=== PATIENT | male | born 1930 | race Caucasian/White ===

== ENCOUNTER 2016-10-01 13:23 | Inpatient (IN) | payer MEDICARE, BC ==
[2016-10-01] MEDS ORDERED: SODIUM CHLORIDE 0.9% 1,000 ML IV STA (13:59)
[2016-10-01] MEDS ORDERED: SODIUM CHLORIDE 0.9% 500 ML IV STA (13:59)
--- NOTE | 2016-10-01 14:02 | ED ---
General Adult HPI - General Chief complaint: Neuro Symptoms/Deficit Stated complaint: Dr Sent/Eye problem/poss Stroke Time Seen by Provider: 10/01/16 13:38 Source: patient, RN notes reviewed, old records reviewed Mode of arrival: wheelchair Limitations: no limitations - History of Present Illness Initial comments: This is an 86-year-old male the ER for evaluation. This patient presents here for evaluation of left eye vision loss. Patient does have history of atrial fibrillation no prior history of stroke. No prior history of heart disease. Patient coming in not on aspirin. Patient was seen by his bacteriology research assistant for evaluation, no ocular cause found for loss of vision, patient was transferred to ER for further evaluation and treatment. Patient remains asymptomatic, no vision issues or vision loss, no field or depth of field losses, no other neurological complaints. - Related Data Home Medications Medication Instructions Recorded Confirmed Folic Acid 2 mg PO DAILY 10/10/14 10/01/16 Meclizine [Antivert] 25 mg PO DAILY PRN 10/10/14 10/01/16 Metoprolol Succinate [Toprol XL] 25 mg PO BID 10/10/14 10/01/16 Montelukast [Singulair] 10 mg PO HS 10/10/14 10/01/16 Omeprazole [PriLOSEC] 20 mg PO AC-BRKFST 10/10/14 10/01/16 Apixaban [Eliquis] 2.5 mg PO BID 02/04/15 10/01/16 Ipratropium Nebulized [Atrovent 0.5 mg INHALATION RT-QID PRN 02/04/15 10/01/16 Nebulized] Spironolactone [Aldactone] 12.5 mg PO QAM 02/04/15 10/01/16 Levalbuterol HCl [Xopenex 1.25 mg INHALATION RT-QID PRN 02/05/15 10/01/16 Nebulized] Calcium Carbonate/Vitamin D3 1 tab PO DAILY 10/01/16 10/01/16 [Calcium 600-Vit D3 200 Tablet] Cholecalciferol [Vitamin D3] 1,000 unit PO DAILY 10/01/16 10/01/16 Furosemide [Lasix] 60 mg PO DAILY 10/01/16 10/01/16 Gluc/Steven-MSM#1/C/Yassine/Juan Miguel/Bor 1 tab PO DAILY 10/01/16 10/01/16 [Glucosamine-Chondroitin Tablet] Levothyroxine Sodium [Synthroid] 175 mcg PO DAILY 10/01/16 10/01/16 Alexandria-3 Fatty Acids [Alexandria-3] 1,000 mg PO DAILY 10/01/16 10/01/16 Allergies Allergy/AdvReac Type Severity Reaction Status Date / Time naproxen [From Naprosyn] Allergy GI BLEED Verified 10/01/16 13:54 Tetracyclines Allergy Unknown Verified 10/01/16 13:54 zomepirac Allergy GI BLEED Verified 10/01/16 13:54 benzocaine [From Cetacaine] AdvReac Nausea & Verified 10/01/16 13:54 Vomiting butamben [From Cetacaine] AdvReac Nausea & Verified 10/01/16 13:54 Vomiting meperidine HCl [From Demerol] AdvReac Nausea & Verified 10/01/16 13:54 Vomiting tetracaine [From Cetacaine] AdvReac Nausea & Verified 10/01/16 13:54 Vomiting duprenex Allergy Nausea & Uncoded 10/01/16 13:36 Vomiting Review of Systems ROS Statement: Those systems with pertinent positive or pertinent negative responses have been documented in the HPI. ROS Other: All systems not noted in ROS Statement are negative. Past Medical History Past Medical History: Atrial Fibrillation, Asthma, Heart Failure, COPD, Diabetes Mellitus, GERD/Reflux, Hypertension, Pneumonia, Thyroid Disorder Additional Past Medical History / Comment(s): 02/05/15 Pt admitted to floor s/p DANY/CVN. 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 Additional hx: vertigo on occasion, past hx. ulcer, diet controlled diabetes, hemolytic anemia, hypothyroidism, History of Any Multi-Drug Resistant Organisms: None Reported Past Surgical History: Appendectomy, Cholecystectomy, Joint Replacement, Orthopedic Surgery Additional Past Surgical History / Comment(s): 02/05/15 DANY/CVN, 10/24/14 bronchoscopy with lavage, 10/24/14 laryngoscopy, right total hip replaced, arthroscopies bilateral knees, R rotator cuff surgery. Past Anesthesia/Blood Transfusion Reactions: Motion Sickness, Postoperative Nausea & Vomiting (PONV) Additional Past Anesthesia/Blood Transfusion Reaction / Comment(s): UNK FAMILY HX.NEVER HAS HAD BLOOD TRANSFUSION Past Psychological History: No Psychological Hx Reported Additional Psychological History / Comment(s): Retired. No service. No animal exposures. 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 Lives with spouse. PT is independent. He uses no assistive device and no home care. He drives a car. Smoking Status: Former smoker Past Alcohol Use History: None Reported Additional Past Alcohol Use History / Comment(s): Pt started smoking in 1964 and quit in 1974. Past Drug Use History: None Reported - Past Family History Mother Family Medical History: CVA/TIA Father Family Medical History: Hypertension General Exam - General Exam Comments Initial Comments: NIH of 0 Limitations: no limitations General appearance: alert, in no apparent distress Head exam: Present: atraumatic, normocephalic, normal inspection Eye exam: Present: normal appearance, PERRL, EOMI. Absent: scleral icterus, conjunctival injection, periorbital swelling ENT exam: Present: normal exam, mucous membranes moist Neck exam: Present: normal inspection. Absent: tenderness, meningismus, lymphadenopathy Respiratory exam: Present: normal lung sounds bilaterally. Absent: respiratory distress, wheezes, rales, rhonchi, stridor Cardiovascular Exam: Present: regular rate, normal rhythm, normal heart sounds. Absent: systolic murmur, diastolic murmur, rubs, gallop, clicks GI/Abdominal exam: Present: soft, normal bowel sounds. Absent: distended, tenderness, guarding, rebound, rigid Extremities exam: Present: normal inspection, full ROM, normal capillary refill. Absent: tenderness, pedal edema, joint swelling, calf tenderness Back exam: Present: normal inspection Neurological exam: Present: alert, oriented X3, CN II-XII intact Psychiatric exam: Present: normal affect, normal mood Skin exam: Present: warm, dry, intact, normal color. Absent: rash Course Vital Signs 10/01/16 10/01/16 13:32 15:26 Temperature 97.4 F L Pulse Rate 53 L 49 L Respiratory 17 18 Rate Blood Pressure 130/58 139/79 O2 Sat by Pulse 97 94 L Oximetry - Reevaluation(s) Reevaluation #1: 10/01/16 15:43 Patient remains without visual symptom at this time EKG Findings - EKG Comments: EKG Findings:: EKG shows sinus bradycardia rate of 54, SC 246, QRS 154, QTc 440 Medical Decision Making - Lab Data Result diagrams: 10/01/16 15:01 10/01/16 15:01 Lab Results 10/01/16 10/01/16 Range/Units 15:01 15:01 WBC 4.5 (3.8-10.6) k/uL RBC 3.43 L (4.30-5.90) m/uL Hgb 11.8 L (13.0-17.5) gm/dL Hct 35.3 L (39.0-53.0) % MCV 103.0 H (80.0-100.0) fL MCH 34.5 (25.0-35.0) pg MCHC 33.5 (31.0-37.0) g/dL RDW 13.9 (11.5-15.5) % Plt Count 155 (150-450) k/uL Neutrophils % 73 % Lymphocytes % 19 % Monocytes % 4 % Eosinophils % 2 % Basophils % 0 % Neutrophils # 3.3 (1.3-7.7) k/uL Lymphocytes # 0.9 L (1.0-4.8) k/uL Monocytes # 0.2 (0-1.0) k/uL Eosinophils # 0.1 (0-0.7) k/uL Basophils # 0.0 (0-0.2) k/uL Macrocytosis Slight Sodium 138 (137-145) mmol/L Potassium 4.3 (3.5-5.1) mmol/L Chloride 101 (98-107) mmol/L Carbon Dioxide 28 (22-30) mmol/L Anion Gap 9 mmol/L BUN 21 H (9-20) mg/dL Creatinine 0.80 (0.66-1.25) mg/dL Est GFR (MDRD) Af Amer >60 (>60 ml/min/1.73 sqM) Est GFR (MDRD) Non-Af >60 (>60 ml/min/1.73 sqM) Glucose 143 H (74-99) mg/dL Calcium 8.8 (8.4-10.2) mg/dL Phosphorus 3.9 (2.5-4.5) mg/dL Magnesium 2.0 (1.6-2.3) mg/dL Total Bilirubin 4.4 H (0.2-1.3) mg/dL AST 29 (17-59) U/L ALT 41 (21-72) U/L Alkaline Phosphatase 73 (38-126) U/L Total Protein 6.4 (6.3-8.2) g/dL Albumin 4.2 (3.5-5.0) g/dL Critical Care Time Critical Care Time: Yes Total Critical Care Time: 31 Disposition Clinical Impression: Transient cerebral ischemia, Amaurosis fugax of left eye Disposition: ADMITTED IP TO THIS [facility] Condition: Good Referrals: Barrington Ojeda MD [Primary Care Provider] - 1-2 days
[2016-10-01 15:12] LABS: Basophils % (A) 0 %; CH 35.2; CHCM 34.4; Eosinophils # (A) 0.1 k/uL (0-0.7); Eosinophils % (A) 2 %; HCT 35.3 % (39.0-53.0); HDW 2.74; HGB 11.8 gm/dL (13.0-17.5); Luc # (Auto) 0.05; Luc % (Auto) 1; Lymphocytes # (A) 0.9 k/uL (1.0-4.8); Lymphocytes % (A) 19 %; MCH 34.5 pg (25.0-35.0); MCHC 33.5 g/dL (31.0-37.0); Macrocytosis Slight; Mean Platelet Volume 8.9; Monocytes # (A) 0.2 k/uL (0-1.0); Monocytes % (A) 4 %; Neutrophils # (A) 3.3 k/uL (1.3-7.7); Neutrophils % (A) 73 %; RBC 3.43 m/uL (4.30-5.90); RDW 13.9 % (11.5-15.5); WBC 4.5 k/uL (3.8-10.6); WBC (Perox) 4.68
--- NOTE | 2016-10-01 15:18 | CT ---
EXAMINATION TYPE: CT brain wo con DATE OF EXAM: 10/01/2016 3:14 PM COMPARISON: NONE HISTORY: Left sided vision loss yesterday CT DLP: [address] of the brain was performed. The ventricles, basal cisterns and sulci overlying the cerebral convexities demonstrate mild enlargem ent. There is no evidence for intracranial hemorrhage or sulcal effacement. There is decreased attenuation about the periventricular white matter and deep white matter of both c erebral hemispheres, compatible with chronic small vessel ischemia. Differential diagnosis does inclu de demyelination. No mass effects are seen.No midline shift. Osseous calvarium is intact. If symptoms persist consider MRI. IMPRESSION: 1. Age related atrophic and chronic small vessel ischemic change without acute intracranial process s een at this time.
[2016-10-01 15:21] LABS: ALT 41 U/L (21-72); AST 29 U/L (17-59); Alkaline Phosphatase 73 U/L (38-126); Anion Gap 9 mmol/L; Blood Urea Nitrogen 21 mg/dL (9-20); Calcium 8.8 mg/dL (8.4-10.2); Carbon Dioxide 28 mmol/L (22-30); Chloride 101 mmol/L (98-107); Glucose 143 mg/dL (74-99); Non-African American GFR(MDRD) >60 (>60 ml/min/1.73 sqM); Phosphorous 3.9 mg/dL (2.5-4.5); Potassium 4.3 mmol/L (3.5-5.1); Sodium 138 mmol/L (137-145); Total Bilirubin 4.4 mg/dL (0.2-1.3); Total Protein 6.4 g/dL (6.3-8.2)
[2016-10-01 15:31] LABS: Creatine Kinase 107 U/L (55-170)
[2016-10-01] MEDS ORDERED: ASPIRIN 325 MG TAB PO STA (15:33)
[2016-10-01 15:34] LABS: Partial Thromboplastin Time 24.7 sec (22.0-30.0); Prothrombin Time 10.5 sec (9.0-12.0)
[2016-10-01 15:45] LABS: Troponin I <0.012 ng/mL (0.000-0.034)
[2016-10-01 15:50] LABS: Creatine Kinase MB 3.3 ng/mL (0.0-2.4)
--- NOTE | 2016-10-01 16:26 | US ---
EXAMINATION TYPE: US carotid duplex BILAT DATE OF EXAM: 10/01/2016 4:10 PM COMPARISON: NONE CLINICAL HISTORY: Stenosis, patient lost vision in one eye. EXAM MEASUREMENTS: RIGHT: Peak Systolic Velocity (PSV) cm/sec ----- Right CCA: 78.1 ----- Right ICA: 84.2 ----- Right ECA: 73.4 ICA/CCA ratio: 1.1 RIGHT: End Diastole cm/sec ----- Right CCA: 13.6 ----- Right ICA: 13.6 ----- Right ECA: 0.0 LEFT: Peak Systolic Velocity (PSV) cm/sec ----- Left CCA: 98.6 ----- Left ICA: 71.5 ----- Left ECA: 76.5 ICA/CCA ratio: 0.7 LEFT: End Diastole cm/sec ----- Left CCA: 17.1 ----- Left ICA: 17.5 ----- Left ECA: 9.9 VERTEBRALS (direction of flow): Right Vertebral: Antegrade Left Vertebral: Antegrade IMPRESSION: Mild to moderate plaque with no significant velocity elevations Criteria for Assigning % of Stenosis / Diameter reduction (Estimation based on the indirect measurements of the internal carotid artery velocities (ICA PSV). 1. Normal (no stenosis)=ICA PSV < 125 cm/s: ratio < 2.0: ICA EDV<40 cm/s. 2. Less than 50% stenosis=ICA PSV < 125 cm/s: ratio < 2.0: ICA EDV<40 cm/s. 3. 50 to 69% stenosis=ICA PSV of 125 to 230 cm/s: ration 2.0 ? 4.0: ICA EDV 40-100 cm/s. 4. Greater than 70% stenosis to near occlusion= ICA PSV > 230 cm/s: ratio > 4.0: ICA EDV > 100 cm/s. 5. Near occlusion= ICA PSV velocities may be low or undetectable: variable ratio and ICA EDV. 6. Total occlusion=unable to detect flow.
[2016-10-01] MEDS: SODIUM CHLORIDE 0.9% 1,000 ML IV SCH (17:41)
[2016-10-01] MEDS ORDERED: LEVALBUTEROL NEB 1.25 MG/3 ML AMP INHALATION PRN (20:45)
[2016-10-01] MEDS ORDERED: IPRATROPIUM 0.5 MG/2.5 ML NEBU INHALATION PRN (20:45)
[2016-10-01] MEDS ORDERED: MECLIZINE 25 MG TAB PO PRN (20:45)
[2016-10-01 20:55] LABS: Glucose,Whole Blood 133 mg/dL (75-99)
[2016-10-01] MEDS: METOPROLOL SUCCINATE (ER) 25 MG TAB.ER.24H PO SCH (22:02)
[2016-10-01] MEDS: APIXABAN 2.5 MG TABLET PO SCH (22:03)
[2016-10-01] MEDS: ATORVASTATIN 80 MG TAB PO SCH (22:03)
[2016-10-01] MEDS: MONTELUKAST 10 MG TAB PO SCH (22:04)
[2016-10-02 06:14] LABS: Glucose,Whole Blood 115 mg/dL (75-99)
[2016-10-02] MEDS: PANTOPRAZOLE 40 MG TABLET PO SCH (06:39)
--- NOTE | 2016-10-02 08:44 | ECHOF ---
Referral Reason:Thrombus MEASUREMENTS -------- HEIGHT: 180.3 cm WEIGHT: 88.5 kg BP: IVSd: 1.3 cm (0.6 - 1.1) LVIDd: 4.1 cm (3.9 - 5.3) LVPWd: 1.5 cm (0.6 - 1.1) IVSs: 2.1 cm LVIDs: 2.7 cm LVPWs: 2.0 cm Ao Diam: 4.2 cm (2.0 - 3.7) AV Cusp: 2.5 cm (1.5 - 2.6) LA Diam: 3.4 cm (2.7 - 3.8) MV EXCURSION: 23.037 mm (> 18.000) MV EF SLOPE: 128 mm/s (70 - 150) EPSS: 0.4 cm MV E Oliver: 0.56 m/s MV DecT: 303 ms MV A Oliver: 0.73 m/s MV E/A Ratio: 0.76 RAP: 5.00 mmHg RVSP: 12.99 mmHg FINDINGS -------- Resting bradycardia (HR<60bpm). This was a technically good study. There is mild concentric left ventricular hypertrophy. Overall left ventricular systolic function is low-normal with, an EF between 50 - 55 %. The right ventricle is normal in size and function. The left atrium is normal in size. The right atrium is normal in size. Aortic valve is trileaflet and is mildly thickened. The mitral valve leaflets are mildly thickened. Mild mitral regurgitation is present. Mild tricuspid regurgitation present. The right ventricular systolic pressure, as measured by Doppler, is 12.99mmHg. Pulmonic valve appears structurally normal. The pericardium is normal. CONCLUSIONS -------- 1. Resting bradycardia (HR<60bpm). 2. Mild mitral regurgitation is present. 3. Mild tricuspid regurgitation present. 4. The right ventricular systolic pressure, as measured by Doppler, is 12.99mmHg. 5. Pulmonic valve appears structurally normal. 6. The pericardium is normal. 7. This was a technically good study. 8. There is mild concentric left ventricular hypertrophy. 9. Overall left ventricular systolic function is low-normal with, an EF between 50 - 55 %. 10. The right ventricle is normal in size and function. 11. The left atrium is normal in size. 12. The right atrium is normal in size. 13. Aortic valve is trileaflet and is mildly thickened. 14. The mitral valve leaflets are mildly thickened. PLUMBER APPRENTICE: Ashley Villalta RDCS
[2016-10-02] MEDS: SPIRONOLACTONE 25 MG TAB PO SCH (09:01)
[2016-10-02] MEDS: FOLIC ACID 1 MG TAB PO SCH (09:02)
[2016-10-02] MEDS: CHOLECALCIFEROL 1,000 UNIT TAB PO SCH (09:02)
[2016-10-02] MEDS: ASPIRIN 325 MG TAB PO SCH (09:02)
[2016-10-02] MEDS: FUROSEMIDE 20 MG TAB PO SCH (09:02)
[2016-10-02] MEDS: APIXABAN 2.5 MG TABLET PO SCH ×2 (09:02→20:10)
[2016-10-02] MEDS: LEVOTHYROXINE 75 MCG TAB PO SCH (09:03)
[2016-10-02] MEDS: LEVOTHYROXINE 100 MCG TAB PO SCH (09:03)
[2016-10-02] MEDS: CALCIUM CARB-VIT D 500MG-200UN 1 EACH TAB PO SCH (09:03)
[2016-10-02] MEDS: METOPROLOL SUCCINATE (ER) 25 MG TAB.ER.24H PO SCH ×3 (09:04→20:10)
[2016-10-02 11:55] LABS: Hemoglobin A1C 5.3 % (4.2-6.1)
[2016-10-02 12:00] LABS: Glucose,Whole Blood 110 mg/dL (75-99)
--- NOTE | 2016-10-02 12:58 | CONS ---
DATE OF CONSULTATION: This is an 86-year-old gentleman who came to the ER with history of blurry vision left eye. Patient went to see Dr. Kimbrough and patient was sent to the emergency room and was admitted. This blurry vision lasted for less than 10 minutes and patient had complete recovery. There is no evidence of any motor deficit. Patient had a CT scan of the head which was no acute bleeding noted. Patient had ultrasound of the carotids which showed no critical stenosis. MEDICAL HISTORY: History of A. fib on Eliquis, history of diabetes controlled with diet. SURGICAL HISTORY: Patient had a hip surgery done in the past. On examination, patient was seen in his room. His vitals are stable. Lying comfortably in bed. His neck is supple. No bruit appreciated. Chest is clear on auscultation. Abdomen is soft, nontender. VASCULAR EXAMINATION: Brachial, radial and femoral pulses are present. CENTRAL NERVOUS SYSTEM: Patient has ( ) motor function of upper and lower extremity. Plan is ( ) Eliquis. We will antiplatelet therapy. At this point, ultrasound no critical stenosis noted. Patient is scheduled to have echocardiogram and neurology consult. Will follow with you.
--- NOTE | 2016-10-02 14:34 | P.CNNES ---
History of Present Illness Consult date: 10/02/16 Reason for Consult: Patient with amaurosis fugax left eye and TIA. History of Present Illness: This patient is a 86-year-old right-handed white male who was in his usual state of health until evening. Patient was at home with his and apparently was reading a book and noted that he was having difficulty seeing out of his left eye. Apparently he became very blurred and he describes it as if there was a shade pulled down over the eye that caused him to lose vision in the left eye for at least 5 minutes in duration. He continued to monitor this closely at home. Since the vision returned he did not go to the emergency room for further evaluation. The next day he was seen by his black top paver operator Dr. Kimbrough who did a complete eye examination. His eye exam was entirely normal. He was advised to follow-up with his primary care physician. His primary care physician Dr. Dietz recommended that he go to the emergency room for further evaluation. Patient has a known history of underlying atrial fibrillation. He has been treated for his atrial fib and is currently taking Eloquis for long- term anticoagulation. He has not had any recent TIA or strokelike symptoms. He denies any previous history of stroke. He has not missed his anticoagulant medication as he does take it twice a day. He does follow with his cadd manager Dr. Pollack and apparently had a good evaluation recently. Patient mentions he also has a history of adverse reaction to Coumadin and aspirin in the past. Apparently had hematuria and bleeding when he was initially started on Coumadin. He has been taking Eloquis for the past 1 year. He has not had any bleeding problems on this medication. Patient mentions he also was diagnosed with hemolytic anemia in the past. He does take folate acid and monitored his blood counts on a regular basis with his lacquer shader. The patient was admitted to the hospital for possible TIA and amaurosis fugax involving the left eye. He did undergo a computed tomography scan of the brain yesterday in the ER which revealed age related atrophy and chronic small vessel ischemic changes. There was no evidence of acute stroke. He underwent a carotid Doppler ultrasound which revealed mild to moderate plaque formation bilaterally. The patient was seen by vascular surgery today. No surgical intervention is recommended at this time. The patient has had no further recurrence of visual changes involving his left eye since admission. We would recommend that he follow-up with his cadd manager in regards to his anticoagulant medication. He may benefit from the addition of one baby aspirin if he is not at risk of bleeding. The patient at this time has had no further recurrence and remains asymptomatic. Neurology is now been consulted for further evaluation and recommendations. Review of Systems Constitutional: Reports as per HPI Eyes: denies blurred vision, denies pain Ears, nose, mouth and throat: Denies headache, Denies sore throat Cardiovascular: Denies chest pain, Denies shortness of breath Respiratory: Denies cough Gastrointestinal: Denies abdominal pain, Denies diarrhea, Denies nausea, Denies vomiting Musculoskeletal: Denies myalgias Integumentary: Denies pruritus, Denies rash Neurological: Reports loss of vision, Denies numbness, Denies weakness Psychiatric: Denies anxiety, Denies depression Endocrine: Denies fatigue, Denies weight change Past Medical History Past Medical History: Atrial Fibrillation, Asthma, Heart Failure, COPD, Diabetes Mellitus, GERD/Reflux, Hypertension, Pneumonia, Thyroid Disorder Additional Past Medical History / Comment(s): 02/05/15 DANY/CVN. 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 ulcer, diet controlled diabetes, hemolytic anemia, hypothyroidism deviated septum(had sx) History of Any Multi-Drug Resistant Organisms: None Reported Past Surgical History: Appendectomy, Cholecystectomy, Joint Replacement, Orthopedic Surgery Additional Past Surgical History / Comment(s): 02/05/15 DANY/CVN, 10/24/14 bronchoscopy with lavage, 10/24/14 laryngoscopy, right total hip replaced, arthroscopies bilateral knees, R rotator cuff surgery. sx for deviated septum, karlene cataracts Past Anesthesia/Blood Transfusion Reactions: Motion Sickness, Postoperative Nausea & Vomiting (PONV) Additional Past Anesthesia/Blood Transfusion Reaction / Comment(s): UNK FAMILY HX.NEVER HAS HAD BLOOD TRANSFUSION Past Psychological History: No Psychological Hx Reported Additional Psychological History / Comment(s): Retired. No service. No animal exposures. 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 Lives with spouse. PT is independent. He uses no assistive device and no home care. He drives a car. Smoking Status: Former smoker Past Alcohol Use History: None Reported Additional Past Alcohol Use History / Comment(s): Pt started smoking in 1964 and quit in 1974. Past Drug Use History: None Reported - Past Family History Mother Family Medical History: CVA/TIA Father Family Medical History: Hypertension Medications and Allergies Home Medications Medication Instructions Recorded Confirmed Type Folic Acid 2 mg PO DAILY 10/10/14 10/01/16 History Meclizine [Antivert] 25 mg PO DAILY PRN 10/10/14 10/01/16 History Metoprolol Succinate [Toprol XL] 25 mg PO BID 10/10/14 10/01/16 History Montelukast [Singulair] 10 mg PO HS 10/10/14 10/01/16 History Omeprazole [PriLOSEC] 20 mg PO AC-BRKFST 10/10/14 10/01/16 History Apixaban [Eliquis] 2.5 mg PO BID 02/04/15 10/01/16 History Ipratropium Nebulized [Atrovent 0.5 mg INHALATION RT-QID PRN 02/04/15 10/01/16 History Nebulized] Spironolactone [Aldactone] 12.5 mg PO QAM 02/04/15 10/01/16 History Levalbuterol HCl [Xopenex 1.25 mg INHALATION RT-QID PRN 02/05/15 10/01/16 History Nebulized] Calcium Carbonate/Vitamin D3 1 tab PO DAILY 10/01/16 10/01/16 History [Calcium 600-Vit D3 200 Tablet] Cholecalciferol [Vitamin D3] 1,000 unit PO DAILY 10/01/16 10/01/16 History Furosemide [Lasix] 60 mg PO DAILY 10/01/16 10/01/16 History Gluc/Steven-MSM#1/C/Yassine/Juan Miguel/Bor 1 tab PO DAILY 10/01/16 10/01/16 History [Glucosamine-Chondroitin Tablet] Levothyroxine Sodium [Synthroid] 175 mcg PO DAILY 10/01/16 10/01/16 History [place]-3 Fatty Acids [Winger-3] 1,000 mg PO DAILY 10/01/16 10/01/16 History Allergies Allergy/AdvReac Type Severity Reaction Status Date / Time naproxen [From Naprosyn] Allergy GI BLEED Verified 10/01/16 13:54 Tetracyclines Allergy Unknown Verified 10/01/16 13:54 zomepirac Allergy GI BLEED Verified 10/01/16 13:54 benzocaine [From Cetacaine] AdvReac Nausea & Verified 10/01/16 13:54 Vomiting butamben [From Cetacaine] AdvReac Nausea & Verified 10/01/16 13:54 Vomiting meperidine HCl [From Demerol] AdvReac Nausea & Verified 10/01/16 13:54 Vomiting tetracaine [From Cetacaine] AdvReac Nausea & Verified 10/01/16 13:54 Vomiting duprenex Allergy Nausea & Uncoded 10/01/16 13:36 Vomiting Physical Examination - Vital Signs Vital Signs: Vital Signs Temp Pulse Pulse Resp BP BP Pulse Ox 10/02/16 12:01 60 10/02/16 12:00 56 L 17 128/73 95 10/02/16 11:50 60 10/02/16 09:15 96 10/02/16 08:00 98.1 F 55 L 18 120/59 95 10/02/16 04:00 97.1 F L 52 L 18 126/64 96 10/02/16 00:00 97.1 F L 52 L 18 143/78 95 10/01/16 20:00 98.0 F 50 L 18 121/63 95 10/01/16 17:52 18 10/01/16 17:29 97.4 F L 52 L 18 145/63 94 L 10/01/16 16:39 52 L 18 145/63 94 L Intake and Output 10/01/16 10/02/16 10/02/16 22:59 06:59 14:59 Intake Total 36 480 Balance 36 480 Intake: Oral 36 480 Other: Voiding Method Toilet Toilet # Voids 1 1 # Bowel Movements 0 Weight 195.6 kg 88.2 kg - Constitutional General appearance: average body habitus, cooperative - EENT EENT: PERRL, mucous membranes moist - Respiratory Respiratory: lungs clear, normal breath sounds - Cardiovascular Cardiovascular: regular rate, normal S1, normal S2 Extremities: no peripheral edema bilaterally - Gastrointestinal Gastrointestinal: normoactive bowel sounds - Integumentary Integumentary: normal - Neurologic Cranial nerve examination: PERRL, EOMI, VFF, V1/V2/V3 grossly intact, face symmetric, tongue midline, intact gag reflex, intact corneal reflex, normal palatal elevation Speech examination: intact Sensorimotor examination: intact Detailed motor examination: grossly full strength in all extremities Motor examination - right side: 5/5: biceps, triceps, wrist flexion, wrist extension, wind turbine machinist, hip flexors, knee extensors, dorsiflexion, toe extension (EHL) , plantarflexion Motor examination - left side: 5/5: biceps, triceps, wrist flexion, wrist extension, wind turbine machinist, hip flexors, knee extensors, dorsiflexion, toe extension (EHL) , plantarflexion Detailed sensory examination: intact Reflex and gait examination: intact Reflexes: 1+: ankle, bicep, knee, tricep - Musculoskeletal Musculoskeletal: no pain - Psychiatric Psychiatric: mood/affect appropriate, cooperative Results - Laboratory Findings CBC and BMP: 10/01/16 15:01 10/01/16 15:01 Abnormal Lab Findings: Abnormal Labs 10/01/16 10/02/16 10/02/16 20:54 06:13 11:48 POC Glucose (mg/dL) 133 H 115 H 110 H Assessment and Plan (1) Amaurosis fugax of left eye Status: Acute Code(s): G45.3 - AMAUROSIS FUGAX (2) TIA (transient ischemic attack) Status: Acute Code(s): G45.9 - TRANSIENT CEREBRAL ISCHEMIC ATTACK, UNSPECIFIED (3) Atrial fibrillation Status: Acute Code(s): I48.91 - UNSPECIFIED ATRIAL FIBRILLATION (4) Hemolytic anemia Status: Acute Code(s): D58.9 - HEREDITARY HEMOLYTIC ANEMIA, UNSPECIFIED Plan: This patient is a 86-year-old right-handed white male was admitted to hospital yesterday with an episode of amaurosis fugax involving his left eye. Patient was at home night and was reading a book when he lost vision in his left eye. This lasted for approximately 5 minutes and returned to her normal vision. He was seen in the ophthalmology clinic the next day and was referred to the emergency room. He was seen in the ER yesterday and underwent a computed tomography scan of the brain. CAT scan of the brain revealed age- related atrophy and chronic small vessel ischemic change. No evidence of acute stroke or hemorrhage. Patient underwent carotid Doppler ultrasound which revealed mild to moderate plaque formation with no significant velocity elevations. He was seen by vascular surgery today and recommendations are noted. Patient has a long-standing history of chronic atrial fibrillation. He has been taking Eloquis on a regular basis for the past 1 year. He was intolerant of Coumadin and aspirin in the past. His neurological examination at this time is nonfocal. This patient has had an episode of acute TIA specifically an episode of amaurosis fugax involving his left eye. He was seen by ophthalmology with normal eye exam on Tuesday. At this time he should be maintained on his anticoagulant for treatment of his atrial fibrillation. Would recommend to discuss with cardiology whether the patient may benefit from the addition of one baby aspirin to his current dose of Eloquis. Patient has a history of adverse response to Coumadin and aspirin in the past. His neurological examination at this time is nonfocal. We will continue to monitor his progress closely and will await further recommendations from other specialists. His overall prognosis at this time remains guarded. Time with Patient: Greater than 30
[2016-10-02 16:43] LABS: Glucose,Whole Blood 119 mg/dL (75-99)
[2016-10-02] MEDS: SODIUM CHLORIDE 0.9% 1,000 ML IV SCH (16:53)
[2016-10-02] MEDS: ATORVASTATIN 80 MG TAB PO SCH (20:10)
[2016-10-02] MEDS: MONTELUKAST 10 MG TAB PO SCH (20:10)
[2016-10-02 20:53] LABS: Glucose,Whole Blood 139 mg/dL (75-99)
[2016-10-03 06:13] LABS: Glucose,Whole Blood 119 mg/dL (75-99)
[2016-10-03] MEDS: PANTOPRAZOLE 40 MG TABLET PO SCH (06:32)
--- NOTE | 2016-10-03 08:11 | HP ---
DATE OF ADMISSION: DATE OF SERVICE: 10/02/2016 CHIEF COMPLAINT: Loss of vision for a few minutes. HISTORY OF PRESENT ILLNESS: Mr. Alamo is an 86-year-old male with a past medical history of atrial fibrillation, asthma, COPD, diabetes mellitus, hypertension coming in the chief complaint of having difficulty in seeing from his left eye. The patient states he was reading a book on night when he had blurring of his vision and he said that he has complete loss of vision in his left eye for at least 5 minutes. Since his vision was normal he did not seek any medical attention. The next day he was seen by his highway truck driver Dr. Kimbrough and was advised to follow up with his PCP. On seeing his PCP, Dr. Ojeda, he recommended that the patient be sent to the ER. Patient does have history of atrial fibrillation and is on Eliquis for long-term anticoagulation. Except for the loss of vision the patient states that he did not have any slurring of speech, headaches, loss of consciousness, any weakness of his lower extremities, no facial droop. The patient has history of GI bleed and hematuria in the past when he was on Coumadin for his atrial fibrillation. As a part of evaluation for transient ischemic attack/stroke, the patient did have a CT of his brain that showed age-related hypertrophy and also the echocardiogram and carotid artery Doppler that are all within normal limits for his age. Currently, the patient is completely asymptomatic, lying in his bed, appears to be in no acute distress. REVIEW OF SYSTEMS: All 13 review of systems are done and negative except for ones mentioned in the HPI. PAST MEDICAL HISTORY: Significant for atrial fibrillation, asthma/chronic obstructive pulmonary disease, hypertension, heart failure, thyroid disorder. PAST SURGICAL HISTORY: Appendectomy, cholecystectomy, orthopedic surgery. ALLERGIES: NAPROXEN, TETRACYCLINE, ZOMEPIRAC, BENZOCAINE, BUTAMBEN, MEPERIDINE, TETRACAINE. Patient's home medications: 1. Singulair 10 mg p.o. q.h.s. 2. Metoprolol 25 mg b.i.d. 3. Folic acid 2 mg p.o. daily. 4. Omeprazole 20 mg before breakfast. 5. Meclizine 25 mg p.o. daily. 6. Spironolactone 12.5 mg p.o. q.a.m. 7. Eliquis 2.5 mg p.o. b.i.d. 8. Albuterol, Atrovent breathing treatments. 9. Vitamin D3, 1000 units p.o. daily. 10. Calcium carbonate 1 tablet p.o. daily. 11. [place]-3 fatty acids 1 capsule p.o. daily. 12. Glucosamine/chondroitin sulfate supplements 1 tablet p.o. daily. 13. Lasix 60 mg p.o. daily. 14. Levothyroxine 175 mcg p.o. daily SOCIAL HISTORY: From smoker, smoked for almost 10 years, quit in 1974. Occasional alcohol use. No history of drug abuse. FAMILY HISTORY: Positive for stroke. On examination, patient's vitals: Temperature 96.9, heart rate 55, respiratory rate 16, blood pressure 105/61, saturating at 94% on room air. GENERAL EXAMINATION: Patient is an elderly gentleman lying in bed, appears to be no acute distress. HEAD: Atraumatic, normocephalic. EYES: Pupils, round, and reactive to light. No pallor. No icterus. NECK: No JVD. No thyromegaly. CARDIOVASCULAR: S1, S2 heard. RESPIRATORY: Bilateral breath sounds are positive. No wheeze or crackles. GI: Abdomen soft, nontender. Bowel sounds are positive. EXTREMITIES: No edema. No cyanosis, no clubbing. Peripheral pulses are felt. COMMUNICATIONS ASSOCIATE: Alert, awake and tender x3. No focal neurological deficits. PSYCHIATRIC: Appropriate mood and affect. SKIN: No rash. MUSCULOSKELETAL: No joint swelling or deformity. Patient's labs: No new labs from this morning. Labs from yesterday; white count 4.5, hemoglobin 11.8, platelets 155, sodium 138, potassium 4.3, chloride 101, bicarb 28, BUN 21, creatinine 0.8. Troponin less than 0.012. ASSESSMENT AND PLAN: 1. Amaurosis fugax of the left eye. 2. Transient ischemic attack. 3. Atrial fibrillation. 4. History of chronic obstructive pulmonary disease. 5. History of gastroesophageal reflux disease. 6. History of hypertension. 7. Type 2 diabetes mellitus, [id number]. PLAN: So far the patient's work-up for stroke/TIA has been negative. Neurology has been consulted and suggested if the patient would be benefited by a baby aspirin to be added to his current dose of Eliquis. Continue with the current medication regimen and further recommendations to follow depending on the progress of the patient. MTDD
[2016-10-03] MEDS: FUROSEMIDE 20 MG TAB PO SCH (08:24)
[2016-10-03] MEDS: CALCIUM CARB-VIT D 500MG-200UN 1 EACH TAB PO SCH (08:25)
[2016-10-03] MEDS: LEVOTHYROXINE 100 MCG TAB PO SCH (08:25)
[2016-10-03] MEDS: CHOLECALCIFEROL 1,000 UNIT TAB PO SCH (08:25)
[2016-10-03] MEDS: FOLIC ACID 1 MG TAB PO SCH (08:25)
[2016-10-03] MEDS: LEVOTHYROXINE 75 MCG TAB PO SCH (08:25)
[2016-10-03] MEDS: SPIRONOLACTONE 25 MG TAB PO SCH (08:25)
[2016-10-03] MEDS: APIXABAN 2.5 MG TABLET PO SCH (08:26)
[2016-10-03] MEDS: ASPIRIN 325 MG TAB PO SCH (08:26)
[2016-10-03 08:37] VITALS: RESP 17; TEMP 97.1
[2016-10-03] MEDS: METOPROLOL SUCCINATE (ER) 25 MG TAB.ER.24H PO SCH (09:37)
--- NOTE | 2016-10-03 11:37 | P.PN ---
Subjective This patient is a 86-year-old male admitted yesterday with episode of amaurosis fugax involving his left eye. He is been doing well after admission to the hospital for further evaluation yesterday. He underwent a carotid Doppler ultrasound which was reviewed by vascular surgery and Dr. Bhatti. Patient has a known history of chronic atrial fibrillation for which she is taking Eloquis for long-term anticoagulation. Given this recent episode of possible TIA he is to refer to his spanish tutor about the possibility of adding one baby aspirin for long-term anticoagulation. His computed tomography scan of the brain failed to reveal any evidence of acute stroke. He has had no further episodes of recurrent visual loss in the left eye. Patient is to follow-up with his spanish tutor Dr. francis on regarding any further addition to his current dose of Eloquis. Patient will contact him soon after discharge home. He is being evaluated for possible discharge to home later today and should follow-up with this primary care physician next week. We will continue close neurological follow-up for the patient. Objective - Vital Signs Vital signs: Vital Signs Temp 97.1 F L 10/03/16 08:00 Pulse 59 L 10/03/16 08:00 Resp 17 10/03/16 08:00 BP 123/65 10/03/16 08:00 Pulse Ox 96 10/03/16 08:00 Intake & Output 10/02/16 10/03/16 10/03/16 18:59 06:59 18:59 Intake Total 720 600 240 Balance 720 600 240 Weight 88.2 kg Intake: Oral 720 600 240 Other: Voiding Method Toilet # Voids 1 1 1 # Bowel Movements 0 0 - Exam Physical examination: PHYSICAL EXAMINATION: Patient is resting comfortably in bed. VITAL SIGNS: Blood pressure is [123/65]. Heart rate is [59]. Respiration is [17] . Temperature is [97.1]. HEENT: Head is atraumatic, neck is supple, there were no carotid bruits. CHEST: Lungs are clear to auscultation and percussion. CARDIAC: S1, S2 normal rate and rhythm. There is no murmur. ABDOMEN: Soft and nontender. Bowel sounds are present. EXTREMITIES: There is no pedal edema. Peripheral pulses are present. Neurological examination: Patient has a normal neurological examination today. He has no evidence of any recurrent vision loss in the left eye. - Labs CBC & Chem 7: 10/01/16 15:01 10/01/16 15:01 Labs: Abnormal Lab Results - Last 24 Hours (Table) 10/02/16 10/02/16 10/02/16 Range/Units 11:48 16:37 20:52 POC Glucose (mg/dL) 110 H 119 H 139 H (75-99) mg/dL 10/03/16 Range/Units 06:12 POC Glucose (mg/dL) 119 H (75-99) mg/dL Assessment and Plan (1) Amaurosis fugax of left eye Status: Acute Code(s): G45.3 - AMAUROSIS FUGAX (2) TIA (transient ischemic attack) Status: Acute Code(s): G45.9 - TRANSIENT CEREBRAL ISCHEMIC ATTACK, UNSPECIFIED (3) Atrial fibrillation Status: Acute Code(s): I48.91 - UNSPECIFIED ATRIAL FIBRILLATION (4) Hemolytic anemia Status: Acute Code(s): D58.9 - HEREDITARY HEMOLYTIC ANEMIA, UNSPECIFIED Plan: This patient is a 86-year-old right-handed white male was admitted to hospital yesterday with an episode of amaurosis fugax involving his left eye. Patient was at home night and was reading a book when he lost vision in his left eye. This lasted for approximately 5 minutes and returned to her normal vision. He was seen in the ophthalmology clinic the next day and was referred to the emergency room. He was seen in the ER yesterday and underwent a computed tomography scan of the brain. CAT scan of the brain revealed age- related atrophy and chronic small vessel ischemic change. No evidence of acute stroke or hemorrhage. Patient underwent carotid Doppler ultrasound which revealed mild to moderate plaque formation with no significant velocity elevations. He was seen by vascular surgery today and recommendations are noted. Patient has a long-standing history of chronic atrial fibrillation. He has been taking Eloquis on a regular basis for the past 1 year. He was intolerant of Coumadin and aspirin in the past. His neurological examination at this time is nonfocal. This patient has had an episode of acute TIA specifically an episode of amaurosis fugax involving his left eye. He was seen by ophthalmology with normal eye exam on Tuesday. At this time he should be maintained on his anticoagulant for treatment of his atrial fibrillation. Would recommend to discuss with cardiology whether the patient may benefit from the addition of one baby aspirin to his current dose of Eloquis. Patient has a history of adverse response to Coumadin and aspirin in the past. Patient will discuss further with his spanish tutor regarding use of aspirin in conjunction with his current dose of Eloquis. His neurological examination at this time is nonfocal. We will continue to monitor his progress closely and will await further recommendations from other specialists. Patient is being evaluated for possible discharge home later today. He should follow-up with his primary care physician and spanish tutor next week. His overall prognosis at this time remains guarded.
[2016-10-03 12:00] LABS: Glucose,Whole Blood 111 mg/dL (75-99)
[2016-10-03 12:29] VITALS: BP 115/68; PULSE 55
--- NOTE | 2016-10-04 21:28 | DS ---
DATE OF ADMISSION: 10/01/2016 DATE OF DISCHARGE: 10/03/2016 HOSPITAL COURSE: Mr. Alamo is an 86-year-old male with a past medical history of atrial fibrillation, asthma, COPD, diabetes mellitus, hypertension, coming into the hospital with a chief complaint of difficulty in seeing from his left eye it. Patient was reading a book when he suddenly lost his vision the left eye. He felt that there was a curtain in front of his left eye. His vision was not there for almost 5 minutes. After that he did not seek any medical attention and later on he saw an highway safety engineer who advised him to follow up with his PCP. On seeing his PCP, he was sent to the ER for further evaluation. Patient did have a stroke work-up for his amaurosis fugax of the left eye. The patient did get a CT scan of the brain which revealed age-related atrophy and chronic small vessel disease. Carotid Doppler revealed mild to moderate plaque formation with no significant stenosis. Dr. Bhatti, vascular surgeon, who had suggested that the patient be on aspirin along with his Eliquis. The patient is on Eliquis for his long-standing history of atrial fibrillation. So far the work-up for stroke has been negative during the hospital stay. The patient was advised to follow up with vascular surgeon, Dr. Bhatti, in one week of time. The patient was earlier reluctant to be started on aspirin as he had GI bleed in the past when he was taking aspirin and Coumadin, but in discussing the pros and cons with him, he said he would try taking the baby aspirin. CONSULTATIONS DURING HOSPITAL STAY: 1. Vascular surgery, Dr. Bhatti. 2. Neurology, Dr. Sp Madera. PROCEDURES DURING HOSPITAL STAY: 1. Bilateral carotid artery Doppler with no significant stenosis. pain. 2. Brain CT scan which was within normal limits. 3. Echocardiogram of his heart showing ejection fraction of 50% to 55%. At the time of discharge the patient's vital on physical exam were within normal limits. DISCHARGE DIAGNOSES: 1. Amaurosis fugax of the left eye. 2. Transient ischemic attack. 3. Chronic atrial fibrillation, persistent. 4. History of chronic obstructive pulmonary disease. 5. History of gastroesophageal reflux disease. 6. History of hypertension. 7. Type 2 diabetes mellitus, [id number]. DISCHARGE MEDICATIONS: 1. Folic acid 2 mg p.o. daily. 2. Antivert 25 mg p.o. daily. 3. Metoprolol XL 25 mg p.o. b.i.d. 4. Singulair 10 mg p.o. at bedtime. 5. Omeprazole 20 mg p.o. before breakfast. 6. Eliquis 2.5 mg p.o. b.i.d. 7. Albuterol and Atrovent breathing treatments. 8. Spironolactone 12.5 mg p.o. a.m. 9. Vitamin D3 supplement. 10. Lasix 60 mg p.o. daily. 11. Glucosamine/chondroitin sulfate 1 tablet p.o. daily. 12. Synthroid p.o. daily. 13. [place]-3 fatty acids 1000 mg p.o. daily. 14. Aspirin 81 mg p.o. daily. 15. Lipitor 80 mg p.o. at bedtime. FOLLOWUP: The patient is advised to follow up with Dr. Perry Bhatti, vascular surgeon, within one weeks' time and primary care physician, Dr. Barrington Dietz, within 2 to 3 days. ACTIVITY: As tolerated. DIET: Diabetic diet. More than 35 minutes spent towards the discharge of the patient. Patient is being discharged home in stable condition.
== END 2016-10-03 15:18 | disposition home or self-care (01) | DRG 123 ==
LOC: EC 13:23 → 6SEL 15:33
PROVIDERS: ADMIT Hospitalist; ATTEND Hospitalist
DX: G45.3 Amaurosis fugax (principal); D58.9 Hereditary hemolytic anemia, unspecified; I48.1 Persistent atrial fibrillation; J44.9 Chronic obstructive pulmonary disease, unspecified; I11.0 Hypertensive heart disease with heart failure; I50.9 Heart failure, unspecified; E11.9 Type 2 diabetes mellitus without complications; I73.9 Peripheral vascular disease, unspecified; K21.9 Gastro-esophageal reflux disease without esophagitis; E03.9 Hypothyroidism, unspecified; J45.909 Unspecified asthma, uncomplicated; Z96.641 Presence of right artificial hip joint; Z98.42 Cataract extraction status, left eye; Z98.41 Cataract extraction status, right eye; Z87.891 Personal history of nicotine dependence; Z79.01 Long term (current) use of anticoagulants; Z79.899 Other long term (current) drug therapy
CPT/HCPCS: 36415; 70450; 80053; 82550; 82553; 83036; 83735; 84100; 84484; 85025; 85610; 85730; 93005; 93306; 93880; 94640; 94760; 99291

== ENCOUNTER 2016-10-25 08:08 | Emergency (ER) | payer MEDICARE, BC ==
[2016-10-25] MEDS ORDERED: KETOROLAC 30 MG/ML 1 ML VIAL IVP STA (08:27)
[2016-10-25] MEDS ORDERED: SODIUM CHLORIDE 0.9% 1,000 ML IV STA ×2 (08:27→10:13)
[2016-10-25] MEDS ORDERED: SODIUM CHLORIDE 0.9% 500 ML IV STA (08:27)
[2016-10-25] MEDS ORDERED: ACETAMINOPHEN IV (For NPO) 1,000 MG in EMPTY BAG 1 BAG IVPB STA (08:27)
--- NOTE | 2016-10-25 08:27 | ED ---
General Adult HPI - General Chief complaint: Recheck/Abnormal Lab/Rx Stated complaint: Fever/pain/chest pain Time Seen by Provider: 10/25/16 08:13 Source: patient, RN notes reviewed, old records reviewed Mode of arrival: wheelchair Limitations: no limitations - History of Present Illness Initial comments: This is a 86-year-old male ER for evaluation of pain. Patient is abdominal pain " all pain central dollop a left-sided abdominal pain with mild shortness of breath. Patient has history of COPD and states his shortness of breath this right in line with his normal COPD. Patient states he has had a history of gallbladder removal and appendix appendix removal. No diarrhea no nausea vomiting. States pain at this time is resolved but he did notice a fever this morning. Had appointment with his lung doctor at this time he is feeling improved. Patient has had history of increased cough and congestion, increased nasal drainage and coughing up sputum. Patient denies chest pain, - Related Data Home Medications Medication Instructions Recorded Confirmed Folic Acid 2 mg PO DAILY 10/10/14 10/25/16 Meclizine [Antivert] 25 mg PO DAILY PRN 10/10/14 10/25/16 Metoprolol Succinate [Toprol XL] 25 mg PO BID 10/10/14 10/25/16 Montelukast [Singulair] 10 mg PO HS 10/10/14 10/25/16 Omeprazole [PriLOSEC] 20 mg PO AC-BRKFST 10/10/14 10/25/16 Apixaban [Eliquis] 2.5 mg PO BID 02/04/15 10/25/16 Ipratropium Nebulized [Atrovent 0.5 mg INHALATION RT-QID PRN 02/04/15 10/25/16 Nebulized] Spironolactone [Aldactone] 12.5 mg PO QAM 02/04/15 10/25/16 Levalbuterol HCl [Xopenex 1.25 mg INHALATION RT-QID PRN 02/05/15 10/25/16 Nebulized] Calcium Carbonate/Vitamin D3 1 tab PO DAILY 10/01/16 10/25/16 [Calcium 600-Vit D3 200 Tablet] Cholecalciferol [Vitamin D3] 1,000 unit PO DAILY 10/01/16 10/25/16 Furosemide [Lasix] 60 mg PO DAILY 10/01/16 10/25/16 Gluc/Steven-MSM#1/C/Yassine/Juan Miguel/Bor 1 tab PO DAILY 10/01/16 10/25/16 [Glucosamine-Chondroitin Tablet] Levothyroxine Sodium [Synthroid] 175 mcg PO DAILY 10/01/16 10/25/16 [place]-3 Fatty Acids [[place]-3] 1,000 mg PO DAILY 10/01/16 10/25/16 Aspirin 81 mg PO Q48H 10/25/16 10/25/16 Previous Rx's Medication Instructions Recorded Atorvastatin [Lipitor] 80 mg PO HS #30 tab 10/03/16 Allergies Allergy/AdvReac Type Severity Reaction Status Date / Time naproxen [From Naprosyn] Allergy GI BLEED Verified 10/25/16 08:42 Tetracyclines Allergy Unknown Verified 10/25/16 08:42 zomepirac Allergy GI BLEED Verified 10/25/16 08:42 benzocaine [From Cetacaine] AdvReac Nausea & Verified 10/25/16 08:42 Vomiting butamben [From Cetacaine] AdvReac Nausea & Verified 10/25/16 08:42 Vomiting meperidine HCl [From Demerol] AdvReac Nausea & Verified 10/25/16 08:42 Vomiting tetracaine [From Cetacaine] AdvReac Nausea & Verified 10/25/16 08:42 Vomiting duprenex Allergy Nausea & Uncoded 10/01/16 13:36 Vomiting Review of Systems ROS Statement: Those systems with pertinent positive or pertinent negative responses have been documented in the HPI. ROS Other: All systems not noted in ROS Statement are negative. Past Medical History Past Medical History: Atrial Fibrillation, Asthma, Heart Failure, COPD, Diabetes Mellitus, GERD/Reflux, Hypertension, Pneumonia, Thyroid Disorder Additional Past Medical History / Comment(s): 02/05/15 DANY/CVN. 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 ulcer, diet controlled diabetes, hemolytic anemia, hypothyroidism deviated septum(had sx) History of Any Multi-Drug Resistant Organisms: None Reported Past Surgical History: Appendectomy, Cholecystectomy, Joint Replacement, Orthopedic Surgery Additional Past Surgical History / Comment(s): 02/05/15 DANY/CVN, 10/24/14 bronchoscopy with lavage, 10/24/14 laryngoscopy, right total hip replaced, arthroscopies bilateral knees, R rotator cuff surgery. sx for deviated septum, karlene cataracts Past Anesthesia/Blood Transfusion Reactions: Motion Sickness, Postoperative Nausea & Vomiting (PONV) Additional Past Anesthesia/Blood Transfusion Reaction / Comment(s): UNK FAMILY HX.NEVER HAS HAD BLOOD TRANSFUSION Past Psychological History: No Psychological Hx Reported Additional Psychological History / Comment(s): Retired. No service. No animal exposures. 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 Lives with spouse. PT is independent. He uses no assistive device and no home care. He drives a car. Smoking Status: Former smoker Past Alcohol Use History: None Reported Additional Past Alcohol Use History / Comment(s): Pt started smoking in 1964 and quit in 1974. Past Drug Use History: None Reported - Past Family History Mother Family Medical History: CVA/TIA Father Family Medical History: Hypertension General Exam Limitations: no limitations General appearance: alert, in no apparent distress, anxious Head exam: Present: atraumatic, normocephalic, normal inspection Eye exam: Present: normal appearance, PERRL, EOMI. Absent: scleral icterus, conjunctival injection, periorbital swelling ENT exam: Present: normal exam, mucous membranes moist Neck exam: Present: normal inspection. Absent: tenderness, meningismus, lymphadenopathy Respiratory exam: Present: normal lung sounds bilaterally, wheezes, decreased breath sounds. Absent: respiratory distress, rales, rhonchi, stridor Cardiovascular Exam: Present: regular rate, normal rhythm, normal heart sounds. Absent: systolic murmur, diastolic murmur, rubs, gallop, clicks GI/Abdominal exam: Present: soft, normal bowel sounds. Absent: distended, tenderness, guarding, rebound, rigid Extremities exam: Present: normal inspection, full ROM, normal capillary refill. Absent: tenderness, pedal edema, joint swelling, calf tenderness Back exam: Present: normal inspection Neurological exam: Present: alert, oriented X3, CN II-XII intact Psychiatric exam: Present: normal affect, normal mood Skin exam: Present: warm, dry, intact, normal color. Absent: rash Course Vital Signs 10/25/16 10/25/16 08:20 10:16 Temperature 101 F H 98.7 F Pulse Rate 96 56 L Respiratory 18 16 Rate Blood Pressure 131/78 111/56 O2 Sat by Pulse 97 Oximetry - Reevaluation(s) Reevaluation #1: 10/25/16 10:32 Patient is asymptomatic now with fever controlled, no shortness of breath which is improved with breathing treatment EKG Findings - EKG Comments: EKG Findings:: EKG shows sinus rhythm rate of 62, para 238, QRS 160, QTC 444 Medical Decision Making - Medical Decision Making 80 formality ear with nonspecific fever, fever of unknown, patient's x-rays clean and normal, patient has no pneumonia, lab work is normal patient can be discharged home - Lab Data Result diagrams: 10/25/16 08:25 10/25/16 08:25 Lab Results 10/25/16 10/25/16 10/25/16 Range/Units 08:25 08:25 08:25 WBC 7.3 (3.8-10.6) k/uL RBC 3.50 L (4.30-5.90) m/uL Hgb 12.3 L (13.0-17.5) gm/dL Hct 35.4 L (39.0-53.0) % MCV 101.3 H (80.0-100.0) fL MCH 35.2 H (25.0-35.0) pg MCHC 34.7 (31.0-37.0) g/dL RDW 13.7 (11.5-15.5) % Plt Count 202 (150-450) k/uL Neutrophils % 80 % Lymphocytes % 10 % Monocytes % 7 % Eosinophils % 2 % Basophils % 0 % Neutrophils # 5.8 (1.3-7.7) k/uL Lymphocytes # 0.7 L (1.0-4.8) k/uL Monocytes # 0.5 (0-1.0) k/uL Eosinophils # 0.1 (0-0.7) k/uL Basophils # 0.0 (0-0.2) k/uL Macrocytosis Slight PT (9.0-12.0) sec INR (<1.1) APTT (22.0-30.0) sec Sodium 135 L (137-145) mmol/L Potassium 4.7 (3.5-5.1) mmol/L Chloride 99 (98-107) mmol/L Carbon Dioxide 25 (22-30) mmol/L Anion Gap 11 mmol/L BUN 18 (9-20) mg/dL Creatinine 0.72 (0.66-1.25) mg/dL Est GFR (MDRD) Af Amer >60 (>60 ml/min/1.73 sqM) Est GFR (MDRD) Non-Af >60 (>60 ml/min/1.73 sqM) Glucose 140 H (74-99) mg/dL Plasma Lactic Acid [place] (0.7-2.0) mmol/L Calcium 8.9 (8.4-10.2) mg/dL Phosphorus 3.3 (2.5-4.5) mg/dL Magnesium 1.7 (1.6-2.3) mg/dL Total Bilirubin 6.4 H (0.2-1.3) mg/dL AST 43 (17-59) U/L ALT 33 (21-72) U/L Alkaline Phosphatase 58 (38-126) U/L Total Creatine Kinase 82 (55-170) U/L CK-MB (CK-2) 2.0 (0.0-2.4) ng/mL CK-MB (CK-2) Rel Index 2.4 Troponin I <0.012 (0.000-0.034) ng/mL Total Protein 6.8 (6.3-8.2) g/dL Albumin 4.2 (3.5-5.0) g/dL Urine Color Urine Appearance (Clear) Urine pH (5.0-8.0) Ur Specific [place] (1.001-1.035) Urine Protein (Negative) Urine Glucose (UA) (Negative) Urine Ketones (Negative) Urine Blood (Negative) Urine Nitrate (Negative) Urine Bilirubin (Negative) Urine Urobilinogen (<2.0) mg/dL Ur Leukocyte Esterase (Negative) Influenza Type A RNA (Not Detectd) Influenza Type B (PCR) (Not Detectd) 10/25/16 10/25/16 10/25/16 Range/Units 08:25 08:25 08:35 WBC (3.8-10.6) k/uL RBC (4.30-5.90) m/uL Hgb (13.0-17.5) gm/dL Hct (39.0-53.0) % MCV (80.0-100.0) fL MCH (25.0-35.0) pg MCHC (31.0-37.0) g/dL RDW (11.5-15.5) % Plt Count (150-450) k/uL Neutrophils % % Lymphocytes % % Monocytes % % Eosinophils % % Basophils % % Neutrophils # (1.3-7.7) k/uL Lymphocytes # (1.0-4.8) k/uL Monocytes # (0-1.0) k/uL Eosinophils # (0-0.7) k/uL Basophils # (0-0.2) k/uL Macrocytosis PT 11.0 (9.0-12.0) sec INR 1.1 (<1.1) APTT 25.6 (22.0-30.0) sec Sodium (137-145) mmol/L Potassium (3.5-5.1) mmol/L Chloride (98-107) mmol/L Carbon Dioxide (22-30) mmol/L Anion Gap mmol/L BUN (9-20) mg/dL Creatinine (0.66-1.25) mg/dL Est GFR (MDRD) Af Amer (>60 ml/min/1.73 sqM) Est GFR (MDRD) Non-Af (>60 ml/min/1.73 sqM) Glucose (74-99) mg/dL Plasma Lactic Acid [place] 0.9 (0.7-2.0) mmol/L Calcium (8.4-10.2) mg/dL Phosphorus (2.5-4.5) mg/dL Magnesium (1.6-2.3) mg/dL Total Bilirubin (0.2-1.3) mg/dL AST (17-59) U/L ALT (21-72) U/L Alkaline Phosphatase (38-126) U/L Total Creatine Kinase (55-170) U/L CK-MB (CK-2) (0.0-2.4) ng/mL CK-MB (CK-2) Rel Index Troponin I (0.000-0.034) ng/mL Total Protein (6.3-8.2) g/dL Albumin (3.5-5.0) g/dL Urine Color Urine Appearance (Clear) Urine pH (5.0-8.0) Ur Specific [place] (1.001-1.035) Urine Protein (Negative) Urine Glucose (UA) (Negative) Urine Ketones (Negative) Urine Blood (Negative) Urine Nitrate (Negative) Urine Bilirubin (Negative) Urine Urobilinogen (<2.0) mg/dL Ur Leukocyte Esterase (Negative) Influenza Type A RNA Not Detected (Not Detectd) Influenza Type B (PCR) Not Detected (Not Detectd) 10/25/16 Range/Units 08:40 WBC (3.8-10.6) k/uL RBC (4.30-5.90) m/uL Hgb (13.0-17.5) gm/dL Hct (39.0-53.0) % MCV (80.0-100.0) fL MCH (25.0-35.0) pg MCHC (31.0-37.0) g/dL RDW (11.5-15.5) % Plt Count (150-450) k/uL Neutrophils % % Lymphocytes % % Monocytes % % Eosinophils % % Basophils % % Neutrophils # (1.3-7.7) k/uL Lymphocytes # (1.0-4.8) k/uL Monocytes # (0-1.0) k/uL Eosinophils # (0-0.7) k/uL Basophils # (0-0.2) k/uL Macrocytosis PT (9.0-12.0) sec INR (<1.1) APTT (22.0-30.0) sec Sodium (137-145) mmol/L Potassium (3.5-5.1) mmol/L Chloride (98-107) mmol/L Carbon Dioxide (22-30) mmol/L Anion Gap mmol/L BUN (9-20) mg/dL Creatinine (0.66-1.25) mg/dL Est GFR (MDRD) Af Amer (>60 ml/min/1.73 sqM) Est GFR (MDRD) Non-Af (>60 ml/min/1.73 sqM) Glucose (74-99) mg/dL Plasma Lactic Acid [place] (0.7-2.0) mmol/L Calcium (8.4-10.2) mg/dL Phosphorus (2.5-4.5) mg/dL Magnesium (1.6-2.3) mg/dL Total Bilirubin (0.2-1.3) mg/dL AST (17-59) U/L ALT (21-72) U/L Alkaline Phosphatase (38-126) U/L Total Creatine Kinase (55-170) U/L CK-MB (CK-2) (0.0-2.4) ng/mL CK-MB (CK-2) Rel Index Troponin I (0.000-0.034) ng/mL Total Protein (6.3-8.2) g/dL Albumin (3.5-5.0) g/dL Urine Color Yellow Urine Appearance Clear (Clear) Urine pH 6.0 (5.0-8.0) Ur Specific [place] 1.020 (1.001-1.035) Urine Protein Trace H (Negative) Urine Glucose (UA) Negative (Negative) Urine Ketones Negative (Negative) Urine Blood Negative (Negative) Urine Nitrate Negative (Negative) Urine Bilirubin Negative (Negative) Urine Urobilinogen 4.0 (<2.0) mg/dL Ur Leukocyte Esterase Negative (Negative) Influenza Type A RNA (Not Detectd) Influenza Type B (PCR) (Not Detectd) - Radiology Data Radiology results: report reviewed (Chest x-ray is negative for acute disease), image reviewed Disposition Clinical Impression: Fever, COPD with acute bronchitis Disposition: HOME SELF-CARE Condition: Good Instructions: Fever in Adults (ED), COPD (Chronic Obstructive Pulmonary Disease ) (ED) Referrals: Barrington Ojeda MD [Primary Care Provider] - 1-2 days
[2016-10-25 08:49] LABS: Basophils % (A) 0 %; CH 35.3; Eosinophils # (A) 0.1 k/uL (0-0.7); Eosinophils % (A) 2 %; HCT 35.4 % (39.0-53.0); HDW 3.06; HGB 12.3 gm/dL (13.0-17.5); Luc # (Auto) 0.11; Luc % (Auto) 2; Lymphocytes # (A) 0.7 k/uL (1.0-4.8); Lymphocytes % (A) 10 %; MCH 35.2 pg (25.0-35.0); MCHC 34.7 g/dL (31.0-37.0); MCV 101.3 fL (80.0-100.0); Macrocytosis Slight; Mean Platelet Volume 8.8; Monocytes # (A) 0.5 k/uL (0-1.0); Monocytes % (A) 7 %; Neutrophils # (A) 5.8 k/uL (1.3-7.7); Neutrophils % (A) 80 %; RDW 13.7 % (11.5-15.5); WBC 7.3 k/uL (3.8-10.6); WBC (Perox) 8.07
[2016-10-25 08:54] LABS: Appearance,Urine Clear (Clear); Bilirubin,Urine Negative (Negative); Glucose,Urine (UA) Negative (Negative); Ketones,Urine Negative (Negative); Leukocyte Esterase,Urine Negative (Negative); Nitrite,Urine Negative (Negative); Protein,Urine Trace (Negative); UA Billing (MACRO vs. MICRO) CHEM
[2016-10-25 09:00] LABS: INR 1.1 (<1.1); Partial Thromboplastin Time 25.6 sec (22.0-30.0)
[2016-10-25 09:02] LABS: ALT 33 U/L (21-72); AST 43 U/L (17-59); Alkaline Phosphatase 58 U/L (38-126); Anion Gap 11 mmol/L; Blood Urea Nitrogen 18 mg/dL (9-20); Calcium 8.9 mg/dL (8.4-10.2); Carbon Dioxide 25 mmol/L (22-30); Chloride 99 mmol/L (98-107); Glucose 140 mg/dL (74-99); Magnesium 1.7 mg/dL (1.6-2.3); Non-African American GFR(MDRD) >60 (>60 ml/min/1.73 sqM); Phosphorous 3.3 mg/dL (2.5-4.5); Sodium 135 mmol/L (137-145); Total Bilirubin 6.4 mg/dL (0.2-1.3); Total Protein 6.8 g/dL (6.3-8.2)
--- NOTE | 2016-10-25 09:05 | XR ---
EXAMINATION TYPE: XR chest 2V DATE OF EXAM: 10/25/2016 8:45 AM COMPARISON: Prior chest x-ray July 07, 2016, 23 October 2014 HISTORY: Chest pain, fever, asthma TECHNIQUE: Frontal and lateral views of the chest are obtained. FINDINGS: Persistent elevation of the right hemidiaphragm is noted. There are overlying cardiac lead s. No pneumothorax. Cardiomediastinal silhouette is stable. Slight improvement in aeration, volume st atus is suspected. 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 Improved aerat ion. There may be underlying cardiomegaly.
[2016-10-25 09:10] LABS: Creatine Kinase 82 U/L (55-170)
[2016-10-25 09:11] LABS: Potassium 4.7 mmol/L (3.5-5.1)
[2016-10-25 09:21] LABS: Troponin I <0.012 ng/mL (0.000-0.034)
[2016-10-25] MEDS ORDERED: IPRATROPIUM-ALBUTEROL 3 ML NEB INHALATION STA (10:12)
[2016-10-25] MEDS ORDERED: AZITHROMYCIN 500 MG TAB PO STA (10:34)
[2016-10-25] MEDS ORDERED: methylPREDNISolone SOD SUCCI 125 MG/2 ML VIAL IV STA (10:35)
[2016-10-25 11:21] VITALS: RESP 18
[2016-10-25 11:32] VITALS: BP 132/64; PULSE 65
[2016-10-25 11:41] VITALS: TEMP 99.2
== END 2016-10-25 11:40 | disposition home or self-care (01) ==
LOC: EC 08:08
DX: J44.0 Chronic obstructive pulmonary disease with (acute) lower respiratory infection (principal); J20.9 Acute bronchitis, unspecified; J45.909 Unspecified asthma, uncomplicated; I48.91 Unspecified atrial fibrillation; I11.0 Hypertensive heart disease with heart failure; I50.9 Heart failure, unspecified; E03.9 Hypothyroidism, unspecified; K21.9 Gastro-esophageal reflux disease without esophagitis; Z79.01 Long term (current) use of anticoagulants; Z79.82 Long term (current) use of aspirin; Z79.899 Other long term (current) drug therapy; Z88.1 Allergy status to other antibiotic agents; Z88.6 Allergy status to analgesic agent; Z88.8 Allergy status to other drugs, medicaments and biological substances; Z87.891 Personal history of nicotine dependence; Z87.01 Personal history of pneumonia (recurrent)
CPT/HCPCS: 36415; 94640; 93005; 80053; 82550; 82553; 83605; 83735; 84100; 84484; 85025; 85610; 85730; 81003; 87040; 87086; 87502; 71020; 99285; 96365; 96375 ×2; 96361 ×2; J2930; J1885; J0131

== ENCOUNTER 2017-01-17 09:14 | Inpatient (IN) | payer MEDICARE, BC ==
[2017-01-17] MEDS ORDERED: SODIUM CHLORIDE 0.9% 1,000 ML IV STA (09:37)
--- NOTE | 2017-01-17 09:45 | ED ---
Chest Pain HPI - General Chief Complaint: Chest Pain Stated Complaint: chest pain, neck pain Time Seen by Provider: 01/17/17 09:28 Source: patient, family, RN notes reviewed Mode of arrival: wheelchair Limitations: no limitations - History of Present Illness Initial Comments: This is an 86-year-old male with a history of atrial fibrillation in the past 2 presents with complaints of the onset this morning of right-sided facial numbness going down his right neck and right arm. He felt a dull left-sided posterior headache went down left neck associated shortness of breath. He states it feels similar to when he had A. fib in the past. He did has some discomfort in his chest some palpitations. He denies any symptoms at this particular time however except for the dull headache. MD Complaint: chest pain, other - Related Data Home Medications Medication Instructions Recorded Confirmed Folic Acid 2 mg PO DAILY 10/10/14 01/17/17 Meclizine [Antivert] 25 mg PO DAILY PRN 10/10/14 01/17/17 Metoprolol Succinate [Toprol XL] 25 mg PO BID 10/10/14 01/17/17 Montelukast [Singulair] 10 mg PO HS 10/10/14 01/17/17 Omeprazole [PriLOSEC] 20 mg PO AC-BRKFST 10/10/14 01/17/17 Apixaban [Eliquis] 2.5 mg PO BID 02/04/15 01/17/17 Ipratropium Nebulized [Atrovent 0.5 mg INHALATION RT-QID PRN 02/04/15 01/17/17 Nebulized] Spironolactone [Aldactone] 37.5 mg PO QAM 02/04/15 01/17/17 Levalbuterol HCl [Xopenex 1.25 mg INHALATION RT-QID PRN 02/05/15 01/17/17 Nebulized] Calcium Carbonate/Vitamin D3 1 tab PO DAILY 10/01/16 01/17/17 [Calcium 600-Vit D3 200 Tablet] Cholecalciferol [Vitamin D3] 1,000 unit PO DAILY 10/01/16 01/17/17 Furosemide [Lasix] 40 mg PO DAILY@0900 10/01/16 01/17/17 Gluc/Steven-MSM#1/C/Yassine/Juan Miguel/Bor 1 tab PO DAILY 10/01/16 01/17/17 [Glucosamine-Chondroitin Tablet] Levothyroxine Sodium [Synthroid] 175 mcg PO DAILY 10/01/16 01/17/17 [place]-3 Fatty Acids [[place]-3] 1,000 mg PO DAILY 10/01/16 01/17/17 Furosemide [Lasix] 20 mg PO DAILY@1600 01/17/17 01/17/17 Allergies Allergy/AdvReac Type Severity Reaction Status Date / Time naproxen [From Naprosyn] Allergy GI BLEED Verified 01/17/17 09:48 Tetracyclines Allergy Unknown Verified 01/17/17 09:48 zomepirac Allergy GI BLEED Verified 01/17/17 09:48 benzocaine [From Cetacaine] AdvReac Nausea & Verified 01/17/17 09:48 Vomiting butamben [From Cetacaine] AdvReac Nausea & Verified 01/17/17 09:48 Vomiting meperidine HCl [From Demerol] AdvReac Nausea & Verified 01/17/17 09:48 Vomiting tetracaine [From Cetacaine] AdvReac Nausea & Verified 01/17/17 09:48 Vomiting duprenex Allergy Nausea & Uncoded 01/17/17 09:20 Vomiting Review of Systems ROS Statement: Those systems with pertinent positive or pertinent negative responses have been documented in the HPI. ROS Other: All systems not noted in ROS Statement are negative. EKG Findings - EKG Results: EKG: interpreted by VIVI (Atrial fibrillation rate is 74 QRS of 146 daily since QTC of/452 that exodeviation a bundle-branch block) Past Medical History Past Medical History: Atrial Fibrillation, Asthma, Heart Failure, COPD, Diabetes Mellitus, GERD/Reflux, Hypertension, Pneumonia, Thyroid Disorder Additional Past Medical History / Comment(s): 02/05/15 DANY/CVN. 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 ulcer, diet controlled diabetes, hemolytic anemia, hypothyroidism deviated septum(had sx) History of Any Multi-Drug Resistant Organisms: None Reported Past Surgical History: Appendectomy, Cholecystectomy, Joint Replacement, Orthopedic Surgery Additional Past Surgical History / Comment(s): 02/05/15 DANY/CVN, 10/24/14 bronchoscopy with lavage, 10/24/14 laryngoscopy, right total hip replaced, arthroscopies bilateral knees, R rotator cuff surgery. sx for deviated septum, karlene cataracts Past Anesthesia/Blood Transfusion Reactions: Motion Sickness, Postoperative Nausea & Vomiting (PONV) Additional Past Anesthesia/Blood Transfusion Reaction / Comment(s): UNK FAMILY HX.NEVER HAS HAD BLOOD TRANSFUSION Past Psychological History: No Psychological Hx Reported Additional Psychological History / Comment(s): Retired. No service. No animal exposures. 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 Lives with spouse. PT is independent. He uses no assistive device and no home care. He drives a car. Smoking Status: Former smoker Past Alcohol Use History: None Reported Additional Past Alcohol Use History / Comment(s): Pt started smoking in 1964 and quit in 1974. Past Drug Use History: None Reported - Past Family History Mother Family Medical History: CVA/TIA Father Family Medical History: Hypertension General Exam - General Exam Comments Initial Comments: This is a well-developed well-nourished awake alert oriented 3 male Limitations: no limitations General appearance: alert, in no apparent distress Head exam: Present: atraumatic, normocephalic, normal inspection Eye exam: Present: normal appearance, PERRL, EOMI. Absent: scleral icterus, conjunctival injection, periorbital swelling ENT exam: Present: normal exam, mucous membranes moist Neck exam: Present: normal inspection. Absent: tenderness, meningismus, lymphadenopathy Respiratory exam: Present: normal lung sounds bilaterally. Absent: respiratory distress, wheezes, rales, rhonchi, stridor Cardiovascular Exam: Present: irregular rhythm. Absent: systolic murmur, diastolic murmur, rubs, gallop, clicks GI/Abdominal exam: Present: soft, normal bowel sounds. Absent: distended, tenderness, guarding, rebound, rigid Extremities exam: Present: normal inspection, full ROM, normal capillary refill. Absent: tenderness, pedal edema, joint swelling, calf tenderness Back exam: Present: normal inspection Neurological exam: Present: alert, oriented X3, CN II-XII intact Psychiatric exam: Present: normal affect, normal mood Skin exam: Present: warm, dry, intact, normal color. Absent: rash Course Vital Signs 01/17/17 01/17/17 01/17/17 09:17 10:17 11:35 Temperature 98.4 F 97.9 F Pulse Rate 77 75 Respiratory 16 16 16 Rate Blood Pressure 112/61 92/58 O2 Sat by Pulse 97 95 Oximetry Chest Pain MDM - MDM Review the x-ray shows no acute findings. I did discuss findings with the patient family patient will be admitted with evaluation by cardiology at did discuss case with the hospitalist. Disposition Clinical Impression: Atrial fibrillation, Atypical chest pain Disposition: ADMITTED IP TO THIS HOSP Condition: Stable Referrals: Barrington Ojeda MD [Primary Care Provider] - 1-2 days
[2017-01-17 10:29] LABS: Basophils % (A) 1 %; CH 35.7; CHCM 34.4; Eosinophils # (A) 0.2 k/uL (0-0.7); Eosinophils % (A) 4 %; HCT 36.1 % (39.0-53.0); HDW 2.76; HGB 12.4 gm/dL (13.0-17.5); Luc # (Auto) 0.07; Luc % (Auto) 2; Lymphocytes % (A) 23 %; MCH 35.8 pg (25.0-35.0); MCHC 34.4 g/dL (31.0-37.0); MCV 104.2 fL (80.0-100.0); Macrocytosis Slight; Mean Platelet Volume 8.4; Monocytes # (A) 0.2 k/uL (0-1.0); Monocytes % (A) 5 %; Neutrophils # (A) 2.9 k/uL (1.3-7.7); Neutrophils % (A) 66 %; RBC 3.46 m/uL (4.30-5.90); RDW 14.2 % (11.5-15.5); WBC 4.4 k/uL (3.8-10.6); WBC (Perox) 4.46
--- NOTE | 2017-01-17 10:37 | XR ---
EXAMINATION TYPE: XR chest 2V DATE OF EXAM: 01/17/2017 10:33 AM COMPARISON: 10/25/2016 TECHNIQUE: PA and lateral views submitted. HISTORY: Pain FINDINGS: Elevated right hemidiaphragm with blunting of the right costophrenic angle. Left lung clear. Heart si ze prominent but stable. No overt failure or pneumothorax. Atherosclerotic change aorta and arthropathy of the shoulders. Hypertrophic change of the spine. IMPRESSION: 1. Small right pleural effusion with stable elevated right hemidiaphragm. Subpulmonic component to th e pleural effusion in the differential. Underlying infiltrate not excluded.
[2017-01-17 10:41] LABS: ALT 39 U/L (21-72); AST 35 U/L (17-59); Alkaline Phosphatase 76 U/L (38-126); Anion Gap 8 mmol/L; Blood Urea Nitrogen 21 mg/dL (9-20); Calcium 8.9 mg/dL (8.4-10.2); Carbon Dioxide 27 mmol/L (22-30); Chloride 102 mmol/L (98-107); Glucose 164 mg/dL (74-99); Magnesium 1.7 mg/dL (1.6-2.3); Non-African American GFR(MDRD) >60 (>60 ml/min/1.73 sqM); Sodium 137 mmol/L (137-145); Total Bilirubin 5.1 mg/dL (0.2-1.3); Total Protein 6.5 g/dL (6.3-8.2)
--- NOTE | 2017-01-17 10:42 | CT ---
EXAMINATION TYPE: CT brain wo con DATE OF EXAM: 01/17/2017 10:29 AM COMPARISON: 10/01/2016 INDICATION: chest and neck pain DLP: 1043.50 mGycm, Automated exposure control for dose reduction was used. CONTRAST: None CT of the brain is performed utilizing 3 mm thick sections through the posterior fossa and 3 mm thick sections through the remaining calvarium. Study is performed within 24 hours of arrival to the hosp [facility]. No abnormal hyperdensity is present to suggest an acute intracranial hemorrhage. No mass lesion is evident. No acute infarcts are evident. There is minimal periventricular white matter hypodensity likely basis of chronic white matter changes. No significant change is evident. Ventricles and sulci are mildly prominent for the patient age. Paranasal sinuses and mastoid air cells within the [id number] are clear. IMPRESSIONS: 1. Mild age-related atrophy with mild periventricular white matter ischemic type changes. 2. Exam is stable from prior study. 3. No acute intracranial process.
[2017-01-17 10:46] LABS: INR 1.1 (<1.1); Partial Thromboplastin Time 24.8 sec (22.0-30.0); Prothrombin Time 10.8 sec (9.0-12.0)
[2017-01-17 11:07] LABS: Creatine Kinase MB 2.3 ng/mL (0.0-2.4); Troponin I 0.013 ng/mL (0.000-0.034)
[2017-01-17] MEDS ORDERED: NITROGLYCERIN SL TABS 0.4 MG TAB SUBLINGUAL PRN (14:06)
[2017-01-17] MEDS ORDERED: MECLIZINE 25 MG TAB PO PRN (14:09)
[2017-01-17] MEDS: SODIUM CHLORIDE 0.9% 1,000 ML IV SCH (14:18)
[2017-01-17] MEDS: FUROSEMIDE 20 MG TAB PO SCH (16:50)
[2017-01-17 17:53] LABS: Troponin I 0.014 ng/mL (0.000-0.034)
[2017-01-17] MEDS: MONTELUKAST 10 MG TAB PO SCH (20:52)
[2017-01-17] MEDS: METOPROLOL SUCCINATE (ER) 25 MG TAB.ER.24H PO SCH (20:52)
[2017-01-17] MEDS: APIXABAN 2.5 MG TABLET PO SCH (20:52)
[2017-01-17] MEDS: IPRATROPIUM 0.5 MG/2.5 ML NEBU INHALATION PRN (21:01)
[2017-01-17] MEDS: LEVALBUTEROL NEB 1.25 MG/3 ML AMP INHALATION PRN (21:01)
[2017-01-17] MEDS ORDERED: HYDROcodone/APAP 5-325MG 1 EACH TAB PO PRN (22:04)
[2017-01-17] MEDS ORDERED: ACETAMINOPHEN TAB 500 MG TAB PO PRN (22:04)
[2017-01-17] MEDS ORDERED: ALPRAZolam 0.25 MG TAB PO PRN (22:04)
[2017-01-18 06:42] LABS: Basophils % (A) 0 %; CH 35.2; CHCM 34.2; Eosinophils # (A) 0.2 k/uL (0-0.7); Eosinophils % (A) 4 %; HCT 34.8 % (39.0-53.0); HDW 2.74; HGB 11.5 gm/dL (13.0-17.5); Luc # (Auto) 0.08; Luc % (Auto) 2; Lymphocytes # (A) 1.1 k/uL (1.0-4.8); Lymphocytes % (A) 26 %; MCH 34.2 pg (25.0-35.0); MCHC 33.1 g/dL (31.0-37.0); MCV 103.5 fL (80.0-100.0); Macrocytosis Slight; Mean Platelet Volume 8.2; Monocytes # (A) 0.2 k/uL (0-1.0); Monocytes % (A) 5 %; Neutrophils # (A) 2.6 k/uL (1.3-7.7); Neutrophils % (A) 63 %; RBC 3.36 m/uL (4.30-5.90); WBC 4.1 k/uL (3.8-10.6); WBC (Perox) 4.28
[2017-01-18] MEDS: LEVOTHYROXINE 75 MCG TAB PO SCH (06:42)
[2017-01-18] MEDS: PANTOPRAZOLE 40 MG TABLET PO SCH (06:42)
[2017-01-18] MEDS: LEVOTHYROXINE 100 MCG TAB PO SCH (06:42)
[2017-01-18 07:14] LABS: ALT 41 U/L (21-72); AST 27 U/L (17-59); Alkaline Phosphatase 62 U/L (38-126); Anion Gap 7 mmol/L; Bilirubin, Delta 0.6 mg/dL (0.0-0.2); Blood Urea Nitrogen 18 mg/dL (9-20); Calcium 8.8 mg/dL (8.4-10.2); Carbon Dioxide 27 mmol/L (22-30); Chloride 101 mmol/L (98-107); Cholesterol 91 mg/dL (<200); Glucose 122 mg/dL (74-99); HDL Cholesterol 54 mg/dL (40-60); Non-African American GFR(MDRD) >60 (>60 ml/min/1.73 sqM); Potassium 4.2 mmol/L (3.5-5.1); Sodium 135 mmol/L (137-145); Total Bilirubin 4.2 mg/dL (0.2-1.3); Total Protein 5.4 g/dL (6.3-8.2); Triglycerides 61 mg/dL (<150)
[2017-01-18] MEDS: ASPIRIN 325 MG TAB PO SCH (08:06)
[2017-01-18] MEDS: METOPROLOL SUCCINATE (ER) 25 MG TAB.ER.24H PO SCH ×2 (08:06→20:09)
[2017-01-18] MEDS: FUROSEMIDE 40 MG TAB PO SCH (08:07)
[2017-01-18] MEDS: CALCIUM CARB-VIT D 500MG-200UN 1 EACH TAB PO SCH (08:07)
[2017-01-18] MEDS: SPIRONOLACTONE 25 MG TAB PO SCH (08:07)
[2017-01-18] MEDS: APIXABAN 2.5 MG TABLET PO SCH ×2 (08:07→20:09)
[2017-01-18] MEDS: LEVALBUTEROL NEB 1.25 MG/3 ML AMP INHALATION PRN ×2 (08:12→18:15)
[2017-01-18] MEDS: IPRATROPIUM 0.5 MG/2.5 ML NEBU INHALATION PRN ×2 (08:13→18:15)
--- NOTE | 2017-01-18 08:32 | HP ---
DATE OF ADMISSION: The chief complaints are headache, neck pain and as well as chest pain. HISTORY OF PRESENT ILLNESS: This 86-year-old gentleman with a past medical history of atrial fibrillation, asthma, history of CHF, COPD, CVA, TIA, diabetes mellitus type 2, hypertension, hypothyroidism, tracheobronchitis, appendectomy, cholecystectomy, history of DJD, being followed by her Dr. Ojeda in the outpatient setting, was also being followed by Dr. Pollack as well. The patient was recently admitted with amaurosis fugax and TIA. Currently, the patient is complaining of headache, neck pain and as well as right-sided facial numbness going down to the right neck and arm and as well as left-sided headache. The patient also had some shortness of breath and also had some chest pain which is rather , which is felt in the lower part of chest, which was heavy in character according to him. The patient apparently had similar symptomatology when the patient was getting up and moving. There is no history of any fevers, rigors, chills. No history of any seizures. No history of any hematochezia or melena at this time. PAST MEDICAL HISTORY: Atrial fibrillation, asthma, TIA, COPD, diabetes mellitus, GERD, hypertension, pneumonia, hypothyroidism, history of tracheobronchitis. Medications prior to admission include home medications are: 1. Aldactone 37.5 mg q.a.m. 2. Prilosec 20 mg with breakfast. 3. Printer 3, 1000 mg p.o. daily . 4. Toprol XL 25 mg p.o. b.i.d. 5. Antivert 25 mg daily p.r.n. 6. Synthroid 175 mcg p.o. daily. 7. Xopenex 1.25 q.i.d. p.r.n. 8. Atrovent 0.5 mg q.i.d. p.r.n. 9. Glucosamine Chondroitin 1 tab p.o. daily. 10. Lasix 20 mg daily and 40 mg p.o. daily. 11. Folic acid 2 mg p.o. daily. 12. Vitamin D3, 1000 daily. 14. Eliquis 2.5 mg p.o. b.i.d. 15. Singulair 10 mg p.o. q.h.s. Allergies are NAPROSYN, TETRACYCLINE, ZOMEPIRAC, BENZOCAINE, BUTAMBEN, MEPERIDINE, TETRACAINE, FAMILY HISTORY: History of CVA, TIA. SOCIAL HISTORY: History of smoking. No history of alcohol intake. No history of current smoking. REVIEW OF SYSTEMS: ENT: Diminished hearing and vision. CARDIOVASCULAR: As mentioned earlier. RESPIRATORY: No cough, no hemoptysis. GI: No nausea. : No dysuria. NERVOUS SYSTEM: As mentioned earlier. ALLERGY/IMMUNOLOGY: Asthma. MUSCULOSKELETAL: As mentioned earlier. HEMATOLOGY/ONCOLOGY: No history of anemia. ENDOCRINE: as mentioned earlier. CONSTITUTIONAL: As mentioned earlier. DERMATOLOGY: Negative. RHEUMATOLOGY: Negative. PSYCHIATRY: As mentioned earlier. PHYSICAL EXAMINATION: The patient is alert and oriented x3. Pulse is 64, blood pressure 109/64, respirations 18, temperature 97.8, pulse ox 93% on room air. HEENT: Conjunctivae normal. Oral mucosa moist. NECK: No jugular venous distention. No carotid bruit. No lymph node enlargement. No thyroid enlargement. CARDIOVASCULAR: S1 and S2, muffled. No S3, no S4. RESPIRATORY: Breath sounds diminished at the bases. No rhonchi, no crackles. No bronchial breath sounds. ABDOMEN: Soft, nontender. No mass palpable. No hepatosplenomegaly. No ascites. No guarding or rigidity. Bowel sounds present. LEGS: No edema, no swelling. Pulses felt normally. NERVOUS SYSTEM: Higher function as mentioned. Cranial nerves 2 through 12 grossly intact. Moves all 4 limbs. No focal motor or sensory deficits. No signs of dysfunction. The neck movements are painless. SKIN: No ulcers, rashes or bleeding. LYMPHATICS: No lymphadenopathy of neck, axillae or groin. JOINTS: No active deforming arthropathy,. Lab investigation at this time shows WBC 4.4, hemoglobin 12.4, MCV 104.2. Glucose 164. Total bilirubin 5.1. Troponin 0.013. NT-pro-BNP is 594. ASSESSMENT: 1. Headache and chest pain for evaluation, possible acute transient ischemic attack. 2. Rule out coronary artery disease and unstable angina. 3. Increased total bilirubin of undetermined etiology. 4. Anemia, macrocytic. 5. Thrombocytopenia, mild. 6. History of atrial fibrillation, chronic, persistent. 7. Left bundle branch block on EKG. 8. History of asthma. 9. History of congestive heart failure. 10. History of chronic obstructive pulmonary disease. 11. History of cerebrovascular accident, transient ischemic attack. 12. Diabetes mellitus type 2. 13. History of gastroesophageal reflux disease. 14. History of hypertension essential. 15. History of pneumonia. 16. 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 17. History of diet-controlled diabetes mellitus. 18. History of hemolytic anemia. 19. Hyperbilirubinemia, possibly secondary to hemolytic anemia. 20. History of diverticulosis. 21. History of degenerative joint disease. 22. History amaurosis fugax. 23. History of motion sickness. 24. Remote history nicotine dependence. 25. Congestive heart failure with chronic diastolic dysfunction, ejection fraction 50% to 55%. RECOMMENDATIONS AND DISCUSSION: This 86-year-old gentleman who presented with multiple complex medical issues, will monitor the patient closely, continue with current medications, continue symptomatic treatment. Now recommend continue with antiplatelet agents. Cardiology and neurology consultations. The patient recently completed a neurovascular workup. Please refer to the previous neurovascular workup evaluations for further details. Will continue to monitor. See orders for further details. Prognosis guarded. Discussed with the patient, understands. Will also check orthostatic vitals as well. Further recommendations to follow. Apixaban to be continued. Home medications will be ordered. A copy of dictation forwarded to Dr. Taylor who is the primary physician. JAYSHREE
[2017-01-18] MEDS ORDERED: NON-FORMULARY DRUG (Omega-3 Fatty Acids [Omega-3] 1,000 MG) PO SCH (09:00)
[2017-01-18] MEDS ORDERED: NON-FORMULARY DRUG (Gluc/Chon-Msm#1/C/Mang/Bos/Bor [Glucosamine-Chondroitin Tablet] 1 TAB) PO SCH (09:00)
[2017-01-18 10:44] LABS: Appearance,Urine Clear (Clear); Bilirubin,Urine Negative (Negative); Glucose,Urine (UA) 3+ (Negative); Ketones,Urine Negative (Negative); Leukocyte Esterase,Urine Negative (Negative); Nitrite,Urine Negative (Negative); PH, Urine 5.5 (5.0-8.0); Protein,Urine Negative (Negative); UA Billing (MACRO vs. MICRO) CHEM; Urobilinogen,Urine <2.0 mg/dL (<2.0)
[2017-01-18 11:12] LABS: Glucose,Whole Blood 116 mg/dL (75-99)
--- NOTE | 2017-01-18 11:16 | P.CRDCN ---
<Amy Etienne E - Last Filed: 01/18/17 11:04> History of Present Illness Consult date: 01/18/17 Requesting physician: Mars Anthony Consult reason: atrial fibrillation Chief complaint: Headache right-sided facial pain and dizziness History of present illness: This is an 86-year-old gentleman who follows regularly with Dr. Pollack in the office. He has a known history of hypertension, diabetes, hyperlipidemia, paroxysmal atrial fibrillation with prior DANY and elective cardioversion in July 2016, Patient also has known history of COPD. Patient presents to the hospital with symptoms of sharp right sided facial pain and headache with associated dizziness. The symptoms started yesterday, patient states that he also felt in his chest that he was back into atrial fibrillation. According to the patient, he does feel that he has been in and out of atrial fibrillation at times over the past few months. EKG on presentation here showed atrial fibrillation with a left bundle-branch block pattern and controlled ventricular response. Chest x-ray reveals small right pleural effusion. CAT scan of the brain reveals mild age-related atrophy with mild. Ventricular white matter changes stable from prior study. The pressure on arrival here 112/60 with a heart rate in the 70s. 97% on room air. Hemoglobin 11.5, platelet count 134, potassium 4.2, BUN 18, creatinine 0.8. Troponin 0.013, 0.014, 0.018. BNP level 594. Past Medical History Past Medical History: Atrial Fibrillation, Asthma, Chest Pain / Angina, Heart Failure, COPD, CVA/TIA, Diabetes Mellitus, GERD/Reflux, Hypertension, Pneumonia , Thyroid Disorder Additional Past Medical History / Comment(s): tracheobronchitis, chronic bronchitis, subglottic tracheitis, nodular vocal cords, (previosly noted in charting 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 ulcer, diet controlled diabetes, hemolytic anemia, hypothyroidism deviated septum(had sx), TIA, DIVERTICLOSIS History of Any Multi-Drug Resistant Organisms: None Reported Past Surgical History: Appendectomy, Cholecystectomy, Joint Replacement, Orthopedic Surgery Additional Past Surgical History / Comment(s): 02/05/15 DAYN/CVN, 10/24/14 bronchoscopy with lavage, 10/24/14 laryngoscopy, right total hip replaced, arthroscopies bilateral knees, R rotator cuff surgery. sx for deviated septum, karlene cataracts Past Anesthesia/Blood Transfusion Reactions: Motion Sickness, Postoperative Nausea & Vomiting (PONV) Additional Past Anesthesia/Blood Transfusion Reaction / Comment(s): UNK FAMILY HX.NEVER HAS HAD BLOOD TRANSFUSION Past Psychological History: No Psychological Hx Reported Additional Psychological History / Comment(s): Retired. No service. No animal exposures. 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 Lives with spouse in a single level home that has 3 steps to enter. PT is independent. He uses no assistive device and no home care. He drives a car.has a nebulizer. Smoking Status: Former smoker Past Alcohol Use History: None Reported Additional Past Alcohol Use History / Comment(s): Pt started smoking in 1964 and quit in 1974. Past Drug Use History: None Reported - Past Family History Mother Family Medical History: CVA/TIA Father Family Medical History: Hypertension Medications and Allergies Home Medications Medication Instructions Recorded Confirmed Type Folic Acid 2 mg PO DAILY 10/10/14 01/17/17 History Meclizine [Antivert] 25 mg PO DAILY PRN 10/10/14 01/17/17 History Metoprolol Succinate [Toprol XL] 25 mg PO BID 10/10/14 01/17/17 History Montelukast [Singulair] 10 mg PO HS 10/10/14 01/17/17 History Omeprazole [PriLOSEC] 20 mg PO AC-BRKFST 10/10/14 01/17/17 History Apixaban [Eliquis] 2.5 mg PO BID 02/04/15 01/17/17 History Ipratropium Nebulized [Atrovent 0.5 mg INHALATION RT-QID PRN 02/04/15 01/17/17 History Nebulized] Spironolactone [Aldactone] 37.5 mg PO QAM 02/04/15 01/17/17 History Levalbuterol HCl [Xopenex 1.25 mg INHALATION RT-QID PRN 02/05/15 01/17/17 History Nebulized] Calcium Carbonate/Vitamin D3 1 tab PO DAILY 10/01/16 01/17/17 History [Calcium 600-Vit D3 200 Tablet] Cholecalciferol [Vitamin D3] 1,000 unit PO DAILY 10/01/16 01/17/17 History Furosemide [Lasix] 40 mg PO DAILY@0900 10/01/16 01/17/17 History Glucosam/Steven-Msm1/C/Yassine/Bosw 1 tab PO DAILY 10/01/16 01/17/17 History [Glucosamine-Chondroitin Tablet] Levothyroxine Sodium [Synthroid] 175 mcg PO DAILY 10/01/16 01/17/17 History [place]-3 Fatty Acids [[place]-3] 1,000 mg PO DAILY 10/01/16 01/17/17 History Furosemide [Lasix] 20 mg PO DAILY@1600 01/17/17 01/17/17 History Allergies Allergy/AdvReac Type Severity Reaction Status Date / Time naproxen [From Naprosyn] Allergy GI BLEED Verified 01/17/17 09:48 Tetracyclines Allergy Unknown Verified 01/17/17 09:48 zomepirac Allergy GI BLEED Verified 01/17/17 09:48 benzocaine [From Cetacaine] AdvReac Nausea & Verified 01/17/17 09:48 Vomiting butamben [From Cetacaine] AdvReac Nausea & Verified 01/17/17 09:48 Vomiting meperidine HCl [From Demerol] AdvReac Nausea & Verified 01/17/17 09:48 Vomiting tetracaine [From Cetacaine] AdvReac Nausea & Verified 01/17/17 09:48 Vomiting duprenex Allergy Nausea & Uncoded 01/17/17 09:20 Vomiting Physical Exam Vitals: Vital Signs Temp Pulse Pulse Resp BP BP BP 01/18/17 08:23 68 01/18/17 08:13 66 01/18/17 08:00 97.2 F L 74 18 93/58 01/18/17 04:00 77 18 102/60 01/18/17 00:00 98.3 F 77 18 01/17/17 21:22 64 01/17/17 21:02 64 01/17/17 20:00 98.7 F 78 18 111/55 01/17/17 16:00 97.8 F 64 18 109/64 01/17/17 15:35 97.0 F L 62 16 98/62 01/17/17 14:32 69 16 108/68 01/17/17 14:08 70 18 95/50 01/17/17 11:35 97.9 F 75 16 92/58 BP BP Pulse Ox 01/18/17 08:23 01/18/17 08:13 01/18/17 08:00 95 01/18/17 04:00 96/59 81/50 95 01/18/17 00:00 94 L 01/17/17 21:22 01/17/17 21:02 01/17/17 20:00 95 01/17/17 16:00 98 01/17/17 15:35 100 01/17/17 14:32 98 01/17/17 14:08 96 01/17/17 11:35 95 Intake and Output 01/17/17 01/18/17 01/18/17 22:59 06:59 14:59 Intake Total 240 360 Output Total 300 280 Balance -300 -40 360 Intake: IV 240 Sodium Chloride 0.9% 1, 240 000 ml @ 20 mls/hr IV . Q24H [facility] Rx#:[id number] Oral 360 Output: Urine 300 280 Other: Voiding Method Toilet Toilet # Voids 1 Weight 88.904 kg 89.1 kg PHYSICAL EXAMINATION: HEENT: Head is atraumatic, normocephalic. Pupils equal, round. Neck is supple. There is no elevated jugular venous pressure. HEART EXAMINATION: S1 and S2 irregularly irregular systolic ejection murmur is heard. CHEST EXAMINATION: Lungs are clear with mild diminished air entry to posterior bases. ABDOMEN: Soft, nontender. Bowel sounds are heard. No organomegaly noted. EXTREMITIES: 2+ peripheral pulses with no evidence of peripheral edema and no calf tenderness noted. NEUROLOGIC patient is awake, alert and oriented -3. . Results 01/18/17 05:54 01/18/17 05:54 Cardiac Enzymes 01/17/17 01/17/17 01/17/17 Range/Units 09:40 16:50 22:04 AST (17-59) U/L CK-MB (CK-2) 2.3 2.0 2.0 (0.0-2.4) ng/mL Troponin I 0.013 0.014 Cancelled (0.000-0.034) ng/mL 01/17/17 01/18/17 Range/Units 23:41 05:54 AST 27 (17-59) U/L CK-MB (CK-2) (0.0-2.4) ng/mL Troponin I 0.018 (0.000-0.034) ng/mL Lipids 01/18/17 Range/Units 05:54 Triglycerides 61 (<150) mg/dL Cholesterol 91 (<200) mg/dL HDL Cholesterol 54 (40-60) mg/dL CBC 01/18/17 Range/Units 05:54 WBC 4.1 (3.8-10.6) k/uL RBC 3.36 L (4.30-5.90) m/uL Hgb 11.5 L (13.0-17.5) gm/dL Hct 34.8 L (39.0-53.0) % Plt Count 134 L (150-450) k/uL Comprehensive Metabolic Panel 01/18/17 Range/Units 05:54 Sodium 135 L (137-145) mmol/L Potassium 4.2 (3.5-5.1) mmol/L Chloride 101 (98-107) mmol/L Carbon Dioxide 27 (22-30) mmol/L BUN 18 (9-20) mg/dL Creatinine 0.80 (0.66-1.25) mg/dL Glucose 122 H (74-99) mg/dL Calcium 8.8 (8.4-10.2) mg/dL Unconjugated Bilirubin 3.6 H (0.0-1.1) mg/dL AST 27 (17-59) U/L ALT 41 (21-72) U/L Alkaline Phosphatase 62 (38-126) U/L Total Protein 5.4 L (6.3-8.2) g/dL Albumin 3.4 L (3.5-5.0) g/dL Current Medications Generic Name Dose Route Start Last Admin Trade Name Freq PRN Reason Stop Dose Admin Acetaminophen 500 mg 01/17/17 22:04 Tylenol Tab PO Q6HR PRN Fever and/ or Pain Hydrocodone Bitart/Acetaminophen 1 each 01/17/17 22:04 [place] 5-325 PO Q6HR PRN Pain Alprazolam 0.25 mg 01/17/17 22:04 Xanax PO TID PRN Anxiety Apixaban 2.5 mg 01/17/17 21:00 01/18/17 08:07 Eliquis PO 2.5 mg BID [facility] Administration Aspirin 325 mg 01/18/17 09:00 01/18/17 08:06 Aspirin PO 325 mg DAILY [facility] Administration Calcium Carbonate 1 each 01/18/17 09:00 01/18/17 08:07 Oscal 500+D PO 1 each DAILY [facility] Administration Cholecalciferol 1,000 unit 01/18/17 12:00 Vitamin D3 PO 1200 [facility] Folic Acid 2 mg 01/18/17 12:00 Folic Acid PO DAILY@1200 [facility] Furosemide 40 mg 01/18/17 09:00 01/18/17 08:07 Lasix PO 40 mg DAILY@0900 [facility] Administration Furosemide 20 mg 01/17/17 16:00 01/17/17 16:50 Lasix PO Not Given DAILY@1600 [facility] Sodium Chloride 1,000 mls @ 20 mls/hr 01/17/17 14:15 01/17/17 14:18 Saline 0.9% IV 20 mls/hr .Q24H [facility] Administration Ipratropium [place] 0.5 mg 01/17/17 14:09 01/18/17 08:13 Atrovent Nebulized INHALATION 0.5 mg RT-QID PRN Administration Shortness Of Breath Or Wheezing Levalbuterol HCl 1.25 mg 01/17/17 14:09 01/18/17 08:12 Xopenex Nebulized INHALATION 1.25 mg RT-QID PRN Administration Dyspnea Levothyroxine Sodium 100 mcg 01/18/17 06:30 01/18/17 06:42 Synthroid PO 100 mcg DAILY@0630 [facility] Administration Levothyroxine Sodium 75 mcg 01/18/17 06:30 01/18/17 06:42 Synthroid PO 75 mcg DAILY@0630 [facility] Administration Meclizine HCl 25 mg 01/17/17 14:09 Antivert PO DAILY PRN Vertigo Melatonin 3 mg 01/18/17 21:00 Melatonin PO HS [facility] Metoprolol Succinate 25 mg 01/17/17 21:00 01/18/17 08:06 Toprol Xl PO 25 mg BID [facility] Administration Montelukast Sodium 10 mg 01/17/17 21:00 01/17/17 20:52 Singulair PO 10 mg HS [facility] Administration Nitroglycerin 0.4 mg 01/17/17 14:06 Nitrostat SUBLINGUAL Q5M PRN Chest Pain Pantoprazole Sodium 40 mg 01/18/17 07:30 01/18/17 06:42 Protonix PO 40 mg AC-BRKFST [facility] Administration Spironolactone 37.5 mg 01/18/17 09:00 01/18/17 08:07 Aldactone PO 37.5 mg QAM [facility] Administration Intake and Output 01/17/17 01/18/17 01/18/17 22:59 06:59 14:59 Intake Total 240 360 Output Total 300 280 Balance -300 -40 360 Intake: IV 240 Sodium Chloride 0.9% 1, 240 000 ml @ 20 mls/hr IV . Q24H [facility] Rx#:[id number] Oral 360 Output: Urine 300 280 Other: Voiding Method Toilet Toilet # Voids 1 Weight 88.904 kg 89.1 kg 01/18/17 05:54 01/18/17 05:54 EKG Interpretations (text) EKG shows atrial fibrillation with a controlled ventricular response and a left bundle-branch block pattern. Assessment and Plan Plan: Assessment and plan #1 headache with associated right facial pain rule out TIA #2 atrial fibrillation, paroxysmal in nature, on Eliquis for anticoagulation #3 COPD #4 hypertension #5 hyperlipidemia #6 diabetes #7 anemia Plan Patient did have an echocardiogram with Doppler study performed in the office in September, we will obtain a copy of this for the record. We will also check free T4 and TSH level. From Cardiology's perspective, patient is stable at this time. Further recommendations to follow. DNP note has been reviewed, I agree with a documented findings and plan of care. Patient was seen and examined. <Feng Koroma - Last Filed: 01/18/17 17:49> Physical Exam Vitals: Vital Signs Temp Pulse Pulse Resp BP BP BP 01/18/17 16:00 98.0 F 84 18 126/71 01/18/17 12:00 80 18 01/18/17 11:58 97.5 F L 80 18 104/61 112/55 01/18/17 08:23 68 01/18/17 08:13 66 01/18/17 08:00 97.2 F L 74 18 93/58 01/18/17 04:00 77 18 102/60 96/59 01/18/17 00:00 98.3 F 77 18 01/17/17 21:22 64 01/17/17 21:02 64 01/17/17 20:00 98.7 F 78 18 111/55 BP Pulse Ox 01/18/17 16:00 92 L 01/18/17 12:00 01/18/17 11:58 94 L 01/18/17 08:23 01/18/17 08:13 01/18/17 08:00 95 01/18/17 04:00 81/50 95 01/18/17 00:00 94 L 01/17/17 21:22 01/17/17 21:02 01/17/17 20:00 95 Intake and Output 01/18/17 01/18/17 01/18/17 06:59 14:59 22:59 Intake Total 240 735 Output Total 280 Balance -40 735 Intake: IV 240 Sodium Chloride 0.9% 1, 240 000 ml @ 20 mls/hr IV . Q24H [facility] Rx#:[id number] Intake, IV Titration 250 Amount Sodium Chloride 0.9% 1, 250 000 ml @ 20 mls/hr IV . Q24H [facility] Rx#:[id number] Oral 485 Output: Urine 280 Other: Voiding Method Toilet Toilet # Voids 1 1 Weight 89.1 kg Results 01/18/17 05:54 01/18/17 05:54 Cardiac Enzymes 01/17/17 01/17/17 01/17/17 Range/Units 16:50 22:04 23:41 AST (17-59) U/L CK-MB (CK-2) 2.0 2.0 (0.0-2.4) ng/mL Troponin I 0.014 Cancelled 0.018 (0.000-0.034) ng/mL 01/18/17 Range/Units 05:54 AST 27 (17-59) U/L CK-MB (CK-2) (0.0-2.4) ng/mL Troponin I (0.000-0.034) ng/mL Lipids 01/18/17 Range/Units 05:54 Triglycerides 61 (<150) mg/dL Cholesterol 91 (<200) mg/dL HDL Cholesterol 54 (40-60) mg/dL CBC 01/18/17 Range/Units 05:54 WBC 4.1 (3.8-10.6) k/uL RBC 3.36 L (4.30-5.90) m/uL Hgb 11.5 L (13.0-17.5) gm/dL Hct 34.8 L (39.0-53.0) % Plt Count 134 L (150-450) k/uL Comprehensive Metabolic Panel 01/18/17 Range/Units 05:54 Sodium 135 L (137-145) mmol/L Potassium 4.2 (3.5-5.1) mmol/L Chloride 101 (98-107) mmol/L Carbon Dioxide 27 (22-30) mmol/L BUN 18 (9-20) mg/dL Creatinine 0.80 (0.66-1.25) mg/dL Glucose 122 H (74-99) mg/dL Calcium 8.8 (8.4-10.2) mg/dL Unconjugated Bilirubin 3.6 H (0.0-1.1) mg/dL AST 27 (17-59) U/L ALT 41 (21-72) U/L Alkaline Phosphatase 62 (38-126) U/L Total Protein 5.4 L (6.3-8.2) g/dL Albumin 3.4 L (3.5-5.0) g/dL Current Medications Generic Name Dose Route Start Last Admin Trade Name Freq PRN Reason Stop Dose Admin Acetaminophen 500 mg 01/17/17 22:04 Tylenol Tab PO Q6HR PRN Fever and/ or Pain Hydrocodone Bitart/Acetaminophen 1 each 01/17/17 22:04 [place] 5-325 PO Q6HR PRN Pain Alprazolam 0.25 mg 01/17/17 22:04 Xanax PO TID PRN Anxiety Apixaban 2.5 mg 01/17/17 21:00 01/18/17 08:07 Eliquis PO 2.5 mg BID [facility] Administration Aspirin 325 mg 01/18/17 09:00 01/18/17 08:06 Aspirin PO 325 mg DAILY [facility] Administration Calcium Carbonate 1 each 01/18/17 09:00 01/18/17 08:07 Oscal 500+D PO 1 each DAILY [facility] Administration Cholecalciferol 1,000 unit 01/18/17 12:00 01/18/17 11:24 Vitamin D3 PO 1,000 unit 1200 [facility] Administration Folic Acid 2 mg 01/18/17 12:00 01/18/17 11:24 Folic Acid PO 2 mg DAILY@1200 [facility] Administration Furosemide 40 mg 01/18/17 09:00 01/18/17 08:07 Lasix PO 40 mg DAILY@0900 [facility] Administration Furosemide 20 mg 01/17/17 16:00 01/18/17 17:10 Lasix PO 20 mg DAILY@1600 [facility] Administration Sodium Chloride 1,000 mls @ 20 mls/hr 01/17/17 14:15 01/18/17 17:11 Saline 0.9% IV 20 mls/hr .Q24H [facility] Administration Ipratropium [place] 0.5 mg 01/17/17 14:09 01/18/17 08:13 Atrovent Nebulized INHALATION 0.5 mg RT-QID PRN Administration Shortness Of Breath Or Wheezing Levalbuterol HCl 1.25 mg 01/17/17 14:09 01/18/17 08:12 Xopenex Nebulized INHALATION 1.25 mg RT-QID PRN Administration Dyspnea Levothyroxine Sodium 100 mcg 01/18/17 06:30 01/18/17 06:42 Synthroid PO 100 mcg DAILY@0630 [facility] Administration Levothyroxine Sodium 75 mcg 01/18/17 06:30 01/18/17 06:42 Synthroid PO 75 mcg DAILY@0630 [facility] Administration Meclizine HCl 25 mg 01/17/17 14:09 Antivert PO DAILY PRN Vertigo Melatonin 3 mg 01/18/17 21:00 Melatonin PO HS [facility] Metoprolol Succinate 25 mg 01/17/17 21:00 01/18/17 08:06 Toprol Xl PO 25 mg BID [facility] Administration Montelukast Sodium 10 mg 01/17/17 21:00 01/17/17 20:52 Singulair PO 10 mg HS [facility] Administration Nitroglycerin 0.4 mg 01/17/17 14:06 Nitrostat SUBLINGUAL Q5M PRN Chest Pain Pantoprazole Sodium 40 mg 01/18/17 07:30 01/18/17 06:42 Protonix PO 40 mg AC-BRKFST [facility] Administration Spironolactone 37.5 mg 01/18/17 09:00 01/18/17 08:07 Aldactone PO 37.5 mg QAM [facility] Administration Intake and Output 01/18/17 01/18/17 01/18/17 06:59 14:59 22:59 Intake Total 240 735 Output Total 280 Balance -40 735 Intake: IV 240 Sodium Chloride 0.9% 1, 240 000 ml @ 20 mls/hr IV . Q24H [facility] Rx#:[id number] Intake, IV Titration 250 Amount Sodium Chloride 0.9% 1, 250 000 ml @ 20 mls/hr IV . Q24H [facility] Rx#:[id number] Oral 485 Output: Urine 280 Other: Voiding Method Toilet Toilet # Voids 1 1 Weight 89.1 kg 01/18/17 05:54 01/18/17 05:54
[2017-01-18] MEDS: FOLIC ACID 1 MG TAB PO SCH (11:24)
[2017-01-18] MEDS: CHOLECALCIFEROL 1,000 UNIT TAB PO SCH (11:24)
[2017-01-18] MEDS: FUROSEMIDE 20 MG TAB PO SCH (17:10)
[2017-01-18] MEDS: SODIUM CHLORIDE 0.9% 1,000 ML IV SCH (17:11)
--- NOTE | 2017-01-18 19:01 | P.CNNES ---
History of Present Illness Consult date: 01/18/17 Reason for Consult: Patient with right sided headache and TIA symptoms with atrial fibrillation History of Present Illness: This patient is a 86-year-old right-handed white male who was admitted to Hospital with symptoms of right-sided facial pain and neck pain and dizziness. Patient states he awoke yesterday morning at about 9 AM and noted right-sided facial pain as well as neck discomfort. For these reasons he was brought into the emergency room for further evaluation. He was seen in the ER by Dr. Rebollar and was sent for a computed tomography scan of the brain. CAT scan of the brain was completed yesterday and revealed mild age-related atrophy and periventricular white matter changes. No acute intracranial process was noted. Patient on further questioning states that his numbness involved only the right side of his face. He describes it more as a painful sensation that came on with neck pain. He denied sleeping in a court position the night before. He does have a history of paroxysmal atrial fibrillation. When he came into the ER he was noted on EKG to be in atrial fibrillation. He has been taking Eliquis for long-term management of his paroxysmal atrial fibrillation. He has undergone DANY procedure last year as well as elective cardioversion July 2016. The patient has been taking his Eliquis on a regular basis. He was seen by cardiology today and they are monitoring his condition closely. He has recently had a echocardiogram with Doppler study and we are waiting those results. The patient states his discomfort and pain level initially yesterday was 9/10. Symptoms have substantially improved and is now rated as 1/10. He still notices some discomfort in the neck region. He did not have any facial droop according to his with the symptoms yesterday. She also denied any change in his speech yesterday. 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 The patient denies any whiplash or neck injury recently. He has not had any imaging of his cervical spine recently. He did not experience any radicular pain into the right arm associated with these symptoms yesterday. The patient is now been admitted and neurology has been consulted for further evaluation and recommendations. Review of Systems Constitutional: Denies chills, Denies fever Eyes: denies blurred vision, denies pain Ears, nose, mouth and throat: Denies headache, Denies sore throat Cardiovascular: Denies chest pain, Denies shortness of breath Respiratory: Denies cough Gastrointestinal: Denies abdominal pain, Denies diarrhea, Denies nausea, Denies vomiting Musculoskeletal: Reports neck pain, Reports neck stiffness, Denies myalgias Integumentary: Denies pruritus, Denies rash Neurological: Reports headaches, Reports paresthesias, Denies numbness, Denies weakness Psychiatric: Denies anxiety, Denies depression Endocrine: Denies fatigue, Denies weight change Past Medical History Past Medical History: Atrial Fibrillation, Asthma, Chest Pain / Angina, Heart Failure, COPD, CVA/TIA, Diabetes Mellitus, GERD/Reflux, Hypertension, Pneumonia , Thyroid Disorder Additional Past Medical History / Comment(s): tracheobronchitis, chronic bronchitis, subglottic tracheitis, nodular vocal cords, (previosly noted in charting 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 ulcer, diet controlled diabetes, hemolytic anemia, hypothyroidism deviated septum(had sx), TIA, DIVERTICLOSIS History of Any Multi-Drug Resistant Organisms: None Reported Past Surgical History: Appendectomy, Cholecystectomy, Joint Replacement, Orthopedic Surgery Additional Past Surgical History / Comment(s): 02/05/15 DANY/CVN, 10/24/14 bronchoscopy with lavage, 10/24/14 laryngoscopy, right total hip replaced, arthroscopies bilateral knees, R rotator cuff surgery. sx for deviated septum, karlene cataracts Past Anesthesia/Blood Transfusion Reactions: Motion Sickness, Postoperative Nausea & Vomiting (PONV) Additional Past Anesthesia/Blood Transfusion Reaction / Comment(s): UNK FAMILY HX.NEVER HAS HAD BLOOD TRANSFUSION Past Psychological History: No Psychological Hx Reported Additional Psychological History / Comment(s): Retired. No service. No animal exposures. 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 Lives with spouse in a single level home that has 3 steps to enter. PT is independent. He uses no assistive device and no home care. He drives a car.has a nebulizer. Smoking Status: Former smoker Past Alcohol Use History: None Reported Additional Past Alcohol Use History / Comment(s): Pt started smoking in 1964 and quit in 1974. Past Drug Use History: None Reported - Past Family History Mother Family Medical History: CVA/TIA Father Family Medical History: Hypertension Medications and Allergies Home Medications Medication Instructions Recorded Confirmed Type Folic Acid 2 mg PO DAILY 10/10/14 01/17/17 History Meclizine [Antivert] 25 mg PO DAILY PRN 10/10/14 01/17/17 History Metoprolol Succinate [Toprol XL] 25 mg PO BID 10/10/14 01/17/17 History Montelukast [Singulair] 10 mg PO HS 10/10/14 01/17/17 History Omeprazole [PriLOSEC] 20 mg PO AC-BRKFST 10/10/14 01/17/17 History Apixaban [Eliquis] 2.5 mg PO BID 02/04/15 01/17/17 History Ipratropium Nebulized [Atrovent 0.5 mg INHALATION RT-QID PRN 02/04/15 01/17/17 History Nebulized] Spironolactone [Aldactone] 37.5 mg PO QAM 02/04/15 01/17/17 History Levalbuterol HCl [Xopenex 1.25 mg INHALATION RT-QID PRN 02/05/15 01/17/17 History Nebulized] Calcium Carbonate/Vitamin D3 1 tab PO DAILY 10/01/16 01/17/17 History [Calcium 600-Vit D3 200 Tablet] Cholecalciferol [Vitamin D3] 1,000 unit PO DAILY 10/01/16 01/17/17 History Furosemide [Lasix] 40 mg PO DAILY@0900 10/01/16 01/17/17 History Glucosam/Steven-Msm1/C/Yassine/Bosw 1 tab PO DAILY 10/01/16 01/17/17 History [Glucosamine-Chondroitin Tablet] Levothyroxine Sodium [Synthroid] 175 mcg PO DAILY 10/01/16 01/17/17 History [place]-3 Fatty Acids [[place]-3] 1,000 mg PO DAILY 10/01/16 01/17/17 History Furosemide [Lasix] 20 mg PO DAILY@1600 01/17/17 01/17/17 History Allergies Allergy/AdvReac Type Severity Reaction Status Date / Time naproxen [From Naprosyn] Allergy GI BLEED Verified 01/17/17 09:48 Tetracyclines Allergy Unknown Verified 01/17/17 09:48 zomepirac Allergy GI BLEED Verified 01/17/17 09:48 benzocaine [From Cetacaine] AdvReac Nausea & Verified 01/17/17 09:48 Vomiting butamben [From Cetacaine] AdvReac Nausea & Verified 01/17/17 09:48 Vomiting meperidine HCl [From Demerol] AdvReac Nausea & Verified 01/17/17 09:48 Vomiting tetracaine [From Cetacaine] AdvReac Nausea & Verified 01/17/17 09:48 Vomiting duprenex Allergy Nausea & Uncoded 01/17/17 09:20 Vomiting Physical Examination - Vital Signs Vital Signs: Vital Signs Temp Pulse Pulse Resp BP BP BP 01/18/17 12:00 80 18 01/18/17 11:58 97.5 F L 80 18 104/61 112/55 01/18/17 08:23 68 01/18/17 08:13 66 01/18/17 08:00 97.2 F L 74 18 93/58 01/18/17 04:00 77 18 102/60 96/59 01/18/17 00:00 98.3 F 77 18 01/17/17 21:22 64 01/17/17 21:02 64 01/17/17 20:00 98.7 F 78 18 111/55 BP Pulse Ox 01/18/17 12:00 01/18/17 11:58 94 L 01/18/17 08:23 01/18/17 08:13 01/18/17 08:00 95 01/18/17 04:00 81/50 95 01/18/17 00:00 94 L 01/17/17 21:22 01/17/17 21:02 01/17/17 20:00 95 Intake and Output 01/18/17 01/18/17 01/18/17 06:59 14:59 22:59 Intake Total 240 485 Output Total 280 Balance -40 485 Intake: IV 240 Sodium Chloride 0.9% 1, 240 000 ml @ 20 mls/hr IV . Q24H [facility] Rx#:[id number] Oral 485 Output: Urine 280 Other: Voiding Method Toilet Toilet # Voids 1 Weight 89.1 kg - Constitutional General appearance: average body habitus, cooperative - EENT EENT: PERRL, mucous membranes moist - Respiratory Respiratory: lungs clear, normal breath sounds - Cardiovascular Cardiovascular: normal S1, normal S2 Extremities: no peripheral edema bilaterally - Gastrointestinal Gastrointestinal: normoactive bowel sounds - Integumentary Integumentary: normal - Neurologic Cranial nerve examination: PERRL, EOMI, VFF, V1/V2/V3 grossly intact, face symmetric, tongue midline, intact gag reflex, intact corneal reflex, normal palatal elevation Speech examination: intact Sensorimotor examination: intact Detailed motor examination: grossly full strength in all extremities Motor examination - right side: 5/5: biceps, triceps, wrist flexion, wrist extension, instructional technologist, hip flexors, knee extensors, dorsiflexion, toe extension (EHL) , plantarflexion Motor examination - left side: 5/5: biceps, triceps, wrist flexion, wrist extension, instructional technologist, hip flexors, knee extensors, dorsiflexion, toe extension (EHL) , plantarflexion Detailed sensory examination: intact Reflex and gait examination: intact Reflexes: 1+: ankle, bicep, knee, tricep - Musculoskeletal Musculoskeletal: no pain - Psychiatric Psychiatric: mood/affect appropriate, cooperative Results - Laboratory Findings CBC and BMP: 01/18/17 05:54 01/18/17 05:54 Abnormal Lab Findings: Abnormal Labs 01/17/17 01/17/17 01/17/17 09:40 09:40 10:30 RBC 3.46 L Hgb 12.4 L Hct 36.1 L MCV 104.2 H MCH 35.8 H Plt Count 146 L Sodium BUN 21 H Glucose 164 H POC Glucose (mg/dL) Total Bilirubin 5.1 H Unconjugated Bilirubin Delta Bilirubin Total Protein Albumin Urine Glucose (UA) 3+ H 01/18/17 01/18/17 01/18/17 05:54 05:54 10:52 RBC 3.36 L Hgb 11.5 L Hct 34.8 L MCV 103.5 H MCH Plt Count 134 L Sodium 135 L BUN Glucose 122 H POC Glucose (mg/dL) 116 H Total Bilirubin 4.2 H Unconjugated Bilirubin 3.6 H Delta Bilirubin 0.6 H Total Protein 5.4 L Albumin 3.4 L Urine Glucose (UA) Assessment and Plan (1) Cervical pain Status: Acute Code(s): M54.2 - CERVICALGIA (2) TIA (transient ischemic attack) Status: Acute Code(s): G45.9 - TRANSIENT CEREBRAL ISCHEMIC ATTACK, UNSPECIFIED (3) Atypical chest pain Status: Acute Code(s): R07.89 - OTHER CHEST PAIN (4) Atrial fibrillation Status: Acute Code(s): I48.91 - UNSPECIFIED ATRIAL FIBRILLATION Plan: This patient is a 86-year-old male admitted with symptoms of right-sided facial pain and neck pain. Symptoms began yesterday when he awoke in the morning. They persisted and for this reason he was brought into the emergency room for further evaluation. He was found to be in atrial fibrillation. He has a history of chronic paroxysmal atrial fibrillation in the past. He has been taking a look was on a daily basis. He was sent for an initial computed tomography scan of the brain which was negative for any acute changes. He is being followed by cardiology for his atrial fibrillation. The patient's neurological symptoms suggest possibility of cervical disc disease. We are recommending a computed tomography scan of the cervical spine as well as an MRI of the brain due to recurrent TIA symptoms. We are recommending close monitoring for any recurrent TIA like symptoms for this patient. He has been treated for atrial fibrillation and has been taking Eliguis on a regular basis. We will await further recommendations from cardiology whether to consider alternative anticoagulant for this patient. We will continue with neuro checks for this patient with close monitoring for any recurrent symptoms. His overall prognosis at this time remains guarded. Case was discussed at length with the patient and his at bedside. All their questions were answered. They're aware of his guarded condition. We will continue close neurological follow-up of this patient during this admission. Time with Patient: Greater than 30
--- NOTE | 2017-01-18 19:35 | PN ---
DATE OF SERVICE: 01/18/2017 This 86-year-old gentleman who was admitted with headache and chest pain is being closely monitored. Cardiology is following the patient as well as neurology consultation with Dr. Madera is ongoing at this time. No chest pain or palpitation. No fever. On exam, alert and oriented times three. Pulse is 80. Blood pressure 105/61. Respiratory rate 16, temperature 97.4. Pulse ox 94% on room air. HEENT: Conjunctivae normal. NECK: No jugular venous distention. CARDIOVASCULAR: S1, S2 muffled. RESPIRATORY: Breath sounds diminished at the bases. No rhonchi. No crackles. ABDOMEN: Soft. Nontender. LEGS: No edema. No swelling. Nervous system: No focal deficits. LABS: At this time shows WBC 4.7, hemoglobin 11.3, MCV 103. Sodium 135. ASSESSMENT: 1. Headache and chest pain for evaluation, possible acute transient ischemic attack. 2. Rule out coronary artery disease and unstable angina. 3. Increased total bilirubin possibly secondary from hemolytic anemia with unconjugated hyperbilirubinemia. 4. Anemia, macrocytic. 5. Thrombocytopenia, mild. 6. History of atrial fibrillation, chronic, persistent. 7. Left bundle branch block on the EKG. 8. History of asthma. 9. History of congestive heart failure. 10. History of chronic obstructive pulmonary disease. 11. History of cerebrovascular accident, transient ischemic attack. 12. Diabetes mellitus type 2. 13. History of gastroesophageal reflux disease. 14. Hypertension, essential. 15. Pneumonia. 16. 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 17. History of diet controlled diabetes type 2. 18. History of hemolytic anemia. 19. History of hypobilirubinemia possibly secondary to hemolytic anemia. 20. History of diverticulosis and history of degenerative joint disease. 21. History of amaurosis fugax. 22. History of motion sickness. 23. History of nicotine dependence. 24. Congestive heart failure with chronic diastolic dysfunction, ejection 50 to 55%. 25. FULL CODE. RECOMMENDATIONS AND DISCUSSION: In this 86 -year-old gentleman who presented with multiple complex medical issues, we will monitor the patient closely. Continue the current medications. Continue symptomatic treatment. Otherwise at this time, I recommend current medications, continue with further neurology work-up and antiplatelets. Guarded prognosis. Further recommendations to follow. MTDD
[2017-01-18] MEDS: MONTELUKAST 10 MG TAB PO SCH (20:09)
[2017-01-18] MEDS ORDERED: MELATONIN 3 MG TABLET PO SCH (21:00)
[2017-01-19 00:57] VITALS: RESP 18
[2017-01-19] MEDS: PANTOPRAZOLE 40 MG TABLET PO SCH (06:29)
[2017-01-19] MEDS: LEVOTHYROXINE 100 MCG TAB PO SCH (06:29)
[2017-01-19] MEDS: LEVOTHYROXINE 75 MCG TAB PO SCH (06:30)
[2017-01-19 07:23] LABS: Basophils % (A) 1 %; CH 35.4; CHCM 34.1; Eosinophils # (A) 0.2 k/uL (0-0.7); Eosinophils % (A) 3 %; HCT 36.6 % (39.0-53.0); HDW 2.73; HGB 12.1 gm/dL (13.0-17.5); Luc # (Auto) 0.09; Luc % (Auto) 2; Lymphocytes # (A) 1.1 k/uL (1.0-4.8); Lymphocytes % (A) 22 %; MCH 34.5 pg (25.0-35.0); MCHC 33.1 g/dL (31.0-37.0); MCV 104.2 fL (80.0-100.0); Macrocytosis Slight; Mean Platelet Volume 8.3; Monocytes # (A) 0.2 k/uL (0-1.0); Monocytes % (A) 5 %; Neutrophils # (A) 3.2 k/uL (1.3-7.7); Neutrophils % (A) 67 %; RBC 3.51 m/uL (4.30-5.90); RDW 14.1 % (11.5-15.5); WBC 4.7 k/uL (3.8-10.6); WBC (Perox) 4.84
--- NOTE | 2017-01-19 07:29 | CT ---
EXAMINATION TYPE: CT cervical spine wo con DATE OF EXAM: 01/19/2017 7:19 AM COMPARISON: NONE HISTORY: Rt side neck pain CT DLP: 795 mGycm Automated exposure control for dose reduction was used. TECHNIQUE: CT scan of the cervical spine is obtained without contrast, axial images are obtained, sa gittal and coronal reformatted images are also reviewed. FINDINGS: Visualized portions of the lungs are clear. There is some shotty cervical adenopathy. Preve rtebral soft tissues are otherwise normal. There is a mild retrograde listhesis of C6 on C7. Alignment is otherwise normal. Atlantoaxial relatio nships are normal. There is degenerative disc disease and hypertrophic spondylosis both anteriorly an d posteriorly at C6-7. There is uncovertebral joint disease diffusely throughout the cervical spine, most marked at C6-7 with relative sparing of C2-3. There is facet arthropathy extending from C2-3 thr ough C6-7. No definite discal protrusion is seen. IMPRESSION: 1. DEGENERATIVE CHANGE DESCRIBED. 2. NO ACUTE OSSEOUS LESION. 3. NO DEFINITE DISCAL PROTRUSION.
[2017-01-19 07:38] LABS: ALT 41 U/L (21-72); AST 29 U/L (17-59); Alkaline Phosphatase 63 U/L (38-126); Anion Gap 10 mmol/L; Blood Urea Nitrogen 22 mg/dL (9-20); Calcium 8.9 mg/dL (8.4-10.2); Carbon Dioxide 28 mmol/L (22-30); Chloride 99 mmol/L (98-107); Glucose 134 mg/dL (74-99); Non-African American GFR(MDRD) >60 (>60 ml/min/1.73 sqM); Potassium 4.4 mmol/L (3.5-5.1); Sodium 137 mmol/L (137-145); Total Bilirubin 4.4 mg/dL (0.2-1.3); Total Protein 5.8 g/dL (6.3-8.2)
[2017-01-19] MEDS: ASPIRIN 325 MG TAB PO SCH (07:49)
[2017-01-19] MEDS: SPIRONOLACTONE 25 MG TAB PO SCH (07:49)
[2017-01-19] MEDS: APIXABAN 2.5 MG TABLET PO SCH (07:49)
[2017-01-19] MEDS: CALCIUM CARB-VIT D 500MG-200UN 1 EACH TAB PO SCH (07:50)
[2017-01-19] MEDS: METOPROLOL SUCCINATE (ER) 25 MG TAB.ER.24H PO SCH (07:50)
[2017-01-19] MEDS: FUROSEMIDE 40 MG TAB PO SCH (07:50)
[2017-01-19] MEDS: IPRATROPIUM 0.5 MG/2.5 ML NEBU INHALATION PRN (09:01)
[2017-01-19] MEDS: LEVALBUTEROL NEB 1.25 MG/3 ML AMP INHALATION PRN (09:01)
--- NOTE | 2017-01-19 11:07 | ECHOF ---
Referral Reason:afib MEASUREMENTS -------- HEIGHT: 177.8 cm WEIGHT: 88.9 kg BP: 93/58 RVIDd: 3.8 cm (< 3.3) IVSd: 1.2 cm (0.6 - 1.1) LVIDd: 5.4 cm (3.9 - 5.3) LVPWd: 1.2 cm (0.6 - 1.1) IVSs: 1.7 cm LVIDs: 2.9 cm LVPWs: 1.5 cm LAESV Index (A-L): 29.62 ml/m Ao Diam: 3.7 cm (2.0 - 3.7) AV Cusp: 2.0 cm (1.5 - 2.6) LA Diam: 3.8 cm (2.7 - 3.8) MV EXCURSION: 21.020 mm (> 18.000) MV EF SLOPE: 154 mm/s (70 - 150) EPSS: 0.4 cm RAP: 5.00 mmHg RVSP: 27.03 mmHg FINDINGS -------- Atrial fibrillation. This was a technically adequate study. There is mild concentric left ventricular hypertrophy. Overall left ventricular systolic function is normal with, an EF between 55 - 60 %. The right ventricle is normal in size and function. LA is midly dilated 29-33ml/m2. The right atrium is normal in size. Aortic valve is trileaflet and is mildly thickened. There is no evidence of aortic regurgitation. There is no evidence of aortic stenosis. The mitral valve leaflets are mildly thickened. No mitral regurgitation. Trace tricuspid regurgitation present. There is no evidence of pulmonary hypertension. The right ventricular systolic pressure, as measured by Doppler, is 27.03mmHg. The pulmonic valve was not well visualized. The aortic root size is normal. There is no pericardial effusion. CONCLUSIONS -------- 1. Atrial fibrillation. 2. The right ventricular systolic pressure, as measured by Doppler, is 27.03mmHg. 3. The pulmonic valve was not well visualized. 4. The aortic root size is normal. 5. There is no pericardial effusion. 6. There is mild concentric left ventricular hypertrophy. 7. Overall left ventricular systolic function is normal with, an EF between 55 - 60 %. 8. LA is midly dilated 29-33ml/m2. 9. Aortic valve is trileaflet and is mildly thickened. 10. The mitral valve leaflets are mildly thickened. 11. No mitral regurgitation. 12. Trace tricuspid regurgitation present. 13. There is no evidence of pulmonary hypertension. CHIEF D[employer]ITAL MEDIA OFFICER: Dylan Morelos RDCS
--- NOTE | 2017-01-19 12:14 | MR ---
EXAMINATION TYPE: MR brain wo con DATE OF EXAM: 01/19/2017 11:58 AM COMPARISON: NONE HISTORY: Recurrent TIA and right sided facial pain T1-weighted sagittal, T2, FLAIR, and diffusion axial, and T2 coronal coronal views of the brain are s ubmitted. There is no evidence of acute ischemia. Mild degenerative change. Confluent and focal areas of abnorm al signal seen scattered throughout the white matter nonspecific. Changes of chronic sinusitis with nasal septal deviation noted. Craniocervical junction maintained. S gayle turcica has a normal appearance. No cerebellopontine angle mass. Question a tiny venous angioma right cerebellar hemisphere. IMPRESSION: 1. No acute intracranial process. 2. Nonspecific white matter changes most typical remote microvascular disease.
[2017-01-19] MEDS: FOLIC ACID 1 MG TAB PO SCH (13:41)
[2017-01-19] MEDS: CHOLECALCIFEROL 1,000 UNIT TAB PO SCH (13:41)
--- NOTE | 2017-01-19 13:59 | P.PN ---
Subjective Principal diagnosis: García slater This is an 86-year-old gentleman who follows regularly with Dr. Pollack in the office. He has a known history of hypertension, diabetes, hyperlipidemia, paroxysmal atrial fibrillation with prior DANY and elective cardioversion in July 2016, Patient also has known history of COPD. Patient presents to the hospital with symptoms of sharp right sided facial pain and headache with associated dizziness. The symptoms started yesterday, patient states that he also felt in his chest that he was back into atrial fibrillation. According to the patient, he does feel that he has been in and out of atrial fibrillation at times over the past few months. EKG on presentation here showed atrial fibrillation with a left bundle-branch block pattern and controlled ventricular response. Chest x-ray reveals small right pleural effusion. CAT scan of the brain reveals mild age-related atrophy with mild. Ventricular white matter changes stable from prior study. Blood pressure on arrival here 112/60 with a heart rate in the 70s. 97% on room air. Hemoglobin 11.5, platelet count 134, potassium 4.2, BUN 18, creatinine 0.8. Troponin 0.013, 0.014, 0.018. BNP level 594. 01/19/2017 The patient continues to be in atrial fibrillation this morning. Neurology work up in progress. Cardiology's perspective, patient has excellent heart rate control and is on anticoagulation. We will follow this patient with you now on an as-needed basis only. Upon discharge a follow-up appointment will be made with Dr. Pollack. Objective - Vital Signs Vital signs: Vital Signs Temp 98.2 F 01/19/17 08:00 Pulse 80 01/19/17 09:12 Resp 18 01/19/17 08:00 BP 141/71 01/19/17 08:00 Pulse Ox 97 01/19/17 08:00 Intake & Output 01/18/17 01/19/17 01/19/17 18:59 06:59 18:59 Intake Total 1095 10 240 Output Total 1200 Balance 1095 -1190 240 Weight 88.6 kg Intake: IV 10 Sodium Chloride 0.9% 1, 10 000 ml @ 20 mls/hr IV . Q24H [facility] Rx#:[id number] Intake, IV Titration 250 Amount Sodium Chloride 0.9% 1, 250 000 ml @ 20 mls/hr IV . Q24H [facility] Rx#:[id number] Oral 845 240 Output: Urine 1200 Other: Voiding Method Toilet # Voids 1 3 2 - Labs CBC & Chem 7: 01/19/17 06:46 01/19/17 06:46 Labs: Abnormal Lab Results - Last 24 Hours (Table) 01/19/17 01/19/17 Range/Units 06:46 06:46 RBC 3.51 L (4.30-5.90) m/uL Hgb 12.1 L (13.0-17.5) gm/dL Hct 36.6 L (39.0-53.0) % MCV 104.2 H (80.0-100.0) fL Plt Count 149 L (150-450) k/uL BUN 22 H (9-20) mg/dL Glucose 134 H (74-99) mg/dL Total Bilirubin 4.4 H (0.2-1.3) mg/dL Total Protein 5.8 L (6.3-8.2) g/dL
[2017-01-19 14:25] VITALS: BP 105/61; PULSE 75; TEMP 98
--- NOTE | 2017-01-19 15:53 | P.CONS ---
History of Present Illness - Reason for Consult Consult date: 01/19/17 hemolytic anemia Requesting physician: Renzo Newell - Chief Complaint chest, right neck and right arm pain - History of Present Illness Mr. Alamo is a very pleasant male pt who last seen Dr. Eller February 2014. He is known to have chronic hemolytic anemia for years with elevated bilirubin and reticulocyte counts, normal haptoglobin and LDH. Pt has had acute exacerbations of his condition previously, mostly surrounding procedures or illnesses. Pt states being on folic acid BID with no acute exacerbations for many years. He denies any acute bleeding, jaundice, itching acute changes in color of urine. He came to the ER with c/o pain in the right neck, arm and chest. His symptoms have subsided since admission. He denies recent illnesses, fevers, dysphagia, SOB, diaphoresis, changes in bowel or bladder habits, swelling in the legs or new pain. 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 ulcer, diet controlled diabetes, hemolytic anemia, hypothyroidism deviated septum(had sx), TIA, DIVERTICLOSIS History of Any Multi-Drug Resistant Organisms: None Reported Past Surgical History: Appendectomy, Cholecystectomy, Joint Replacement, Orthopedic Surgery Additional Past Surgical History / Comment(s): 02/05/15 DANY/CVN, 10/24/14 bronchoscopy with lavage, 10/24/14 laryngoscopy, right total hip replaced, arthroscopies bilateral knees, R rotator cuff surgery. sx for deviated septum, karlene cataracts Past Anesthesia/Blood Transfusion Reactions: Motion Sickness, Postoperative Nausea & Vomiting (PONV) Additional Past Anesthesia/Blood Transfusion Reaction / Comm: UNK FAMILY HX.NEVER HAS HAD BLOOD TRANSFUSION Past Psychological History: No Psychological Hx Reported Additional Psychological History / Comment(s): Retired. No service. No animal exposures. 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 Lives with spouse in a single level home that has 3 steps to enter. PT is independent. He uses no assistive device and no home care. He drives a car.has a nebulizer. Smoking Status: Former smoker Past Alcohol Use History: None Reported Additional Past Alcohol Use History / Comment(s): Pt started smoking in 1964 and quit in 1974. Past Drug Use History: None Reported - Past Family History Mother Family Medical History: CVA/TIA Father Family Medical History: Hypertension Medications and Allergies Home Medications Medication Instructions Recorded Confirmed Type Folic Acid 2 mg PO DAILY 10/10/14 01/17/17 History Meclizine [Antivert] 25 mg PO DAILY PRN 10/10/14 01/17/17 History Metoprolol Succinate [Toprol XL] 25 mg PO BID 10/10/14 01/17/17 History Montelukast [Singulair] 10 mg PO HS 10/10/14 01/17/17 History Omeprazole [PriLOSEC] 20 mg PO AC-BRKFST 10/10/14 01/17/17 History Apixaban [Eliquis] 2.5 mg PO BID 02/04/15 01/17/17 History Ipratropium Nebulized [Atrovent 0.5 mg INHALATION RT-QID PRN 02/04/15 01/17/17 History Nebulized] Spironolactone [Aldactone] 37.5 mg PO QAM 02/04/15 01/17/17 History Levalbuterol HCl [Xopenex 1.25 mg INHALATION RT-QID PRN 02/05/15 01/17/17 History Nebulized] Calcium Carbonate/Vitamin D3 1 tab PO DAILY 10/01/16 01/17/17 History [Calcium 600-Vit D3 200 Tablet] Cholecalciferol [Vitamin D3] 1,000 unit PO DAILY 10/01/16 01/17/17 History Furosemide [Lasix] 40 mg PO DAILY@0900 10/01/16 01/17/17 History Glucosam/Steven-Msm1/C/Yassine/Bosw 1 tab PO DAILY 10/01/16 01/17/17 History [Glucosamine-Chondroitin Tablet] Levothyroxine Sodium [Synthroid] 175 mcg PO DAILY 10/01/16 01/17/17 History [place]-3 Fatty Acids [[place]-3] 1,000 mg PO DAILY 10/01/16 01/17/17 History Furosemide [Lasix] 20 mg PO DAILY@1600 01/17/17 01/17/17 History Allergies Allergy/AdvReac Type Severity Reaction Status Date / Time naproxen [From Naprosyn] Allergy GI BLEED Verified 01/17/17 09:48 Tetracyclines Allergy Unknown Verified 01/17/17 09:48 zomepirac Allergy GI BLEED Verified 01/17/17 09:48 benzocaine [From Cetacaine] AdvReac Nausea & Verified 01/17/17 09:48 Vomiting butamben [From Cetacaine] AdvReac Nausea & Verified 01/17/17 09:48 Vomiting meperidine HCl [From Demerol] AdvReac Nausea & Verified 01/17/17 09:48 Vomiting tetracaine [From Cetacaine] AdvReac Nausea & Verified 01/17/17 09:48 Vomiting duprenex Allergy Nausea & Uncoded 01/17/17 09:20 Vomiting Physical Exam Vitals: Vital Signs Temp Pulse Pulse Resp BP BP BP 01/19/17 09:12 80 01/19/17 09:01 92 01/19/17 08:00 98.2 F 82 18 141/71 01/19/17 04:00 74 18 01/19/17 00:00 85 18 01/18/17 20:00 98.5 F 79 18 112/63 107/58 01/18/17 18:30 84 14 01/18/17 18:15 84 14 01/18/17 16:00 98.0 F 84 18 126/71 BP Pulse Ox 01/19/17 09:12 01/19/17 09:01 01/19/17 08:00 97 01/19/17 04:00 104/55 97 01/19/17 00:00 96/55 94 L 01/18/17 20:00 101/60 93 L 01/18/17 18:30 01/18/17 18:15 94 L 01/18/17 16:00 92 L Intake and Output 01/18/17 01/19/17 01/19/17 22:59 06:59 14:59 Intake Total 360 10 Output Total 1200 Balance -840 10 Intake: IV 10 Sodium Chloride 0.9% 1, 10 000 ml @ 20 mls/hr IV . Q24H [facility] Rx#:[id number] Oral 360 Output: Urine 1200 Other: # Voids 1 3 Weight 88.6 kg - Constitutional General appearance: cooperative, no acute distress, obese - EENT Eyes: anicteric sclerae, EOMI, PERRLA, normal appearance ENT: hearing grossly normal, normal oropharynx - Neck Neck: no lymphadenopathy - Respiratory Respiratory: bilateral: CTA - Cardiovascular Heart sounds: normal: S1, S2 leg Peripheral Edema: bilateral: None - Gastrointestinal General gastrointestinal: no absent bowel sounds, no decreased bowel sounds, no distended, no hepatomegaly, no hyperactive bowel sounds, normal bowel sounds, no organomegaly, no rigid, no scaphoid, soft, no splenomegaly, no tenderness, no umbilical hernia, no ventral hernia - Integumentary Integumentary: normal - Neurologic Neurologic: CNII-XII intact - Musculoskeletal Musculoskeletal: strength equal bilaterally - Psychiatric Psychiatric: A&O x's 3, appropriate affect, intact judgment & insight Results CBC & Chem 7: 01/19/17 06:46 01/19/17 06:46 Labs: Abnormal Lab Results - Last 24 Hours (Table) 01/19/17 01/19/17 Range/Units 06:46 06:46 RBC 3.51 L (4.30-5.90) m/uL Hgb 12.1 L (13.0-17.5) gm/dL Hct 36.6 L (39.0-53.0) % MCV 104.2 H (80.0-100.0) fL Plt Count 149 L (150-450) k/uL BUN 22 H (9-20) mg/dL Glucose 134 H (74-99) mg/dL Total Bilirubin 4.4 H (0.2-1.3) mg/dL Total Protein 5.8 L (6.3-8.2) g/dL Comments: cervical spine CT report reviewed Chest x-ray: report reviewed CT Scan - head: report reviewed Assessment and Plan (1) Hemolytic anemia Narrative/Plan: Chronic condition for pt. On office chart review pt bilirubin is baseline in the 3-4 range, reticulocyte count 4-5 range with normal haptoglobin and LDH levels. Pt Hgb is currently stable. Cont folic acid BID. Status: Chronic
--- NOTE | 2017-01-19 17:19 | P.PN ---
Subjective This patient is a 86-year-old gentleman who is being seen for neurology consultation regarding recent episode of right-sided facial numbness and neck pain. Patient has a history of paroxysmal atrial fibrillation and has been seen by cardiology. He is currently being anticoagulated than this on Eliquis. He has been seen by cardiology today and they state that his heart condition is excellent with good heart rate control. He is to continue on anticoagulation. He is to follow-up with Dr. francis on in the outpatient cardiology clinic. Patient did undergo a computed tomography scan of the cervical spine which revealed degenerative changes at C6-C7. There was no evidence of obvious disc herniation or fracture. Patient also underwent MRI of the brain today to rule out acute stroke. MRI came back negative for any acute intracranial abnormalities. Nonspecific white matter changes were noted. Patient is being evaluated for possible discharge home today. All test results were reviewed today with the patient. We will continue close neurological follow-up with the patient at this time. He may follow-up in the outpatient neurology clinic in 3-4 weeks. Objective - Vital Signs Vital signs: Vital Signs Temp 98 F 01/19/17 12:00 Pulse 75 01/19/17 12:00 Resp 18 01/19/17 12:00 BP 105/61 01/19/17 12:00 Pulse Ox 98 01/19/17 12:00 Intake & Output 01/18/17 01/19/17 01/19/17 18:59 06:59 18:59 Intake Total 1095 10 240 Output Total 1200 600 Balance 1095 -1190 -360 Weight 88.6 kg Intake: IV 10 Sodium Chloride 0.9% 1, 10 000 ml @ 20 mls/hr IV . Q24H [facility] Rx#:[id number] Intake, IV Titration 250 Amount Sodium Chloride 0.9% 1, 250 000 ml @ 20 mls/hr IV . Q24H [facility] Rx#:[id number] Oral 845 240 Output: Urine 1200 600 Other: Voiding Method Toilet # Voids 1 3 2 - Exam Physical examination: PHYSICAL EXAMINATION: Patient is resting comfortably in bed. VITAL SIGNS: Blood pressure is [105/61]. Heart rate is [75]. Respiration is [18] . Temperature is [98.0]. HEENT: Head is atraumatic, neck is supple, there were no carotid bruits. CHEST: Lungs are clear to auscultation and percussion. CARDIAC: S1, S2 normal rate and rhythm. There is no murmur. ABDOMEN: Soft and nontender. Bowel sounds are present. EXTREMITIES: There is no pedal edema. Peripheral pulses are present. Neurological examination: Patient has a nonfocal neurological examination remains unchanged from yesterday. - Labs CBC & Chem 7: 01/19/17 06:46 01/19/17 06:46 Labs: Abnormal Lab Results - Last 24 Hours (Table) 01/19/17 01/19/17 Range/Units 06:46 06:46 RBC 3.51 L (4.30-5.90) m/uL Hgb 12.1 L (13.0-17.5) gm/dL Hct 36.6 L (39.0-53.0) % MCV 104.2 H (80.0-100.0) fL Plt Count 149 L (150-450) k/uL BUN 22 H (9-20) mg/dL Glucose 134 H (74-99) mg/dL Total Bilirubin 4.4 H (0.2-1.3) mg/dL Total Protein 5.8 L (6.3-8.2) g/dL Assessment and Plan (1) Cervical pain Status: Acute Code(s): M54.2 - CERVICALGIA (2) TIA (transient ischemic attack) Status: Acute Code(s): G45.9 - TRANSIENT CEREBRAL ISCHEMIC ATTACK, UNSPECIFIED (3) Atypical chest pain Status: Acute Code(s): R07.89 - OTHER CHEST PAIN (4) Atrial fibrillation Status: Acute Code(s): I48.91 - UNSPECIFIED ATRIAL FIBRILLATION Plan: This patient is a pleasant 86-year-old gentleman being evaluated for right- sided neck and face pain as well as TIA. Patient underwent a computed tomography scan of the cervical spine the results of which are noted above. There was some degenerative changes noted at C6-C7 level which can be monitored in the outpatient setting. He also underwent MRI of the brain today which came back negative for any evidence of acute stroke. He was seen by cardiology today and they have cleared him for discharge today. He is to continue with anticoagulation as before. Overall the patient seems to be back to baseline in terms of his neurological status. He is to continue on Eliquis for long-term anticoagulation. Patient may follow-up in the outpatient neurology clinic in 3- 4 weeks. His overall prognosis at this time remains guarded. Patient is being considered for discharge home later today.
--- NOTE | 2017-01-20 08:28 | DS ---
DATE OF ADMISSION: 01/17/2017 DATE OF DISCHARGE: 01/19/2017 FINAL DIAGNOSES: 1. Headache and chest pain, possible acute transient ischemic attack. 2. Possibly musculoskeletal pain. 3. Increased total bilirubin, possibly secondary to hemolytic anemia with unconjugated hyperbilirubinemia. 4. Anemia, macrocytic. 5. Thrombocytopenia, mild. 6. History of atrial fibrillation, chronic persistent. 7. Left bundle branch block on EKG. 8. History of asthma. 9. History of congestive heart failure. 10. History of chronic obstructive pulmonary disease. 11. History of cerebrovascular accident, transient ischemic attack. 12. History of diabetes mellitus type 2. 13. History of gastroesophageal reflux disease. 14. Hypertension, essential. 15. History of pneumonia. 16. History of severe hypernatremia secondary to SIADH previously. 17. History of diet-controlled diabetes mellitus type 2. 18. Hemolytic anemia. 19. Hypobilirubinemia secondary to hemolytic anemia. 20. History of diverticulosis. 21. History of degenerative joint disease. 22. History of amaurosis fugax. 23. History of motion sickness. 24. History of nicotine dependence. 25. History of congestive heart failure with chronic diastolic dysfunction, ejection 50% to 55%. 26. FULL CODE. DISCHARGE DISPOSITION: The patient will be discharged in a stable condition with guarded prognosis. Total time taken is 35 minutes. HISTORY OF PRESENT ILLNESS: This is an 86-year-old gentleman with a past medical history of multiple medical problems as mentioned earlier, being followed by Dr. Barrington Ojeda in the outpatient setting, admitted with headache and multiple symptomatology, patient was monitored closely. Cardiology followed the patient and ruled out acute cardiac causes. The brain MRI and cervical spine CT was also done. Neurology saw the patient. Cervical spine CT shows DJD. No acute osseous lesion was noted. On exam, vitals are stable. CARDIOVASCULAR SYSTEM: S1, S2. ABDOMEN: Soft. NERVOUS SYSTEMS: No focal deficits. LABS: Hemoglobin 12.1 and bilirubin is elevated, stable at 4.4. DISCHARGE ADVICE: 1. Diet is cardiac. 2. Activity limited until followup. 3. Follow up with Dr. Pollack as advised. 4. Follow up with Dr. Ojeda as advised. 5. Follow with Dr. Sp Madera as advised. Medications will be: 1. Eliquis 2.5 mg p.o. b.i.d. 2. Calcium carbonate 1 tablet p.o. daily. 3. Vitamin D3 one thousand daily. 4. Folic acid 2 mg daily. 5. Lasix 40 mg daily and 20 mg daily. 6. Glucosamine 1 tablet p.o. daily. 7. Atrovent albuterol q.i.d. and p.r.n. 8. Synthroid 175 mcg p.o. daily. 9. Antivert 25 mg daily p.r.n. 10. Toprol-XL 25 mg p.o. b.i.d. 11. Singulair 10 mg p.o. q.h.s. 12. [place]-3 one thousand mg daily. 13. Prilosec 20 mg with breakfast. 14. Aldactone 37.5 mg q.a.m. Antiplatelet agents were withheld at this time because of history of bleeding with NSAIDS.
== END 2017-01-19 15:15 | disposition home or self-care (01) | DRG 69 ==
LOC: EC 09:14 → 6SEL 14:06
PROVIDERS: ADMIT Internal Medicine; ATTEND Internal Medicine
DX: G45.9 Transient cerebral ischemic attack, unspecified (principal); D69.6 Thrombocytopenia, unspecified; I50.32 Chronic diastolic (congestive) heart failure; I11.0 Hypertensive heart disease with heart failure; I48.1 Persistent atrial fibrillation; J44.9 Chronic obstructive pulmonary disease, unspecified; I48.0 Paroxysmal atrial fibrillation; E11.9 Type 2 diabetes mellitus without complications; D53.9 Nutritional anemia, unspecified; I48.2 Chronic atrial fibrillation; M50.322 Other cervical disc degeneration at C5-C6 level; K57.90 Diverticulosis of intestine, part unspecified, without perforation or abscess without bleeding; I44.7 Left bundle-branch block, unspecified; M19.90 Unspecified osteoarthritis, unspecified site; M79.1 Myalgia; R07.9 Chest pain, unspecified; K21.9 Gastro-esophageal reflux disease without esophagitis; E80.6 Other disorders of bilirubin metabolism; E03.9 Hypothyroidism, unspecified; E78.5 Hyperlipidemia, unspecified; Z82.49 Family history of ischemic heart disease and other diseases of the circulatory system; Z82.3 Family history of stroke; Z96.641 Presence of right artificial hip joint; Z88.6 Allergy status to analgesic agent; Z88.4 Allergy status to anesthetic agent; Z87.01 Personal history of pneumonia (recurrent); Z86.73 Personal history of transient ischemic attack (TIA), and cerebral infarction without residual deficits; Z87.891 Personal history of nicotine dependence; Z79.899 Other long term (current) drug therapy; Z79.01 Long term (current) use of anticoagulants; Z88.1 Allergy status to other antibiotic agents; Z88.5 Allergy status to narcotic agent; Z87.11 Personal history of peptic ulcer disease; Z86.19 Personal history of other infectious and parasitic diseases; Z87.09 Personal history of other diseases of the respiratory system; Z98.42 Cataract extraction status, left eye; Z98.41 Cataract extraction status, right eye; Z90.49 Acquired absence of other specified parts of digestive tract; Z86.39 Personal history of other endocrine, nutritional and metabolic disease; Z86.69 Personal history of other diseases of the nervous system and sense organs
CPT/HCPCS: 36415; 70450; 70551; 71020; 72125; 80053; 80061; 80320; 81003; 82248; 82550; 82553; 83735; 83880; 84443; 84484; 85025; 85610; 85730; 93005; 93306; 94640; 94760; 99285

== ENCOUNTER 2017-02-16 07:51 | Day surgery (SDC) | payer MEDICARE, BC ==
[2017-02-14 09:31] VITALS: BMI 28.4
[~2017-02-16 07:51] MED LIST: HYDROmorphone 1 MG/ML 1 ML SYRINGE IVP PRN; LACTATED RINGERS 1,000 ML IV SCH; LIDOCAINE 1% 20 ML VIAL (10MG/ML) FOR IV START INTRADERMA PRN; MIDAZOLAM 2 MG/2 ML VIAL IV PRN; ONDANSETRON 4 MG/2 ML VIAL IVP ONE; SODIUM CHLORIDE 0.9% 1,000 ML IV SCH
[2017-02-16 08:32] LABS: Glucose,Whole Blood 141 mg/dL (75-99)
[2017-02-16] MEDS ORDERED: LIDOCAINE 1% INJ 10MG/ML (20 ML MDV) ONE (08:50)
[2017-02-16] MEDS ORDERED: PROPOFOL 10 MG/ML 20 ML VIAL IV ONE (08:50)
[2017-02-16] MEDS ORDERED: MIDAZOLAM 2 MG/2 ML VIAL ONE (08:50)
[2017-02-16] MEDS ORDERED: SODIUM CHLORIDE 0.9% 500 ML IV ONE (09:20)
[2017-02-16] MEDS ORDERED: IPRATROPIUM 0.5 MG/2.5 ML NEBU INHALATION PRN (09:33)
[2017-02-16] MEDS ORDERED: MECLIZINE 25 MG TAB PO PRN (09:33)
[2017-02-16] MEDS ORDERED: LEVALBUTEROL NEB (CONC) 1.25 MG/0.5 ML AMP INHALATION PRN (09:33)
[2017-02-16] MEDS ORDERED: SODIUM CHLORIDE 0.9% 1,000 ML IV SCH (09:45)
[2017-02-16 10:46] VITALS: TEMP 97.8
--- NOTE | 2017-02-16 10:55 | ECHOT ---
DATE OF SERVICE: INDICATION: Evaluation of left atrial appendage. PROCEDURE: After explaining the procedure to the patient, its risk and the complications, his blood pressure, heart rate, O2 saturation was monitored. He received sedation per anesthesia department. The probe was introduced into the esophagus without difficulty. Images were obtained. Following that, the probe was removed. There was no immediate complication. FINDINGS: Left atrial size is dilated. Left atrial appendage is normal. Left ventricular size is normal. The overall left ventricular systolic function is mildly impaired with mild global hypokinesis. Estimated ejection fraction is 45% to 50%. The aortic valve appears to be normal. Mitral valve revealed mild thickening of the mitral valve leaflets. Tricuspid valve is normal. Descending thoracic aorta revealed mild atherosclerotic changes of the descending aorta. No pericardial effusion was noted. Contrast bubble study revealed no evidence of shunting across the interatrial septum. Doppler pulse wave and color Doppler obtained and revealed a moderate mitral with mild tricuspid regurgitation. There was no shunting by color Doppler study. CONCLUSION: 1. Mildly dilated left atrium with normal appearance of left atrial appendage. 2. Normal left ventricular size with mild global hypokinesis. 3. Moderate mitral with mild tricuspid regurgitation. 4. Mild atherosclerotic changes of the descending thoracic aorta.
[2017-02-16 11:38] VITALS: RESP 16
[2017-02-16 11:48] VITALS: BP 118/68; PULSE 62
--- NOTE | 2017-02-16 20:38 | PCN ---
DATE OF PROCEDURE: CARDIOVERSION PROCEDURE NOTE INDICATION: Atrial fibrillation. PROCEDURE: After explaining the procedure to the patient as well as its risks and complications, his blood pressure, heart rate and oxygen saturation were monitored. After obtaining a sedated state per the anesthesia department and performing transesophageal echocardiogram, a synchronized biphasic cardioversion using 200 joules was successful in restoring normal sinus rhythm. There was no immediate complication.
[2017-02-16] MEDS ORDERED: METOPROLOL SUCCINATE (ER) 25 MG TAB.ER.24H PO SCH (21:00)
[2017-02-16] MEDS ORDERED: MONTELUKAST 10 MG TAB PO SCH (21:00)
[2017-02-16] MEDS ORDERED: APIXABAN 2.5 MG TABLET PO SCH (21:00)
[2017-02-17] MEDS ORDERED: NON-FORMULARY DRUG (Omeprazole [Prilosec] 20 MG) PO SCH (07:30)
[2017-02-17] MEDS ORDERED: FOLIC ACID 1 MG TAB PO SCH (09:00)
[2017-02-17] MEDS ORDERED: NON-FORMULARY DRUG (Calcium Carbonate/Vitamin D3 [Calcium 600-Vit D3 200 Tablet] 1 TAB) PO SCH (09:00)
[2017-02-17] MEDS ORDERED: NON-FORMULARY DRUG (Levothyroxine Sodium [Synthroid] 175 MCG) PO SCH (09:00)
[2017-02-17] MEDS ORDERED: SPIRONOLACTONE 25 MG TAB PO SCH (09:00)
[2017-02-17] MEDS ORDERED: NON-FORMULARY DRUG (Glucosam/Chon-Msm1/C/Mang/Bosw [Glucosamine-Chondroitin Tablet] 1 TAB) PO SCH (09:00)
[2017-02-17] MEDS ORDERED: CHOLECALCIFEROL 1,000 UNIT TAB PO SCH (09:00)
[2017-02-17] MEDS ORDERED: ATORVASTATIN 40 MG TAB PO SCH (09:00)
[2017-02-17] MEDS ORDERED: NON-FORMULARY DRUG (Omega-3 Fatty Acids [Omega-3] 1,000 MG) PO SCH (09:00)
[2017-02-17] MEDS ORDERED: FUROSEMIDE 40 MG TAB PO SCH (09:00)
== END 2017-02-16 11:52 | disposition home or self-care (01) ==
LOC: CATHCVL 07:51
PROVIDERS: ATTEND Internal Medicine Interventional Cardiology
DX: I48.1 Persistent atrial fibrillation (principal); I08.1 Rheumatic disorders of both mitral and tricuspid valves; I70.0 Atherosclerosis of aorta; I44.7 Left bundle-branch block, unspecified; R94.31 Abnormal electrocardiogram [ECG] [EKG]; I25.10 Atherosclerotic heart disease of native coronary artery without angina pectoris; I10 Essential (primary) hypertension; E78.2 Mixed hyperlipidemia; J44.9 Chronic obstructive pulmonary disease, unspecified; E11.9 Type 2 diabetes mellitus without complications; E07.9 Disorder of thyroid, unspecified; K21.9 Gastro-esophageal reflux disease without esophagitis; Z79.01 Long term (current) use of anticoagulants; Z79.899 Other long term (current) drug therapy; Z88.6 Allergy status to analgesic agent; Z88.1 Allergy status to other antibiotic agents; Z88.8 Allergy status to other drugs, medicaments and biological substances; Z91.018 Allergy to other foods
CPT/HCPCS: 93312; 93320; 93005; 93325; 92960; J2250; J2001; J2704

== ENCOUNTER → 2017-02-23 | Outpatient (CLI) | payer MEDICARE, BC ==
--- NOTE | 2017-02-25 08:57 | FL ---
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 COMPARISON: None. FINDINGS: The left hemidiaphragm moved normally. The right hemidiaphragm appeared fixed in position. There was no movement whatsoever. There was no paradoxical movement. IMPRESSION: FIXED POSITION OF THE RIGHT HEMIDIAPHRAGM.
== END | disposition home or self-care (01) ==
LOC: RADFLWHC 08:54
PROVIDERS: ATTEND Internal Medicine
DX: J98.6 Disorders of diaphragm (principal); R06.02 Shortness of breath
CPT/HCPCS: 76000

== ENCOUNTER 2017-10-25 06:35 | Day surgery (SDC) | payer MEDICARE, BC ==
[2017-10-21 10:29] VITALS: BMI 28.3
[~2017-10-25 06:35] MED LIST changes: -HYDROmorphone 1 MG/ML 1 ML SYRINGE IVP PRN; -LIDOCAINE 1% 20 ML VIAL (10MG/ML) FOR IV START INTRADERMA PRN; -MIDAZOLAM 2 MG/2 ML VIAL IV PRN; -ONDANSETRON 4 MG/2 ML VIAL IVP ONE
[2017-10-25 07:20] VITALS: TEMP 98
[2017-10-25] MEDS ORDERED: LIDOCAINE 1% INJ 10MG/ML (20 ML MDV) ONE (07:25)
[2017-10-25] MEDS ORDERED: PROPOFOL 10 MG/ML 20 ML VIAL IV ONE (07:25)
[2017-10-25 07:29] LABS: Glucose,Whole Blood 142 mg/dL (75-99)
[2017-10-25 07:45] LABS: Anion Gap 9 mmol/L; Blood Urea Nitrogen 14 mg/dL (9-20); Calcium 8.8 mg/dL (8.4-10.2); Carbon Dioxide 31 mmol/L (22-30); Chloride 97 mmol/L (98-107); Glucose 136 mg/dL (74-99); Potassium 3.9 mmol/L (3.5-5.1); Sodium 137 mmol/L (137-145)
[2017-10-25] MEDS ORDERED: LEVALBUTEROL HCL 1.25 MG INHALATION PRN (07:47)
[2017-10-25] MEDS ORDERED: IPRATROPIUM 0.5 MG/2.5 ML NEBU INHALATION PRN (07:47)
[2017-10-25] MEDS ORDERED: SODIUM CHLORIDE 0.9% 1,000 ML IV SCH (08:00)
--- NOTE | 2017-10-25 08:08 | ECHOT ---
TRANSESOPHAGEAL ECHOCARDIOGRAM INDICATION: Evaluation left atrial appendage. PROCEDURE: After explaining the procedure to the patient, its risks and complications, blood pressure, heart rate, O2 saturation was monitored. The throat was sprayed with Cetacaine. He received sedation per anesthesia department. The probe was introduced into esophagus without difficulties. Images were obtained. Following that, the probe was removed. There was no immediate complication. FINDINGS: The left atrial size is dilated. Left atrial appendage is normal. Left ventricular size and systolic function normal. The aortic valve, mitral, tricuspid valve are normal. Descending thoracic aorta appears to be normal. Contrast bubble study revealed no shunting across the interatrial septum. No pericardial effusion was noted. Doppler pulse wave and color Doppler obtained revealed moderate mitral with mild tricuspid, aortic, and pulmonic regurgitation. There was no shunting by color Doppler study. CONCLUSION: 1. Dilated left atrium. 2. Normal left ventricular size and systolic function. 3. Normal appearance left atrial appendage. 4. Mild tricuspid, aortic, pulmonic regurgitation with moderate mitral regurgitation. 5. Normal appearance of descending thoracic aorta. 6. No shunting across the interatrial septum. MMODL / IJN: [id number] /
--- NOTE | 2017-10-25 08:08 | CE ---
CARDIAC ELECTROPHYSIOLOGY REPORT CARDIOVERSION PROCEDURE NOTE INDICATION: Atrial fibrillation. PROCEDURE: After explaining the procedure to the patient, its risks and the complications, his blood pressure, heart rate O2 saturation was monitored. After performing transesophageal echocardiogram and obtaining sedated state per anesthesia department, a synchronized biphasic cardioversion using 200 joules was performed with buddhist of normal sinus rhythm. There was no immediate complication. RENA / NEVINN: [id number] /
[2017-10-25] MEDS ORDERED: FUROSEMIDE 40 MG TAB PO SCH (09:00)
[2017-10-25] MEDS ORDERED: APIXABAN 2.5 MG TABLET PO SCH (09:00)
[2017-10-25] MEDS ORDERED: METOPROLOL SUCCINATE (ER) 25 MG TAB.ER.24H PO SCH (09:00)
[2017-10-25] MEDS ORDERED: ATORVASTATIN 40 MG TAB PO SCH (09:00)
[2017-10-25] MEDS ORDERED: FOLIC ACID 1 MG TAB PO SCH (09:00)
[2017-10-25] MEDS ORDERED: SPIRONOLACTONE 25 MG TAB PO SCH (09:00)
[2017-10-25] MEDS ORDERED: GLIMEPIRIDE 1 MG TAB PO SCH (09:00)
[2017-10-25] MEDS ORDERED: CHOLECALCIFEROL 1,000 UNIT TAB PO SCH (09:00)
[2017-10-25] MEDS ORDERED: FLECAINIDE 50 MG TAB PO SCH (09:00)
[2017-10-25] MEDS ORDERED: NON-FORMULARY DRUG (Glucosam/Chon-Msm1/C/Mang/Bosw [Glucosamine-Chondroitin Tablet] 1 TAB) PO SCH (09:00)
[2017-10-25] MEDS ORDERED: NON-FORMULARY DRUG (Levothyroxine Sodium [Synthroid] 175 MCG) PO SCH (09:00)
[2017-10-25 09:01] VITALS: BP 111/70; PULSE 74; RESP 20
[2017-10-25] MEDS ORDERED: MONTELUKAST 10 MG TAB PO SCH (21:00)
[2017-10-26] MEDS ORDERED: NON-FORMULARY DRUG (Omeprazole [Prilosec] 20 MG) PO SCH (07:30)
== END 2017-10-25 09:15 | disposition home or self-care (01) ==
LOC: CATHCVL 06:35
PROVIDERS: ATTEND Internal Medicine Interventional Cardiology
DX: I48.1 Persistent atrial fibrillation (principal); Z79.01 Long term (current) use of anticoagulants; I08.3 Combined rheumatic disorders of mitral, aortic and tricuspid valves; I25.10 Atherosclerotic heart disease of native coronary artery without angina pectoris; I10 Essential (primary) hypertension; E78.5 Hyperlipidemia, unspecified; E11.9 Type 2 diabetes mellitus without complications; Z79.84 Long term (current) use of oral hypoglycemic drugs; Z79.890 Hormone replacement therapy; Z79.899 Other long term (current) drug therapy; Z88.1 Allergy status to other antibiotic agents; Z88.5 Allergy status to narcotic agent; Z88.8 Allergy status to other drugs, medicaments and biological substances; Z91.018 Allergy to other foods; Z88.6 Allergy status to analgesic agent
CPT/HCPCS: 93312; 93320; 93325; 92960; 80048; J2001; J2704; 93005

== ENCOUNTER 2017-10-25 14:32 | Inpatient (IN) | payer MEDICARE, BC ==
--- NOTE | 2017-10-25 15:19 | ED ---
General Adult HPI - General Chief complaint: Shortness of Breath Stated complaint: Sob Time Seen by Provider: 10/25/17 14:50 Source: patient, RN notes reviewed, old records reviewed Mode of arrival: wheelchair Limitations: physical limitation - History of Present Illness Initial comments: This is an 87-year-old male the ER for evaluation. He presents for evaluation in regards to shortness of breath. Patient has history of H for ablation and heart disease. Patient was a started on flecainide, patient did have cardioversion earlier today. Patient has had persistent shortness of breath and is been increasing. He denies any pain. Patient states shortness of breath is acting been increasing since he started the flecainide. Otherwise no other complications - Related Data Home Medications Medication Instructions Recorded Confirmed Folic Acid 2 mg PO DAILY 10/10/14 10/25/17 Montelukast [Singulair] 10 mg PO HS 10/10/14 10/25/17 Omeprazole [PriLOSEC] 20 mg PO AC-BRKFST 10/10/14 10/25/17 Apixaban [Eliquis] 2.5 mg PO BID 02/04/15 10/25/17 Spironolactone [Aldactone] 12.5 mg PO QAM 02/04/15 10/25/17 Levalbuterol HCl [Xopenex 1.25 mg INHALATION RT-QID PRN 02/05/15 10/25/17 Nebulized] Cholecalciferol [Vitamin D3] 1,000 unit PO DAILY 10/01/16 10/25/17 Furosemide [Lasix] 40 mg PO DAILY@0900 10/01/16 10/25/17 Glucosam/Steven-Msm1/C/Yassine/Bosw 1 tab PO DAILY 10/01/16 10/25/17 [Glucosamine-Chondroitin Tablet] Levothyroxine Sodium [Synthroid] 175 mcg PO DAILY 10/01/16 10/25/17 Atorvastatin [Lipitor] 40 mg PO DAILY 02/14/17 10/25/17 Glimepiride [Amaryl] 1 mg PO BID 10/21/17 10/25/17 Previous Rx's Medication Instructions Recorded Budesonide [Pulmicort] 1 mg INHALATION BID #60 neb 10/28/17 Cefuroxime [Ceftin] 500 mg PO BID #10 tab 10/28/17 Ipratropium Nebulized [Atrovent 0.5 mg INHALATION RT-QID #120 10/28/17 Nebulized] Metoprolol Tartrate [Lopressor] 50 mg PO TID #90 tab 10/28/17 predniSONE 10 mg PO DAILY #30 tab 10/28/17 Allergies Allergy/AdvReac Type Severity Reaction Status Date / Time benzocaine [From Cetacaine] Allergy Dyspnea Verified 10/25/17 14:59 butamben [From Cetacaine] Allergy Dyspnea Verified 10/25/17 14:59 naproxen [From Naprosyn] Allergy GI BLEED Verified 10/25/17 14:59 Tetracyclines Allergy Unknown Verified 10/25/17 14:59 zomepirac Allergy GI BLEED Verified 10/25/17 14:59 amiodarone AdvReac Cough Verified 10/25/17 14:59 meperidine HCl [From Demerol] AdvReac Nausea & Verified 10/25/17 14:59 Vomiting tetracaine [From Cetacaine] AdvReac Nausea & Verified 10/25/17 14:59 Vomiting duprenex Allergy Nausea & Uncoded 10/25/17 14:51 Vomiting Review of Systems ROS Statement: Those systems with pertinent positive or pertinent negative responses have been documented in the HPI. ROS Other: All systems not noted in ROS Statement are negative. 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 ulcer, hemolytic anemia, DIVERTICLOSIS. CATARACT SURGERY - BILATERAL History of Any Multi-Drug Resistant Organisms: None Reported Past Surgical History: Appendectomy, Cholecystectomy, Joint Replacement, Orthopedic Surgery Additional Past Surgical History / Comment(s): DANY/CVN, bronchoscopy with lavage, laryngoscopy, right total hip replaced, arthroscopies bilateral knees, R rotator cuff surgery. sx for deviated septum, karlene cataracts Past Anesthesia/Blood Transfusion Reactions: Motion Sickness, Postoperative Nausea & Vomiting (PONV) Additional Past Anesthesia/Blood Transfusion Reaction / Comment(s): UNK FAMILY HX. NEVER HAS HAD BLOOD TRANSFUSION Past Psychological History: No Psychological Hx Reported Smoking Status: Former smoker - Past Family History Brother(s) Family Medical History: Cancer Mother Family Medical History: CVA/TIA Father Family Medical History: Hypertension General Exam Limitations: physical limitation General appearance: alert, in no apparent distress Head exam: Present: atraumatic, normocephalic, normal inspection Eye exam: Present: normal appearance, PERRL, EOMI. Absent: scleral icterus, conjunctival injection, periorbital swelling ENT exam: Present: normal exam, mucous membranes moist Neck exam: Present: normal inspection. Absent: tenderness, meningismus, lymphadenopathy Respiratory exam: Present: normal lung sounds bilaterally. Absent: respiratory distress, wheezes, rales, rhonchi, stridor Cardiovascular Exam: Present: regular rate, normal rhythm, normal heart sounds. Absent: systolic murmur, diastolic murmur, rubs, gallop, clicks GI/Abdominal exam: Present: soft, normal bowel sounds. Absent: distended, tenderness, guarding, rebound, rigid Extremities exam: Present: normal inspection, full ROM, normal capillary refill. Absent: tenderness, pedal edema, joint swelling, calf tenderness Back exam: Present: normal inspection Neurological exam: Present: alert, oriented X3, CN II-XII intact Psychiatric exam: Present: normal affect, normal mood Skin exam: Present: warm, dry, intact, normal color. Absent: rash Course Vital Signs 10/25/17 10/25/17 10/25/17 14:40 16:08 16:09 Temperature 97.9 F Pulse Rate 84 80 77 Respiratory 28 H 18 Rate Blood Pressure 137/7 152/72 O2 Sat by Pulse 85 L 98 Oximetry 10/25/17 10/25/17 10/25/17 16:34 16:49 16:52 Temperature Pulse Rate 79 84 81 Respiratory 24 Rate Blood Pressure 119/68 O2 Sat by Pulse 95 Oximetry 10/25/17 10/25/17 17:06 18:01 Temperature 97 F L Pulse Rate 78 80 Respiratory 18 Rate Blood Pressure 133/67 O2 Sat by Pulse 96 Oximetry EKG Findings - EKG Comments: EKG Findings:: EKG shows sinus rhythm rate of 84, SC 288, QRS 178, QTC 503 Medical Decision Making - Medical Decision Making 87 male the ER with history of A. fib shortness of breath COPD. Patient having an with her pulse ox dropping below 90. Patient be admitted for pulmonary and cardiology evaluation - Lab Data Result diagrams: 10/25/17 14:55 10/28/17 05:23 Lab Results 10/25/17 10/25/17 10/25/17 Range/Units 14:55 14:55 14:55 WBC 7.8 (3.8-10.6) k/uL RBC 3.17 L (4.30-5.90) m/uL Hgb 11.0 L (13.0-17.5) gm/dL Hct 33.1 L (39.0-53.0) % MCV 104.1 H (80.0-100.0) fL MCH 34.8 (25.0-35.0) pg MCHC 33.4 (31.0-37.0) g/dL RDW 14.7 (11.5-15.5) % Plt Count 255 (150-450) k/uL Neutrophils % 78 % Lymphocytes % 13 % Monocytes % 6 % Eosinophils % 1 % Basophils % 1 % Neutrophils # 6.1 (1.3-7.7) k/uL Lymphocytes # 1.0 (1.0-4.8) k/uL Monocytes # 0.4 (0-1.0) k/uL Eosinophils # 0.1 (0-0.7) k/uL Basophils # 0.1 (0-0.2) k/uL Poikilocytosis Slight Macrocytosis Moderate PT (9.0-12.0) sec INR (<1.2) APTT (22.0-30.0) sec Sodium 137 (137-145) mmol/L Potassium 4.0 (3.5-5.1) mmol/L Chloride 97 L (98-107) mmol/L Carbon Dioxide 31 H (22-30) mmol/L Anion Gap 9 mmol/L BUN 15 (9-20) mg/dL Creatinine 0.80 (0.66-1.25) mg/dL Est GFR (MDRD) Af Amer >60 (>60 ml/min/1.73 sqM) Est GFR (MDRD) Non-Af >60 (>60 ml/min/1.73 sqM) Glucose 107 H (74-99) mg/dL Calcium 8.8 (8.4-10.2) mg/dL Phosphorus 4.2 (2.5-4.5) mg/dL Magnesium 1.6 (1.6-2.3) mg/dL Total Bilirubin 4.6 H (0.2-1.3) mg/dL AST 30 (17-59) U/L ALT 35 (21-72) U/L Alkaline Phosphatase 81 (38-126) U/L Total Creatine Kinase 86 (55-170) U/L CK-MB (CK-2) 3.2 H* (0.0-2.4) ng/mL CK-MB (CK-2) Rel Index 3.7 Troponin I <0.012 (0.000-0.034) ng/mL Total Protein 6.3 (6.3-8.2) g/dL Albumin 4.0 (3.5-5.0) g/dL TSH 1.020 (0.465-4.680) mIU/L Urine Color Urine Appearance (Clear) Urine pH (5.0-8.0) Ur Specific Vill[place] (1.001-1.035) Urine Protein (Negative) Urine Glucose (UA) (Negative) Urine Ketones (Negative) Urine Blood (Negative) Urine Nitrite (Negative) Urine Bilirubin (Negative) Urine Urobilinogen (<2.0) mg/dL Ur Leukocyte Esterase (Negative) 10/25/17 10/25/17 Range/Units 14:55 15:20 WBC (3.8-10.6) k/uL RBC (4.30-5.90) m/uL Hgb (13.0-17.5) gm/dL Hct (39.0-53.0) % MCV (80.0-100.0) fL MCH (25.0-35.0) pg MCHC (31.0-37.0) g/dL RDW (11.5-15.5) % Plt Count (150-450) k/uL Neutrophils % % Lymphocytes % % Monocytes % % Eosinophils % % Basophils % % Neutrophils # (1.3-7.7) k/uL Lymphocytes # (1.0-4.8) k/uL Monocytes # (0-1.0) k/uL Eosinophils # (0-0.7) k/uL Basophils # (0-0.2) k/uL Poikilocytosis Macrocytosis PT 10.7 (9.0-12.0) sec INR 1.1 (<1.2) APTT 24.4 (22.0-30.0) sec Sodium (137-145) mmol/L Potassium (3.5-5.1) mmol/L Chloride (98-107) mmol/L Carbon Dioxide (22-30) mmol/L Anion Gap mmol/L BUN (9-20) mg/dL Creatinine (0.66-1.25) mg/dL Est GFR (MDRD) Af Amer (>60 ml/min/1.73 sqM) Est GFR (MDRD) Non-Af (>60 ml/min/1.73 sqM) Glucose (74-99) mg/dL Calcium (8.4-10.2) mg/dL Phosphorus (2.5-4.5) mg/dL Magnesium (1.6-2.3) mg/dL Total Bilirubin (0.2-1.3) mg/dL AST (17-59) U/L ALT (21-72) U/L Alkaline Phosphatase (38-126) U/L Total Creatine Kinase (55-170) U/L CK-MB (CK-2) (0.0-2.4) ng/mL CK-MB (CK-2) Rel Index Troponin I (0.000-0.034) ng/mL Total Protein (6.3-8.2) g/dL Albumin (3.5-5.0) g/dL TSH (0.465-4.680) mIU/L Urine Color Yellow Urine Appearance Clear (Clear) Urine pH 5.0 (5.0-8.0) Ur Specific Vill[place] 1.009 (1.001-1.035) Urine Protein Negative (Negative) Urine Glucose (UA) Negative (Negative) Urine Ketones Negative (Negative) Urine Blood Negative (Negative) Urine Nitrite Negative (Negative) Urine Bilirubin Negative (Negative) Urine Urobilinogen <2.0 (<2.0) mg/dL Ur Leukocyte Esterase Negative (Negative) - Radiology Data Radiology results: report reviewed (Chest x-rays negative for acute disease), image reviewed Disposition Clinical Impression: Atrial fibrillation, Acute exacerbation of chronic obstructive airways disease Disposition: ADMITTED IP TO THIS [facility] Condition: Good
[2017-10-25 15:28] LABS: Basophils # (A) 0.1 k/uL (0-0.2); Basophils % (A) 1 %; Eosinophils # (A) 0.1 k/uL (0-0.7); Eosinophils % (A) 1 %; HCT 33.1 % (39.0-53.0); Lymphocytes % (A) 13 %; MCH 34.8 pg (25.0-35.0); MCHC 33.4 g/dL (31.0-37.0); MCV 104.1 fL (80.0-100.0); Macrocytosis Moderate; Mean Platelet Volume 7.9; Monocytes # (A) 0.4 k/uL (0-1.0); Monocytes % (A) 6 %; Neutrophils # (A) 6.1 k/uL (1.3-7.7); Neutrophils % (A) 78 %; Platelet Count 255 k/uL (150-450); Poikilocytosis Slight; RBC 3.17 m/uL (4.30-5.90); RDW 14.7 % (11.5-15.5); WBC 7.8 k/uL (3.8-10.6)
[2017-10-25] MEDS ORDERED: IPRATROPIUM-ALBUTEROL 3 ML NEB INHALATION STA ×2 (15:30→16:49)
[2017-10-25 15:31] LABS: Appearance,Urine Clear (Clear); Bilirubin,Urine Negative (Negative); Blood,Urine Negative (Negative); Color,Urine Yellow; Glucose,Urine (UA) Negative (Negative); Ketones,Urine Negative (Negative); Leukocyte Esterase,Urine Negative (Negative); Protein,Urine Negative (Negative); Specific Gravity,Urine 1.009 (1.001-1.035); Urobilinogen,Urine <2.0 mg/dL (<2.0)
[2017-10-25 15:38] LABS: ALT 35 U/L (21-72); AST 30 U/L (17-59); Alkaline Phosphatase 81 U/L (38-126); Anion Gap 9 mmol/L; Blood Urea Nitrogen 15 mg/dL (9-20); Calcium 8.8 mg/dL (8.4-10.2); Carbon Dioxide 31 mmol/L (22-30); Chloride 97 mmol/L (98-107); Glucose 107 mg/dL (74-99); INR 1.1 (<1.2); Partial Thromboplastin Time 24.4 sec (22.0-30.0); Phosphorus 4.2 mg/dL (2.5-4.5); Prothrombin Time 10.7 sec (9.0-12.0); Sodium 137 mmol/L (137-145); Total Bilirubin 4.6 mg/dL (0.2-1.3); Total Protein 6.3 g/dL (6.3-8.2)
[2017-10-25 15:53] LABS: Creatine Kinase 86 U/L (55-170)
--- NOTE | 2017-10-25 15:56 | XR ---
EXAMINATION TYPE: XR chest 2V DATE OF EXAM: 10/25/2017 COMPARISON: 09/07/2017 TECHNIQUE: PA and lateral views submitted. HISTORY: Difficulty breathing FINDINGS: The right hemidiaphragm noted with subsegmental consolidation and small effusion. Cardiomegaly and hy perinflation suggestive of COPD. Arthropathy of the shoulders. No pneumothorax. Hypertrophic and dege nerative change the spine. Surgical clips in the abdomen. Atherosclerotic change aorta. IMPRESSION: 1. Persistent elevated right hemidiaphragm with right lower lobe infiltrate and small effusion. 2. Cardiomegaly and COPD.
[2017-10-25 16:05] LABS: Troponin I <0.012 ng/mL (0.000-0.034)
[2017-10-25 16:06] LABS: Creatine Kinase MB 3.2 ng/mL (0.0-2.4)
[2017-10-25] MEDS ORDERED: DEXAMETHASONE SOD PHOSPHATE 10 MG/ML 1 ML VIAL IV STA (16:18)
[2017-10-25] MEDS ORDERED: methylPREDNISolone SOD SUCCI 125 MG/2 ML VIAL IV STA (16:50)
[2017-10-25 19:18] LABS: Glucose,Whole Blood 172 mg/dL (75-99)
[2017-10-25] MEDS: IPRATROPIUM-ALBUTEROL 3 ML NEB INHALATION SCH (19:45)
[2017-10-25 20:29] LABS: Glucose,Whole Blood 243 mg/dL (75-99)
[2017-10-25] MEDS: APIXABAN 2.5 MG TABLET PO SCH (21:32)
[2017-10-25] MEDS: FLECAINIDE 50 MG TAB PO SCH (21:32)
[2017-10-25] MEDS: METOPROLOL SUCCINATE (ER) 25 MG TAB.ER.24H PO SCH (21:33)
[2017-10-25] MEDS: MONTELUKAST 10 MG TAB PO SCH (21:33)
[2017-10-25] MEDS: GLIMEPIRIDE 1 MG TAB PO SCH (21:33)
[2017-10-25] MEDS: INSULIN ASPART 100 UNIT/ML 1 ML 10 ML VIAL SQ SCH (21:33)
[2017-10-25] MEDS ORDERED: RX INFO: IV CONTRAST WAS GIVEN 1 EACH MISC MISCELLANE PRN (23:13)
[2017-10-25] MEDS: methylPREDNISolone SOD SUCCI 125 MG/2 ML VIAL IV SCH (23:30)
--- NOTE | 2017-10-25 23:59 | HP ---
HISTORY AND PHYSICAL DATE OF ADMISSION: October 25, 2017. PRESENTING COMPLAINT: Short of breath. HISTORY OF PRESENTING COMPLAINT: A very pleasant 87 -year-old patient of Dr. Ojeda. Rather extensive medical history. Chronic stable medical conditions include diabetes, GERD, hypertension, hyperlipidemia, hypothyroid, peptic ulcer disease, diverticulosis. The patient has got known atrial fibrillation. The patient did undergo a DANY by Dr. Pollack earlier today and following a negative DANY, patient did go directed cardioversion and patient went to sinus rhythm. Underlying rhythm is that of left bundle branch block. The patient subsequently presented to the ER feeling more short of breath. He thinks this has been going on for at least over a week. Patient does have cough, clear to yellow sputum. Denies any fever, decreased appetite, tired run down. Minimal swelling of the lower extremities if any. The patient does use 2 L of oxygen at home. Denies any fever. REVIEW OF SYSTEMS: Constitutional: Tired. HEENT: Decreased hearing. Respiratory as above. Cardiovascular: No chest pain. Gastrointestinal: Heartburn. Genitourinary none. Musculoskeletal: Some pain in the joints. Dermatological and hematologic, lymphatics none. Psychiatry none. Neurological none. PAST MEDICAL HISTORY: Atrial fibrillation, COPD, congestive heart failure with recent normal EF, COPD, diabetes, GERD, hypertension, hyperlipidemia, hypothyroid, nodule vocal cords, chronic diverticulosis, SIADH. PAST SURGICAL HISTORY: Appendectomy, cholecystectomy, cardioversion, bronchoscopy with lavage, laryngoscopy, right total hip replaced, arthroscopy bilateral right knee, right rotator cuff surgery. SOCIAL HISTORY: . Able to get about on his own. 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 Patient has smoked for short time in the remote past. No alcohol. FAMILY HISTORY: Stroke. HOME MEDICATIONS: 1. Aldactone 12.5 p.o. daily. 2. Prilosec 20 mg p.o. at breakfast. 3. Singulair 10 mg q.h.s. 4. Toprol-XL 25 mg p.o. b.i.d. 5. Synthroid 125 mcg p.o. daily. 6. Xopenex 1.25 inhalation q.i.d. p.r.n. 7. Atrovent 0.5 nebulizer q.i.d. p.r.n. 8. Glucosamine chondroitin 1 tab p.o. daily. 9. Amaryl 1 mg p.o. b.i.d. 10.Lasix 40 mg p.o. daily. 11.Folic acid 2 mg p.o. daily. 12.Flecainide 50 mg p.o. q.12. 13.Vitamin D3 1000 units p.o. daily. 14.Lipitor 40 mg p.o. daily. 15.Eliquis 2.5 p.o. b.i.d. ALLERGIES: ALLERGY TO CETACAINE, NAPROXEN, TETRACYCLINES, AMIODARONE, MEPERIDINE, TETRACYCLINES, MOST OF THESE ARE SIDE EFFECTS. PHYSICAL EXAMINATION: Temperature 96.5, pulse 84, respirations 16, blood pressure 105/74, pulse ox 97% on 3 L. General appearance: Average build, lying in bed, tired appearing. Eyes pupils equal. Conjunctivae normal. HEENT: External appearance of nose and ears normal. Oral cavity normal. Neck JVD unable to assess. Mass not palpable. RESPIRATORY: Effort increased. Lungs decreased breath sounds. Prolonged expiration. Some wheezing. Cardiovascular 1st and second sounds normal. Minimal edema. ABDOMEN: Soft, nontender. Liver and spleen not palpable. Lymphatics: No lymph nodes palpable in neck or axillae. Psychiatry alert and oriented x3. Mood and affect normal. Neurological: Pupils equal. Cranial nerves grossly intact. Power and sensation grossly intact. INVESTIGATIONS: White count 7.8, hemoglobin 11, potassium 4, BUN and creatinine is normal. Troponin negative. Chest x-ray shows elevated right diaphragm. EKG shows a left bundle branch block and patient had a DANY that was unremarkable. ASSESSMENT: 1. Possible acute moderate persistent asthma exacerbation with acute tracheobronchitis bronchitis. At this point, cannot rule out right lower lobe infiltrate. 2. Chronically paralyzed right diaphragm. 3. History of atrial fibrillation that was cardioverted this morning by Dr. Pollack and the patient is on Eliquis. 4. Diabetes mellitus type 2 on oral hypoglycemic. 5. Gastroesophageal reflux disease. 6. Essential hypertension. 7. Hyperlipidemia. 8. Hypothyroid. 9. Peptic ulcer disease. 10.Colonic diverticulosis. 11.Chronic hypoxia from underlying asthma/chronic obstructive pulmonary disease, patient is on home oxygen 2 L. 12.Rule out pulmonary embolism. 13.Left bundle branch block. PLAN: Patient is started on home medications. Cardiology and Pulmonary is consulted. Patient is put on IV Solu-Medrol. Will let the patient have 2 or 3 doses. We will then do a CT scan in the morning to rule out pulmonary embolism. The patient is already on Eliquis. Care was discussed with the patient. Questions were answered. Will also add Ceftin. Copy to Dr. Ojeda. MMVIDYA / NEVINN: [id number] /
[2017-10-26 05:51] LABS: Glucose,Whole Blood 181 mg/dL (75-99)
[2017-10-26 06:43] LABS: Anion Gap 11 mmol/L; Blood Urea Nitrogen 21 mg/dL (9-20); Calcium 8.9 mg/dL (8.4-10.2); Carbon Dioxide 28 mmol/L (22-30); Chloride 98 mmol/L (98-107); Glucose 183 mg/dL (74-99); Potassium 4.7 mmol/L (3.5-5.1); Sodium 137 mmol/L (137-145)
[2017-10-26] MEDS: PANTOPRAZOLE 40 MG TABLET PO SCH (06:44)
[2017-10-26] MEDS: LEVOTHYROXINE 75 MCG TAB PO SCH (06:44)
[2017-10-26] MEDS: INSULIN ASPART 100 UNIT/ML 1 ML 10 ML VIAL SQ SCH ×4 (06:44→21:19)
[2017-10-26] MEDS: methylPREDNISolone SOD SUCCI 125 MG/2 ML VIAL IV SCH ×4 (06:44→22:52)
[2017-10-26] MEDS: LEVOTHYROXINE 100 MCG TAB PO SCH (06:44)
[2017-10-26] MEDS: IPRATROPIUM-ALBUTEROL 3 ML NEB INHALATION SCH ×4 (07:00→19:53)
--- NOTE | 2017-10-26 08:31 | CT ---
EXAMINATION TYPE: CT angio chest DATE OF EXAM: 10/26/2017 COMPARISON: 07/08/2016 HISTORY: SOB CT DLP: 610 mGycm. Automated Exposure Control for Dose Reduction was Utilized. CONTRAST: CTA scan of the thorax is performed with IV Contrast, patient injected with 100 mL of Omnipaque 350, pulmonary embolism protocol. MIP Images are created on CT scanner and reviewed. FINDINGS: LUNGS: The lungs are grossly clear, there is no concerning parenchymal mass identified. 3 mm pulmonar y nodule seen within the right middle lobe. There are scattered areas of subsegmental atelectasis als o identified. There is no pleural effusion or pneumothorax seen. The tracheobronchial tree is patent . MEDIASTINUM: There is satisfactory enhancement of the pulmonary artery and its branches, there is no CT evidence for pulmonary embolism. There are no greater than 1 cm hilar or mediastinal lymph nodes. Multiple prominent but nonenlarged lymph nodes, some of which are calcified are scattered throughout the mediastinum. No cardiomegaly. Ascending aorta and main pulmonary artery are within normal limit s of size. There is interlobular septal thickening throughout, scattered groundglass opacities, a small left ple ural effusion, and a moderate partially loculated right pleural effusion with interval fissural fluid . There is also peribronchial cuffing without bronchiectasis bilaterally, right slightly greater than left. OTHER: There is chronic right hemidiaphragm elevation from the known diaphragmatic paralysis. Small h iatal hernia is noted. Gallbladder surgically absent with cholecystectomy clips in the gallbladder fo ssa. There is a punctate hepatic benign granuloma and probable splenic granuloma. IMPRESSION: 1. No evidence of pulmonary embolism. 2. Moderate right and small left pleural effusions with interlobar septal thickening and scattered gr oundglass opacities suggest interstitial edema and fluid overload. 3. Peribronchial cuffing, right greater than left is also appreciated without focal consolidation to suggest pneumonia. Considerations are for bronchitis or reactive airway disease. 4. Benign sequela of granulomatous disease. 5. Continued elevation of the right hemidiaphragm from known diaphragmatic paralysis.
[2017-10-26] MEDS ORDERED: FUROSEMIDE 40 MG TAB PO SCH (09:00)
[2017-10-26] MEDS ORDERED: NON-FORMULARY DRUG (Levothyroxine Sodium [Synthroid] 175 MCG) PO SCH (09:00)
[2017-10-26] MEDS: ATORVASTATIN 40 MG TAB PO SCH (09:16)
[2017-10-26] MEDS: METOPROLOL SUCCINATE (ER) 25 MG TAB.ER.24H PO SCH ×2 (09:16→21:19)
[2017-10-26] MEDS: GLIMEPIRIDE 1 MG TAB PO SCH ×2 (09:16→21:19)
[2017-10-26] MEDS: SPIRONOLACTONE 25 MG TAB PO SCH (09:16)
[2017-10-26] MEDS: APIXABAN 2.5 MG TABLET PO SCH ×2 (09:16→21:18)
[2017-10-26] MEDS: CEFUROXIME 250 MG TAB PO SCH ×2 (09:16→21:19)
[2017-10-26] MEDS: FLECAINIDE 50 MG TAB PO SCH ×2 (09:16→21:19)
[2017-10-26 11:53] LABS: Glucose,Whole Blood 238 mg/dL (75-99)
--- NOTE | 2017-10-26 12:13 | P.CNPUL ---
History of Present Illness Consult date: 10/26/17 Requesting physician: Cristian Burk Reason for consult: dyspnea Chief complaint: Shortness of breath History of present illness: This is a very pleasant 87-year-old gentleman who follows with Dr. Barrignton Ojeda as his primary care physician. He has a history of diabetes mellitus, CVA /TIA, hypothyroidism, gastroesophageal reflux disease, hypertension, hyperlipidemia, chronic bronchitis/asthma. He follows with Dr. Sol in our office. He is maintained on Singulair, Xopenex. He also has a history of chronic atrial fibrillation and is anticoagulated with Eliquis. He has been on amiodarone in the past that he was intolerant to. He had recently been started on flecainide last week and he feels that increasing shortness of breath has started since then. He was here yesterday morning electively for a DANY and subsequent cardioversion of 200 J and conversion to normal sinus rhythm with Dr. Cruz. Later that day he had developed increasing shortness of breath and presented back to the emergency room. He is seen today in consultation on the selective care unit. He is awake and alert in no acute distress. He states he is still having shortness of breath during conversation and with exertion. He does feel it has been progressively worse. A CT angiogram ruled out pulmonary embolism. There is a moderate right and smaller left pleural effusion with interlobar septal thickening and scattered groundglass opacities suggestive of interstitial edema with fluid volume overload. There is also noted peribronchial cuffing right greater than left. He was also continued elevation of the right hemidiaphragm secondary to diaphragmatic paralysis There is no focal consolidation to suggest pneumonia. The patient denies any fever, chills or night sweats. His cough is nonproductive. No hemoptysis. He has been afebrile. Hemodynamically stable. Maintaining good O2 saturations in the mid 90s on 3 L/m per nasal cannula. No leukocytosis. Hemoglobin 11.0. Troponin negative. TSH normal. Creatinine 0.80. Review of Systems 14 point review of system was conducted. All negative other than mentioned in the HPI. Positive for respiratory equals shortness of breath, wheezing, dyspnea on exertion. 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 ulcer, hemolytic anemia, DIVERTICLOSIS. CATARACT SURGERY - BILATERAL History of Any Multi-Drug Resistant Organisms: None Reported Past Surgical History: Appendectomy, Cholecystectomy, Joint Replacement, Orthopedic Surgery Additional Past Surgical History / Comment(s): DANY/CVN, cardioversion bronchoscopy with lavage, laryngoscopy, right total hip replaced, arthroscopies bilateral knees, R rotator cuff surgery. sx for deviated septum, karlene cataracts Past Anesthesia/Blood Transfusion Reactions: Motion Sickness, Postoperative Nausea & Vomiting (PONV) Additional Past Anesthesia/Blood Transfusion Reaction / Comment(s): UNK FAMILY HX. NEVER HAS HAD BLOOD TRANSFUSION Smoking Status: Former smoker - Past Family History Brother(s) Family Medical History: Cancer Mother Family Medical History: CVA/TIA Father Family Medical History: Hypertension Medications and Allergies Home Medications Medication Instructions Recorded Confirmed Type Folic Acid 2 mg PO DAILY 10/10/14 10/25/17 History Metoprolol Succinate [Toprol XL] 25 mg PO BID 10/10/14 10/25/17 History Montelukast [Singulair] 10 mg PO HS 10/10/14 10/25/17 History Omeprazole [PriLOSEC] 20 mg PO AC-BRKFST 10/10/14 10/25/17 History Apixaban [Eliquis] 2.5 mg PO BID 02/04/15 10/25/17 History Ipratropium Nebulized [Atrovent 0.5 mg INHALATION RT-QID PRN 02/04/15 10/25/17 History Nebulized] Spironolactone [Aldactone] 12.5 mg PO QAM 02/04/15 10/25/17 History Levalbuterol HCl [Xopenex 1.25 mg INHALATION RT-QID PRN 02/05/15 10/25/17 History Nebulized] Cholecalciferol [Vitamin D3] 1,000 unit PO DAILY 10/01/16 10/25/17 History Furosemide [Lasix] 40 mg PO DAILY@0900 10/01/16 10/25/17 History Glucosam/Steven-Msm1/C/Yassine/Bosw 1 tab PO DAILY 10/01/16 10/25/17 History [Glucosamine-Chondroitin Tablet] Levothyroxine Sodium [Synthroid] 175 mcg PO DAILY 10/01/16 10/25/17 History Atorvastatin [Lipitor] 40 mg PO DAILY 02/14/17 10/25/17 History Flecainide Acetate 50 mg PO Q12HR 10/21/17 10/25/17 History Glimepiride [Amaryl] 1 mg PO BID 10/21/17 10/25/17 History Allergies Allergy/AdvReac Type Severity Reaction Status Date / Time benzocaine [From Cetacaine] Allergy Dyspnea Verified 10/25/17 14:59 butamben [From Cetacaine] Allergy Dyspnea Verified 10/25/17 14:59 naproxen [From Naprosyn] Allergy GI BLEED Verified 10/25/17 14:59 Tetracyclines Allergy Unknown Verified 10/25/17 14:59 zomepirac Allergy GI BLEED Verified 10/25/17 14:59 amiodarone AdvReac Cough Verified 10/25/17 14:59 meperidine HCl [From Demerol] AdvReac Nausea & Verified 10/25/17 14:59 Vomiting tetracaine [From Cetacaine] AdvReac Nausea & Verified 10/25/17 14:59 Vomiting duprenex Allergy Nausea & Uncoded 10/25/17 14:51 Vomiting Physical Exam Vitals: Vital Signs Temp Pulse Pulse Resp BP BP Pulse Ox 10/26/17 11:12 80 10/26/17 11:00 80 10/26/17 07:18 80 10/26/17 07:01 72 10/26/17 04:00 97.3 F L 75 20 121/73 95 10/26/17 00:00 97 F L 90 20 153/85 95 10/25/17 20:00 97.5 F L 86 20 124/71 95 10/25/17 19:56 86 10/25/17 19:48 85 94 L 10/25/17 19:19 96.5 F L 84 16 149/74 97 10/25/17 18:01 97 F L 80 18 133/67 96 10/25/17 17:06 78 10/25/17 16:52 81 10/25/17 16:49 84 24 119/68 95 10/25/17 16:34 79 10/25/17 16:09 77 10/25/17 16:08 80 18 152/72 98 10/25/17 14:40 97.9 F 84 28 H 137/7 85 L Intake and Output 10/25/17 10/26/17 10/26/17 22:59 06:59 14:59 Intake Total 360 Output Total 150 Balance 210 Intake: Oral 360 Output: Urine 150 Other: Voiding Method Toilet # Voids 2 Weight 91.7 kg GENERAL EXAM: Alert, fairly comfortable in no apparent distress. HEAD: Normocephalic. EYES: Normal reaction of pupils, equal size. NOSE: Clear with pink turbinates. THROAT: No erythema or exudates. NECK: No masses, no JVD. CHEST: No chest wall deformity. LUNGS: Equal air entry with lateral wheezing, crackles in the bilateral posterior bases. Diminished more so on the right. CVS: S1 and S2 normal with no audible murmur, regular rhythm. ABDOMEN: No hepatosplenomegaly, normal bowel sounds, no guarding or rigidity. SPINE: No scoliosis or deformity SKIN: No rashes CENTRAL NERVOUS SYSTEM: No focal deficits, tone is normal in all 4 extremities. EXTREMITIES: There 1+ peripheral edema. No clubbing, no cyanosis. Peripheral pulses are intact. Results - Laboratory Findings CBC and BMP: 10/25/17 14:55 10/26/17 05:39 PT/INR, D-dimer PT 10.7 sec (9.0-12.0) 10/25/17 14:55 INR 1.1 (<1.2) 10/25/17 14:55 Abnormal lab findings: Abnormal Labs 10/25/17 10/25/17 10/25/17 14:55 14:55 14:55 RBC 3.17 L Hgb 11.0 L Hct 33.1 L MCV 104.1 H Chloride 97 L Carbon Dioxide 31 H BUN Glucose 107 H POC Glucose (mg/dL) Total Bilirubin 4.6 H CK-MB (CK-2) 3.2 H* 10/25/17 10/25/17 10/26/17 18:58 20:28 05:39 RBC Hgb Hct MCV Chloride Carbon Dioxide BUN 21 H Glucose 183 H POC Glucose (mg/dL) 172 H 243 H Total Bilirubin CK-MB (CK-2) 10/26/17 10/26/17 05:50 11:49 RBC Hgb Hct MCV Chloride Carbon Dioxide BUN Glucose POC Glucose (mg/dL) 181 H 238 H Total Bilirubin CK-MB (CK-2) - Diagnostic Findings Chest x-ray: image reviewed CT scan - chest: image reviewed Assessment and Plan Assessment: Impression: #1 Dyspnea, multifactorial in a patient with a known history of chronic obstructive pulmonary disease, right gilbert-diaphragm elevation secondary to paralysis, fluid volume overload with bilateral pleural effusions right greater than left suspect secondary to diastolic dysfunction, cardiac asthma. #2 Chronic atrial fibrillation, anticoagulated with Eliquis, status post cardioversion on 10/25/2017. Recently started on flecainide. #3 Acute exacerbation of chronic obstructive pulmonary disease. #4 his trip CVA/TIA. #5 Diabetes mellitus. #6 Esophageal reflux disease. #7 Hyperlipidemia. #8 Hypertension. #9 Hypothyroidism. Plan: The patient was seen and evaluated by Dr. Sol. His chest x-ray and CAT scans were reviewed. We'll treat the patient for fluid volume overload with that additional 40 mg IV Lasix 1. We will continue with DuoNeb inhalations, add Symbicort, continue IV Solu-Medrol and will continue Singulair. Empiric antibiotics in the form of Ceftin. He remains anticoagulated with Eliquis. Protonix for GI prophylaxis. We will repeat a chest x-ray in the a.m. Will increase his activity as tolerated. We'll continue to follow and make further recommendations based on his clinical status. I, the cosigning physician, performed a history & physical examination of the patient. Lungs sounds bilateral wheezing. Managed. Maintaining good O2 saturations in the 90s on 3 L/m per nasal cannula. I discussed the assessment and plan of care with my nurse practitioner, Renee Ford. I attest to the above consultation as dictated by her.
[2017-10-26] MEDS ORDERED: FUROSEMIDE 10 MG/ML 4 ML VIAL IV STA (12:17)
[2017-10-26 12:46] LABS: Hemoglobin A1C 5.6 % (4.0-6.0)
--- NOTE | 2017-10-26 15:09 | CONS ---
CONSULTATION This is an 87-year-old elderly gentleman, a patient of Dr. Pollack who underwent electrical cardioversion after DANY yesterday, then he was sent home. He came back to the emergency room with increasing shortness of breath. Both the patient and strongly feel that he may have a side effect to flecainide which was initiated a week prior to cardioversion. He had a similar issue with amiodarone, which was initially tried by Dr. Pollack and because of that reason, amiodarone was discontinued and patient went back into atrial fibrillation. However, this episode of shortness of breath that occurred seems to have been going on insidiously for at least a week or so, but got worse yesterday. This morning he is short of breath, but does not look very uncomfortable. Patient also has significant underlying COPD as well and he has other comorbid conditions also. He has a type 2 diabetes, hypertension, hyperlipidemia, no evidence of any significant CAD based on a cardiac cath as recently as 2011. At the time of my evaluation, patient is actually quite comfortable and denies any chest pain and breathing appears to be somewhat better. Both patient and insisted that I should check with the insole filler, Dr. Sol regarding the side effects of his COPD, worsening with flecainide. I specifically discussed with Dr. Sol who felt that his issues were significant COPD, elevated hemidiaphragm, compromising his ventilatory volumes and this is a contributing factor and he does not feel flecainide is the issue. I communicated this to the patient, and daughter. PAST MEDICAL HISTORY: 1. Type 2 diabetes. 2. Hypertension. 3. Paroxysmal atrial fibrillation. 4. Hyperlipidemia. 5. No evidence of documented coronary artery disease based on a cardiac cath in the past. MEDICATIONS: At home include Eliquis 2.5 mg b.i.d., flecainide 50 mg b.i.d., glimepiride 1 mg daily, Lasix 40 mg 1-1/2 tablet daily, levothyroxine 150 mcg daily, Lipitor 40 mg daily, Singulair, omeprazole, and Aldactone 12.5 mg daily. PHYSICAL EXAMINATION: Blood pressure is 140/70, pulse rate is 80 per minute, regular and patient is in sinus with IVCD. Physical exam revealed a JVD of 1 cm. No carotid bruit. S1, S2 are heard normally. There is a systolic murmur, audible at the base. The second heart sound is preserved lungs reveal scattered rhonchi. Abdomen is soft. Lower extremities reveal diminished pulses. Central nervous system is normal EKG revealed sinus mechanism with IVCD. IMPRESSION: 1. Exacerbation of chronic obstructive pulmonary disease. 2. Paroxysmal atrial fibrillation, status post cardioversion yesterday, remains in sinus rhythm. 3. Hypertension. 4. Type 2 diabetes. 5. Hyperlipidemia. RECOMMENDATIONS: From a cardiac standpoint, I would recommend that we continue Eliquis and flecainide plus his other medication as before. We will continue to follow the patient. Patient will be followed closely by Pulmonary as well. Thank you very much for the consult. MMODL / IJN: [id number] /
[2017-10-26] MEDS: FUROSEMIDE 10 MG/ML 4 ML VIAL IV SCH ×2 (15:38→22:52)
--- NOTE | 2017-10-26 16:24 | PN ---
PROGRESS NOTE DATE OF SERVICE: 10/26/2017 PRESENTING COMPLAINT: Short of breath. INTERVAL HISTORY: This pleasant gentleman was admitted with acute moderate persistent asthma exacerbation, acute tracheobronchitis. Patient has chronically paralyzed right diaphragm; still quite a bit short of breath. Patient was cardioverted yesterday by Dr. Pollack. He did eat a little bit. Family is at the bedside. A dose of IV Lasix was given earlier today. REVIEW OF SYSTEMS: Done for constitutional, cardiovascular, GI, pulmonary; relevant findings as above. PHYSICAL EXAMINATION: On examination, temperature is 97.3, pulse 86, respiration 18, blood pressure 144/68, pulse ox 93% is on 3 L. GENERAL APPEARANCE: Sitting up on bed, short of breath. EYES: Pupils equal. Conjunctivae normal. HEENT: External appearance of nose and ears normal. Oral cavity normal. NECK: JVD unable to assess. Mass not palpable. RESPIRATORY: Effort increased. LUNGS: Decreased breath sounds. Some prolonged expiration and wheezing. Some crackles. CARDIOVASCULAR: First and second sounds normal. Some edema. ABDOMEN: Soft, nontender. Liver and spleen not palpable. PSYCHIATRY: Alert and oriented x3. Mood and affect normal. INVESTIGATIONS: Potassium 4.7, BUN 21, creatinine 0.67. Chest CTA showing elevated right diaphragm, moderate right- and left-sided pleural effusion and evidence of fluid overload. ASSESSMENT: 1. Acute on chronic congestive heart failure exacerbation from diastolic dysfunction, ejection fraction 55%, probably from hypertensive heart disease. 2. Acute moderate persistent asthma with acute exacerbation secondary to acute tracheobronchitis. 3. Chronically paralyzed right diaphragm. 4. Bilateral pleural effusion from congestive heart failure, right greater than left. 5. Paroxysmal atrial fibrillation. Patient was cardioverted and is on Eliquis. 6. Diabetes mellitus, type 2, on oral hypoglycemic. 7. Gastroesophageal reflux disease. 8. Essential hypertension. 9. Hyperlipidemia. 10.Hypothyroid. 11.Peptic ulcer disease. 12.Chronic diverticulosis. 13.Chronic hypoxic respiratory failure, on home oxygen at 2 liters, with underlying asthma. 14.Left bundle branch block. 15.Pulmonary embolism ruled out. PLAN: Will start the patient on Lasix 40 mg q.8. Check patient's BNP now and tomorrow morning. Follow electrolytes closely. Care was discussed with the patient and family at the bedside. Will follow. MMODL / IJN: [id number] /
[2017-10-26 16:42] LABS: Glucose,Whole Blood 200 mg/dL (75-99)
[2017-10-26] MEDS: BUDESONIDE 1 MG/2 ML NEBU INHALATION SCH (19:53)
[2017-10-26 21:10] LABS: Glucose,Whole Blood 212 mg/dL (75-99)
[2017-10-26] MEDS: MONTELUKAST 10 MG TAB PO SCH (21:19)
[2017-10-27 05:55] LABS: Anion Gap 7 mmol/L; Blood Urea Nitrogen 26 mg/dL (9-20); Calcium 9.1 mg/dL (8.4-10.2); Carbon Dioxide 36 mmol/L (22-30); Chloride 92 mmol/L (98-107); Glucose 199 mg/dL (74-99); Sodium 135 mmol/L (137-145)
[2017-10-27 06:29] LABS: Glucose,Whole Blood 226 mg/dL (75-99)
[2017-10-27] MEDS: LEVOTHYROXINE 100 MCG TAB PO SCH (06:43)
[2017-10-27] MEDS: PANTOPRAZOLE 40 MG TABLET PO SCH (06:43)
[2017-10-27] MEDS: INSULIN ASPART 100 UNIT/ML 1 ML 10 ML VIAL SQ SCH ×4 (06:43→21:14)
[2017-10-27] MEDS: methylPREDNISolone SOD SUCCI 125 MG/2 ML VIAL IV SCH ×4 (06:43→23:13)
[2017-10-27] MEDS: LEVOTHYROXINE 75 MCG TAB PO SCH (06:43)
[2017-10-27] MEDS: IPRATROPIUM-ALBUTEROL 3 ML NEB INHALATION SCH ×4 (08:14→20:05)
[2017-10-27] MEDS: BUDESONIDE 1 MG/2 ML NEBU INHALATION SCH ×2 (08:14→20:05)
[2017-10-27] MEDS: FUROSEMIDE 10 MG/ML 4 ML VIAL IV SCH (09:21)
[2017-10-27] MEDS: APIXABAN 2.5 MG TABLET PO SCH ×2 (09:21→20:37)
[2017-10-27] MEDS: ATORVASTATIN 40 MG TAB PO SCH (09:21)
[2017-10-27] MEDS: CEFUROXIME 250 MG TAB PO SCH ×2 (09:21→20:37)
[2017-10-27] MEDS: METOPROLOL SUCCINATE (ER) 25 MG TAB.ER.24H PO SCH (09:22)
[2017-10-27] MEDS: SPIRONOLACTONE 25 MG TAB PO SCH (09:22)
[2017-10-27] MEDS: GLIMEPIRIDE 1 MG TAB PO SCH ×2 (09:22→20:37)
--- NOTE | 2017-10-27 10:41 | P.PN ---
Subjective Progress Note Date: 10/27/17 Principal diagnosis: Atrial fibrillation with a rapid ventricular response, dyspnea. This is a very pleasant 87-year-old gentleman who follows with Dr. Barrington Ojeda as his primary care physician. He has a history of diabetes mellitus CVA/ TIA, hypothyroidism, gastroesophageal reflux disease, hypertension, hyperlipidemia, chronic bronchitis/asthma. He follows with Dr. Sol in our office. He is maintained on Singulair, Xopenex. He also has a history of chronic atrial fibrillation and is anticoagulated with Eliquis. He has been on amiodarone in the past that he was intolerant to. He had recently been started on flecainide last week and he feels that increasing shortness of breath has started since then. He was here yesterday morning electively for a DANY and subsequent cardioversion of 200 J and conversion to normal sinus rhythm with Dr. Cruz. Later that day he had developed increasing shortness of breath and presented back to the emergency room. He is seen today in consultation on the selective care unit. He is awake and alert in no acute distress. He states he is still having shortness of breath during conversation and with exertion. He does feel it has been progressively worse. A CT angiogram ruled out pulmonary embolism. There is a moderate right and smaller left pleural effusion with interlobar septal thickening and scattered groundglass opacities suggestive of interstitial edema with fluid volume overload. There is also noted peribronchial cuffing right greater than left. He was also continued elevation of the right hemidiaphragm secondary to diaphragmatic paralysis There is no focal consolidation to suggest pneumonia. The patient denies any fever, chills or night sweats. His cough is nonproductive. No hemoptysis. He has been afebrile. Hemodynamically stable. Maintaining good O2 saturations in the mid 90s on 3 L/m per nasal cannula. No leukocytosis. Hemoglobin 11.0. Troponin negative. TSH normal. Creatinine 0.80. The patient is seen again today 10/27/2017 in follow-up on the selective care unit. He is awake and alert in no acute distress. Unfortunately he went back into atrial fibrillation today. He remains anticoagulated with Eliquis. He denies any chest pain, palpitations lightheadedness or dizziness. He states he is breathing easier today as compared to yesterday and afebrile maintaining good O2 saturations in the upper 90s on 3 L/m per nasal cannula. Continued on DuoNeb inhalations, Pulmicort inhalations, IV Solu-Medrol. Antibiotics in the form of Ceftin. The BMP 1480. Creatinine 0.80. Objective - Vital Signs Vital signs: Vital Signs Temp 97.3 F L 10/27/17 09:10 Pulse 124 H 10/27/17 09:10 Resp 18 10/27/17 09:10 BP 101/62 10/27/17 09:10 Pulse Ox 97 10/27/17 09:10 Intake & Output 10/26/17 10/27/17 10/27/17 18:59 06:59 18:59 Intake Total 836 300 237 Output Total 1500 450 Balance 836 -1200 -213 Weight 89.6 kg Intake: Oral 836 300 237 Output: Urine 1500 450 Other: Voiding Method Toilet Toilet # Voids 1 # Bowel Movements 0 - Exam GENERAL EXAM: Alert, active, comfortable in no apparent distress. HEAD: Normocephalic. EYES: Normal reaction of pupils, equal size. NOSE: Clear with pink turbinates. THROAT: No erythema or exudates. NECK: No masses, no JVD. CHEST: No chest wall deformity. LUNGS: Equal air entry with crackles in the bilateral posterior bases. CVS: S1 and S2 normal with no audible murmur, irregular rhythm. ABDOMEN: No hepatosplenomegaly, normal bowel sounds, no guarding or rigidity. SPINE: No scoliosis or deformity SKIN: No rashes CENTRAL NERVOUS SYSTEM: No focal deficits, tone is normal in all 4 extremities. EXTREMITIES: There is no peripheral edema. No clubbing, no cyanosis. Peripheral pulses are intact. - Labs CBC & Chem 7: 10/25/17 14:55 10/27/17 05:19 Labs: Abnormal Lab Results - Last 24 Hours (Table) 10/26/17 10/26/17 10/26/17 Range/Units 11:49 16:41 21:01 Sodium (137-145) mmol/L Chloride (98-107) mmol/L Carbon Dioxide (22-30) mmol/L BUN (9-20) mg/dL Glucose (74-99) mg/dL POC Glucose (mg/dL) 238 H 200 H 212 H (75-99) mg/dL 10/27/17 10/27/17 Range/Units 05:19 06:03 Sodium 135 L (137-145) mmol/L Chloride 92 L (98-107) mmol/L Carbon Dioxide 36 H (22-30) mmol/L BUN 26 H (9-20) mg/dL Glucose 199 H (74-99) mg/dL POC Glucose (mg/dL) 226 H (75-99) mg/dL Microbiology - Last 24 Hours (Table) 10/25/17 15:20 Urine Culture - Final Urine,Voided Assessment and Plan Assessment: Impression: #1 Dyspnea, multifactorial in a patient with a known history of chronic obstructive pulmonary disease, right gilbert-diaphragm elevation secondary to paralysis, fluid volume overload with bilateral pleural effusions right greater than left suspect secondary to diastolic dysfunction, cardiac asthma. #2 Chronic atrial fibrillation, anticoagulated with Eliquis, status post cardioversion on 10/25/2017. Recently started on flecainide now discontinued. He is back in atrial fibrillation.. #3 Acute exacerbation of chronic obstructive pulmonary disease. #4 his trip CVA/TIA. #5 Diabetes mellitus. #6 Esophageal reflux disease. #7 Hyperlipidemia. #8 Hypertension. #9 Hypothyroidism. Plan: The patient was seen and evaluated by Dr. Sol. We will continue with DuoNeb inhalations, add Symbicort, continue IV Solu-Medrol and will continue Singulair. Empiric antibiotics in the form of Ceftin. He remains anticoagulated with Eliquis. Protonix for GI prophylaxis. Will increase his activity as tolerated. We'll continue to follow and make further recommendations based on his clinical status. I, the cosigning physician, performed a history & physical examination of the patient. Lungs sounds crackles in bilateral posterior bases. Diminished. Maintaining good O2 saturations in the 90s on 3 L/m per nasal cannula. I discussed the assessment and plan of care with my nurse practitioner, Renee Ford. I attest to the above consultation as dictated by her.
[2017-10-27] MEDS: FUROSEMIDE 40 MG TAB PO SCH (11:45)
[2017-10-27] MEDS: FLECAINIDE 50 MG TAB PO SCH (11:48)
[2017-10-27] MEDS ORDERED: SODIUM CHLORIDE 0.65% NASAL SPRAY 44 ML BTL NASAL PRN (11:54)
[2017-10-27 12:18] LABS: Glucose,Whole Blood 187 mg/dL (75-99)
--- NOTE | 2017-10-27 12:25 | P.PN ---
Subjective Progress Note Date: 10/27/17 Principal diagnosis: Shortness of breath This is an 87-year-old gentleman who follows with Dr. Pollack in the office. Patient has a history of diabetes, hypertension, paroxysmal atrial fibrillation, hyperlipidemia, no coronary artery disease by cardiac catheterization. Prior to his admission here he underwent DANY and electrical cardioversion and was discharged home, he presented back to the hospital on this occasion with symptoms of worsening shortness of breath area patient was seen in consultation by Dr. Carolyne Armendariz. It was explained to the patient that he did not feel that the symptoms were related to his of flecainide. Last evening patient went back into atrial fibrillation, he does state overall that his breathing is significantly improved today. He was also seen in consultation by pulmonary medicine who felt that he may have an exacerbation of COPD. was also diuresed with IV Lasix. He was seen and examined today, overall feeling better. We will discontinue his flecainide. Discontinue IV Lasix and change the patient over to Lasix 40 mg daily. We'll also discontinue the metoprolol succinate and start the patient on metoprolol tartrate 50 3 times a day. Objective - Vital Signs Vital signs: Vital Signs Temp 97.3 F L 10/27/17 09:10 Pulse 124 H 10/27/17 09:10 Resp 18 10/27/17 09:10 BP 101/62 10/27/17 09:10 Pulse Ox 97 10/27/17 09:10 Intake & Output 10/26/17 10/27/17 10/27/17 18:59 06:59 18:59 Intake Total 836 300 237 Output Total 1500 450 Balance 836 -1200 -213 Weight 89.6 kg Intake: Oral 836 300 237 Output: Urine 1500 450 Other: Voiding Method Toilet Toilet # Voids 1 # Bowel Movements 0 - Exam PHYSICAL EXAMINATION: HEENT: Head is atraumatic, normocephalic. Pupils equal, round. Neck is supple. There is no elevated jugular venous pressure. HEART EXAMINATION: Heart S1 and S2 irregularly irregular a systolic murmur is heard. CHEST EXAMINATION: Lungs are clear with diminished air entry to the bases bilaterally. ABDOMEN: Soft, nontender. Bowel sounds are heard. No organomegaly noted. EXTREMITIES: 2+ peripheral pulses with no evidence of peripheral edema and no calf tenderness noted. NEUROLOGIC patient is awake, alert and oriented -3. . - Labs CBC & Chem 7: 10/25/17 14:55 10/27/17 05:19 Labs: Abnormal Lab Results - Last 24 Hours (Table) 10/26/17 10/26/17 10/27/17 Range/Units 16:41 21:01 05:19 Sodium 135 L (137-145) mmol/L Chloride 92 L (98-107) mmol/L Carbon Dioxide 36 H (22-30) mmol/L BUN 26 H (9-20) mg/dL Glucose 199 H (74-99) mg/dL POC Glucose (mg/dL) 200 H 212 H (75-99) mg/dL 10/27/17 Range/Units 06:03 Sodium (137-145) mmol/L Chloride (98-107) mmol/L Carbon Dioxide (22-30) mmol/L BUN (9-20) mg/dL Glucose (74-99) mg/dL POC Glucose (mg/dL) 226 H (75-99) mg/dL Microbiology - Last 24 Hours (Table) 10/25/17 15:20 Urine Culture - Final Urine,Voided Assessment and Plan Plan: Assessment and plan #1 COPD exacerbation #2 paroxysmal atrial fibrillation, status post DANY and cardioversion, patient back in atrial fibrillation today. #3 hypertension #4 diabetes #5 hyperlipidemia Plan We will discontinue the IV Lasix and start the patient on oral diuretics. Discontinue metoprolol succinate and start the patient on metoprolol tartrate 50 3 times a day, discontinue flecainide. Patient may be able to be discharged home from cardiology's perspective to follow-up with Dr. Pollack in the office post discharge. DNP note has been reviewed, I agree with a documented findings and plan of care. Patient was seen and examined.
[2017-10-27] MEDS: METOPROLOL TARTRATE 50 MG TAB PO SCH ×2 (15:52→20:37)
[2017-10-27 17:04] LABS: Glucose,Whole Blood 224 mg/dL (75-99)
--- NOTE | 2017-10-27 20:19 | PN ---
PROGRESS NOTE DATE OF SERVICE: 10/27/2017 PRESENTING COMPLAINT: Short of breath. INTERVAL HISTORY: Patient was admitted acute moderate persistent asthma exacerbation, acute tracheobronchitis, has chronically paralyzed right diaphragm and was cardioverted prior to admission. Patient was also felt to have fluid overload, was given IV Lasix. This morning patient's breathing is actually better, but he has gone back into atrial fibrillation. Rate was up to the 150s earlier with activity. Did tolerate some diet. REVIEW OF SYSTEMS: Done for constitutional, cardiovascular, GI, pulmonary; relevant findings as above. CURRENT MEDICATIONS: Current medications are reviewed that include: 1. Eliquis. 2. Lipitor. 3. Ceftin. 4. Oral Lasix. (IV Lasix was discontinued.). 5. Synthroid. 6. IV Solu-Medrol. 7. Lopressor. 8. Aldactone. PHYSICAL EXAMINATION: Temperature 96.4, pulse 85, respiration 18, blood pressure 105/64, pulse ox 96% on 3 L. GENERAL APPEARANCE: Sitting up on the edge of the bed. Less short of breath. EYES: Pupils equal. Conjunctivae normal. HEENT: External appearance of nose and ears normal. Oral cavity normal. NECK: JVD not raised. Mass not palpable. RESPIRATORY: Effort increased. LUNGS: Prolonged expiration. Basal crackles. CARDIOVASCULAR: Heart sounds irregular. Minimal edema. ABDOMEN: Soft, nontender. Liver and spleen not palpable. PSYCHIATRY: Alert and oriented x3. Mood and affect normal. INVESTIGATIONS: Potassium 4.7, BUN 21, creatinine 0.67. Accu-Cheks are noted. Telemetry shows atrial fibrillation, rate controlled; up to 150s with activity earlier today. ProBNP is 1480. ASSESSMENT: 1. Acute on chronic congestive heart failure exacerbation from diastolic dysfunction, ejection fraction 55%, from hypertensive heart disease, including a contribution from atrial fibrillation. 2. Acute moderate persistent asthma exacerbation secondary to acute tracheobronchitis. 3. Chronically paralyzed right diaphragm. 4. Bilateral pleural effusion from congestive heart failure, right greater than the left. 5. Paroxysmal atrial fibrillation; was cardioverted prior to admission; now has gone back into atrial fibrillation. 6. Diabetes mellitus, type 2, on oral hypoglycemic. 7. Gastroesophageal reflux disease. 8. Essential hypertension. 9. Hyperlipidemia. 10.Hypothyroid. 11.Peptic ulcer disease. 12.Chronic diverticulosis. 13.Chronic hypoxic respiratory failure, on home oxygen at 2 L with underlying asthma. 14.Left bundle branch block. PLAN: Continue with current medication and treatment plan. Patient is back on IV Solu-Medrol per Pulmonary. DuoNeb is to continue. Patient is on p.o. Lasix. It seems because of atrial fibrillation and loss of atrial kick, the patient did go back into some fluid overload. Care was discussed with the patient. Will follow closely. RENA / NEVINN: [id number] /
[2017-10-27] MEDS: MONTELUKAST 10 MG TAB PO SCH (20:37)
[2017-10-27 20:48] LABS: Glucose,Whole Blood 208 mg/dL (75-99)
[2017-10-28 06:13] LABS: Glucose,Whole Blood 172 mg/dL (75-99)
[2017-10-28] MEDS: PANTOPRAZOLE 40 MG TABLET PO SCH (06:18)
[2017-10-28] MEDS: LEVOTHYROXINE 100 MCG TAB PO SCH (06:19)
[2017-10-28] MEDS: INSULIN ASPART 100 UNIT/ML 1 ML 10 ML VIAL SQ SCH ×2 (06:19→11:43)
[2017-10-28] MEDS: LEVOTHYROXINE 75 MCG TAB PO SCH (06:19)
[2017-10-28] MEDS: methylPREDNISolone SOD SUCCI 125 MG/2 ML VIAL IV SCH ×2 (06:19→11:49)
[2017-10-28 06:21] LABS: Anion Gap 5 mmol/L; Blood Urea Nitrogen 31 mg/dL (9-20); Calcium 8.8 mg/dL (8.4-10.2); Carbon Dioxide 37 mmol/L (22-30); Chloride 90 mmol/L (98-107); Glucose 163 mg/dL (74-99); Potassium 4.1 mmol/L (3.5-5.1); Sodium 132 mmol/L (137-145)
[2017-10-28] MEDS ORDERED: LACTULOSE 20 GM/30 ML CUP PO ONE (06:45)
[2017-10-28] MEDS: IPRATROPIUM-ALBUTEROL 3 ML NEB INHALATION SCH ×2 (07:02→11:40)
[2017-10-28] MEDS: BUDESONIDE 1 MG/2 ML NEBU INHALATION SCH (07:02)
[2017-10-28] MEDS: ATORVASTATIN 40 MG TAB PO SCH (09:02)
[2017-10-28] MEDS: FUROSEMIDE 40 MG TAB PO SCH (09:02)
[2017-10-28] MEDS: GLIMEPIRIDE 1 MG TAB PO SCH (09:02)
[2017-10-28] MEDS: CEFUROXIME 250 MG TAB PO SCH (09:02)
[2017-10-28] MEDS: APIXABAN 2.5 MG TABLET PO SCH (09:02)
[2017-10-28] MEDS: SPIRONOLACTONE 25 MG TAB PO SCH (09:03)
[2017-10-28] MEDS: METOPROLOL TARTRATE 50 MG TAB PO SCH (09:03)
[2017-10-28 11:42] LABS: Glucose,Whole Blood 214 mg/dL (75-99)
--- NOTE | 2017-10-28 11:51 | P.PN ---
Subjective Progress Note Date: 10/28/17 Principal diagnosis: Atrial fibrillation with a rapid ventricular response, dyspnea. This is a very pleasant 87-year-old gentleman who follows with Dr. Barrington Ojeda as his primary care physician. He has a history of diabetes mellitus CVA/ TIA, hypothyroidism, gastroesophageal reflux disease, hypertension, hyperlipidemia, chronic bronchitis/asthma. He follows with Dr. Sol in our office. He is maintained on Singulair, Xopenex. He also has a history of chronic atrial fibrillation and is anticoagulated with Eliquis. He has been on amiodarone in the past that he was intolerant to. He had recently been started on flecainide last week and he feels that increasing shortness of breath has started since then. He was here yesterday morning electively for a DANY and subsequent cardioversion of 200 J and conversion to normal sinus rhythm with Dr. Cruz. Later that day he had developed increasing shortness of breath and presented back to the emergency room. He is seen today in consultation on the selective care unit. He is awake and alert in no acute distress. He states he is still having shortness of breath during conversation and with exertion. He does feel it has been progressively worse. A CT angiogram ruled out pulmonary embolism. There is a moderate right and smaller left pleural effusion with interlobar septal thickening and scattered groundglass opacities suggestive of interstitial edema with fluid volume overload. There is also noted peribronchial cuffing right greater than left. He was also continued elevation of the right hemidiaphragm secondary to diaphragmatic paralysis There is no focal consolidation to suggest pneumonia. The patient denies any fever, chills or night sweats. His cough is nonproductive. No hemoptysis. He has been afebrile. Hemodynamically stable. Maintaining good O2 saturations in the mid 90s on 3 L/m per nasal cannula. No leukocytosis. Hemoglobin 11.0. Troponin negative. TSH normal. Creatinine 0.80. The patient is seen again today 10/27/2017 in follow-up on the selective care unit. He is awake and alert in no acute distress. Unfortunately he went back into atrial fibrillation today. He remains anticoagulated with Eliquis. He denies any chest pain, palpitations lightheadedness or dizziness. He states he is breathing easier today as compared to yesterday and afebrile maintaining good O2 saturations in the upper 90s on 3 L/m per nasal cannula. Continued on DuoNeb inhalations, Pulmicort inhalations, IV Solu-Medrol. Antibiotics in the form of Ceftin. The BMP 1480. Creatinine 0.80. The patient is seen again today 10/28/2017 in follow-up on the selective care unit. He is currently resting quite comfortably in bed. He is able to lay flat without any acute respiratory distress. He states he is breathing better today compared to yesterday. He is hoping to go home. He is maintaining good O2 saturations in the mid 90s on 3 L/m per nasal cannula. He remains in atrial fibrillation but better controlled rates currently in the 90s. He is afebrile. Creatinine 0.70. Objective - Vital Signs Vital signs: Vital Signs Temp 96.8 F L 10/28/17 09:00 Pulse 84 10/28/17 11:40 Resp 18 10/28/17 09:00 BP 109/61 10/28/17 09:00 Pulse Ox 95 10/28/17 09:00 Intake & Output 10/27/17 10/28/17 10/28/17 18:59 06:59 18:59 Intake Total 474 180 Output Total 1050 350 300 Balance -576 -350 -120 Weight 90.1 kg Intake: Oral 474 180 Output: Urine 1050 350 300 Other: Voiding Method Toilet Toilet Toilet # Voids 1 1 # Bowel Movements 1 - Exam GENERAL EXAM: Alert, active, comfortable in no apparent distress. HEAD: Normocephalic. EYES: Normal reaction of pupils, equal size. NOSE: Clear with pink turbinates. THROAT: No erythema or exudates. NECK: No masses, no JVD. CHEST: No chest wall deformity. LUNGS: Equal air entry with crackles in the bilateral posterior bases. CVS: S1 and S2 normal with no audible murmur, irregular rhythm. ABDOMEN: No hepatosplenomegaly, normal bowel sounds, no guarding or rigidity. SPINE: No scoliosis or deformity SKIN: No rashes CENTRAL NERVOUS SYSTEM: No focal deficits, tone is normal in all 4 extremities. EXTREMITIES: There is no peripheral edema. No clubbing, no cyanosis. Peripheral pulses are intact. - Labs CBC & Chem 7: 10/25/17 14:55 10/28/17 05:23 Labs: Abnormal Lab Results - Last 24 Hours (Table) 10/27/17 10/27/17 10/27/17 Range/Units 11:51 16:56 20:41 Sodium (137-145) mmol/L Chloride (98-107) mmol/L Carbon Dioxide (22-30) mmol/L BUN (9-20) mg/dL Glucose (74-99) mg/dL POC Glucose (mg/dL) 187 H 224 H 208 H (75-99) mg/dL 10/28/17 10/28/17 10/28/17 Range/Units 05:23 06:08 11:40 Sodium 132 L (137-145) mmol/L Chloride 90 L (98-107) mmol/L Carbon Dioxide 37 H (22-30) mmol/L BUN 31 H (9-20) mg/dL Glucose 163 H (74-99) mg/dL POC Glucose (mg/dL) 172 H 214 H (75-99) mg/dL Assessment and Plan Assessment: Impression: #1 Dyspnea, multifactorial in a patient with a known history of chronic obstructive pulmonary disease, right gilbert-diaphragm elevation secondary to paralysis, fluid volume overload with bilateral pleural effusions right greater than left suspect secondary to diastolic dysfunction, cardiac asthma. Recovered. #2 Chronic atrial fibrillation, anticoagulated with Eliquis, status post cardioversion on 10/25/2017. Recently started on flecainide now discontinued. He is back in atrial fibrillation. #3 Acute exacerbation of chronic obstructive pulmonary disease. #4 History of CVA/TIA. #5 Diabetes mellitus. #6 Esophageal reflux disease. #7 Hyperlipidemia. #8 Hypertension. #9 Hypothyroidism. Plan: The patient was seen and evaluated by Dr. Sol. He is cleared for discharge from the pulmonary standpoint. We will continue with DuoNeb inhalations, Symbicort, discontinue IV Solu-Medrol, initiate prednisone burst and taper, continue Singulair. Empiric antibiotics in the form of Ceftin. He remains anticoagulated with Eliquis. He should follow-up with Dr. Sol in our office in 1 week's time. He is encouraged to call sooner however with any recurrence of symptoms or other questions or concerns. I, the cosigning physician, performed a history & physical examination of the patient. Lungs sounds crackles in bilateral posterior bases. Diminished. Maintaining good O2 saturations in the 90s on 3 L/m per nasal cannula. I discussed the assessment and plan of care with my nurse practitioner, Renee Ford. I attest to the above consultation as dictated by her.
[2017-10-28 12:26] VITALS: BP 120/77; PULSE 84; RESP 16; TEMP 97.1
--- NOTE | 2017-10-28 12:56 | P.PN ---
Subjective Progress Note Date: 10/28/17 Principal diagnosis: Shortness of breath This is an 87-year-old gentleman who follows with Dr. Pollack in the office. Patient has a history of diabetes, hypertension, paroxysmal atrial fibrillation, hyperlipidemia, no coronary artery disease by cardiac catheterization. Prior to his admission here he underwent DANY and electrical cardioversion and was discharged home, he presented back to the hospital on this occasion with symptoms of worsening shortness of breath area patient was seen in consultation by Dr. Carolyne Armendariz. It was explained to the patient that he did not feel that the symptoms were related to his of flecainide. Last evening patient went back into atrial fibrillation, he does state overall that his breathing is significantly improved today. He was also seen in consultation by pulmonary medicine who felt that he may have an exacerbation of COPD. was also diuresed with IV Lasix. He was seen and examined today, overall feeling better. We will discontinue his flecainide. Discontinue IV Lasix and change the patient over to Lasix 40 mg daily. We'll also discontinue the metoprolol succinate and start the patient on metoprolol tartrate 50 3 times a day. 10/28/2017 Patient seen and examined this morning, Continues to be in atrial fibrillation with a controlled ventricular response. Feeling overall better today. Current medications have been reviewed. Patient may be able to be discharged home from cardiology's perspective today and we will make him a follow-up appointment to see Dr. Pollack in the office post discharge. Objective - Vital Signs Vital signs: Vital Signs Temp 97.1 F L 10/28/17 11:40 Pulse 88 10/28/17 11:52 Resp 16 10/28/17 11:40 BP 120/77 10/28/17 11:40 Pulse Ox 96 10/28/17 11:40 Intake & Output 10/27/17 10/28/17 10/28/17 18:59 06:59 18:59 Intake Total 474 180 Output Total 1050 350 300 Balance -576 -350 -120 Weight 90.1 kg Intake: Oral 474 180 Output: Urine 1050 350 300 Other: Voiding Method Toilet Toilet Toilet # Voids 1 1 # Bowel Movements 1 - Exam PHYSICAL EXAMINATION: HEENT: Head is atraumatic, normocephalic. Pupils equal, round. Neck is supple. There is no elevated jugular venous pressure. HEART EXAMINATION: Heart S1 and S2 irregularly irregular a systolic murmur is heard. CHEST EXAMINATION: Lungs are clear with diminished air entry to the bases bilaterally. ABDOMEN: Soft, nontender. Bowel sounds are heard. No organomegaly noted. EXTREMITIES: 2+ peripheral pulses with no evidence of peripheral edema and no calf tenderness noted. NEUROLOGIC patient is awake, alert and oriented -3. . - Labs CBC & Chem 7: 10/25/17 14:55 10/28/17 05:23 Labs: Abnormal Lab Results - Last 24 Hours (Table) 10/27/17 10/27/17 10/28/17 Range/Units 16:56 20:41 05:23 Sodium 132 L (137-145) mmol/L Chloride 90 L (98-107) mmol/L Carbon Dioxide 37 H (22-30) mmol/L BUN 31 H (9-20) mg/dL Glucose 163 H (74-99) mg/dL POC Glucose (mg/dL) 224 H 208 H (75-99) mg/dL 10/28/17 10/28/17 Range/Units 06:08 11:40 Sodium (137-145) mmol/L Chloride (98-107) mmol/L Carbon Dioxide (22-30) mmol/L BUN (9-20) mg/dL Glucose (74-99) mg/dL POC Glucose (mg/dL) 172 H 214 H (75-99) mg/dL Assessment and Plan Plan: Assessment and plan #1 COPD exacerbation #2 paroxysmal atrial fibrillation, status post DANY and cardioversion, patient back in atrial fibrillation today. #3 hypertension #4 diabetes #5 hyperlipidemia Plan Cardiology's perspective, patient may be able to be discharged home today. We will make a follow-up appointment to see Dr. Pollack in the office post discharge. DNP note has been reviewed, I agree with a documented findings and plan of care. Patient was seen and examined.
[2017-10-29] MEDS ORDERED: predniSONE 20 MG TAB PO SCH (09:00)
--- NOTE | 2017-10-31 00:22 | DS ---
DISCHARGE SUMMARY DATE OF ADMISSION: October 25, 2017. DATE OF DISCHARGE: October 28, 2017. FINAL DIAGNOSES: 1. Acute on chronic congestive heart failure exacerbation from diastolic dysfunction. Ejection fraction 55% from hypertensive heart disease including a contribution from atrial fibrillation. 2. Acute moderate persistent asthma exacerbation secondary to acute tracheobronchitis. 3. Chronically paralyzed right diaphragm. 4. Bilateral pleural effusion from congestive heart failure, right greater than the left. 5. Persistent atrial fibrillation. The patient is back in atrial fibrillation, being cardioverted the day of admission by Dr. Pollack. Now rate is controlled. 6. Diabetes mellitus type 2 on oral hypoglycemic. 7. Gastroesophageal reflux disease. 8. Essential hypertension. 9. Hyperlipidemia. 10.Hypothyroid. 11.Peptic ulcer disease. 12.Chronic diverticulosis. 13.Chronic hypoxic respiratory failure on home oxygen 2 L from underlying asthma. 14.Left bundle branch block. HOSPITAL COURSE: This patient was cardioverted by Dr. Pollack and went into sinus node, went home, came back with short of breath, found to be in congestive heart failure and asthma exacerbation. The patient was diuresed. Doing better by the time of discharge. The patient had reverted back into atrial fibrillation. EXAM: Lungs improved air entry. Crackles are resolved. Heart sounds irregular. Psych AO x3. CONSULTATION: Dr. Sol from Pulmonary, Dr. Jacklyn Armendariz from Cardiology. The patient's chest CTA negative for PE. There is moderate right and small left pleural effusion. DISCHARGE MEDICATIONS: 1. Folic acid 2 mg a day. 2. Singulair 10 mg q.h.s. 3. Prilosec 20 mg before breakfast. 4. Eliquis 2.5 mg p.o. b.i.d. 5. Aldactone 12.5 p.o. daily. 6. Xopenex 1.25 mg q.i.d. p.r.n. 7. Vitamin D3 1000 units p.o. daily. 8. Lasix 40 mg p.o. daily. 9. Glucosamine chondroitin 1 tab p.o. daily. 10.Synthroid 125 mcg p.o. daily. 11.Lipitor 40 mg p.o. daily. 12.Amaryl 1 mg p.o. b.i.d. 13.Pulmicort 1 mg b.i.d. 14.Ceftin 500 mg p.o. b.i.d. 10 tablets. 15.Atrovent 0.5 nebulizer q.i.d. 16.Lopressor 50 mg p.o. t.i.d. 17.Prednisone taper. FOLLOWUP: Follow up with Dr. Pollack in 1 week, Dr. Barrington Ojeda in [address] Sol on November 07, 2017. Copy to Dr. Ojeda. MMODL / NEVINN: [id number] /
== END 2017-10-28 15:30 | disposition home or self-care (01) | DRG 292 ==
LOC: EC 14:32 → 6SEL 16:51
PROVIDERS: ADMIT Hospitalist; ATTEND Hospitalist
DX: I11.0 Hypertensive heart disease with heart failure (principal); I48.1 Persistent atrial fibrillation; J96.11 Chronic respiratory failure with hypoxia; J44.0 Chronic obstructive pulmonary disease with (acute) lower respiratory infection; I48.0 Paroxysmal atrial fibrillation; J44.1 Chronic obstructive pulmonary disease with (acute) exacerbation; J45.41 Moderate persistent asthma with (acute) exacerbation; E11.9 Type 2 diabetes mellitus without complications; Z79.01 Long term (current) use of anticoagulants; I50.33 Acute on chronic diastolic (congestive) heart failure; E03.9 Hypothyroidism, unspecified; E78.5 Hyperlipidemia, unspecified; Z86.73 Personal history of transient ischemic attack (TIA), and cerebral infarction without residual deficits; I44.7 Left bundle-branch block, unspecified; I48.2 Chronic atrial fibrillation; J20.9 Acute bronchitis, unspecified; J98.6 Disorders of diaphragm; K21.9 Gastro-esophageal reflux disease without esophagitis; K27.9 Peptic ulcer, site unspecified, unspecified as acute or chronic, without hemorrhage or perforation; K57.30 Diverticulosis of large intestine without perforation or abscess without bleeding; Z79.84 Long term (current) use of oral hypoglycemic drugs; Z79.899 Other long term (current) drug therapy; Z79.890 Hormone replacement therapy; Z82.3 Family history of stroke; Z82.49 Family history of ischemic heart disease and other diseases of the circulatory system; Z87.11 Personal history of peptic ulcer disease; Z87.891 Personal history of nicotine dependence; Z96.641 Presence of right artificial hip joint; Z99.81 Dependence on supplemental oxygen
CPT/HCPCS: 36415; 71046; 71275; 80048; 80053; 81003; 82550; 82553; 83036; 83735; 83880; 84100; 84443; 84484; 85025; 85610; 85730; 87086; 93005; 94640; 94760; 96374; 99285

== ENCOUNTER 2018-01-23 15:07 | Emergency (ER) | payer MEDICARE, BC ==
[2018-01-23 15:13] VITALS: RESP 18
[2018-01-23] MEDS ORDERED: IPRATROPIUM-ALBUTEROL 3 ML NEB INHALATION STA (15:42)
[2018-01-23] MEDS ORDERED: methylPREDNISolone SOD SUCCI 125 MG/2 ML VIAL IV STA (15:42)
--- NOTE | 2018-01-23 15:45 | ED ---
General Adult HPI - General Chief complaint: Shortness of Breath Stated complaint: SOB Time Seen by Provider: 01/23/18 15:36 Source: patient, RN notes reviewed Mode of arrival: wheelchair Limitations: no limitations - History of Present Illness Initial comments: Patient is a pleasant 87-year-old male presenting to the emergency Department with complaints of difficulty breathing. Symptoms have progressed over the past 3-4 days. Symptoms are similar to previous COPD. Patient has cough with occasional yellow sputum. No fevers. No chest pain. - Related Data Home Medications Medication Instructions Recorded Confirmed Folic Acid 2 mg PO DAILY 10/10/14 10/25/17 Montelukast [Singulair] 10 mg PO HS 10/10/14 10/25/17 Omeprazole [PriLOSEC] 20 mg PO AC-BRKFST 10/10/14 10/25/17 Apixaban [Eliquis] 2.5 mg PO BID 02/04/15 10/25/17 Spironolactone [Aldactone] 12.5 mg PO QAM 02/04/15 10/25/17 Levalbuterol HCl [Xopenex 1.25 mg INHALATION RT-QID PRN 02/05/15 10/25/17 Nebulized] Cholecalciferol [Vitamin D3] 1,000 unit PO DAILY 10/01/16 10/25/17 Furosemide [Lasix] 40 mg PO DAILY@0900 10/01/16 10/25/17 Glucosam/Steven-Msm1/C/Yassine/Bosw 1 tab PO DAILY 10/01/16 10/25/17 [Glucosamine-Chondroitin Tablet] Levothyroxine Sodium [Synthroid] 175 mcg PO DAILY 10/01/16 10/25/17 Atorvastatin [Lipitor] 40 mg PO DAILY 02/14/17 10/25/17 Glimepiride [Amaryl] 1 mg PO BID 10/21/17 10/25/17 Previous Rx's Medication Instructions Recorded Budesonide [Pulmicort] 1 mg INHALATION BID #60 neb 10/28/17 Cefuroxime [Ceftin] 500 mg PO BID #10 tab 10/28/17 Ipratropium Nebulized [Atrovent 0.5 mg INHALATION RT-QID #120 10/28/17 Nebulized] Metoprolol Tartrate [Lopressor] 50 mg PO TID #90 tab 10/28/17 predniSONE 10 mg PO DAILY #30 tab 10/28/17 Levofloxacin [Levaquin] 500 mg PO DAILY #7 tab 01/23/18 predniSONE 20 mg PO BID #10 tab 01/23/18 Allergies Allergy/AdvReac Type Severity Reaction Status Date / Time benzocaine [From Cetacaine] Allergy Dyspnea Verified 01/23/18 15:13 butamben [From Cetacaine] Allergy Dyspnea Verified 01/23/18 15:13 cefuroxime Allergy Rash/Hives Verified 01/23/18 15:16 cetyl alcohol [From Cetaphil] Allergy Rash/Hives Verified 01/23/18 15:16 flecainide Allergy Rash/Hives Verified 01/23/18 15:15 naproxen [From Naprosyn] Allergy GI BLEED Verified 01/23/18 15:13 paraben [From Cetaphil] Allergy Rash/Hives Verified 01/23/18 15:16 propylene glycol Allergy Rash/Hives Verified 01/23/18 15:16 [From Cetaphil] skin cleanser [From Cetaphil] Allergy Rash/Hives Verified 01/23/18 15:16 soap [From Cetaphil] Allergy Rash/Hives Verified 01/23/18 15:16 sodium lauryl sulfate Allergy Rash/Hives Verified 01/23/18 15:16 [From Cetaphil] stearyl alcohol Allergy Rash/Hives Verified 01/23/18 15:16 [From Cetaphil] Sulfa (Sulfonamide Allergy Rash/Hives Verified 01/23/18 15:15 Antibiotics) Tetracyclines Allergy Unknown Verified 01/23/18 15:13 zomepirac Allergy GI BLEED Verified 01/23/18 15:13 amiodarone AdvReac Cough Verified 01/23/18 15:13 meperidine HCl [From Demerol] AdvReac Nausea & Verified 01/23/18 15:13 Vomiting tetracaine [From Cetacaine] AdvReac Nausea & Verified 01/23/18 15:13 Vomiting duprenex Allergy Nausea & Uncoded 01/23/18 15:13 Vomiting Review of Systems ROS Statement: Those systems with pertinent positive or pertinent negative responses have been documented in the HPI. ROS Other: All systems not noted in ROS Statement are negative. Constitutional: Denies: fever Eyes: Denies: eye pain ENT: Denies: ear pain Respiratory: Reports: cough, dyspnea Cardiovascular: Denies: chest pain Endocrine: Reports: fatigue Gastrointestinal: Denies: abdominal pain Genitourinary: Denies: dysuria Musculoskeletal: Denies: back pain Skin: Denies: rash Neurological: Denies: weakness Past Medical History Past Medical History: Atrial Fibrillation, Asthma, Chest Pain / Angina, Heart Failure, COPD, CVA/TIA, Diabetes Mellitus, GERD/Reflux, Hyperlipidemia, Hypertension, Pneumonia, Thyroid Disorder Additional Past Medical History / Comment(s): tracheobronchitis, chronic bronchitis, subglottic tracheitis, nodular vocal cords, (previosly noted in charting 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 ulcer, hemolytic anemia, DIVERTICLOSIS. CATARACT SURGERY - BILATERAL History of Any Multi-Drug Resistant Organisms: None Reported Past Surgical History: Appendectomy, Cholecystectomy, Joint Replacement, Orthopedic Surgery Additional Past Surgical History / Comment(s): DANY/CVN, bronchoscopy with lavage, laryngoscopy, right total hip replaced, arthroscopies bilateral knees, R rotator cuff surgery. sx for deviated septum, karlene cataracts, cardioversion Past Anesthesia/Blood Transfusion Reactions: Motion Sickness, Postoperative Nausea & Vomiting (PONV) Additional Past Anesthesia/Blood Transfusion Reaction / Comment(s): UNK FAMILY HX. NEVER HAS HAD BLOOD TRANSFUSION Past Psychological History: No Psychological Hx Reported Smoking Status: Former smoker Past Alcohol Use History: None Reported Past Drug Use History: None Reported, Unable to Obtain - Past Family History Brother(s) Family Medical History: Cancer Mother Family Medical History: CVA/TIA Father Family Medical History: Hypertension General Exam Limitations: no limitations General appearance: alert, in no apparent distress Head exam: Present: atraumatic Eye exam: Present: normal appearance, PERRL ENT exam: Present: normal oropharynx Neck exam: Present: normal inspection Respiratory exam: Present: wheezes (Mild expiratory wheeze), decreased breath sounds Cardiovascular Exam: Present: irregular rhythm GI/Abdominal exam: Present: soft. Absent: tenderness Extremities exam: Present: normal inspection. Absent: pedal edema, calf tenderness Neurological exam: Present: alert Psychiatric exam: Present: normal affect, normal mood Skin exam: Present: normal color Course Vital Signs 01/23/18 01/23/1801/23/18 15:11 15:49 16:00 Temperature 97.4 F L Pulse Rate 88 68 74 Respiratory 18 Rate Blood Pressure 125/67 O2 Sat by Pulse 94 L Oximetry EKG Findings - EKG Comments: EKG Findings:: A. fib with rate of 85. QRS 142. QT 400. QTc 476. Left axis. Left bundle branch block. No acute ST change. Medical Decision Making - Medical Decision Making Patient reevaluated and resting comfortably in bed. Patient states chest x-ray findings are secondary to a chronic nerve problem that caused labs and part of his lung. Patient states he is breathing much better and requests discharge home. Dr. Sol was made aware of patient in the emergency department. Patient is offered admission however refuses. - Lab Data Result diagrams: 01/23/18 15:36 01/23/18 15:36 Lab Results 01/23/18 01/23/18 01/23/18 Range/Units 15:36 15:36 15:36 WBC 5.5 (3.8-10.6) k/uL RBC 3.39 L (4.30-5.90) m/uL Hgb 11.4 L (13.0-17.5) gm/dL Hct 34.4 L (39.0-53.0) % MCV 101.5 H (80.0-100.0) fL MCH 33.6 (25.0-35.0) pg MCHC 33.1 (31.0-37.0) g/dL RDW 14.5 (11.5-15.5) % Plt Count 220 (150-450) k/uL Neutrophils % 73 % Lymphocytes % 16 % Monocytes % 6 % Eosinophils % 3 % Basophils % 1 % Neutrophils # 4.0 (1.3-7.7) k/uL Lymphocytes # 0.9 L (1.0-4.8) k/uL Monocytes # 0.3 (0-1.0) k/uL Eosinophils # 0.2 (0-0.7) k/uL Basophils # 0.0 (0-0.2) k/uL Macrocytosis Slight PT (9.0-12.0) sec INR (<1.2) APTT (22.0-30.0) sec Sodium 140 (137-145) mmol/L Potassium 3.9 (3.5-5.1) mmol/L Chloride 97 L (98-107) mmol/L Carbon Dioxide 32 H (22-30) mmol/L Anion Gap 11 mmol/L BUN 18 (9-20) mg/dL Creatinine 0.80 (0.66-1.25) mg/dL Est GFR (CKD-EPI)AfAm >90 (>60 ml/min/1.73 sqM) Est GFR (CKD-EPI)NonAf 82 (>60 ml/min/1.73 sqM) Glucose 74 (74-99) mg/dL Calcium 8.8 (8.4-10.2) mg/dL Total Bilirubin 3.4 H (0.2-1.3) mg/dL AST 33 (17-59) U/L ALT 58 (21-72) U/L Alkaline Phosphatase 79 (38-126) U/L Total Creatine Kinase 74 (55-170) U/L CK-MB (CK-2) 3.8 H* (0.0-2.4) ng/mL CK-MB (CK-2) Rel Index 5.1 Troponin I <0.012 (0.000-0.034) ng/mL NT-Pro-B Natriuret Pep pg/mL Total Protein 6.0 L (6.3-8.2) g/dL Albumin 3.9 (3.5-5.0) g/dL 01/23/18 01/23/18 Range/Units 15:36 15:36 WBC (3.8-10.6) k/uL RBC (4.30-5.90) m/uL Hgb (13.0-17.5) gm/dL Hct (39.0-53.0) % MCV (80.0-100.0) fL MCH (25.0-35.0) pg MCHC (31.0-37.0) g/dL RDW (11.5-15.5) % Plt Count (150-450) k/uL Neutrophils % % Lymphocytes % % Monocytes % % Eosinophils % % Basophils % % Neutrophils # (1.3-7.7) k/uL Lymphocytes # (1.0-4.8) k/uL Monocytes # (0-1.0) k/uL Eosinophils # (0-0.7) k/uL Basophils # (0-0.2) k/uL Macrocytosis PT 10.8 (9.0-12.0) sec INR 1.1 (<1.2) APTT 24.1 (22.0-30.0) sec Sodium (137-145) mmol/L Potassium (3.5-5.1) mmol/L Chloride (98-107) mmol/L Carbon Dioxide (22-30) mmol/L Anion Gap mmol/L BUN (9-20) mg/dL Creatinine (0.66-1.25) mg/dL Est GFR (CKD-EPI)AfAm (>60 ml/min/1.73 sqM) Est GFR (CKD-EPI)NonAf (>60 ml/min/1.73 sqM) Glucose (74-99) mg/dL Calcium (8.4-10.2) mg/dL Total Bilirubin (0.2-1.3) mg/dL AST (17-59) U/L ALT (21-72) U/L Alkaline Phosphatase (38-126) U/L Total Creatine Kinase (55-170) U/L CK-MB (CK-2) (0.0-2.4) ng/mL CK-MB (CK-2) Rel Index Troponin I (0.000-0.034) ng/mL NT-Pro-B Natriuret Pep 2680 pg/mL Total Protein (6.3-8.2) g/dL Albumin (3.5-5.0) g/dL - Radiology Data Radiology results: image reviewed (Chest x-ray does show consolidation right midlung. This is somewhat evident on previous chest x-ray.) Disposition Clinical Impression: Acute exacerbation of chronic obstructive airways disease Disposition: HOME SELF-CARE Condition: Stable Instructions: COPD (Chronic Obstructive Pulmonary Disease) (ED) Additional Instructions: Please follow-up with your primary care physician as well as Dr. sol this week. Return for fevers, difficulty breathing, chest pain, worsening symptoms or other concerns. Prescriptions: Levofloxacin [Levaquin] 500 mg PO DAILY #7 tab predniSONE 20 mg PO BID #10 tab Is patient prescribed a controlled substance at d/c from ED?: No Referrals: Gabriele Sol DO [Primary Care Provider] - 1-2 days Time of Disposition: 16:52
[2018-01-23 15:56] LABS: Basophils % (A) 1 %; Eosinophils # (A) 0.2 k/uL (0-0.7); Eosinophils % (A) 3 %; HCT 34.4 % (39.0-53.0); HGB 11.4 gm/dL (13.0-17.5); Lymphocytes # (A) 0.9 k/uL (1.0-4.8); Lymphocytes % (A) 16 %; MCH 33.6 pg (25.0-35.0); MCHC 33.1 g/dL (31.0-37.0); MCV 101.5 fL (80.0-100.0); Macrocytosis Slight; Mean Platelet Volume 7.7; Monocytes # (A) 0.3 k/uL (0-1.0); Monocytes % (A) 6 %; Neutrophils % (A) 73 %; Platelet Count 220 k/uL (150-450); RBC 3.39 m/uL (4.30-5.90); RDW 14.5 % (11.5-15.5); WBC 5.5 k/uL (3.8-10.6)
[2018-01-23 16:05] LABS: ALT 58 U/L (21-72); AST 33 U/L (17-59); Albumin 3.9 g/dL (3.5-5.0); Alkaline Phosphatase 79 U/L (38-126); Anion Gap 11 mmol/L; Blood Urea Nitrogen 18 mg/dL (9-20); Calcium 8.8 mg/dL (8.4-10.2); Carbon Dioxide 32 mmol/L (22-30); Chloride 97 mmol/L (98-107); Glucose 74 mg/dL (74-99); INR 1.1 (<1.2); Partial Thromboplastin Time 24.1 sec (22.0-30.0); Potassium 3.9 mmol/L (3.5-5.1); Prothrombin Time 10.8 sec (9.0-12.0); Sodium 140 mmol/L (137-145); Total Bilirubin 3.4 mg/dL (0.2-1.3)
[2018-01-23 16:09] LABS: Creatine Kinase 74 U/L (55-170)
--- NOTE | 2018-01-23 16:18 | XR ---
EXAMINATION TYPE: XR chest 2V DATE OF EXAM: 01/23/2018 COMPARISON: 10/25/2017 HISTORY: Shortness of breath, cough and history of COPD TECHNIQUE: Frontal and lateral views of the chest are obtained. FINDINGS: There is a new rounded masslike right lower lobe consolidation with solitary air bronchogr am. There is continued right hemidiaphragm elevation unchanged from the prior and left midlung pleura l parenchymal scarring. There is pulmonary hyperinflation compatible with underlying known COPD. Mild osseous demineralization is seen. Multilevel mild degenerative changes of the thoracic spine are als o noted. Cholecystectomy clips are noted within the right upper quadrant. IMPRESSION: Right midlung masslike consolidation could represent pneumonia or underlying pulmonary nodule. Short- term follow-up after treatment could be performed for further evaluation with chest CT. Other chronic changes as described above.
[2018-01-23 16:21] LABS: Troponin I <0.012 ng/mL (0.000-0.034)
[2018-01-23 16:22] LABS: Creatine Kinase MB 3.8 ng/mL (0.0-2.4)
[2018-01-23 17:11] VITALS: BP 135/72; PULSE 84; TEMP 97.6
== END 2018-01-23 17:11 | disposition home or self-care (01) ==
LOC: EC 15:07
DX: J44.1 Chronic obstructive pulmonary disease with (acute) exacerbation (principal); I48.91 Unspecified atrial fibrillation; I11.0 Hypertensive heart disease with heart failure; I50.9 Heart failure, unspecified; E11.9 Type 2 diabetes mellitus without complications; K21.9 Gastro-esophageal reflux disease without esophagitis; E78.5 Hyperlipidemia, unspecified; E07.9 Disorder of thyroid, unspecified; Z86.73 Personal history of transient ischemic attack (TIA), and cerebral infarction without residual deficits; Z87.891 Personal history of nicotine dependence; Z79.01 Long term (current) use of anticoagulants; Z79.84 Long term (current) use of oral hypoglycemic drugs; Z79.899 Other long term (current) drug therapy; Z88.8 Allergy status to other drugs, medicaments and biological substances; Z91.048 Other nonmedicinal substance allergy status; Z88.2 Allergy status to sulfonamides; Z88.1 Allergy status to other antibiotic agents; Z88.6 Allergy status to analgesic agent; Z96.641 Presence of right artificial hip joint
CPT/HCPCS: 99285; 96374; 36415; 94640; 93005; 83880; 80053; 82550; 82553; 84484; 85025; 85610; 85730; 71046; J2930

== ENCOUNTER → 2018-01-31 | Outpatient (CLI) | payer MEDICARE, BC ==
[2018-01-31 13:26] LABS: Blood Urea Nitrogen 26 mg/dL (9-20)
--- NOTE | 2018-01-31 14:20 | CT ---
EXAMINATION TYPE: CT chest w con DATE OF EXAM: 01/31/2018 COMPARISON: 10/26/2017 HISTORY: Right sided lung mass. CT DLP: 833 mGycm, Automated exposure control for dose reduction was used. CONTRAST: Performed injected with 100 mL of Isovue M300. TECHNIQUE: Axial images were obtained at 5 mm thick sections. Reconstructed images are reviewed on [employer] [facility] computer in the coronal plane. FINDINGS: Portion of the thyroid visualized is normal. There is elevation of the diaphragm with the liver beneath extending to the level of the hilum on the right. This is stable from comparison. Small posterior pleural-based density is in the right upper l david field measuring 0.7 cm. Series 4 image 16. Some thick streak opacity is in the posterior right up per lung field with milder streak opacity at the right diaphragm in the right middle lobe. Findings a ppear more suggestive for atelectasis. Underlying mass is not excluded. The largest area measures rou ghly 3.8 x 5.0 cm in greatest dimension which is similar to September 2017. Series 3 image 28. Small b ilateral pleural effusions are present. A 1.0 cm subcarinal lymph node is present contains a small calcification. There are additional lymph nodes measuring 0.9 cm and smaller at the aortopulmonic window and pretracheal space. The ascending aorta diameter at the level of the main pulmonary artery is 3.7 cm. The main pulmonary artery diameter at the bifurcation is 2.9 cm. There is some prominence of the distal aortic arch wit h a transverse dimension of 3.8 cm this is slightly more prominent than the arch and descending colon . Limited CT sections are obtained through the upper abdomen. Abdomen is essentially unremarkable. IMPRESSIONS: 1. Suspected streak opacity at the right middle and lower lung oneal. Underlying mass is not exclude d. Findings appear relatively stable from the comparison 10/18/2017. 2. Small bilateral pleural effusions may be loculated. 3. Scattered small lymph nodes within the mediastinum. Couple of borderline 1 cm lymph nodes are pres ent discussed above. 4. Chronic elevation of the right diaphragm with additional streak opacities suspicious for atelectas is.
== END | disposition home or self-care (01) ==
LOC: RADCTMAIN 12:48
PROVIDERS: ATTEND Internal Medicine Critical Care Medicine
DX: J90 Pleural effusion, not elsewhere classified (principal)
CPT/HCPCS: 82565; 84520; 71260; 36415; Q9967

== ENCOUNTER 2018-02-08 10:50 | Day surgery (SDC) | payer MEDICARE, BC ==
[2018-02-03 12:07] VITALS: BMI 28.5
[~2018-02-08 10:50] MED LIST changes: -LACTATED RINGERS 1,000 ML IV SCH; +LIDOCAINE 1% 20 ML VIAL (10MG/ML) FOR IV START INTRADERMA PRN; +MIDAZOLAM 2 MG/2 ML VIAL IV PRN; +Pre Op ABX Message 1 EACH MISC MISCELLANE ONE; -SODIUM CHLORIDE 0.9% 1,000 ML IV SCH
[2018-02-08] MEDS: LACTATED RINGERS 1,000 ML IV SCH (11:29)
[2018-02-08 11:35] LABS: Glucose,Whole Blood 126 mg/dL (75-99)
[2018-02-08] MEDS ORDERED: ATROPINE SULFATE 0.4 MG/ML 20 ML VIAL IM ONE (11:51)
[2018-02-08] MEDS ORDERED: MIDAZOLAM 2 MG/2 ML VIAL ONE (11:59)
[2018-02-08] MEDS ORDERED: GLYCOPYRROLATE 0.2 MG/ML 2 ML VIAL ONE (11:59)
[2018-02-08] MEDS ORDERED: PROPOFOL 10 MG/ML 20 ML VIAL IV ONE (11:59)
[2018-02-08] MEDS ORDERED: KETAMINE 10 MG/ML 20 ML VIAL ONE (11:59)
[2018-02-08] MEDS ORDERED: ALBUTEROL NEB (CONC) 2.5 MG/0.5 ML INHALATION ONE (12:00)
[2018-02-08] MEDS ORDERED: LIDOCAINE 1% INJ 10MG/ML (20 ML MDV) INTRATRACH ONE (12:18)
--- NOTE | 2018-02-08 12:50 | PCN ---
PROCEDURE NOTE PROCEDURE: Bronchoscopy, airway examination, therapeutic lavage, BAL and transbronchial biopsies with brushes right upper lobe. PREOP DIAGNOSIS: Lung lesion. POSTOP DIAGNOSIS: Lung lesion. OPERATORS: 1. Dr. Sol. 2. Dr. Ford. There was informed consent. There was universal timeout. The patient's procedure was done with the assistance of fluoroscopy. SENIOR NET ENGINEER provided unconscious sedation with general anesthesia. The patient's procedure took place in room #1. After the patient was adequately sedated and being fully monitored, the bronchoscope was inserted through the right nostril. It passed through the right nasopharynx into the oropharynx and then into the hypopharynx. The hypopharyngeal structures appeared all normal including anterior commissure, true cords, false cords, arytenoids, piriform sinuses, right and left vallecula and epiglottis. After topicalization, the bronchoscope was pushed through the glottic opening into the trachea. The trachea appeared normal. Trachea christina was sharp. On the left side, including the left upper lobe proper, the lingula and the left lower lobe and all of their segments appeared normal. On the right side, it appeared that there was some compression and narrowing of the right upper lobe bronchus. This area looked the most abnormal. This seemed to correlate with the findings on CT scan. The right middle lobe and right lower lobe appeared relatively normal. After appropriate topicalization, there were brushes performed in the right upper lobe. In addition, there was multiple transbronchial biopsies done in the right upper lobe under fluoroscopic guidance. Finally, BAL took place in the right upper lobe. The patient tolerated the procedure well. There was minimal bleeding. We ensured that there was hemostasis before the bronchoscope was withdrawn. Once that was confirmed, the bronchoscope was withdrawn. There was no major complications. The patient will be recovered. I will make sure that I speak to the patient's . MMODL / IJN: [id number] /
--- NOTE | 2018-02-08 13:04 | XR ---
EXAMINATION TYPE: XR chest 1V DATE OF EXAM: 02/08/2018 COMPARISON: Prior chest x-ray 01/23/2018 HISTORY: Status post right lung biopsy TECHNIQUE: Single frontal view of the chest is obtained. FINDINGS: There is no evident pneumothorax or sizable effusion. Right hemidiaphragm remains elevated . 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 Heart remains enlarged. Interstiti um is increased. There are overlying cardiac leads. IMPRESSION: No evident complication status post lung biopsy.
--- NOTE | 2018-02-08 13:05 | FL ---
EXAMINATION TYPE: FL bronchoscopy DATE OF EXAM: 02/08/2018 COMPARISON: CT 01/31/2018 HISTORY: Right-sided lung mass Fluoroscopy support supplied to the referring clinician. See dictated report from pulmonary, intraop erative C-arm image documents the procedure, 1 minute 14 seconds fluoroscopy time supplied
[2018-02-08 13:19] LABS: Glucose,Whole Blood 122 mg/dL (75-99)
[2018-02-08] MEDS ORDERED: METOPROLOL TARTRATE 50 MG TAB PO STA (13:20)
[2018-02-08] MEDS ORDERED: FUROSEMIDE 10 MG/ML 2 ML VIAL IV STA (13:30)
[2018-02-08] MEDS ORDERED: SODIUM CHLORIDE 0.9% 1,000 ML IV ONE (14:05)
--- NOTE | 2018-02-08 14:21 | P.CRDCN ---
History of Present Illness History of present illness: Mr. Alamo is a pleasant 87-year-old male past medical history significant for paroxysmal atrial fibrillation, COPD, diabetes mellitus, dyslipidemia, hypertension and recent bronchoscopy with biopsy secondary to right lung mass. He follows with Dr. Pollack in the office. He underwent a bronchoscopy with washing and biopsy of a right lung mass v infiltrate per Dr. Sol this morning. We were asked to see him in recovery for atrial fibrillation with variable ventricular response. He is seen and examined in somewhat lethargic state from anesthesia. He denies symptoms of chest pain, shortness of breath, palpitations or dizziness. He recently underwent transesophageal echocardiogram September 2017 which revealed a dilated left atrium, normal left ventricular size and systolic function and normal valves with no evidence of shunting across the interatrial septum. He also underwent successful cardioversion at that time. He came back to the hospital a couple of weeks later and was back in atrial fibrillation and sent home on lopressor 50 TID. He took his morning dose of lopressor prior to his procedure. He recently saw Dr. Pollack in the office and the recommendation moving forward is rate control. In the past he has been intolerant to amiodarone and flecanide. EKG in recovery shows atrial fibrillation with left bundle branch block. Chest xray done prost procedure indicates no post-bronchoscopy complication. There is no laboratory data to review, we will order labs. Current cardiac medications include Aldactone 12.5 mg daily, Lopressor 50 mg 3 times a day, Lasix 80 mg twice a day, Eliquis 2.5 mg twice a day and atorvastatin 40 mg daily. Review of Systems At the time of my exam: Patient is extremely lethargic secondary to anesthesia Past Medical History Past Medical History: Atrial Fibrillation, Chest Pain / Angina, Heart Failure, COPD, CVA/TIA, Diabetes Mellitus, GERD/Reflux, Hyperlipidemia, Hypertension, Pneumonia, Thyroid Disorder Additional Past Medical History / Comment(s): hx. 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 sx for deviated septum, karlene cataracts, cardioversion Past Anesthesia/Blood Transfusion Reactions: Motion Sickness, Postoperative Nausea & Vomiting (PONV) Additional Past Anesthesia/Blood Transfusion Reaction / Comment(s): UNK FAMILY HX. NEVER HAS HAD BLOOD TRANSFUSION Smoking Status: Former smoker - Past Family History Brother(s) Family Medical History: Cancer Mother Family Medical History: CVA/TIA Father Family Medical History: Hypertension Medications and Allergies Home Medications Medication Instructions Recorded Confirmed Type Folic Acid 2 mg PO DAILY 10/10/14 02/08/18 History Montelukast [Singulair] 10 mg PO HS 10/10/14 02/08/18 History Omeprazole [PriLOSEC] 20 mg PO AC-BRKFST 10/10/14 02/08/18 History Apixaban [Eliquis] 2.5 mg PO BID 02/04/15 02/08/18 History Spironolactone [Aldactone] 12.5 mg PO QAM 02/04/15 02/08/18 History Levalbuterol HCl [Xopenex 1.25 mg INHALATION RT-QID PRN 02/05/15 02/08/18 History Nebulized] Cholecalciferol [Vitamin D3] 1,000 unit PO DAILY 10/01/16 02/08/18 History Furosemide [Lasix] 80 mg PO BID 10/01/16 02/08/18 History Glucosam/Steven-Msm1/C/Yassine/Bosw 1 tab PO DAILY 10/01/16 02/08/18 History [Glucosamine-Chondroitin Tablet] Levothyroxine Sodium [Synthroid] 175 mcg PO DAILY 10/01/16 02/08/18 History Atorvastatin [Lipitor] 40 mg PO DAILY 02/14/17 02/08/18 History Glimepiride [Amaryl] 1 mg PO BID 10/21/17 02/08/18 History Budesonide [Pulmicort] 1 mg INHALATION BID #60 neb 10/28/17 02/08/18 Rx Ipratropium Nebulized [Atrovent 0.5 mg INHALATION RT-QID #120 10/28/17 02/08/18 Rx Nebulized] Metoprolol Tartrate [Lopressor] 50 mg PO TID #90 tab 10/28/17 02/08/18 Rx Allergies Allergy/AdvReac Type Severity Reaction Status Date / Time benzocaine [From Cetacaine] Allergy Dyspnea Verified 02/03/18 11:55 butamben [From Cetacaine] Allergy Dyspnea Verified 02/03/18 11:55 cefuroxime Allergy Rash/Hives Verified 02/03/18 11:55 cetyl alcohol [From Cetaphil] Allergy Rash/Hives Verified 02/03/18 11:55 flecainide Allergy Rash/Hives Verified 02/03/18 11:55 naproxen [From Naprosyn] Allergy GI BLEED Verified 02/03/18 11:55 paraben [From Cetaphil] Allergy Rash/Hives Verified 02/08/18 11:39 propylene glycol Allergy Rash/Hives Verified 02/08/18 11:39 [From Cetaphil] skin cleanser [From Cetaphil] Allergy Rash/Hives Verified 02/08/18 11:39 soap [From Cetaphil] Allergy Rash/Hives Verified 02/08/18 11:39 sodium lauryl sulfate Allergy Rash/Hives Verified 02/08/18 11:39 [From Cetaphil] stearyl alcohol Allergy Rash/Hives Verified 02/08/18 11:39 [From Cetaphil] Tetracyclines Allergy Unknown Verified 02/08/18 11:39 zomepirac Allergy GI BLEED Verified 02/08/18 11:39 amiodarone AdvReac Cough Verified 02/08/18 11:39 meperidine HCl [From Demerol] AdvReac Nausea & Verified 02/08/18 11:39 Vomiting tetracaine [From Cetacaine] AdvReac Nausea & Verified 02/08/18 11:39 Vomiting duprenex Allergy Nausea & Uncoded 02/08/18 11:39 Vomiting Physical Exam Vitals: Vital Signs Temp Pulse Pulse Resp BP BP Pulse Ox 02/08/18 13:10 96 02/08/18 12:55 105 H 18 130/73 100 02/08/18 12:40 118 H 18 125/81 98 06/13/18 11:50 80 02/08/18 11:10 98.4 F 84 16 132/95 96 Intake and Output 02/07/18 02/08/18 02/08/18 22:59 06:59 14:59 Intake Total 400 Balance 400 Intake: IV 400 Blood pressure 115/77 heart rate 1:15 afebrile maintaining oxygen saturation on nasal cannula GENERAL: This is a 87-year-old male in no apparent distress at the time of my examination. HEENT: Head is atraumatic, normocephalic. Pupils are equal, round. Sclerae anicteric. Conjunctivae are clear. Mucous membranes of the mouth are moist. Neck is supple. There is no jugular venous distention. No carotid bruit is heard. LUNGS: Scattered rhonchi throughout bibasilar rales. No wheezes. No chest wall tenderness is noted on palpation or with deep breathing. HEART: Irregular rate and rhythm without murmurs, rubs or gallops. S1 and S2 heard. ABDOMEN: Soft, nontender. Bowel sounds are heard. No organomegaly noted. EXTREMITIES: No evidence of peripheral edema and no calf tenderness noted. VASCULAR: Radial and dorsalis pedis pulses palpated, no evidence of clubbing. NEUROLOGIC: Patient is awake, alert and oriented x3. Lethargic. Results 02/08/18 14:27 02/08/18 14:27 Current Medications Generic Name Dose Route Start Last Admin Trade Name Freq PRN Reason Stop Dose Admin Lactated Ringer's 1,000 mls @ 20 mls/hr 02/08/18 05:18 02/08/18 11:29 Lactated Ringers IV 400 mls .Q24H ORIANA Administration Lidocaine HCl 0.1 ml 02/08/18 05:18 02/08/18 11:30 .Xylocaine 1% Inj (10mg/Ml) For Iv Start INTRADERMA 0.1 ml PER PROTOCOL PRN Administration IV Start Midazolam HCl 2 mg 02/08/18 05:18 Versed IV 02/09/18 05:19 ONCE PRN Anxiety Intake and Output 02/07/18 02/08/18 02/08/18 22:59 06:59 14:59 Intake Total 400 Balance 400 Intake: IV 400 Assessment and Plan Assessment: ASSESSMENT 1. Chronic persistent atrial fibrillation on long-term anticoagulation, rapid ventricular response post bronchoscopy 2. Status post bronchoscopy for right lung mass versus an infiltrate, biopsies obtained 3. COPD 4. Hypertension 5. Dyslipidemia 6. Diabetes mellitus PLAN Give dose of Lopressor 50 mg 1 now as well as IV Lasix 20 mg. Patient should be observed overnight on observation. Obtain CBC with differential, CMP, TSH and magnesium. Ongoing telemetry monitoring. Repeat EKG in the morning. Resume aldactone 12.5 mg daily, lopressor 50 mg 3 times a day, lasix 80 mg by mouth twice a day, atorvastatin 40 mg daily and eliquis 2.[address] Sol he can be safely started on his anticoagulant night. Further recommendations to follow based on clinical course. Thank you kindly for this consultation. Nurse Practitioner note has been reviewed, I agree with a documented findings and plan of care. Patient was seen and examined.
[2018-02-08 14:52] LABS: Basophils % (A) 0 %; Eosinophils # (A) 0.2 k/uL (0-0.7); Eosinophils % (A) 2 %; HCT 36.8 % (39.0-53.0); HGB 12.3 gm/dL (13.0-17.5); Lymphocytes % (A) 13 %; MCH 33.9 pg (25.0-35.0); MCHC 33.4 g/dL (31.0-37.0); MCV 101.3 fL (80.0-100.0); Macrocytosis Slight; Mean Platelet Volume 7.6; Monocytes # (A) 0.3 k/uL (0-1.0); Monocytes % (A) 4 %; Neutrophils # (A) 6.5 k/uL (1.3-7.7); Neutrophils % (A) 79 %; Platelet Count 168 k/uL (150-450); RBC 3.64 m/uL (4.30-5.90); RDW 14.1 % (11.5-15.5); WBC 8.2 k/uL (3.8-10.6)
[2018-02-08 15:00] LABS: ALT 52 U/L (21-72); AST 34 U/L (17-59); Albumin 3.7 g/dL (3.5-5.0); Alkaline Phosphatase 67 U/L (38-126); Anion Gap 10 mmol/L; Blood Urea Nitrogen 19 mg/dL (9-20); Calcium 8.5 mg/dL (8.4-10.2); Carbon Dioxide 30 mmol/L (22-30); Chloride 97 mmol/L (98-107); Glucose 134 mg/dL (74-99); Magnesium 1.8 mg/dL (1.6-2.3); Potassium 4.4 mmol/L (3.5-5.1); Sodium 137 mmol/L (137-145); Total Bilirubin 4.2 mg/dL (0.2-1.3); Total Protein 5.7 g/dL (6.3-8.2)
[2018-02-08 17:41] LABS: Glucose,Whole Blood 152 mg/dL (75-99)
[2018-02-08] MEDS ORDERED: ALBUTEROL NEBULIZED 2.5 MG/3 ML INHALATION PRN (17:48)
[2018-02-08] MEDS: GLIMEPIRIDE 1 MG TAB PO SCH (18:57)
[2018-02-08] MEDS: APIXABAN 2.5 MG TABLET PO SCH (19:55)
[2018-02-08] MEDS: FUROSEMIDE 80 MG TAB PO SCH (19:55)
[2018-02-08] MEDS: METOPROLOL TARTRATE 50 MG TAB PO SCH (19:56)
[2018-02-08 20:13] LABS: Appearance,BF Bloody; Color,BF Red; Nucleated Cells, Body Fluid 2500 /uL
[2018-02-08 20:14] LABS: Mononuclear WBC,Body Fluid 31 %; Polynuclear WBC,Body Fluid 69 %; RBC, Body Fluid 247500 /uL
[2018-02-08] MEDS: BUDESONIDE 1 MG/2 ML NEBU INHALATION SCH (20:15)
[2018-02-08] MEDS: IPRATROPIUM 0.5 MG/2.5 ML NEBU INHALATION SCH (20:15)
[2018-02-08 20:20] LABS: Glucose,Whole Blood 152 mg/dL (75-99)
[2018-02-08] MEDS ORDERED: MONTELUKAST 10 MG TAB PO SCH (21:00)
[2018-02-08] MEDS ORDERED: FLUCONAZOLE 100 MG TAB PO ONE (23:09)
--- NOTE | 2018-02-08 23:59 | HP ---
HISTORY AND PHYSICAL DATE OF ADMISSION: 02/08/2018 DATE OF SERVICE: 02/08/2018. PRESENTING COMPLAINT: Broad complex tachycardia. HISTORY OF PRESENTING COMPLAINT: This is a very pleasant 87-year-old patient of Dr. Barrington Ojeda. Chronic stable medical conditions include hypertension, congestive heart failure with diastolic dysfunction, hypothyroid, GERD, diabetes, COPD. Patient is on home oxygen at 2 L. Also takes Eliquis. Patient came in for an outpatient bronchoscopy by Dr. Sol, and during the procedure the patient apparently had a broad complex tachycardia. This could not be caught on the strip. Patient at baseline has got some shortness of breath and cough. Because of dysrhythmia, patient was brought in and admitted to the hospital. Patient's EKG did show atrial fibrillation and left bundle branch block, which patient is known to have. Patient had cardioversion in September of this year. The patient denies any fever or chills. Appetite is fair. REVIEW OF SYSTEMS: CONSTITUTIONAL: Tired. HEENT: Decreased hearing. RESPIRATORY: Wheezing, cough. CARDIOVASCULAR: As above. GASTROINTESTINAL: Heartburn. GENITOURINARY: None. MUSCULOSKELETAL: Pain in the joints. DERMATOLOGICAL: None. HEMATOLOGICAL: None. LYMPHATICS: None. PSYCHIATRY: None. NEUROLOGICAL: None. PAST MEDICAL HISTORY: 1. Atrial fibrillation with cardioversion; back in atrial fibrillation. 2. COPD. 3. Congestive heart failure with preserved EF. 4. Diabetes. 5. GERD. 6. Hypertension. 7. Hyperlipidemia. 8. Hypothyroid. 9. 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 10.Chronic diverticulosis. 11.SIADH. PAST SURGICAL HISTORY: 1. Appendectomy. 2. Cholecystectomy. 3. Cardioversion. 4. Bronchoscopy with lavage. 5. Laryngoscopy. 6. Right total hip replaced. 7. Arthroscopies, bilateral knees. 8. Right rotator cuff surgery. SOCIAL HISTORY: . Patient smoked in the remote past. 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 FAMILY HISTORY: Stroke. HOME MEDICATIONS: 1. Aldactone 12.5 p.o. daily. 2. Omeprazole 20 mg p.o. with breakfast. 3. Singulair 10 mg p.o. at bedtime. 4. Lopressor 50 mg p.o. b.i.d. 5. Synthroid 175 mcg p.o. daily. 6. Xopenex 1.25 q.i.d. p.r.n. 7. Atrovent 0.5 nebulizer q.i.d. 8. Glucosamine chondroitin 1 tablet p.o. daily. 9. Amaryl 1 mg p.o. b.i.d. 10.Lasix 80 mg p.o. b.i.d. 11.Folic acid 2 mg p.o. daily. 12.Vitamin D3 1000 units p.o. daily. 13.Pulmicort 1 mg inhalation b.i.d. 14.Lipitor 40 mg p.o. daily. 15.Eliquis 2.5 p.o. b.i.d. ALLERGIES: ALLERGIES LISTED INCLUDE: 1. BENZOCAINE. 2. CEFUROXIME. 3. FLECAINIDE. 4. NAPROXEN. 5. PARABEN. 6. SOAP. 7. TETRACYCLINE. 8. AMIODARONE. 9. MEPERIDINE. 10.TETRACAINE. 11.DUPRENEX. PHYSICAL EXAMINATION: Temperature 98.5, pulse 76, respiration 16, blood pressure 108/65, pulse ox 98% on 2 L. GENERAL APPEARANCE: Average build. Lying in bed, tired-appearing. EYES: Pupils equal. Conjunctivae normal. HEENT: External appearance of nose and ears normal. Oral cavity possible white spots on the pharynx. NECK: JVD unable to assess. Mass not palpable. RESPIRATORY: Effort increased. LUNGS: Decreased breath sounds. Prolonged expiration and wheezing. CARDIOVASCULAR: First and second sounds normal. Minimal edema. ABDOMEN: Soft, nontender. Liver and spleen not palpable. LYMPHATIC: No lymph node palpable in neck or axillae. PSYCHIATRY: Alert and oriented x3. Mood and affect normal. NEUROLOGICAL: Pupils equal. Cranial nerves grossly intact. Power and sensation grossly intact. INVESTIGATIONS: White count 8.2, hemoglobin 12.3, potassium 4.4, BUN 19, creatinine 0.64. Accu-Cheks are noted. TSH 1.030. EKG shows atrial fibrillation with left bundle branch block. Chest x-ray report noted. ASSESSMENT: 1. Broad complex tachycardia found on telemetry during bronchoscopy, not picked up on any telemetry strip. Will watch for further arrhythmia. 2. Persistent atrial fibrillation, chronically on Eliquis. 3. Left bundle branch block. 4. Status post bronchoscopy with biopsies being done. 5. Chronically paralyzed right diaphragm. 6. Diabetes mellitus, type 2, on oral hypoglycemic. 7. Gastroesophageal reflux disease. 8. Essential hypertension. 9. Hyperlipidemia. 10.Hypothyroid. 11.Peptic ulcer disease. 12.Colonic diverticulosis. 13.Chronic hypoxic respiratory failure from underlying chronic obstructive pulmonary disease. 14.Oropharyngeal candidiasis from patient being on chronic steroids. PLAN: Home medications are resumed. Patient does seem to have pharyngeal candidiasis. Will start the patient on Diflucan. Cardiology was consulted. Care was discussed with the patient. Pulmonary was consulted. MMALEJANDRAL / NEVINN: [id number] /
[2018-02-09] MEDS ORDERED: LEVOTHYROXINE 75 MCG TAB PO SCH (06:30)
[2018-02-09] MEDS ORDERED: LEVOTHYROXINE 100 MCG TAB PO SCH (06:30)
[2018-02-09 06:56] LABS: Glucose,Whole Blood 123 mg/dL (75-99)
[2018-02-09] MEDS ORDERED: PANTOPRAZOLE 40 MG TABLET PO SCH (07:30)
[2018-02-09 07:54] VITALS: RESP 18
[2018-02-09] MEDS ORDERED: ATORVASTATIN 40 MG TAB PO SCH (09:00)
[2018-02-09] MEDS ORDERED: SPIRONOLACTONE 25 MG TAB PO SCH (09:00)
[2018-02-09] MEDS: BUDESONIDE 1 MG/2 ML NEBU INHALATION SCH (09:17)
[2018-02-09] MEDS: IPRATROPIUM 0.5 MG/2.5 ML NEBU INHALATION SCH ×2 (09:17→11:55)
[2018-02-09] MEDS: GLIMEPIRIDE 1 MG TAB PO SCH (10:18)
[2018-02-09] MEDS: FUROSEMIDE 80 MG TAB PO SCH (10:19)
[2018-02-09] MEDS: APIXABAN 2.5 MG TABLET PO SCH (10:19)
[2018-02-09] MEDS: METOPROLOL TARTRATE 50 MG TAB PO SCH (10:19)
--- NOTE | 2018-02-09 11:30 | P.PN ---
Subjective Mr. Alamo is a pleasant 87-year-old male past medical history significant for paroxysmal atrial fibrillation, COPD, diabetes mellitus, dyslipidemia, hypertension and recent bronchoscopy with biopsy secondary to right lung mass. He follows with Dr. Pollack in the office. He underwent a bronchoscopy with washing and biopsy of a right lung mass v infiltrate per Dr. Sol this morning. We were asked to see him in recovery for atrial fibrillation with variable ventricular response. He is seen and examined in somewhat lethargic state from anesthesia. He denies symptoms of chest pain, shortness of breath, palpitations or dizziness. He recently underwent transesophageal echocardiogram September 2017 which revealed a dilated left atrium, normal left ventricular size and systolic function and normal valves with no evidence of shunting across the interatrial septum. He also underwent successful cardioversion at that time. He came back to the hospital a couple of weeks later and was back in atrial fibrillation and sent home on lopressor 50 TID. He took his morning dose of lopressor prior to his procedure. He recently saw Dr. Pollack in the office and the recommendation moving forward is rate control. In the past he has been intolerant to amiodarone and flecanide. EKG in recovery shows atrial fibrillation with left bundle branch block. Chest xray done prost procedure indicates no post-bronchoscopy complication. There is no laboratory data to review, we will order labs. Current cardiac medications include Aldactone 12.5 mg daily, Lopressor 50 mg 3 times a day, Lasix 80 mg twice a day, Eliquis 2.5 mg twice a day and atorvastatin 40 mg daily. 02/09/2018 Mr. Alamo is seen and examined resting comfortably in bed. He denies any symptoms of chest pain, palpitations, dizziness, nausea, vomiting, diaphoresis or shortness of breath. He states he has been up to the bathroom without difficulty or symptoms. Telemetry tracings indicate he remains in atrial fibrillation with controlled ventricular response. Laboratory data obtained yesterday reviewed, hemoglobin 12.3, platelets 168, sodium 137, potassium 4.4, magnesium 1.8, TSH 1.03, creatinine 0.64. Blood pressures this morning 98/66. Objective - Vital Signs Vital signs: Vital Signs Temp 98.0 F 02/09/18 07:10 Pulse 104 H 02/09/18 09:27 Resp 18 06/14/18 08:00 BP 98/66 02/09/18 07:10 Pulse Ox 98 02/09/18 07:10 Intake & Output 02/08/18 02/09/18 02/09/18 18:59 06:59 18:59 Intake Total 975 Output Total 20 20 Balance 955 -20 Weight 90.265 kg 90.265 kg Intake: IV 775 Oral 200 Output: Urine 20 20 Other: Voiding Method Toilet Toilet # Voids 1 - Exam GENERAL: Well-appearing, well-nourished and in no acute distress. NECK: Supple without JVD or thyromegaly. LUNGS: course rhonchi throughout. No wheezes or rales. Respiration equal and unlabored. HEART: Irregular rate and rhythm without murmurs, rubs or gallops. S1 and S2 heard. EXTREMITIES: Normal range of motion, no edema. No clubbing or cyanosis. Peripheral pulses intact. - Labs CBC & Chem 7: 02/08/18 14:27 02/08/18 14:27 Labs: Abnormal Lab Results - Last 24 Hours (Table) 02/08/18 02/08/18 02/08/18 Range/Units 11:27 13:09 14:27 RBC 3.64 L (4.30-5.90) m/uL Hgb 12.3 L (13.0-17.5) gm/dL Hct 36.8 L (39.0-53.0) % MCV 101.3 H (80.0-100.0) fL Chloride (98-107) mmol/L Creatinine (0.66-1.25) mg/dL Glucose (74-99) mg/dL POC Glucose (mg/dL) 126 H 122 H (75-99) mg/dL Total Bilirubin (0.2-1.3) mg/dL Total Protein (6.3-8.2) g/dL 02/08/18 02/08/18 02/08/18 Range/Units 14:27 17:25 20:10 RBC (4.30-5.90) m/uL Hgb (13.0-17.5) gm/dL Hct (39.0-53.0) % MCV (80.0-100.0) fL Chloride 97 L (98-107) mmol/L Creatinine 0.64 L (0.66-1.25) mg/dL Glucose 134 H (74-99) mg/dL POC Glucose (mg/dL) 152 H 152 H (75-99) mg/dL Total Bilirubin 4.2 H (0.2-1.3) mg/dL Total Protein 5.7 L (6.3-8.2) g/dL 02/09/18 Range/Units 06:54 RBC (4.30-5.90) m/uL Hgb (13.0-17.5) gm/dL Hct (39.0-53.0) % MCV (80.0-100.0) fL Chloride (98-107) mmol/L Creatinine (0.66-1.25) mg/dL Glucose (74-99) mg/dL POC Glucose (mg/dL) 123 H (75-99) mg/dL Total Bilirubin (0.2-1.3) mg/dL Total Protein (6.3-8.2) g/dL Microbiology - Last 24 Hours (Table) 02/08/18 12:30 Acid Fast Bacilli Smear - Final Bronchoalviolar Lavage - Right Acid Fast Bacilli Culture - Preliminary 02/08/18 12:30 Gram Stain - Preliminary Bronchoalviolar Lavage - Right Bronchial Washings Culture - Preliminary 02/08/18 12:30 Fungal Culture - Preliminary Bronchoalviolar Lavage - Right Assessment and Plan Assessment: ASSESSMENT 1. Chronic persistent atrial fibrillation on long-term anticoagulation, rapid ventricular response post bronchoscopy 2. Status post bronchoscopy for right lung mass versus an infiltrate, biopsies obtained 3. COPD 4. Hypertension 5. Dyslipidemia 6. Diabetes mellitus PLAN Stable from a cardiac perspective. Follow up with Dr. Pollack in 2 weeks. Nurse Practitioner note has been reviewed, I agree with a documented findings and plan of care. Patient was seen and examined.
[2018-02-09 11:36] LABS: Hemoglobin A1C 6.4 % (4.0-6.0)
[2018-02-09 11:51] VITALS: BP 99/63; TEMP 97.8
[2018-02-09] MEDS ORDERED: FOLIC ACID 1 MG TAB PO SCH (12:00)
[2018-02-09 12:06] LABS: Glucose,Whole Blood 164 mg/dL (75-99)
[2018-02-09 12:08] VITALS: PULSE 92
[2018-02-09] MEDS: LACTATED RINGERS 1,000 ML IV SCH (12:16)
[2018-02-09] MEDS ORDERED: FLUCONAZOLE 100 MG TAB PO SCH (21:00)
== END 2018-02-09 14:25 | disposition home or self-care (01) ==
LOC: ORWHC2ENDO 10:50 → 3OBS 13:00 → ORWHC2ENDO 02-09 14:25
PROVIDERS: ATTEND Hospitalist
DX: R91.8 Other nonspecific abnormal finding of lung field (principal); J96.11 Chronic respiratory failure with hypoxia; J44.9 Chronic obstructive pulmonary disease, unspecified; J18.1 Lobar pneumonia, unspecified organism; I48.1 Persistent atrial fibrillation; I44.7 Left bundle-branch block, unspecified; I11.0 Hypertensive heart disease with heart failure; I50.30 Unspecified diastolic (congestive) heart failure; R00.0 Tachycardia, unspecified; J98.6 Disorders of diaphragm; E78.5 Hyperlipidemia, unspecified; K27.9 Peptic ulcer, site unspecified, unspecified as acute or chronic, without hemorrhage or perforation; K57.30 Diverticulosis of large intestine without perforation or abscess without bleeding; B37.0 Candidal stomatitis; E03.9 Hypothyroidism, unspecified; K21.9 Gastro-esophageal reflux disease without esophagitis; E11.9 Type 2 diabetes mellitus without complications; E22.2 Syndrome of inappropriate secretion of antidiuretic hormone; Z99.81 Dependence on supplemental oxygen; Z79.01 Long term (current) use of anticoagulants; Z79.84 Long term (current) use of oral hypoglycemic drugs; Z79.890 Hormone replacement therapy; Z79.51 Long term (current) use of inhaled steroids; Z79.899 Other long term (current) drug therapy; Z87.891 Personal history of nicotine dependence; Z86.73 Personal history of transient ischemic attack (TIA), and cerebral infarction without residual deficits; Z88.6 Allergy status to analgesic agent; Z88.1 Allergy status to other antibiotic agents; Z88.5 Allergy status to narcotic agent; Z88.2 Allergy status to sulfonamides; Z88.4 Allergy status to anesthetic agent; Z88.8 Allergy status to other drugs, medicaments and biological substances; Z91.048 Other nonmedicinal substance allergy status
CPT/HCPCS: 94640 ×3; 94760; 93005; 87798 ×3; 87496; 87498; 87529; 88104; 88108; 88305; 80053; 84443; 89050; 83735; 85025; 88342; 87252; 87502; 87634; 88341; 87070; 87205; 87116; 87102; 87206; 83036; 71045; 31628; 31623; 31624; J2250; J0461; J1940; J2001; J2704

== ENCOUNTER → 2018-05-31 | Outpatient (CLI) | payer MEDICARE, BC ==
[2018-05-31 12:45] LABS: Blood Urea Nitrogen 21 mg/dL (9-20)
--- NOTE | 2018-05-31 16:19 | CT ---
EXAMINATION TYPE: CT chest w con DATE OF EXAM: 05/31/2018 COMPARISON: 01/31/2018 HISTORY: Pulmonary lung nodule CT DLP: 444.5 mGycm, Automated exposure control for dose reduction was used. CONTRAST: Performed injected with 100 mL of Isovue 300. TECHNIQUE: Axial images were obtained at 5 mm thick sections. Reconstructed images are reviewed on [employer]ang computer in the coronal plane. FINDINGS: Portion of the thyroid visualized is normal. Minimal pleural effusion is present. Some thickening along the major fissure on the right is present. Suspicious pulmonary nodules not evident. Some milder thickening along the minor fissure is present. No enlarged mediastinal or hilar adenopathy is evident. There are multiple scattered shotty lymph n odes present. The ascending aorta diameter at the level of the main pulmonary artery is 3.6 cm. The main pulmonary artery diameter at the bifurcation is 2.[address] sections are obtained through the upper abdomen. Pancreas appears atrophic. There is calci fication at the diaphragm on the right. The right diaphragm is elevated. COMPARISON: Thickening along the major fissure on the right is diminished. The rounded density at the right base is no longer evident. IMPRESSIONS: 1. There is a more linear appearance to the density along the expected region of the major fissure on the right. This appears improved at the lower lung field compared to earlier exam. Additional streak opacities remain present. Consider follow-up CT chest in 6 months to confirm stability or continued improvement
== END ==
LOC: RADCTMAIN 11:55
PROVIDERS: ATTEND Internal Medicine Critical Care Medicine
DX: R91.8 Other nonspecific abnormal finding of lung field (principal)
CPT/HCPCS: 82565; 84520; 71260; 36415; Q9967

== ENCOUNTER 2018-08-07 01:44 | Inpatient (IN) | payer MEDICARE, BC ==
[2018-08-07 02:11] LABS: Basophils % (A) 0 %; Eosinophils # (A) 0.2 k/uL (0-0.7); Eosinophils % (A) 3 %; HCT 34.8 % (39.0-53.0); HGB 11.7 gm/dL (13.0-17.5); Lymphocytes # (A) 0.9 k/uL (1.0-4.8); Lymphocytes % (A) 14 %; MCH 35.3 pg (25.0-35.0); MCHC 33.8 g/dL (31.0-37.0); MCV 104.6 fL (80.0-100.0); Macrocytosis Moderate; Mean Platelet Volume 7.8; Monocytes # (A) 0.2 k/uL (0-1.0); Monocytes % (A) 4 %; Neutrophils # (A) 4.7 k/uL (1.3-7.7); Neutrophils % (A) 78 %; Platelet Count 126 k/uL (150-450); RBC 3.32 m/uL (4.30-5.90); RDW 14.7 % (11.5-15.5); WBC 6.1 k/uL (3.8-10.6)
[2018-08-07 02:19] LABS: ALT 50 U/L (21-72); AST 35 U/L (17-59); Albumin 3.5 g/dL (3.5-5.0); Alkaline Phosphatase 89 U/L (38-126); Anion Gap 6 mmol/L; Blood Urea Nitrogen 21 mg/dL (9-20); Calcium 8.4 mg/dL (8.4-10.2); Carbon Dioxide 32 mmol/L (22-30); Chloride 98 mmol/L (98-107); Glucose 164 mg/dL (74-99); Magnesium 2.1 mg/dL (1.6-2.3); Sodium 136 mmol/L (137-145); Total Protein 5.8 g/dL (6.3-8.2)
[2018-08-07 02:21] LABS: Partial Thromboplastin Time 24.4 sec (22.0-30.0); Prothrombin Time 10.6 sec (9.0-12.0)
[2018-08-07 02:29] LABS: Creatine Kinase 57 U/L (55-170)
[2018-08-07 02:42] LABS: Creatine Kinase MB 2.9 ng/mL (0.0-2.4); Troponin I <0.012 ng/mL (0.000-0.034)
[2018-08-07] MEDS ORDERED: ACETAMINOPHEN TAB 325 MG TAB PO PRN (02:53)
[2018-08-07] MEDS ORDERED: NALOXONE 0.4 MG/ML 1 ML VIAL IV PRN (02:53)
--- NOTE | 2018-08-07 03:02 | ED ---
General Adult HPI - General Chief complaint: Arrhythmia/Palpitations Stated complaint: weakness Time Seen by Provider: 08/07/18 01:46 Source: patient, EMS, RN notes reviewed, old records reviewed Mode of arrival: EMS Limitations: no limitations - History of Present Illness Initial comments: 88 -year-old male presenting as transfer from outside facility with near syncope and bradycardia. Patient states he was driving home from his daughters , felt very lightheaded. To call EMS and EMS found to be bradycardic. He was given atropine total 1.5 mg. Heart rate had improved prior to arrival to transferring facility. Workup was obtained and found to be essentially negative. Patient was transferred to this institution for telemetry and cardiology consultation. Patient has no complaints time my evaluation. - Related Data Home Medications Medication Instructions Recorded Confirmed Folic Acid 2 mg PO DAILY 10/10/14 08/07/18 Montelukast [Singulair] 10 mg PO HS 10/10/14 08/07/18 Omeprazole [PriLOSEC] 20 mg PO AC-BRKFST 10/10/14 08/07/18 Apixaban [Eliquis] 2.5 mg PO BID 02/04/15 08/07/18 Spironolactone [Aldactone] 12.5 mg PO QAM 02/04/15 08/07/18 Levalbuterol HCl [Xopenex 1.25 mg INHALATION RT-QID PRN 02/05/15 08/07/18 Nebulized] Cholecalciferol [Vitamin D3] 1,000 unit PO DAILY 10/01/16 08/07/18 Furosemide [Lasix] 80 mg PO BID 10/01/16 08/07/18 Glucosam/Steven-Msm1/C/Yassine/Bosw 1 tab PO DAILY 10/01/16 08/07/18 [Glucosamine-Chondroitin Tablet] Levothyroxine Sodium [Synthroid] 175 mcg PO DAILY 10/01/16 08/07/18 Atorvastatin [Lipitor] 40 mg PO DAILY 02/14/17 08/07/18 Glimepiride [Amaryl] 1 mg PO BID 10/21/17 08/07/18 Ciprofloxacin HCl [Cipro] 500 mg PO Q12HR 08/07/18 08/07/18 Previous Rx's Medication Instructions Recorded Budesonide [Pulmicort] 1 mg INHALATION BID #60 neb 10/28/17 Ipratropium Nebulized [Atrovent 0.5 mg INHALATION RT-QID #120 10/28/17 Nebulized] Metoprolol Tartrate [Lopressor] 50 mg PO TID #90 tab 10/28/17 Fluconazole [Diflucan] 100 mg PO DAILY #7 tab 02/09/18 Allergies Allergy/AdvReac Type Severity Reaction Status Date / Time benzocaine [From Cetacaine] Allergy Dyspnea Verified 08/07/18 01:50 butamben [From Cetacaine] Allergy Dyspnea Verified 08/07/18 01:50 cefuroxime Allergy Rash/Hives Verified 08/07/18 01:50 cetyl alcohol [From Cetaphil] Allergy Rash/Hives Verified 08/07/18 01:50 flecainide Allergy Rash/Hives Verified 08/07/18 01:50 naproxen [From Naprosyn] Allergy GI BLEED Verified 08/07/18 01:50 paraben [From Cetaphil] Allergy Rash/Hives Verified 08/07/18 01:50 propylene glycol Allergy Rash/Hives Verified 08/07/18 01:50 [From Cetaphil] skin cleanser [From Cetaphil] Allergy Rash/Hives Verified 08/07/18 01:50 soap [From Cetaphil] Allergy Rash/Hives Verified 08/07/18 01:50 sodium lauryl sulfate Allergy Rash/Hives Verified 08/07/18 01:50 [From Cetaphil] stearyl alcohol Allergy Rash/Hives Verified 08/07/18 01:50 [From Cetaphil] Tetracyclines Allergy Unknown Verified 08/07/18 01:50 zomepirac Allergy GI BLEED Verified 08/07/18 01:50 amiodarone AdvReac Cough Verified 08/07/18 01:50 meperidine HCl [From Demerol] AdvReac Nausea & Verified 08/07/18 01:50 Vomiting tetracaine [From Cetacaine] AdvReac Nausea & Verified 08/07/18 01:50 Vomiting duprenex Allergy Nausea & Uncoded 08/07/18 01:50 Vomiting Review of Systems ROS Statement: Those systems with pertinent positive or pertinent negative responses have been documented in the HPI. ROS Other: All systems not noted in ROS Statement are negative. Past Medical History Past Medical History: Atrial Fibrillation, Chest Pain / Angina, Heart Failure, COPD, CVA/TIA, Diabetes Mellitus, GERD/Reflux, Hyperlipidemia, Hypertension, Pneumonia, Thyroid Disorder Additional Past Medical History / Comment(s): hx. 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 sx for deviated septum, karlene cataracts, cardioversion Past Anesthesia/Blood Transfusion Reactions: Motion Sickness, Postoperative Nausea & Vomiting (PONV) Additional Past Anesthesia/Blood Transfusion Reaction / Comment(s): UNK FAMILY HX. NEVER HAS HAD BLOOD TRANSFUSION Past Psychological History: No Psychological Hx Reported Smoking Status: Former smoker Past Alcohol Use History: None Reported Past Drug Use History: None Reported - Past Family History Brother(s) Family Medical History: Cancer Mother Family Medical History: CVA/TIA Father Family Medical History: Hypertension General Exam Limitations: no limitations General appearance: alert, in no apparent distress Head exam: Present: atraumatic, normocephalic Eye exam: Present: normal appearance, PERRL, EOMI ENT exam: Present: normal exam Neck exam: Present: normal inspection. Absent: tenderness, meningismus Respiratory exam: Present: normal lung sounds bilaterally, respiratory distress Cardiovascular Exam: Present: regular rate, irregular rhythm GI/Abdominal exam: Present: soft. Absent: distended, tenderness, guarding Extremities exam: Present: normal inspection, normal capillary refill. Absent: pedal edema Neurological exam: Present: alert, oriented X3 Psychiatric exam: Present: normal affect, normal mood Skin exam: Present: warm, dry, intact Course Vital Signs 08/07/18 01:46 Temperature 98.4 F Pulse Rate 80 Respiratory 20 Rate Blood Pressure 115/76 O2 Sat by Pulse 99 Oximetry EKG Findings - EKG Comments: EKG Findings:: EKG: Atrial fibrillation, left axis deviation, left bundle branch block, rate of 76, QRS duration 154, QTC 483, no signs of acute ischemia , history of left bundle branch block, EKG reviewed from January 2018, no significant change. Medical Decision Making - Medical Decision Making 88-year-old male with near syncope and bradycardia. Patient transferred for cardiology consultation. Laboratory studies are repeated in the emergency department, normal white blood cell count, stable hemoglobin, normal electrolytes, troponin is negative. Total bilirubin is elevated over this is down trending for this patient. He has no abdominal pain. EKG is unchanged from previous. Patient will be admitted for telemetry, and cardiology consultation. Metoprolol held at this time. - Lab Data Result diagrams: 08/07/18 01:58 08/07/18 01:58 Lab Results 08/07/18 08/07/18 08/07/18 Range/Units 01:58 01:58 01:58 WBC 6.1 (3.8-10.6) k/uL RBC 3.32 L (4.30-5.90) m/uL Hgb 11.7 L (13.0-17.5) gm/dL Hct 34.8 L (39.0-53.0) % MCV 104.6 H (80.0-100.0) fL MCH 35.3 H (25.0-35.0) pg MCHC 33.8 (31.0-37.0) g/dL RDW 14.7 (11.5-15.5) % Plt Count 126 L (150-450) k/uL Neutrophils % 78 % Lymphocytes % 14 % Monocytes % 4 % Eosinophils % 3 % Basophils % 0 % Neutrophils # 4.7 (1.3-7.7) k/uL Lymphocytes # 0.9 L (1.0-4.8) k/uL Monocytes # 0.2 (0-1.0) k/uL Eosinophils # 0.2 (0-0.7) k/uL Basophils # 0.0 (0-0.2) k/uL Macrocytosis Moderate PT (9.0-12.0) sec INR (<1.2) APTT (22.0-30.0) sec Sodium 136 L (137-145) mmol/L Potassium 4.0 (3.5-5.1) mmol/L Chloride 98 (98-107) mmol/L Carbon Dioxide 32 H (22-30) mmol/L Anion Gap 6 mmol/L BUN 21 H (9-20) mg/dL Creatinine 0.84 (0.66-1.25) mg/dL Est GFR (CKD-EPI)AfAm >90 (>60 ml/min/1.73 sqM) Est GFR (CKD-EPI)NonAf 79 (>60 ml/min/1.73 sqM) Glucose 164 H (74-99) mg/dL Calcium 8.4 (8.4-10.2) mg/dL Magnesium 2.1 (1.6-2.3) mg/dL Total Bilirubin 3.0 H (0.2-1.3) mg/dL AST 35 (17-59) U/L ALT 50 (21-72) U/L Alkaline Phosphatase 89 (38-126) U/L Total Creatine Kinase 57 (55-170) U/L CK-MB (CK-2) 2.9 H (0.0-2.4) ng/mL CK-MB (CK-2) Rel Index 5.1 Troponin I <0.012 (0.000-0.034) ng/mL Total Protein 5.8 L (6.3-8.2) g/dL Albumin 3.5 (3.5-5.0) g/dL 08/07/18 Range/Units 01:58 WBC (3.8-10.6) k/uL RBC (4.30-5.90) m/uL Hgb (13.0-17.5) gm/dL Hct (39.0-53.0) % MCV (80.0-100.0) fL MCH (25.0-35.0) pg MCHC (31.0-37.0) g/dL RDW (11.5-15.5) % Plt Count (150-450) k/uL Neutrophils % % Lymphocytes % % Monocytes % % Eosinophils % % Basophils % % Neutrophils # (1.3-7.7) k/uL Lymphocytes # (1.0-4.8) k/uL Monocytes # (0-1.0) k/uL Eosinophils # (0-0.7) k/uL Basophils # (0-0.2) k/uL Macrocytosis PT 10.6 (9.0-12.0) sec INR 1.0 (<1.2) APTT 24.4 (22.0-30.0) sec Sodium (137-145) mmol/L Potassium (3.5-5.1) mmol/L Chloride (98-107) mmol/L Carbon Dioxide (22-30) mmol/L Anion Gap mmol/L BUN (9-20) mg/dL Creatinine (0.66-1.25) mg/dL Est GFR (CKD-EPI)AfAm (>60 ml/min/1.73 sqM) Est GFR (CKD-EPI)NonAf (>60 ml/min/1.73 sqM) Glucose (74-99) mg/dL Calcium (8.4-10.2) mg/dL Magnesium (1.6-2.3) mg/dL Total Bilirubin (0.2-1.3) mg/dL AST (17-59) U/L ALT (21-72) U/L Alkaline Phosphatase (38-126) U/L Total Creatine Kinase (55-170) U/L CK-MB (CK-2) (0.0-2.4) ng/mL CK-MB (CK-2) Rel Index Troponin I (0.000-0.034) ng/mL Total Protein (6.3-8.2) g/dL Albumin (3.5-5.0) g/dL Disposition Clinical Impression: Atrial fibrillation, Near syncope, Bradycardia Disposition: ADMITTED IP TO THIS [facility] Condition: Stable Is patient prescribed a controlled substance at d/c from ED?: No Referrals: Barrington Ojeda MD [Primary Care Provider] - 1-2 days Decision to Admit Reason: Admit from EC Decision Date: 08/07/18 Decision Time: 03:02
[2018-08-07] MEDS: APIXABAN 2.5 MG TABLET PO SCH ×2 (08:37→20:40)
[2018-08-07] MEDS: FUROSEMIDE 80 MG TAB PO SCH ×2 (08:38→20:36)
[2018-08-07] MEDS: ATORVASTATIN 40 MG TAB PO SCH (08:38)
[2018-08-07] MEDS: LEVOTHYROXINE 50 MCG TAB PO SCH (08:38)
[2018-08-07] MEDS: SPIRONOLACTONE 25 MG TAB PO SCH (09:15)
--- NOTE | 2018-08-07 11:51 | CONS ---
CONSULTATION REASON FOR CONSULTATION: Atrial fibrillation with a slow ventricular rate. Mr. Alamo is an 88-year-old gentleman who was seen by me in the past. He was also seen by Dr. Pollack who sees him regularly in the office. This gentleman does not have any significant obstructive CAD based on a cardiac cath in 2010. He has a history of atrial fibrillation, which is fairly recent onset, but it is a chronic persistent AFib with a previous cardioversion that was unsuccessful and it was decided to pursue rate control and anticoagulation, which seems to have done well. He also has a chronically elevated right hemidiaphragm and underlying COPD as well. He sees Dr. Sol from a pulmonary standpoint. Yesterday, he had dinner at his daughter's place and subsequently went into the car to go home and then felt lightheaded, dizzy and EMS was called and he went to the emergency room and he was also complaining of shortness of breath. Apparently, EMS thought his heart rate was in the 40s and gave him a mg and a half of atropine. After arrival to the emergency room at [facility], his heart rate was in the 120s. He has underlying IVCD. He is resting comfortably without symptoms at the time of my evaluation, but his tells me that with mild activity, he gets short of breath, but this is not new. This has always been there before. His LV systolic function in September by a transesophageal echo was normal. He does not have any significant valvular disease. He has a chronically elevated right diaphragm and there are some pulmonary issues with a density in the lung, but this is being monitored by a repeat CT scan. Patient may have some underlying sick sinus syndrome as well. At the time of my evaluation, he is asymptomatic, resting comfortably. PAST MEDICAL HISTORY: 1. Chronic persistent atrial fibrillation. 2. History of hypertension. 3. Chronically elevated right diaphragm. 4. History of a previous electrical cardioversion but went back into sinus rhythm almost repeatedly. Patient does have history of knee surgery, cholecystectomy, shoulder operation and appendectomy. MEDICATIONS: At home include metoprolol tartrate 50 mg t.i.d., Eliquis 2.5 mg orally b.i.d., vitamin supplements, Lasix 80 mg in the morning and 40 mg in the afternoon, levothyroxine 175 mcg daily, Singulair 10 mg daily, omeprazole 20 mg daily, Aldactone 12.5 mg daily. PHYSICAL EXAMINATION: Blood pressure is 110/70, pulse rate is about 70-80 regular HEENT: Unremarkable. Fundus was not examined by me. Neck is supple. There is JVD of 1 cm. No carotid bruit. Heart exam reveals S1, S2 heard normally with some irregularity in rhythm. There is a systolic murmur audible at the base. Second heart sound is preserved. Lungs reveal diminished air entry. There is no rales or rhonchi. Abdomen is soft, nontender. Lower extremities reveal diminished pulses. Central nervous system is grossly within normal limits. IMPRESSION: 1. Probable underlying sick sinus syndrome. 2. Chronic persistent atrial fibrillation. 3. Type 2 diabetes mellitus. 4. Hypertension. 5. Hyperlipidemia. 6. No evidence of documented coronary artery disease based on a cardiac cath in the past. RECOMMENDATIONS: I would recommend that we decrease the dose of metoprolol to 25 mg b.i.d. and continue Eliquis as before. No other intervention necessary from a cardiac standpoint and we will continue to see him as needed. Thank you very much for the consult. Patient is also being seen by Pulmonary as well. MMODL / IJN: [id number] /
[2018-08-07] MEDS ORDERED: FUROSEMIDE 40 MG TAB PO SCH (15:00)
[2018-08-07] MEDS ORDERED: LEVALBUTEROL HCL 1.25 MG INHALATION PRN (16:30)
[2018-08-07] MEDS ORDERED: IPRATROPIUM-ALBUTEROL 3 ML NEB INHALATION PRN (16:34)
[2018-08-07] MEDS ORDERED: METOPROLOL TARTRATE 50 MG TAB PO SCH (16:45)
[2018-08-07] MEDS: IPRATROPIUM-ALBUTEROL 3 ML NEB INHALATION SCH ×2 (16:51→19:58)
[2018-08-07] MEDS: BUDESONIDE 1 MG/2 ML NEBU INHALATION SCH ×2 (16:52→19:58)
[2018-08-07] MEDS: INSULIN ASPART 100 UNIT/ML 1 ML 10 ML VIAL SQ SCH ×2 (17:15→21:10)
[2018-08-07 17:20] LABS: Glucose,Whole Blood 179 mg/dL (75-99)
--- NOTE | 2018-08-07 18:09 | P.HPIM ---
History of Present Illness H&P Date: 08/07/18 Chief Complaint: Dizziness and lightheadedness Mr. Alamo is an 88-year-old male with a past medical history of atrial fibrillation, hypothyroidism, dyslipidemia, diabetes mellitus admitted to the hospital with a chief complaint of lightheadedness and dizziness. Patient states that he had dinner at his daughter's house and got out of the house and went to his car to drive her home when he started to feel that he is going to pass out. Patient felt that his whole body was having tingling sensation in that he will be passing out. But patient denies having any loss of consciousness. He states that he felt it for almost 2-3 minutes. Patient denies having any loss of bowel or bladder control. Denies having any slurring of speech or weakness of his extremities. Patient denies having any headaches or neck pain. No blurring of vision. Denies having any chest pain or palpitations. Patient has dyspnea at baseline and no new changes felt. Patient denies having abdominal pain nausea vomiting or diarrhea. No bleeding per rectum. No dysuria or hematuria. No swelling of his lower extremities. When EMS found him he was bradycardic in lower 40s and he was given 2 doses of atropine after which his heart rate improved and he was taken to the [facility] where his heart rate was in 120s. Later on he is transferred to [facility]. Patient had EKG done here, which was showing atrial fibrillation with a heart rate in between 70s to 80s. Troponins has been less than 0.012. Review of Systems REVIEW OF SYSTEMS: PSYCH: No anxiety or depression NEURO:No c/o weakness of the extremties, No facial droop, No speech abnormalities. VASCULAR: Peripheral nervous system within the normal limits no edema HEMATOLOGIC: No history of easy bleeding and bruising . No recent infections . RESPIRATORY: Dyspnea at baseline. IMMUNE: No infections INTEGUMENT: no rashes OPHTHALMOLOGIC: No blurry vision and no eye discharge : No dysuria or hematuria CARDIAC: No chest pain , paroxysmal nocturnal dyspnea MUSCULOSKELETAL : No Aches or pains in the joints or muscles. GI: No abdominal pain, Nausea or vomiting. No constipation or diarrhea. All 13 review of systems are negative except for the ones mentioned above. 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 History of Any Multi-Drug Resistant Organisms: None Reported Past Surgical History: Appendectomy, Cholecystectomy, Hernia Repair, Joint Replacement, Orthopedic Surgery Additional Past Surgical History / Comment(s): DANY/CVNS, bronchoscopies with lavage, laryngoscopy, right hip replaced, arthroscopies bilateral knees, R rotator cuff surgery. sx for deviated septum, nodules removed from vocal cords, karlene cataracts. Past Anesthesia/Blood Transfusion Reactions: Motion Sickness, Postoperative Nausea & Vomiting (PONV) Additional Past Anesthesia/Blood Transfusion Reaction / Comment(s): UNK FAMILY HX. NEVER HAS HAD BLOOD TRANSFUSION Smoking Status: Former smoker - Past Family History Brother(s) Family Medical History: Cancer Additional Family Medical History / Comment(s): Pt had one brother with lung cancer and another brother with bone cancer. Sister(s) Family Medical History: Cancer Additional Family Medical History / Comment(s): Pt's sister had colon cancer. Mother Family Medical History: CVA/TIA Father Family Medical History: Hypertension Medications and Allergies Home Medications Medication Instructions Recorded Confirmed Type Folic Acid 1 mg PO BID 10/10/14 08/07/18 History Montelukast [Singulair] 10 mg PO HS 10/10/14 08/07/18 History Omeprazole [PriLOSEC] 20 mg PO AC-BRKFST 10/10/14 08/07/18 History Apixaban [Eliquis] 2.5 mg PO BID 02/04/15 08/07/18 History Spironolactone [Aldactone] 12.5 mg PO QAM 02/04/15 08/07/18 History Levalbuterol HCl [Xopenex 1.25 mg INHALATION RT-QID PRN 02/05/15 08/07/18 History Nebulized] Cholecalciferol [Vitamin D3] 3,000 unit PO DAILY 10/01/16 08/07/18 History Furosemide [Lasix] 80 mg PO QAM 10/01/16 08/07/18 History Levothyroxine Sodium [Synthroid] 175 mcg PO DAILY 10/01/16 08/07/18 History Glimepiride [Amaryl] 1 mg PO BID 10/21/17 08/07/18 History Ipratropium Nebulized [Atrovent 0.5 mg INHALATION RT-QID #120 10/28/17 08/07/18 Rx Nebulized] Metoprolol Tartrate [Lopressor] 50 mg PO TID #90 tab 10/28/17 08/07/18 Rx Budesonide [Pulmicort] 1 mg INHALATION RT-BID 08/07/18 08/07/18 History Fexofenadine HCl [Dorinda Allergy] 180 mg PO DAILY 08/07/18 08/07/18 History Furosemide [Lasix] 40 mg PO DAILY@1500 08/07/18 08/07/18 History Allergies Allergy/AdvReac Type Severity Reaction Status Date / Time amoxicillin [From Augmentin] Allergy Unknown Verified 08/07/18 07:21 benzocaine [From Cetacaine] Allergy Dyspnea Verified 08/07/18 07:21 butamben [From Cetacaine] Allergy Dyspnea Verified 08/07/18 07:21 cefuroxime Allergy Rash/Hives Verified 08/07/18 07:21 cetyl alcohol [From Cetaphil] Allergy Rash/Hives Verified 08/07/18 07:21 clavulanic acid Allergy Unknown Verified 08/07/18 07:21 [From Augmentin] flecainide Allergy Rash/Hives Verified 08/07/18 07:21 fluconazole Allergy Unknown Verified 08/07/18 07:21 naproxen [From Naprosyn] Allergy GI BLEED Verified 08/07/18 07:21 paraben [From Cetaphil] Allergy Rash/Hives Verified 08/07/18 07:21 propylene glycol Allergy Rash/Hives Verified 08/07/18 07:21 [From Cetaphil] skin cleanser [From Cetaphil] Allergy Rash/Hives Verified 08/07/18 07:21 soap [From Cetaphil] Allergy Rash/Hives Verified 08/07/18 07:21 sodium lauryl sulfate Allergy Rash/Hives Verified 08/07/18 07:21 [From Cetaphil] stearyl alcohol Allergy Rash/Hives Verified 08/07/18 07:21 [From Cetaphil] sulfamethoxazole Allergy Unknown Verified 08/07/18 07:21 [From Bactrim] Tetracyclines Allergy Unknown Verified 08/07/18 07:21 trimethoprim [From Bactrim] Allergy Unknown Verified 08/07/18 07:21 zomepirac Allergy GI BLEED Verified 08/07/18 07:21 amiodarone AdvReac Cough Verified 08/07/18 07:21 meperidine HCl [From Demerol] AdvReac Nausea & Verified 08/07/18 07:21 Vomiting tetracaine [From Cetacaine] AdvReac Nausea & Verified 08/07/18 07:21 Vomiting duprenex Allergy Nausea & Uncoded 08/07/18 01:50 Vomiting Physical Exam Vitals: Vital Signs Temp Pulse Pulse Resp BP BP Pulse Ox 08/07/18 17:02 70 08/07/18 16:54 70 08/07/18 16:00 76 18 08/07/18 15:39 97.5 F L 76 16 141/64 99 08/07/18 13:49 71 16 146/85 97 08/07/18 13:00 74 16 97 08/07/18 12:00 81 16 97 08/07/18 11:00 75 98 08/07/18 10:00 70 97 08/07/18 09:00 70 98 08/07/18 08:00 79 08/07/18 07:00 81 19 128/76 96 08/07/18 06:20 74 20 107/73 08/07/18 06:10 72 16 118/88 08/07/18 05:40 74 16 115/82 08/07/18 05:20 75 18 111/73 08/07/18 04:50 78 16 109/66 08/07/18 04:40 71 17 112/72 08/07/18 04:30 72 19 102/63 08/07/18 04:00 18 L 08/07/18 03:40 16 110/69 08/07/18 03:30 74 18 111/69 08/07/18 03:19 80 27 H 113/72 97 08/07/18 01:46 98.4 F 80 20 115/76 99 Intake and Output 08/07/18 08/07/18 08/07/18 06:59 14:59 22:59 Other: Weight 90.265 kg GEN. APPEARANCE: Elderly male in the emergency department appears to be in no acute distress HEAD EXAM: atraumatic, normocephalic, normal inspection EYE EXAM: No pallor. No icterus ENT EXAM: normal exam, mucous membranes moist NECK EXAM: No JVD. No thyromegaly RESPIRATORY EXAM: Bilateral breath sounds are positive. No wheezing or crackles. CARDIOVASCULAR EXAM: Irregularly irregular. GI/ABDOMINAL EXAM: Abdomen is soft nontender. Bowel sounds are positive. No guarding or rigidity. EXTREMITIES EXAM: Mild pitting edema at the ankles bilaterally NEUROLOGICAL EXAM: alert, oriented X3, no focal neurological deficits PSYCHIATRIC EXAM: normal affect, normal mood SKIN EXAM: No rash Results CBC & Chem 7: 08/07/18 01:58 08/07/18 01:58 Labs: Abnormal Lab Results - Last 24 Hours (Table) 08/07/18 08/07/18 08/07/18 Range/Units 01:58 01:58 01:58 RBC 3.32 L (4.30-5.90) m/uL Hgb 11.7 L (13.0-17.5) gm/dL Hct 34.8 L (39.0-53.0) % MCV 104.6 H (80.0-100.0) fL MCH 35.3 H (25.0-35.0) pg Plt Count 126 L (150-450) k/uL Lymphocytes # 0.9 L (1.0-4.8) k/uL Sodium 136 L (137-145) mmol/L Carbon Dioxide 32 H (22-30) mmol/L BUN 21 H (9-20) mg/dL Glucose 164 H (74-99) mg/dL POC Glucose (mg/dL) (75-99) mg/dL Total Bilirubin 3.0 H (0.2-1.3) mg/dL CK-MB (CK-2) 2.9 H (0.0-2.4) ng/mL Total Protein 5.8 L (6.3-8.2) g/dL 08/07/18 Range/Units 17:06 RBC (4.30-5.90) m/uL Hgb (13.0-17.5) gm/dL Hct (39.0-53.0) % MCV (80.0-100.0) fL MCH (25.0-35.0) pg Plt Count (150-450) k/uL Lymphocytes # (1.0-4.8) k/uL Sodium (137-145) mmol/L Carbon Dioxide (22-30) mmol/L BUN (9-20) mg/dL Glucose (74-99) mg/dL POC Glucose (mg/dL) 179 H (75-99) mg/dL Total Bilirubin (0.2-1.3) mg/dL CK-MB (CK-2) (0.0-2.4) ng/mL Total Protein (6.3-8.2) g/dL Thrombosis Risk Factor Assmnt - Choose All That Apply Any of the Below Risk Factors Present?: Yes Each Factor Represents 1 point: Abnormal pulmonary function (COPD), Obesity ( BMI >25), Serious lung disease incl. pneumonia (< 1month) Other Risk Factors: Yes Each Risk Factor Represents 3 Points: Age 75 years or older Other congenital or acquired thrombophilia - If yes, enter type in comment: No Thrombosis Risk Factor Assessment Total Risk Factor Score: 6 Thrombosis Risk Factor Assessment Level: High Risk Assessment and Plan Assessment: ASSESSMENT Pre - Syncope due to cardiac arrhythmias Bradycardia as reported by EMS Persistent atrial fibrillation Essential hypertension Type 2 diabetes mellitus COPD Dyslipidemia Hypothyroidism History of SIADH History of nephrolithiasis History of TIA Plan: Patient is in A. fib with rate control. The probable reason for his bradycardia could be related to his beta beau. The dose of metoprolol has been changed from 50 to 25 mg twice a day. Will order a TSH. Patient had an echocardiogram done in September 2017 with normal LV systolic function and no valvular abnormalities. Patient has dyspnea it is at baseline he has chronically elevated right diaphragm and is being monitored by pulmonary in the outpatient clinic. We will resume the rest of his home medications. Further admonitions to follow depending on the progress of the patient.
[2018-08-07] MEDS ORDERED: IPRATROPIUM 0.5 MG/2.5 ML NEBU INHALATION SCH (20:00)
[2018-08-07] MEDS: METOPROLOL TARTRATE 25 MG TAB PO SCH (20:40)
[2018-08-07] MEDS: FOLIC ACID 1 MG TAB PO SCH (20:40)
[2018-08-07 20:48] LABS: Glucose,Whole Blood 171 mg/dL (75-99)
[2018-08-07] MEDS ORDERED: MONTELUKAST 10 MG TAB PO SCH (21:00)
[2018-08-07] MEDS: GLIMEPIRIDE 1 MG TAB PO SCH (21:10)
[2018-08-08 06:03] LABS: Glucose,Whole Blood 109 mg/dL (75-99)
[2018-08-08] MEDS: INSULIN ASPART 100 UNIT/ML 1 ML 10 ML VIAL SQ SCH ×2 (06:21→11:56)
[2018-08-08] MEDS: GLIMEPIRIDE 1 MG TAB PO SCH (06:57)
[2018-08-08] MEDS ORDERED: PANTOPRAZOLE 40 MG TABLET PO SCH (07:30)
[2018-08-08 07:32] LABS: Hemoglobin A1C 6.2 % (4.0-6.0)
[2018-08-08 07:51] VITALS: TEMP 98.1
[2018-08-08 08:13] LABS: Basophils % (A) 0 %; Eosinophils # (A) 0.1 k/uL (0-0.7); Eosinophils % (A) 2 %; HCT 31.8 % (39.0-53.0); HGB 10.5 gm/dL (13.0-17.5); Lymphocytes # (A) 0.9 k/uL (1.0-4.8); Lymphocytes % (A) 20 %; MCH 34.9 pg (25.0-35.0); MCV 105.8 fL (80.0-100.0); Macrocytosis Moderate; Mean Platelet Volume 7.7; Monocytes # (A) 0.2 k/uL (0-1.0); Monocytes % (A) 5 %; Neutrophils # (A) 3.3 k/uL (1.3-7.7); Neutrophils % (A) 72 %; Platelet Count 129 k/uL (150-450); RBC 3.01 m/uL (4.30-5.90); RDW 15.2 % (11.5-15.5); WBC 4.5 k/uL (3.8-10.6)
[2018-08-08] MEDS: BUDESONIDE 1 MG/2 ML NEBU INHALATION SCH (08:13)
[2018-08-08] MEDS: IPRATROPIUM-ALBUTEROL 3 ML NEB INHALATION SCH ×2 (08:13→11:32)
[2018-08-08 08:29] LABS: Anion Gap 4 mmol/L; Blood Urea Nitrogen 21 mg/dL (9-20); Calcium 8.5 mg/dL (8.4-10.2); Carbon Dioxide 34 mmol/L (22-30); Chloride 98 mmol/L (98-107); Glucose 108 mg/dL (74-99); Potassium 3.9 mmol/L (3.5-5.1); Sodium 136 mmol/L (137-145)
[2018-08-08] MEDS: LEVOTHYROXINE 50 MCG TAB PO SCH (08:51)
[2018-08-08] MEDS: FUROSEMIDE 80 MG TAB PO SCH (08:51)
[2018-08-08] MEDS: FOLIC ACID 1 MG TAB PO SCH (08:51)
[2018-08-08] MEDS: ATORVASTATIN 40 MG TAB PO SCH (08:51)
[2018-08-08] MEDS: APIXABAN 2.5 MG TABLET PO SCH (08:51)
[2018-08-08] MEDS: METOPROLOL TARTRATE 25 MG TAB PO SCH (08:52)
[2018-08-08] MEDS: SPIRONOLACTONE 25 MG TAB PO SCH (08:52)
[2018-08-08] MEDS ORDERED: LORATADINE 10 MG TAB PO SCH (09:00)
[2018-08-08] MEDS ORDERED: CHOLECALCIFEROL 1,000 UNIT TAB PO SCH (09:00)
[2018-08-08 11:09] VITALS: BP 100/64; RESP 16
[2018-08-08 11:34] VITALS: PULSE 72
[2018-08-08 11:50] LABS: Glucose,Whole Blood 100 mg/dL (75-99)
--- NOTE | 2018-08-08 13:16 | PN ---
PROGRESS NOTE Mr. Alamo remains in atrial fib which is chronic. His rate is better controlled. I cut down the beta beau, Lopressor to 25 mg b.i.d. He is going to be seen by pulmonology today. I am recommending that he should have a physical therapy consult to help his strength and coordination as well and some walking efforts. He has shortness of breath and I do not believe this is coming from a cardiac etiology. His vitals are stable. Blood pressure is good. Heart rate is between 75 to 85. S1, S2 heard normally, short systolic murmur at the base. Irregular rate and rhythm noted. Lungs reveal diminished breath sounds on the right base. Rest of physical examination is unchanged. MMODL / IJN: [id number] /
--- NOTE | 2018-08-08 14:56 | P.CNPUL ---
History of Present Illness Consult date: 08/08/18 Requesting physician: Smiley Treviño Reason for consult: dyspnea, COPD, abnormal CXR/CT, other Chief complaint: Symptomatic bradycardia, presyncopal episode, shortness of breath History of present illness: This is a 88-year-old white male patient who follows with Dr. 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 Patient's PFT from 06/2017 showed FEV1 of 64%, FVC of 61%, with moderately severe diffusion deficit of 52% of predicted, and patient has both obstructive and restrictive defect with diffusion abnormality. Other medical history includes diabetes mellitus type 2, CVA/TIA, hypothyroidism, GERD, hypertension, hyperlipidemia, chronic atrial fibrillation on Eliquis with history of prior cardioversions, previous episodes of pneumonia, remote history of smoking. On 08/07/2018 patient was brought to the emergency department per EMS after having an episode of near syncope and symptomatic bradycardia. Patient was at his daughter's having dinner, he went to get into his car that lately he felt lightheaded, felt like he was going to pass out, and he sat down. Patient denied any chest pain. Patient is chronically short of breath dated to his history of COPD and right hemidiaphragmatic paralysis, he did feel slightly more short of breath with this episode, when the EMS arrived patient was found to be bradycardic with a rate in the low 40s, and he was given IV atropine with subsequent movements of his bradycardia. The relative to the hospital EKG showed atrial fibrillation and left bundle branch block with a rate of 76. Patient was evaluated by cardiology, patient is dose of beta blockers was decreased down to 25 mg twice daily, episode of symptomatic bradycardia was thought to be related to probable underlying sick sinus syndrome. Lab work showed WBC of 6.1, hemoglobin of 11.7, platelet count was 126, d-dimer was negative at 0.32, sodium is 136, potassium is 4.0, chloride is 98, CO2 is 32, BUN is 21 creatinine 0.84. Troponin was negative 1. From a cardiology perspective patient is clear for discharge. We're seeing this patient in evaluation for chronic pulmonary condititions. Patient denies any fever or chills, denies any chest congestion, no cough or wheezing. Patient was recently treated on an outpatient basis for an acute exacerbation of his COPD, by Depo-Medrol, a course of azithromycin and prednisone taper. His most recent CT of the chest from 05/31/2018 for follow-up on the pulmonary lung nodule showed a more linear appearance to the density along the region of the major fissure on the right. And this seems to have improved compared to prior CT chest from 01/31/2018. No enlarged mediastinal or hilar adenopathy, there is calcification at the diaphragm on the right with chronic elevation of the right diaphragm. Vital signs have been stable, sounds are clear with diminished breath sounds on the right base. Congestion no cough, no phlegm production. Fever or chills, room air pulse ox is 94%, remains in A. fib with a rate of 72 BPM. Review of Systems All systems: negative Constitutional: Denies chills, Denies fever Eyes: denies blurred vision, denies pain Ears, nose, mouth and throat: Denies headache, Denies sore throat Cardiovascular: Denies chest pain, Denies shortness of breath Respiratory: Reports dyspnea, Reports home oxygen, Denies cough Gastrointestinal: Denies abdominal pain, Denies diarrhea, Denies nausea, Denies vomiting Musculoskeletal: Denies myalgias Integumentary: Denies pruritus, Denies rash Neurological: Denies numbness, Denies weakness Psychiatric: Denies anxiety, Denies depression Endocrine: Denies fatigue, Denies weight change Past Medical History Past Medical History: Atrial Fibrillation, Asthma, Chest Pain / Angina, Heart Failure, COPD, CVA/TIA, Diabetes Mellitus, GERD/Reflux, Hypertension, Pneumonia , Renal Disease, Respiratory Disorder, Thyroid Disorder Additional Past Medical History / Comment(s): Pt states he is recently diagnosed with possible colitis and is currently on antibiotics for this, frequent diarrhea, tracheobronchitis, chronic bronchitis, subglottic tracheitis , nodular vocal cords-benign and removed, 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 History of Any Multi-Drug Resistant Organisms: None Reported Past Surgical History: Appendectomy, Cholecystectomy, Hernia Repair, Joint Replacement, Orthopedic Surgery Additional Past Surgical History / Comment(s): DANY/CVNS, bronchoscopies with lavage, laryngoscopy, right hip replaced, arthroscopies bilateral knees, R rotator cuff surgery. sx for deviated septum, nodules removed from vocal cords, karlene cataracts. Past Anesthesia/Blood Transfusion Reactions: Motion Sickness, Postoperative Nausea & Vomiting (PONV) Additional Past Anesthesia/Blood Transfusion Reaction / Comment(s): UNK FAMILY HX. NEVER HAS HAD BLOOD TRANSFUSION Smoking Status: Former smoker - Past Family History Brother(s) Family Medical History: Cancer Additional Family Medical History / Comment(s): Pt had one brother with lung cancer and another brother with bone cancer. Sister(s) Family Medical History: Cancer Additional Family Medical History / Comment(s): Pt's sister had colon cancer. Mother Family Medical History: CVA/TIA Father Family Medical History: Hypertension Medications and Allergies Home Medications Medication Instructions Recorded Confirmed Type Folic Acid 1 mg PO BID 10/10/14 08/07/18 History Montelukast [Singulair] 10 mg PO HS 10/10/14 08/07/18 History Omeprazole [PriLOSEC] 20 mg PO AC-BRKFST 10/10/14 08/07/18 History Apixaban [Eliquis] 2.5 mg PO BID 02/04/15 08/07/18 History Spironolactone [Aldactone] 12.5 mg PO QAM 02/04/15 08/07/18 History Levalbuterol HCl [Xopenex 1.25 mg INHALATION RT-QID PRN 02/05/15 08/07/18 History Nebulized] Cholecalciferol [Vitamin D3] 3,000 unit PO DAILY 10/01/16 08/07/18 History Levothyroxine Sodium [Synthroid] 175 mcg PO DAILY 10/01/16 08/07/18 History Glimepiride [Amaryl] 1 mg PO BID 10/21/17 08/07/18 History Ipratropium Nebulized [Atrovent 0.5 mg INHALATION RT-QID #120 10/28/17 08/07/18 Rx Nebulized] Budesonide [Pulmicort] 1 mg INHALATION RT-BID 08/07/18 08/07/18 History Fexofenadine HCl [Dorinda Allergy] 180 mg PO DAILY 08/07/18 08/07/18 History Furosemide [Lasix] 80 mg PO BID tab 08/08/18 Rx Metoprolol Tartrate [Lopressor] 25 mg PO BID #60 tab 08/08/18 Rx Allergies Allergy/AdvReac Type Severity Reaction Status Date / Time amoxicillin [From Augmentin] Allergy Unknown Verified 08/07/18 07:21 benzocaine [From Cetacaine] Allergy Dyspnea Verified 08/07/18 07:21 butamben [From Cetacaine] Allergy Dyspnea Verified 08/07/18 07:21 cefuroxime Allergy Rash/Hives Verified 08/07/18 07:21 cetyl alcohol [From Cetaphil] Allergy Rash/Hives Verified 08/07/18 07:21 clavulanic acid Allergy Unknown Verified 08/07/18 07:21 [From Augmentin] flecainide Allergy Rash/Hives Verified 08/07/18 07:21 fluconazole Allergy Unknown Verified 08/07/18 07:21 naproxen [From Naprosyn] Allergy GI BLEED Verified 08/07/18 07:21 paraben [From Cetaphil] Allergy Rash/Hives Verified 08/07/18 07:21 propylene glycol Allergy Rash/Hives Verified 08/07/18 07:21 [From Cetaphil] skin cleanser [From Cetaphil] Allergy Rash/Hives Verified 08/07/18 07:21 soap [From Cetaphil] Allergy Rash/Hives Verified 08/07/18 07:21 sodium lauryl sulfate Allergy Rash/Hives Verified 08/07/18 07:21 [From Cetaphil] stearyl alcohol Allergy Rash/Hives Verified 08/07/18 07:21 [From Cetaphil] sulfamethoxazole Allergy Unknown Verified 08/07/18 07:21 [From Bactrim] Tetracyclines Allergy Unknown Verified 08/07/18 07:21 trimethoprim [From Bactrim] Allergy Unknown Verified 08/07/18 07:21 zomepirac Allergy GI BLEED Verified 08/07/18 07:21 amiodarone AdvReac Cough Verified 08/07/18 07:21 meperidine HCl [From Demerol] AdvReac Nausea & Verified 08/07/18 07:21 Vomiting tetracaine [From Cetacaine] AdvReac Nausea & Verified 08/07/18 07:21 Vomiting duprenex Allergy Nausea & Uncoded 08/07/18 01:50 Vomiting Physical Exam Vitals: Vital Signs Temp Pulse Pulse Resp BP Pulse Ox 08/08/18 11:41 72 08/08/18 11:32 72 08/08/18 11:09 77 08/08/18 11:08 77 16 100/64 94 L 08/08/18 08:27 72 08/08/18 08:14 72 96 08/08/18 07:52 80 08/08/18 07:50 98.1 F 80 14 96/53 96 08/08/18 04:15 97.4 F L 74 18 127/72 96 08/08/18 04:00 72 18 08/08/18 00:10 97.9 F 85 18 103/65 96 08/07/18 20:10 97.7 F 73 75 17 125/82 98 08/07/18 19:59 70 08/07/18 17:02 70 08/07/18 16:54 70 08/07/18 16:00 76 18 08/07/18 15:39 97.5 F L 76 16 141/64 99 Intake and Output 08/07/18 08/08/18 08/08/18 22:59 06:59 14:59 Intake Total 250 490 Balance 250 490 Intake: IV 10 10 0.9 10 10 Oral 240 480 Other: Voiding Method Toilet Toilet Urinal Urinal # Voids 2 3 1 Weight 91 kg GENERAL EXAM: Alert, pleasant 88-year-old white male, comfortable in no apparent distress. HEAD: Normocephalic/atraumatic. EYES: Normal reaction of pupils, equal size. Conjunctiva pink, sclera white. NOSE: Clear with pink turbinates. THROAT: No erythema or exudates. NECK: No masses, no JVD, no thyroid enlargement, no adenopathy. CHEST: No chest wall deformity. Symmetrical expansion. LUNGS: Equal air entry with no crackles, wheeze, rhonchi or dullness. Diminished breath sounds over right lower base CVS: Regular rate and rhythm, normal S1 and S2, no gallops, no murmurs, no rubs ABDOMEN: Soft, nontender. No hepatosplenomegaly, normal bowel sounds, no guarding or rigidity. EXTREMITIES: No clubbing, no edema, no cyanosis, 2+ pulses and upper and lower extremities. MUSCULOSKELETAL: Muscle strength and tone normal. SPINE: No scoliosis or deformity SKIN: No rashes CENTRAL NERVOUS SYSTEM: Alert and oriented -3. No focal deficits, tone is normal in all 4 extremities. PSYCHIATRIC: Alert and oriented -3. Appropriate affect. Intact judgment and insight. Results - Laboratory Findings CBC and BMP: 08/08/18 06:48 08/08/18 06:48 PT/INR, D-dimer PT 10.6 sec (9.0-12.0) 08/07/18 01:58 INR 1.0 (<1.2) 08/07/18 01:58 D-Dimer 0.32 mg/L FEU (<0.60) 08/08/18 12:33 Abnormal lab findings: Abnormal Labs 08/07/18 08/07/18 08/07/18 01:58 01:58 01:58 RBC 3.32 L Hgb 11.7 L Hct 34.8 L MCV 104.6 H MCH 35.3 H Plt Count 126 L Lymphocytes # 0.9 L Sodium 136 L Carbon Dioxide 32 H BUN 21 H Glucose 164 H POC Glucose (mg/dL) Hemoglobin A1c Total Bilirubin 3.0 H CK-MB (CK-2) 2.9 H Total Protein 5.8 L 08/07/18 08/07/18 08/07/18 02:00 17:06 20:46 RBC Hgb Hct MCV MCH Plt Count Lymphocytes # Sodium Carbon Dioxide BUN Glucose POC Glucose (mg/dL) 179 H 171 H Hemoglobin A1c 6.2 H Total Bilirubin CK-MB (CK-2) Total Protein 08/08/18 08/08/18 08/08/18 06:01 06:48 06:48 RBC 3.01 L Hgb 10.5 L Hct 31.8 L MCV 105.8 H MCH Plt Count 129 L Lymphocytes # 0.9 L Sodium 136 L Carbon Dioxide 34 H BUN 21 H Glucose 108 H POC Glucose (mg/dL) 109 H Hemoglobin A1c Total Bilirubin CK-MB (CK-2) Total Protein 08/08/18 11:47 RBC Hgb Hct MCV MCH Plt Count Lymphocytes # Sodium Carbon Dioxide BUN Glucose POC Glucose (mg/dL) 100 H Hemoglobin A1c Total Bilirubin CK-MB (CK-2) Total Protein Assessment and Plan Plan: Assessment: #1. Presyncopal episode, likely related to symptomatic bradycardia, possible underlying sick sinus syndrome #2. Chronic persistent atrial fibrillation, on anticoagulation with Eliquis #3. Chronic hypoxemic and hypercapnic respiratory failure related to moderately severe COPD with the underlying FEV1 of 64% of predicted. he wears oxygen at bedtime #4. Restrictive lung disorder related to chronic right hemidiaphragmatic paralysis secondary to a farm injury #5. Recent COPD exacerbation treated on outpatient basis #6. Hypothyroidism #7. Chronic diastolic heart failure #8. Essential hypertension, hyperlipidemia #9. History of CVA/TIA #10. Diabetes mellitus #11. Streak opacity at the right middle and lower lung oneal that has been followed on an outpatient basis. Bronchoscopy with bronchial washings, brush tip smear biopsies were negative for malignancy. Follow-up CT chest on 2017 showed a more linear appearance to the density, and appeared to be improved at the lower lung oneal. #12. Diabetes mellitus Plan: Patient has no specific complaints today, no worsening dyspnea, he is at his baseline in terms of shortness of breath, had recent exacerbation of COPD for which she was treated on an outpatient basis, improving. Lung sounds are clear , no fever no chills, vital signs are stable. Will get a d-dimer, however in view of patient's chronic anticoagulation the likelihood of pulmonary embolism is low. Most recent CAT scan of the chest showed improvement in the appearance of the streak opacity in the right middle and lower lobes, biopsies have been negative for malignancy. He is scheduled for Holter monitoring in 2 weeks at the [facility], we'll see if we can arrange 24-hour monitoring immediately after discharge. Patient can follow-up in the outpatient setting with Dr. Sol. Stable for discharge from pulmonary perspective. I performed a history & physical examination of the patient and discussed their management with my nurse practitioner, Brittany Interiano. I reviewed the nurse practitioner's note and agree with the documented findings and plan of care. Lung sounds are positive for clear lung sounds. The findings and the impression was discussed with the patient. I attest to the documentation by the nurse practitioner. Time with Patient: Greater than 30
== END 2018-08-08 15:37 | disposition home or self-care (01) | DRG 309 ==
LOC: EC 01:44 → 3SCARD 02:53
PROVIDERS: ADMIT Hospitalist; ATTEND Hospitalist
DX: I49.5 Sick sinus syndrome (principal); I48.1 Persistent atrial fibrillation; I50.32 Chronic diastolic (congestive) heart failure; J96.11 Chronic respiratory failure with hypoxia; J96.12 Chronic respiratory failure with hypercapnia; E03.9 Hypothyroidism, unspecified; E11.9 Type 2 diabetes mellitus without complications; E78.5 Hyperlipidemia, unspecified; I11.0 Hypertensive heart disease with heart failure; I44.7 Left bundle-branch block, unspecified; I48.2 Chronic atrial fibrillation; J44.9 Chronic obstructive pulmonary disease, unspecified; J98.6 Disorders of diaphragm; X58.XXXS Exposure to other specified factors, sequela; K21.9 Gastro-esophageal reflux disease without esophagitis; Z79.01 Long term (current) use of anticoagulants; Z79.84 Long term (current) use of oral hypoglycemic drugs; Z79.890 Hormone replacement therapy; Z79.899 Other long term (current) drug therapy; Z80.0 Family history of malignant neoplasm of digestive organs; Z80.1 Family history of malignant neoplasm of trachea, bronchus and lung; Z80.8 Family history of malignant neoplasm of other organs or systems; Z82.49 Family history of ischemic heart disease and other diseases of the circulatory system; Z86.73 Personal history of transient ischemic attack (TIA), and cerebral infarction without residual deficits; Z87.442 Personal history of urinary calculi; Z87.891 Personal history of nicotine dependence; Z96.641 Presence of right artificial hip joint; Z98.42 Cataract extraction status, left eye; Z98.41 Cataract extraction status, right eye; Z82.3 Family history of stroke; Z99.81 Dependence on supplemental oxygen; Z88.6 Allergy status to analgesic agent; Z88.1 Allergy status to other antibiotic agents; Z88.0 Allergy status to penicillin; Z88.2 Allergy status to sulfonamides; Z88.8 Allergy status to other drugs, medicaments and biological substances
CPT/HCPCS: 36415; 80048; 80053; 82550; 82553; 83036; 83735; 84484; 85025; 85379; 85610; 85730; 93005; 94640; 94760; 99285

== ENCOUNTER → 2018-11-27 | Outpatient (CLI) | payer MEDICARE, BC ==
[2018-11-27 13:44] LABS: Blood Urea Nitrogen 17 mg/dL (9-20)
--- NOTE | 2018-11-27 14:41 | CT ---
EXAMINATION TYPE: CT chest w con DATE OF EXAM: 11/27/2018 COMPARISON: CT chest 05/31/2018 and chest x-ray 08/06/2018 HISTORY: Pulmonary nodule CT DLP: 484.9 mGycm Automated exposure control for dose reduction was used. CONTRAST: CT scan of the chest is performed with IV Contrast, patient injected with 100 mL of Isovue 300. FINDINGS: LUNGS: There are small pleural effusions present. Pseudotumor is present on the right. No evident angela g mass. There is some prominent interstitial markings, interlobular septal lines especially in the ri ght upper lobe anteriorly. Probable atelectatic lung present at the posterior lung bases, there are s ome air bronchograms present in the right lower lobe. MEDIASTINUM: There are no greater than 1 cm hilar or mediastinal lymph nodes. No pericardial effusi on is seen. Coronary artery calcifications are mild. Aortic AORTA: aortic root measures 4.3 cm. OTHER: Persistent elevation of the right hemidiaphragm is noted, calcified nodule is present along t he right hemidiaphragm. The patient is post cholecystectomy. The pancreas is fatty replaced. Possible small hiatal hernia. IMPRESSION: Bilateral pleural effusions have developed in the interval. Probable basilar atelectasis , correlate to exclude pneumonia. Interstitial lung disease. Aortic aneurysm. Coronary artery disease .
== END | disposition home or self-care (01) ==
LOC: RADCTMAIN 12:55
PROVIDERS: ATTEND Internal Medicine Critical Care Medicine
DX: J90 Pleural effusion, not elsewhere classified (principal); I25.10 Atherosclerotic heart disease of native coronary artery without angina pectoris; I71.9 Aortic aneurysm of unspecified site, without rupture; J84.9 Interstitial pulmonary disease, unspecified
CPT/HCPCS: 82565; 84520; 71260; 36415; Q9967

== ENCOUNTER 2019-04-22 19:55 | Inpatient (IN) | payer MEDICARE, BC ==
[2019-04-22] MEDS ORDERED: MECLIZINE 12.5 MG TAB PO STA (20:44)
[2019-04-22] MEDS ORDERED: METOCLOPRAMIDE 5 MG/ML 2 ML VIAL IVP STA (20:44)
[2019-04-22 20:53] LABS: Appearance,Urine Clear (Clear); Bilirubin,Urine Negative (Negative); Blood,Urine Negative (Negative); Color,Urine Light Yellow; Glucose,Urine (UA) Negative (Negative); Ketones,Urine Negative (Negative); Leukocyte Esterase,Urine Negative (Negative); Nitrite,Urine Negative (Negative); PH, Urine 6.5 (5.0-8.0); Protein,Urine Negative (Negative); Specific Gravity,Urine 1.008 (1.001-1.035); Urobilinogen,Urine <2.0 mg/dL (<2.0)
[2019-04-22 21:00] LABS: Basophils % (A) 1 %; Eosinophils # (A) 0.2 k/uL (0-0.7); Eosinophils % (A) 3 %; HCT 33.2 % (39.0-53.0); Lymphocytes # (A) 0.9 k/uL (1.0-4.8); Lymphocytes % (A) 13 %; MCH 33.1 pg (25.0-35.0); MCHC 33.2 g/dL (31.0-37.0); MCV 99.6 fL (80.0-100.0); Mean Platelet Volume 7.8; Monocytes # (A) 0.4 k/uL (0-1.0); Monocytes % (A) 5 %; Neutrophils # (A) 5.4 k/uL (1.3-7.7); Neutrophils % (A) 76 %; Platelet Count 199 k/uL (150-450); RBC 3.33 m/uL (4.30-5.90); RDW 13.7 % (11.5-15.5); WBC 7.1 k/uL (3.8-10.6)
[2019-04-22 21:03] LABS: Albumin 4.2 g/dL (3.5-5.0); Calcium 8.9 mg/dL (8.4-10.2); Potassium 2.8 mmol/L (3.5-5.1); Total Bilirubin 3.9 mg/dL (0.2-1.3); Total Protein 6.7 g/dL (6.3-8.2)
--- NOTE | 2019-04-22 21:22 | CT ---
EXAMINATION TYPE: CT brain lucas wo con DATE OF EXAM: 04/22/2019 COMPARISON: 01/19/2017 and 01/17/2017 HISTORY: Syncope. CT DLP: 1546.2 mGycm Automated exposure control for dose reduction was used. TECHNIQUE: CT scan of the head and cervical spine are performed without contrast. FINDINGS: There is cerebral cortical atrophy. There is no mass effect nor midline shift. There is n o sign of intracranial hemorrhage. Calvarium is intact. There is venous lakes in the occipital bone. Cervical vertebra have normal alignment. There is minor spurring of the endplates. There is multileve l mild facet arthropathy. Skull base is intact. There is no evidence of cervical spine fracture. IMPRESSION: Cerebral atrophy. No acute intracranial abnormality. Mild spondylotic changes in the cervical spine. No fracture. No significant change compared to old exams.
--- NOTE | 2019-04-22 21:23 | XR ---
EXAMINATION TYPE: XR elbow complete LT DATE OF EXAM: 04/22/2019 COMPARISON: NONE HISTORY: Elbow pain TECHNIQUE: 3 views FINDINGS: I see no fracture nor dislocation. Joint spaces are fairly normal. There is no sign of elbo w joint effusion. IMPRESSION: Negative left elbow exam.
--- NOTE | 2019-04-22 21:24 | XR ---
EXAMINATION TYPE: XR chest 2V DATE OF EXAM: 04/22/2019 COMPARISON: 02/08/2018 HISTORY: Syncope TECHNIQUE: Frontal and lateral views of the chest are obtained. FINDINGS: There is elevated right diaphragm with atelectasis right lung base. Left lung is clear. He art size is normal. Thoracic aorta is atheromatous. There is no heart failure. IMPRESSION: Chronic right basilar atelectasis unchanged. This could relate to diaphragm paralysis. N o heart failure.
[2019-04-22 21:32] LABS: Partial Thromboplastin Time 24.8 sec (22.0-30.0); Prothrombin Time 10.9 sec (9.0-12.0)
[2019-04-22 21:34] LABS: D-Dimer 4.24 mg/L FEU (<0.60)
[2019-04-22] MEDS ORDERED: POTASSIUM CHLORIDE ER 20 MEQ TAB.ER PO STA (21:35)
[2019-04-22] MEDS: POTASSIUM CHLORIDE 20 MEQ in WATER FOR INJECTION 1 100ML.BAG IVPB ONE ×2 (22:29→22:49)
--- NOTE | 2019-04-22 23:08 | CT ---
EXAM: CT Angiography Chest With Intravenous Contrast CLINICAL HISTORY: ITS.REASON CT Reason: Pain TECHNIQUE: Axial computed tomographic angiography images of the chest with intravenous contrast using pulmonary embolism protocol. CTDI is 21 mGy and DLP is 532.3 mGy-cm. This CT exam was performed using one or more of the following dose reduction techniques: automated exposure control, adjustment of the mA and/or kV according to patient size, and/or use of iterative reconstruction technique. MIP reconstructed images were created and reviewed. COMPARISON: No relevant prior studies available. FINDINGS: Pulmonary arteries: No PE. Aorta: No acute findings. No thoracic aortic aneurysm. Lungs: Elevated right hemidiaphragm. Adjacent scarring and/or subsegmental atelectasis. No mass. Pleural space: Airspace disease at the right lower lobe. Small adjacent right pleural effusion. No other pleural effusion or pneumothorax. Heart: No aortic aneurysm or dissection. Mild cardiomegaly. No pericardial effusion. No evidence of RV dysfunction. Bones/joints: No acute fracture. No dislocation. Soft tissues: Unremarkable. Lymph nodes: No basilar hilar adenopathy. IMPRESSION: No PE. Airspace disease at the right lower lobe. Differential would include atelectasis and infiltrate. Small adjacent right pleural effusion.
--- NOTE | 2019-04-22 23:15 | ED ---
Syncope HPI - General Chief Complaint: Syncope Stated Complaint: Syncope Time Seen by Provider: 04/22/19 20:17 Source: patient, EMS Mode of arrival: EMS Limitations: no limitations - History of Present Illness Initial Comments: The patient is an 88-year-old male who presents to the emergency Department after syncopal episode. The patient reports that he just received a new motorized scooter. He was out in the driveway putting it together when he sta magui that he felt lightheaded. He ended up falling and hitting the back of his head on the concrete. He reports that he was only unconscious for several seconds. He then woke up on the ground. He does take Eliquis for chronic atriall fibrillation. He did call to his who called EMS. The patient reports to vertiginous symptoms. Also reports nausea with vomiting. Denies photophobia or unilateral numbness or weakness. There was no confusion reported from the patient. He denies having any chest pain, shortness of breath, abdominal pain or headache prior to the single episode. No history of seizures. The patient denies any injuries from the fall however it is notable that the patient has an abrasion to his left elbow. He denies any symptoms at this time to include headaches, neck pain or stiffness, back pain or flank pain. Denies any pain in his extremities. There are no other alleviating, precipitating or modifying factors - Related Data Home Medications Medication Instructions Recorded Confirmed Folic Acid 1 mg PO BID 10/10/14 04/26/19 Montelukast [Singulair] 10 mg PO HS 10/10/14 04/26/19 Omeprazole [PriLOSEC] 20 mg PO DAILY 10/10/14 04/26/19 Apixaban [Eliquis] 2.5 mg PO BID 02/04/15 04/26/19 Spironolactone [Aldactone] 12.5 mg PO DAILY 02/04/15 04/26/19 Levalbuterol HCl [Xopenex 1.25 mg INHALATION RT-QID PRN 02/05/15 04/26/19 Nebulized] Cholecalciferol [Vitamin D3 (25 3,000 unit PO DAILY 10/01/16 04/26/19 Mcg = 1000 Iu)] Levothyroxine Sodium [Synthroid] 175 mcg PO DAILY 10/01/16 04/26/19 Glimepiride [Amaryl] 1 mg PO BID 10/21/17 04/26/19 Budesonide [Pulmicort] 1 mg INHALATION RT-BID 08/07/18 04/26/19 Furosemide [Lasix] 40 mg PO DAILY PRN 04/22/19 04/26/19 Furosemide [Lasix] 80 mg PO DAILY 04/22/19 04/26/19 Ipratropium Nebulized [Atrovent 0.5 mg INHALATION RT-TID 04/22/19 04/26/19 Nebulized 0.2 MG/ML] Metoprolol Tartrate [Lopressor] 25 mg PO BID 04/22/19 04/26/19 Metolazone [Zaroxolyn] 0.5 tab PO DAILY PRN 04/29/19 04/29/19 Previous Rx's Medication Instructions Recorded Levofloxacin [Levaquin] 500 mg PO DAILY #5 tab 04/30/19 Allergies Allergy/AdvReac Type Severity Reaction Status Date / Time amoxicillin [From Augmentin] Allergy Unknown Verified 04/26/19 16:27 cefuroxime Allergy Rash/Hives Verified 04/26/19 16:27 cetyl alcohol [From Cetaphil] Allergy Rash/Hives Verified 04/26/19 16:27 clavulanic acid Allergy Unknown Verified 04/26/19 16:27 [From Augmentin] fexofenadine Allergy Unknown Verified 04/26/19 16:30 flecainide Allergy Rash/Hives Verified 04/26/19 16:27 fluconazole Allergy Unknown Verified 04/26/19 16:27 paraben [From Cetaphil] Allergy Rash/Hives Verified 04/26/19 16:27 propylene glycol Allergy Rash/Hives Verified 04/26/19 16:27 [From Cetaphil] skin cleanser [From Cetaphil] Allergy Rash/Hives Verified 04/26/19 16:27 soap [From Cetaphil] Allergy Rash/Hives Verified 04/26/19 16:27 sodium lauryl sulfate Allergy Rash/Hives Verified 04/26/19 16:27 [From Cetaphil] stearyl alcohol Allergy Rash/Hives Verified 04/26/19 16:27 [From Cetaphil] sulfamethoxazole Allergy Unknown Verified 04/26/19 16:27 [From Bactrim] Tetracyclines Allergy Unknown Verified 04/26/19 16:27 trimethoprim [From Bactrim] Allergy Unknown Verified 04/26/19 16:27 amiodarone AdvReac Cough Verified 04/26/19 16:27 benzocaine [From Cetacaine] AdvReac Dyspnea Verified 04/26/19 16:30 butamben [From Cetacaine] AdvReac Dyspnea Verified 04/26/19 16:30 meperidine HCl [From Demerol] AdvReac Nausea & Verified 04/26/19 16:27 Vomiting naproxen [From Naprosyn] AdvReac GI BLEED Verified 04/26/19 16:30 tetracaine [From Cetacaine] AdvReac Nausea & Verified 04/26/19 16:27 Vomiting zomepirac AdvReac GI BLEED Verified 04/26/19 16:30 duprenex AdvReac Nausea & Uncoded 04/26/19 16:30 Vomiting Review of Systems ROS Statement: Those systems with pertinent positive or pertinent negative responses have been documented in the HPI. ROS Other: All systems not noted in ROS Statement are negative. 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 History of Any Multi-Drug Resistant Organisms: None Reported Past Surgical History: Appendectomy, Cholecystectomy, Hernia Repair, Joint Replacement, Orthopedic Surgery Additional Past Surgical History / Comment(s): DANY/CVNS, bronchoscopies with lavage, laryngoscopy, right hip replaced, arthroscopies bilateral knees, R rotator cuff surgery. sx for deviated septum, nodules removed from vocal cords, karlene cataracts. Past Anesthesia/Blood Transfusion Reactions: Motion Sickness, Postoperative Nausea & Vomiting (PONV) Additional Past Anesthesia/Blood Transfusion Reaction / Comment(s): UNK FAMILY HX. NEVER HAS HAD BLOOD TRANSFUSION Past Psychological History: No Psychological Hx Reported Smoking Status: Former smoker Past Alcohol Use History: None Reported Past Drug Use History: None Reported - Past Family History Brother(s) Family Medical History: Cancer Additional Family Medical History / Comment(s): Pt had one brother with lung cancer and another brother with bone cancer. Sister(s) Family Medical History: Cancer Additional Family Medical History / Comment(s): Pt's sister had colon cancer. Mother Family Medical History: CVA/TIA Father Family Medical History: Hypertension General Exam Limitations: no limitations General appearance: alert, in no apparent distress Head exam: Present: normocephalic, normal inspection, other (abrasion posterior scalp) Eye exam: Present: normal appearance, PERRL, EOMI. Absent: scleral icterus, conjunctival injection, periorbital swelling ENT exam: Present: normal exam, mucous membranes moist Neck exam: Present: normal inspection, other (patient is wearing a c-collar). Absent: tenderness, meningismus, lymphadenopathy Respiratory exam: Present: normal lung sounds bilaterally, other (patient is on 4L of O2. He normally wears 2 L). Absent: respiratory distress, wheezes, rales, rhonchi, stridor Cardiovascular Exam: Present: normal rhythm, irregular rhythm, normal heart sounds. Absent: systolic murmur, diastolic murmur, rubs, gallop, clicks GI/Abdominal exam: Present: soft, normal bowel sounds. Absent: distended, tenderness, guarding, rebound, rigid Extremities exam: Present: normal inspection, full ROM, normal capillary refill. Absent: tenderness, pedal edema, joint swelling, calf tenderness Back exam: Present: normal inspection Neurological exam: Present: alert, oriented X3, CN II-XII intact Psychiatric exam: Present: normal affect, normal mood Skin exam: Present: warm, dry, intact, normal color, abrasion (left elbow). Absent: rash Course Vital Signs 04/22/19 04/22/19 04/22/19 20:01 20:30 21:00 Temperature 97.4 F L Pulse Rate 71 79 85 Respiratory 20 18 18 Rate Blood Pressure 122/69 122/69 116/71 O2 Sat by Pulse 91 L 98 Oximetry 04/22/19 04/23/19 22:33 00:00 Temperature Pulse Rate 76 76 Respiratory 16 18 Rate Blood Pressure 117/84 109/65 O2 Sat by Pulse 100 91 L Oximetry EKG Findings - EKG Comments: EKG Findings:: EKG demonstrates atriall fibrillation with a ventricular rate of 71. IL interval 0. QRS 184. QTC 530. There is a left bundle branch block. No sgarbossa criteria. EKG is compared to previous and appears similar. Rhythm strips from EMS are reviewed. They demonstrate a bradycaria. Medical Decision Making - Medical Decision Making Upon arrival the patient is placed in room 24. He is hooked up to continuous pulse ox and cardiac monitoring. Report is taken from EMS. They state that when they got on scene that the patient was bradycardic. When they hooked up the 3-lead he had a heart rate in the 50s. The patient's heart rate has since improved. They did establish an IV and gave him 4 mg of Zofran. The patient continues to remain nauseated and dizzy. Because of this I did provide him with 25 mg of Antivert and 10 mg of Reglan. I did recommend a CT of the patient's brain and C-spine. I also recommended a chest x-ray and laboratory studies. The patient did agree to this. Upon return of the results I did discuss them with the patient. His blood work is remarkable for a potassium of 2.8. The patient is on Zaroxolyn. He does not take potassium supplementation. Because of this level, I did replace the patient's potassium with 40 mEq of oral potas sium. I also ordered 20 mEq of IV potassium however the patient could not tolerate the pain and this had to be stopped. The patient's blood work is also remarkable for d-dimer 4.2. I did discuss this with the patient and recommended a CT PE study. He did agree to the study. Results returned and demonstrated no PE. I did recommend hospital admission because the patient's syncopal episode and the patient did agree to this. Discussed the case with Dr. Reyes who accepted admission of the patient. I will place cardiology on consult. The patient will remain on telemetry monitoring. He remained in stable condition. His nausea and dizziness had improved. He was then transported to floor in stable condition - Differential Diagnosis acute syncope, acute bradycardia, hx afib, eliquis coagulopathy, bht - Lab Data Result diagrams: 04/25/19 04:34 04/25/19 04:34 Lab Results 04/22/19 04/22/19 04/22/19 Range/Units 20:11 20:11 20:11 WBC 7.1 (3.8-10.6) k/uL RBC 3.33 L (4.30-5.90) m/uL Hgb 11.0 L (13.0-17.5) gm/dL Hct 33.2 L (39.0-53.0) % MCV 99.6 (80.0-100.0) fL MCH 33.1 (25.0-35.0) pg MCHC 33.2 (31.0-37.0) g/dL RDW 13.7 (11.5-15.5) % Plt Count 199 (150-450) k/uL Neutrophils % 76 % Lymphocytes % 13 % Monocytes % 5 % Eosinophils % 3 % Basophils % 1 % Neutrophils # 5.4 (1.3-7.7) k/uL Lymphocytes # 0.9 L (1.0-4.8) k/uL Monocytes # 0.4 (0-1.0) k/uL Eosinophils # 0.2 (0-0.7) k/uL Basophils # 0.0 (0-0.2) k/uL PT 10.9 (9.0-12.0) sec INR 1.0 (<1.2) APTT 24.8 (22.0-30.0) sec D-Dimer 4.24 H (<0.60) mg/L FEU Sodium 135 L (137-145) mmol/L Potassium 2.8 L (3.5-5.1) mmol/L Chloride 91 L (98-107) mmol/L Carbon Dioxide 33 H (22-30) mmol/L Anion Gap 11 mmol/L BUN 28 H (9-20) mg/dL Creatinine 1.08 (0.66-1.25) mg/dL Est GFR (CKD-EPI)AfAm 71 (>60 ml/min/1.73 sqM) Est GFR (CKD-EPI)NonAf 62 (>60 ml/min/1.73 sqM) Glucose 169 H (74-99) mg/dL POC Glucose (mg/dL) (75-99) mg/dL POC Glu Drywall Taper ID Calcium 8.9 (8.4-10.2) mg/dL Total Bilirubin 3.9 H (0.2-1.3) mg/dL AST 52 (17-59) U/L ALT 34 (21-72) U/L Alkaline Phosphatase 94 (38-126) U/L Troponin I (0.000-0.034) ng/mL NT-Pro-B Natriuret Pep pg/mL Total Protein 6.7 (6.3-8.2) g/dL Albumin 4.2 (3.5-5.0) g/dL TSH (0.465-4.680) mIU/L Urine Color Urine Appearance (Clear) Urine pH (5.0-8.0) Ur Specific [place] (1.001-1.035) Urine Protein (Negative) Urine Glucose (UA) (Negative) Urine Ketones (Negative) Urine Blood (Negative) Urine Nitrite (Negative) Urine Bilirubin (Negative) Urine Urobilinogen (<2.0) mg/dL Ur Leukocyte Esterase (Negative) 04/22/19 04/22/19 04/23/19 Range/Units 20:11 20:46 02:22 WBC (3.8-10.6) k/uL RBC (4.30-5.90) m/uL Hgb (13.0-17.5) gm/dL Hct (39.0-53.0) % MCV (80.0-100.0) fL MCH (25.0-35.0) pg MCHC (31.0-37.0) g/dL RDW (11.5-15.5) % Plt Count (150-450) k/uL Neutrophils % % Lymphocytes % % Monocytes % % Eosinophils % % Basophils % % Neutrophils # (1.3-7.7) k/uL Lymphocytes # (1.0-4.8) k/uL Monocytes # (0-1.0) k/uL Eosinophils # (0-0.7) k/uL Basophils # (0-0.2) k/uL PT (9.0-12.0) sec INR (<1.2) APTT (22.0-30.0) sec D-Dimer (<0.60) mg/L FEU Sodium (137-145) mmol/L Potassium (3.5-5.1) mmol/L Chloride (98-107) mmol/L Carbon Dioxide (22-30) mmol/L Anion Gap mmol/L BUN (9-20) mg/dL Creatinine (0.66-1.25) mg/dL Est GFR (CKD-EPI)AfAm (>60 ml/min/1.73 sqM) Est GFR (CKD-EPI)NonAf (>60 ml/min/1.73 sqM) Glucose (74-99) mg/dL POC Glucose (mg/dL) (75-99) mg/dL POC Glu Drywall Taper ID Calcium (8.4-10.2) mg/dL Total Bilirubin (0.2-1.3) mg/dL AST (17-59) U/L ALT (21-72) U/L Alkaline Phosphatase (38-126) U/L Troponin I 0.013 0.019 (0.000-0.034) ng/mL NT-Pro-B Natriuret Pep pg/mL Total Protein (6.3-8.2) g/dL Albumin (3.5-5.0) g/dL TSH (0.465-4.680) mIU/L Urine Color Light Yellow Urine Appearance Clear (Clear) Urine pH 6.5 (5.0-8.0) Ur Specific [place] 1.008 (1.001-1.035) Urine Protein Negative (Negative) Urine Glucose (UA) Negative (Negative) Urine Ketones Negative (Negative) Urine Blood Negative (Negative) Urine Nitrite Negative (Negative) Urine Bilirubin Negative (Negative) Urine Urobilinogen <2.0 (<2.0) mg/dL Ur Leukocyte Esterase Negative (Negative) 04/23/19 04/23/19 04/23/19 Range/Units 06:46 08:09 08:09 WBC 6.4 (3.8-10.6) k/uL RBC 3.05 L (4.30-5.90) m/uL Hgb 10.4 L (13.0-17.5) gm/dL Hct 30.3 L (39.0-53.0) % MCV 99.3 (80.0-100.0) fL MCH 34.0 (25.0-35.0) pg MCHC 34.3 (31.0-37.0) g/dL RDW 14.4 (11.5-15.5) % Plt Count 195 (150-450) k/uL Neutrophils % 80 % Lymphocytes % 11 % Monocytes % 5 % Eosinophils % 1 % Basophils % 1 % Neutrophils # 5.2 (1.3-7.7) k/uL Lymphocytes # 0.7 L (1.0-4.8) k/uL Monocytes # 0.3 (0-1.0) k/uL Eosinophils # 0.1 (0-0.7) k/uL Basophils # 0.0 (0-0.2) k/uL PT (9.0-12.0) sec INR (<1.2) APTT (22.0-30.0) sec D-Dimer (<0.60) mg/L FEU Sodium 138 (137-145) mmol/L Potassium 3.4 L (3.5-5.1) mmol/L Chloride 94 L (98-107) mmol/L Carbon Dioxide 39 H (22-30) mmol/L Anion Gap 5 mmol/L BUN 24 H (9-20) mg/dL Creatinine 0.98 (0.66-1.25) mg/dL Est GFR (CKD-EPI)AfAm 81 (>60 ml/min/1.73 sqM) Est GFR (CKD-EPI)NonAf 70 (>60 ml/min/1.73 sqM) Glucose 105 H (74-99) mg/dL POC Glucose (mg/dL) 123 H (75-99) mg/dL POC Glu Drywall Taper ID Caitlin Humphrey Calcium 8.8 (8.4-10.2) mg/dL Total Bilirubin (0.2-1.3) mg/dL AST (17-59) U/L ALT (21-72) U/L Alkaline Phosphatase (38-126) U/L Troponin I (0.000-0.034) ng/mL NT-Pro-B Natriuret Pep pg/mL Total Protein (6.3-8.2) g/dL Albumin (3.5-5.0) g/dL TSH (0.465-4.680) mIU/L Urine Color Urine Appearance (Clear) Urine pH (5.0-8.0) Ur Specific [place] (1.001-1.035) Urine Protein (Negative) Urine Glucose (UA) (Negative) Urine Ketones (Negative) Urine Blood (Negative) Urine Nitrite (Negative) Urine Bilirubin (Negative) Urine Urobilinogen (<2.0) mg/dL Ur Leukocyte Esterase (Negative) 04/23/19 04/23/19 04/23/19 Range/Units 08:09 08:09 08:09 WBC (3.8-10.6) k/uL RBC (4.30-5.90) m/uL Hgb (13.0-17.5) gm/dL Hct (39.0-53.0) % MCV (80.0-100.0) fL MCH (25.0-35.0) pg MCHC (31.0-37.0) g/dL RDW (11.5-15.5) % Plt Count (150-450) k/uL Neutrophils % % Lymphocytes % % Monocytes % % Eosinophils % % Basophils % % Neutrophils # (1.3-7.7) k/uL Lymphocytes # (1.0-4.8) k/uL Monocytes # (0-1.0) k/uL Eosinophils # (0-0.7) k/uL Basophils # (0-0.2) k/uL PT (9.0-12.0) sec INR (<1.2) APTT (22.0-30.0) sec D-Dimer (<0.60) mg/L FEU Sodium (137-145) mmol/L Potassium (3.5-5.1) mmol/L Chloride (98-107) mmol/L Carbon Dioxide (22-30) mmol/L Anion Gap mmol/L BUN (9-20) mg/dL Creatinine (0.66-1.25) mg/dL Est GFR (CKD-EPI)AfAm (>60 ml/min/1.73 sqM) Est GFR (CKD-EPI)NonAf (>60 ml/min/1.73 sqM) Glucose (74-99) mg/dL POC Glucose (mg/dL) (75-99) mg/dL POC Glu Drywall Taper ID Calcium (8.4-10.2) mg/dL Total Bilirubin (0.2-1.3) mg/dL AST (17-59) U/L ALT (21-72) U/L Alkaline Phosphatase (38-126) U/L Troponin I 0.020 (0.000-0.034) ng/mL NT-Pro-B Natriuret Pep 1930 pg/mL Total Protein (6.3-8.2) g/dL Albumin (3.5-5.0) g/dL TSH 0.893 (0.465-4.680) mIU/L Urine Color Urine Appearance (Clear) Urine pH (5.0-8.0) Ur Specific [place] (1.001-1.035) Urine Protein (Negative) Urine Glucose (UA) (Negative) Urine Ketones (Negative) Urine Blood (Negative) Urine Nitrite (Negative) Urine Bilirubin (Negative) Urine Urobilinogen (<2.0) mg/dL Ur Leukocyte Esterase (Negative) 04/23/19 Range/Units 11:41 WBC (3.8-10.6) k/uL RBC (4.30-5.90) m/uL Hgb (13.0-17.5) gm/dL Hct (39.0-53.0) % MCV (80.0-100.0) fL MCH (25.0-35.0) pg MCHC (31.0-37.0) g/dL RDW (11.5-15.5) % Plt Count (150-450) k/uL Neutrophils % % Lymphocytes % % Monocytes % % Eosinophils % % Basophils % % Neutrophils # (1.3-7.7) k/uL Lymphocytes # (1.0-4.8) k/uL Monocytes # (0-1.0) k/uL Eosinophils # (0-0.7) k/uL Basophils # (0-0.2) k/uL PT (9.0-12.0) sec INR (<1.2) APTT (22.0-30.0) sec D-Dimer (<0.60) mg/L FEU Sodium (137-145) mmol/L Potassium (3.5-5.1) mmol/L Chloride (98-107) mmol/L Carbon Dioxide (22-30) mmol/L Anion Gap mmol/L BUN (9-20) mg/dL Creatinine (0.66-1.25) mg/dL Est GFR (CKD-EPI)AfAm (>60 ml/min/1.73 sqM) Est GFR (CKD-EPI)NonAf (>60 ml/min/1.73 sqM) Glucose (74-99) mg/dL POC Glucose (mg/dL) 190 H (75-99) mg/dL POC Glu Drywall Taper ID Rachel Cao Calcium (8.4-10.2) mg/dL Total Bilirubin (0.2-1.3) mg/dL AST (17-59) U/L ALT (21-72) U/L Alkaline Phosphatase (38-126) U/L Troponin I (0.000-0.034) ng/mL NT-Pro-B Natriuret Pep pg/mL Total Protein (6.3-8.2) g/dL Albumin (3.5-5.0) g/dL TSH (0.465-4.680) mIU/L Urine Color Urine Appearance (Clear) Urine pH (5.0-8.0) Ur Specific [place] (1.001-1.035) Urine Protein (Negative) Urine Glucose (UA) (Negative) Urine Ketones (Negative) Urine Blood (Negative) Urine Nitrite (Negative) Urine Bilirubin (Negative) Urine Urobilinogen (<2.0) mg/dL Ur Leukocyte Esterase (Negative) Disposition Clinical Impression: Syncope and collapse, Blunt head trauma, Hematoma of scalp, Bradycardia, Elbow pain, left, On apixaban therapy Disposition: ADMITTED IP TO THIS [facility] Condition: Stable Is patient prescribed a controlled substance at d/c from ED?: No Decision to Admit Reason: Admit from EC Decision Date: 04/22/19 Decision Time: 23:19
[2019-04-22] MEDS ORDERED: NALOXONE 0.4 MG/ML 1 ML VIAL IV PRN (23:19)
[2019-04-23] MEDS: LEVOTHYROXINE 75 MCG TAB PO SCH (06:18)
[2019-04-23] MEDS: LEVOTHYROXINE 100 MCG TAB PO SCH (06:18)
[2019-04-23 06:53] LABS: Glucose,Whole Blood 123 mg/dL (75-99)
[2019-04-23] MEDS ORDERED: BUDESONIDE 1 MG/2 ML NEBU INHALATION SCH (08:00)
[2019-04-23] MEDS ORDERED: APIXABAN 2.5 MG TABLET PO SCH (09:00)
[2019-04-23] MEDS ORDERED: METOPROLOL TARTRATE 25 MG TAB PO SCH (09:00)
[2019-04-23 09:16] LABS: Basophils % (A) 1 %; Eosinophils # (A) 0.1 k/uL (0-0.7); Eosinophils % (A) 1 %; HCT 30.3 % (39.0-53.0); HGB 10.4 gm/dL (13.0-17.5); Lymphocytes # (A) 0.7 k/uL (1.0-4.8); Lymphocytes % (A) 11 %; MCHC 34.3 g/dL (31.0-37.0); MCV 99.3 fL (80.0-100.0); Mean Platelet Volume 8.2; Monocytes # (A) 0.3 k/uL (0-1.0); Monocytes % (A) 5 %; Neutrophils # (A) 5.2 k/uL (1.3-7.7); Neutrophils % (A) 80 %; Platelet Count 195 k/uL (150-450); RBC 3.05 m/uL (4.30-5.90); RDW 14.4 % (11.5-15.5); WBC 6.4 k/uL (3.8-10.6)
[2019-04-23 09:33] LABS: Calcium 8.8 mg/dL (8.4-10.2); Potassium 3.4 mmol/L (3.5-5.1)
[2019-04-23] MEDS: INSULIN ASPART (NovoLOG) 100 UNIT/ML VIAL SQ SCH ×3 (09:41→12:28)
[2019-04-23] MEDS ORDERED: POTASSIUM CHLORIDE ER 20 MEQ TAB.ER PO STA (09:48)
[2019-04-23] MEDS: SPIRONOLACTONE 25 MG TAB PO SCH (09:49)
[2019-04-23] MEDS: PANTOPRAZOLE 40 MG TABLET PO SCH (09:49)
[2019-04-23] MEDS ORDERED: SODIUM CHLORIDE 0.9% 500 ML 500 ML IV ONE (10:28)
[2019-04-23] MEDS ORDERED: SODIUM CHLORIDE 0.9% 1,000 ML IV SCH ×3 (10:30→12:15)
[2019-04-23 11:42] LABS: Glucose,Whole Blood 190 mg/dL (75-99)
--- NOTE | 2019-04-23 11:48 | ECHOF ---
Referral Reason:syncope, sob MEASUREMENTS -------- HEIGHT: 162.6 cm WEIGHT: 69.9 kg BP: RVIDd: 3.1 cm (< 3.3) IVSd: 1.4 cm (0.6 - 1.1) LVIDd: 4.9 cm (3.9 - 5.3) LVPWd: 1.3 cm (0.6 - 1.1) IVSs: 1.6 cm LVIDs: 3.8 cm LVPWs: 1.8 cm LA Diam: 5.1 cm (2.7 - 3.8) LAESV Index (A-L): 64.39 ml/m Ao Diam: 3.6 cm (2.0 - 3.7) AV Cusp: 1.9 cm (1.5 - 2.6) LA Diam: 4.2 cm (2.7 - 3.8) MV EXCURSION: 22.213 mm (> 18.000) MV EF SLOPE: 67 mm/s (70 - 150) EPSS: 0.8 cm MV E Oliver: 0.76 m/s MV DecT: 155 ms MV A Oliver: 0.40 m/s MV E/A Ratio: 1.89 AR PHT: 491 ms RAP: 5.00 mmHg RVSP: 38.57 mmHg FINDINGS -------- Atrial fibrillation. This was a technically adequate study. The left ventricular size is normal. There is mild concentric left ventricular hypertrophy. Overa ll left ventricular systolic function is low-normal with, an EF between 50 - 55 %. Left ventricular fillimg pressure cannot be estimated due to Atrial fibrillation. The right ventricle is normal in size. The left atrium is markedly dilated. LA is severely dilated >40 ml/m2 The right atrial size is normal. There is mild aortic valve sclerosis. There is mild aortic regurgitation. Mild mitral annular calcification present. [id number] mitral regurgitation is present. Mild tricuspid regurgitation present. There is mild pulmonary hypertension. The right ventricular systolic pressure, as measured by Doppler, is 38.57mmHg. Trace/mild (physiologic) pulmonic regurgitation. The aortic root size is normal. There is no pericardial effusion. CONCLUSIONS -------- 1. Atrial fibrillation. 2. This was a technically adequate study. 3. The left ventricular size is normal. 4. There is mild concentric left ventricular hypertrophy. 5. Overall left ventricular systolic function is low-normal with, an EF between 50 - 55 %. 6. Left ventricular fillimg pressure cannot be estimated due to Atrial fibrillation. 7. The right ventricle is normal in size. 8. The left atrium is markedly dilated. 9. LA is severely dilated >40 ml/m2 10. The right atrial size is normal. 11. There is mild aortic valve sclerosis. 12. There is mild aortic regurgitation. 13. Mild mitral annular calcification present. 14. Ursv-hi-aqjoztam mitral regurgitation is present. 15. Mild tricuspid regurgitation present. 16. There is mild pulmonary hypertension. 17. The right ventricular systolic pressure, as measured by Doppler, is 38.57mmHg. 18. Trace/mild (physiologic) pulmonic regurgitation. 19. The aortic root size is normal. 20. There is no pericardial effusion. RN INTERNAL MEDICINE: Madhuri Hawthorne RDCS
--- NOTE | 2019-04-23 12:17 | P.CRDCN ---
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 He follows in the office with Dr. Pollack. We have been asked to see him in consultation secondary to syncopal episode. He states yesterday he was outside working on a motorized wheelchair scooter. He had been feeling good and in his normal state of health all day. He bent down and upon standing he felt acutely short of breath. Next thing he remembers he woke up on the ground. He felt light headed, short of breath and was overall quite weak and unable to even move himself. He had his cell phone on him and called his who was in the house. She came out and attempted to help him up but was unsuccessful. She called 911 and a neighbor who is a mechanical engineering technologist came over after a few minutes and was able to help him up to a chair. Upon getting in the chair he started feeling nauseated and started throwing up. When EMS arrived they checked his blood pressure and heart rate. He states they told him his blood pressure was good but his heart rate was in the low 40's. Upon arrival to ED blood pressure was 122/69 heart rate in the 70's. He was started on an additional diuretic, zaroxolyn about 2 weeks ago secondary to increased weight and shortness of breath. His baseline weight is around 195-197 and he was running almost 210. Since starting that he has been checking his weight daily and was down to 193 on Tuesday. At the time of my exam: CONSTITUTIONAL: Denies fever. Denies chills. EYES: Denies blurred vision. Denies vision changes. Denies eye pain. EARS, NOSE, MOUTH & THROAT: Denies headache. Denies sore throat. Denies ear pain. CARDIOVASCULAR: Denies chest pain. Denies shortness of breath. Denies orthopnea. Denies PND. Denies palpitations. Complains of positional dizziness. RESPIRATORY: Denies cough. GASTROINTESTINAL: Denies abdominal pain. Denies diarrhea. Denies constipation. Denies nausea. Denies vomiting. MUSCULOSKELETAL: Denies myalgias. INTEGUMENTARY: Denies pruitis. Denies rash. NEUROLOGIC: Denies numbness. Denies tingling. Denies weakness. PSYCHIATRIC: Denies anxiety. Denies depression. ENDOCRINE: Denies fatigue. Denies weight change. Denies polydipsia. Denies polyurina. GENITOURINARY: Denies burning, hematuria or urgency with micturation. HEMATOLOGIC: Denies history of anemia. Denies bleeding. GENERAL: This is a 88-year-old male in no apparent distress at the time of my examination. HEENT: Head is atraumatic, normocephalic. Pupils are equal, round. Sclerae anicteric. Conjunctivae are clear. Mucous membranes of the mouth are moist. Neck is supple. There is no jugular venous distention. No carotid bruit is heard. LUNGS: Faint bibasilar rales. No wheezes or rhonchi. No chest wall tenderness is noted on palpation or with deep breathing. HEART: Irregular rate and rhythm with systolic ejection murmur at the left sternal border, no rubs or gallops. S1 and S2 heard. ABDOMEN: Soft, nontender. Bowel sounds are heard. No organomegaly noted. EXTREMITIES: No evidence of peripheral edema and no calf tenderness noted. Ecchymosis noted on left elbow with small dime sized skin tear. VASCULAR: Radial and dorsalis pedis pulses palpated, no evidence of clubbing. NEUROLOGIC: Patient is awake, alert and oriented x3. ASSESSMENT Symptomatic bradycardia Sick sinus syndrome Syncope, positive LOC Hypokalemia Persistent atrial fibrillation on snf anti-coagulation Chronic diastolic heart failure Hypertension Dyslipidemia Diabetes mellitus PLAN Orthostatic vital signs attempted and when he went from supine to sitting he felt again like he was going to pass out. Telemetry tracings reveal he had a 6.8 second pause and subsequent bradycardia heart rate of around 30. Recommend proceeding with permanent pacemaker implantation with Dr. Wayne Wenesday morning. I have discussed the risks, benefits and alternative therapies for the above-mentioned procedure and for both sedation/analgesia as well as necessary blood product administration, if indicated, as they pertain to this patient. The patient has indicated understanding and acceptance of the risks and procedures discussed. Questions have been answered appropriately. The patient, his and daughter agree to proceed with above stated procedure. Hold eliquis and lopressor. Transfer to [facility] unit for closer telemetry monitoring. Cautiously hydrate at 75 cc/hr. Check TSH. Obtain 2D echocardiogram and doppler study to assess cardiac structure and function. Further recommendations to follow. Thank you kindly for this consultation. Nurse Practitioner note has been reviewed, I agree with a documented findings and plan of care. Patient was seen and examined. 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 History of Any Multi-Drug Resistant Organisms: None Reported Past Surgical History: Appendectomy, Cholecystectomy, Hernia Repair, Joint Replacement, Orthopedic Surgery Additional Past Surgical History / Comment(s): DANY/CVNS, bronchoscopies with lavage, laryngoscopy, right hip replaced, arthroscopies bilateral knees, R rotator cuff surgery. sx for deviated septum, nodules removed from vocal cords, karlene cataracts. Past Anesthesia/Blood Transfusion Reactions: Motion Sickness, Postoperative Nausea & Vomiting (PONV) Additional Past Anesthesia/Blood Transfusion Reaction / Comment(s): UNK FAMILY HX. NEVER HAS HAD BLOOD TRANSFUSION Past Psychological History: No Psychological Hx Reported Smoking Status: Former smoker Past Alcohol Use History: None Reported Past Drug Use History: None Reported - Past Family History Brother(s) Family Medical History: Cancer Additional Family Medical History / Comment(s): Pt had one brother with lung cancer and another brother with bone cancer. Sister(s) Family Medical History: Cancer Additional Family Medical History / Comment(s): Pt's sister had colon cancer. Mother Family Medical History: CVA/TIA Father Family Medical History: Hypertension Medications and Allergies Home Medications Medication Instructions Recorded Confirmed Type Folic Acid 1 mg PO BID@0900,2100 10/10/14 04/22/19 History Montelukast [Singulair] 10 mg PO HS 10/10/14 04/22/19 History Omeprazole [PriLOSEC] 20 mg PO DAILY@0900 10/10/14 04/22/19 History Apixaban [Eliquis] 2.5 mg PO BID@0900,2100 02/04/15 04/22/19 History Spironolactone [Aldactone] 12.5 mg PO DAILY 02/04/15 04/22/19 History Levalbuterol HCl [Xopenex 1.25 mg INHALATION RT-QID PRN 02/05/15 04/22/19 History Nebulized] Cholecalciferol [Vitamin D3 (25 3,000 unit PO DAILY 10/01/16 04/22/19 History Mcg = 1000 Iu)] Levothyroxine Sodium [Synthroid] 175 mcg PO DAILY 10/01/16 04/22/19 History Glimepiride [Amaryl] 1 mg PO BID@0900,1730 10/21/17 04/22/19 History Budesonide [Pulmicort] 1 mg INHALATION RT-BID 08/07/18 04/22/19 History Furosemide [Lasix] 40 mg PO DAILY@1500 PRN 04/22/19 04/22/19 History Furosemide [Lasix] 80 mg PO DAILY@0900 04/22/19 04/22/19 History Ipratropium Nebulized [Atrovent 0.5 mg INHALATION RT-TID 04/22/19 04/22/19 History Nebulized 0.2 MG/ML] Metolazone [Zaroxolyn] 2.5 mg PO MOWEFR 04/22/19 04/22/19 History Metoprolol Tartrate [Lopressor] 25 mg PO BID@0900,1730 04/22/19 04/22/19 History Allergies Allergy/AdvReac Type Severity Reaction Status Date / Time amoxicillin [From Augmentin] Allergy Unknown Verified 04/22/19 20:47 benzocaine [From Cetacaine] Allergy Dyspnea Verified 04/22/19 20:47 butamben [From Cetacaine] Allergy Dyspnea Verified 04/22/19 20:47 cefuroxime Allergy Rash/Hives Verified 04/22/19 20:47 cetyl alcohol [From Cetaphil] Allergy Rash/Hives Verified 04/22/19 20:47 clavulanic acid Allergy Unknown Verified 04/22/19 20:47 [From Augmentin] flecainide Allergy Rash/Hives Verified 04/22/19 20:47 fluconazole Allergy Unknown Verified 04/22/19 20:47 naproxen [From Naprosyn] Allergy GI BLEED Verified 04/22/19 20:47 paraben [From Cetaphil] Allergy Rash/Hives Verified 04/22/19 20:47 propylene glycol Allergy Rash/Hives Verified 04/22/19 20:47 [From Cetaphil] skin cleanser [From Cetaphil] Allergy Rash/Hives Verified 04/22/19 20:47 soap [From Cetaphil] Allergy Rash/Hives Verified 04/22/19 20:47 sodium lauryl sulfate Allergy Rash/Hives Verified 04/22/19 20:47 [From Cetaphil] stearyl alcohol Allergy Rash/Hives Verified 04/22/19 20:47 [From Cetaphil] sulfamethoxazole Allergy Unknown Verified 04/22/19 20:47 [From Bactrim] Tetracyclines Allergy Unknown Verified 04/22/19 20:47 trimethoprim [From Bactrim] Allergy Unknown Verified 04/22/19 20:47 zomepirac Allergy GI BLEED Verified 04/22/19 20:47 amiodarone AdvReac Cough Verified 04/22/19 20:47 meperidine HCl [From Demerol] AdvReac Nausea & Verified 04/22/19 20:47 Vomiting tetracaine [From Cetacaine] AdvReac Nausea & Verified 04/22/19 20:47 Vomiting duprenex Allergy Nausea & Uncoded 04/22/19 19:58 Vomiting Physical Exam Vitals: Vital Signs Temp Pulse Pulse Pulse Pulse Resp BP 04/23/19 10:29 98.1 F 38 L 90 18 04/23/19 07:48 68 04/23/19 07:41 64 04/23/19 07:35 98.5 F 74 18 04/23/19 04:00 98.3 F 65 16 04/23/19 00:30 97.6 F 78 18 04/23/19 00:00 76 18 109/65 04/22/19 22:33 76 16 117/84 04/22/19 21:00 85 18 116/71 04/22/19 20:30 79 18 122/69 04/22/19 20:01 97.4 F L 71 20 122/69 BP BP BP BP Pulse Ox 04/23/19 10:29 102/55 108/65 99 04/23/19 07:48 04/23/19 07:41 04/23/19 07:35 102/60 96 04/23/19 04:00 101/61 100 04/23/19 00:30 116/64 100 04/23/19 00:00 91 L 04/22/19 22:33 100 04/22/19 21:00 98 04/22/19 20:30 04/22/19 20:01 91 L Intake and Output 04/22/19 04/23/19 04/23/19 22:59 06:59 14:59 Other: Voiding Method Urinal # Voids 1 Weight 888.587 kg Results 04/23/19 08:09 04/23/19 08:09 Cardiac Enzymes 04/22/19 04/22/19 04/23/19 Range/Units 20:11 20:11 02:22 AST 52 (17-59) U/L Troponin I 0.013 0.019 (0.000-0.034) ng/mL 04/23/19 Range/Units 08:09 AST (17-59) U/L Troponin I 0.020 (0.000-0.034) ng/mL Coagulation 04/22/19 Range/Units 20:11 PT 10.9 (9.0-12.0) sec APTT 24.8 (22.0-30.0) sec CBC 04/22/19 04/23/19 Range/Units 20:11 08:09 WBC 7.1 6.4 (3.8-10.6) k/uL RBC 3.33 L 3.05 L (4.30-5.90) m/uL Hgb 11.0 L 10.4 L (13.0-17.5) gm/dL Hct 33.2 L 30.3 L (39.0-53.0) % Plt Count 199 195 (150-450) k/uL Comprehensive Metabolic Panel 04/22/19 04/23/19 Range/Units 20:11 08:09 Sodium 135 L 138 (137-145) mmol/L Potassium 2.8 L 3.4 L (3.5-5.1) mmol/L Chloride 91 L 94 L (98-107) mmol/L Carbon Dioxide 33 H 39 H (22-30) mmol/L BUN 28 H 24 H (9-20) mg/dL Creatinine 1.08 0.98 (0.66-1.25) mg/dL Glucose 169 H 105 H (74-99) mg/dL Calcium 8.9 8.8 (8.4-10.2) mg/dL AST 52 (17-59) U/L ALT 34 (21-72) U/L Alkaline Phosphatase 94 (38-126) U/L Total Protein 6.7 (6.3-8.2) g/dL Albumin 4.2 (3.5-5.0) g/dL Current Medications Generic Name Dose Route Start Last Admin Trade Name Freq PRN Reason Stop Dose Admin Apixaban 2.5 mg 04/23/19 09:00 04/23/19 09:49 Eliquis PO 2.5 mg BID@0900,2100 ORIANA Administration Budesonide 1 mg 04/23/19 08:00 04/23/19 07:39 Pulmicort INHALATION 1 mg RT-BID ORIAAN Administration Sodium Chloride 1,000 mls @ 75 mls/hr 04/23/19 10:30 Saline 0.9% IV .[id number] ORIANA Sodium Chloride 500 mls @ 999 mls/hr 04/23/19 10:28 Saline 0.9% IV 04/23/19 10:58 .Q31M ONE Insulin Aspart 0 unit 04/23/19 07:30 04/23/19 09:41 Novolog SQ Not Given AC-TID [facility] Protocol Levothyroxine Sodium 100 mcg 04/23/19 06:30 04/23/19 06:18 Synthroid PO 100 mcg DAILY@0630 ORIANA Administration Levothyroxine Sodium 75 mcg 04/23/19 06:30 04/23/19 06:18 Synthroid PO 75 mcg DAILY@0630 [facility] Administration Metoprolol Tartrate 12.5 mg 04/23/19 17:30 Lopressor PO BID@0900,1730 [facility] Montelukast Sodium 10 mg 04/23/19 21:00 Singulair PO HS [facility] Naloxone HCl 0.2 mg 04/22/19 23:19 Narcan IV Q2M PRN Opioid Reversal Pantoprazole Sodium 40 mg 04/23/19 09:00 04/23/19 09:49 Protonix PO 40 mg DAILY@0900 ORIANA Administration Spironolactone 12.5 mg 04/23/19 09:00 04/23/19 09:49 Aldactone PO 12.5 mg DAILY ORIANA Administration Intake and Output 04/22/19 04/23/19 04/23/19 22:59 06:59 14:59 Other: Voiding Method Urinal # Voids 1 Weight 888.587 kg 04/23/19 08:09 04/23/19 08:09
--- NOTE | 2019-04-23 13:28 | P.CNNES ---
History of Present Illness Consult date: 04/23/19 Requesting physician: Renzo Newell Reason for Consult: Dizziness/syncope Chief complaint: Dizzy and passed out History of Present Illness: This is an 88 RH male h/o afib on DOAC and diastolic heart failure, HTN, DM, asthma/COPD and hypothyroidism who had an episode of dizziness and syncope followed by N/V. The event was witnessed. There was no antecedent visual, auditory, olfactory, gustatory or visceral aura or helen vu. No repetitive behavior suspicious for automatism. No witnessed head/eye deviation, tonic- clonic or myoclonic activity. No tongue biting, bowel/bladder incontinence or post-ictal confusion. Patient was recently started on torsemide due to increased weight and shortness of breath. He was seen by cardiology. When attempting to record orthostatics, he actually had a cardiac pause of 6.8 seconds with subsequent bradycardia at 30. Clinically, patient felt like he was going to pass out again, identical to the symptoms he experienced prior to admission. He is now scheduled for a permanent pacemaker. Neurologically, patient denies headache, seizure, drop attacks, diplopia, amaurosis, facial numbness/droop, vertigo, dysarthria, dysphagia, aphasia, focal numbness/weakness, bowel/bladder incontinence or ataxia. Review of Systems I have performed a 14-point organ ROS with patient; pertinents are as per HPI. 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 History of Any Multi-Drug Resistant Organisms: None Reported Past Surgical History: Appendectomy, Cholecystectomy, Hernia Repair, Joint Replacement, Orthopedic Surgery Additional Past Surgical History / Comment(s): DANY/CVNS, bronchoscopies with lavage, laryngoscopy, right hip replaced, arthroscopies bilateral knees, R rotator cuff surgery. sx for deviated septum, nodules removed from vocal cords, karlene cataracts. Past Anesthesia/Blood Transfusion Reactions: Motion Sickness, Postoperative Nausea & Vomiting (PONV) Additional Past Anesthesia/Blood Transfusion Reaction / Comment(s): UNK FAMILY HX. NEVER HAS HAD BLOOD TRANSFUSION Past Psychological History: No Psychological Hx Reported Smoking Status: Former smoker Past Alcohol Use History: None Reported Past Drug Use History: None Reported - Past Family History Brother(s) Family Medical History: Cancer Additional Family Medical History / Comment(s): Pt had one brother with lung cancer and another brother with bone cancer. Sister(s) Family Medical History: Cancer Additional Family Medical History / Comment(s): Pt's sister had colon cancer. Mother Family Medical History: CVA/TIA Father Family Medical History: Hypertension Medications and Allergies Home Medications Medication Instructions Recorded Confirmed Type Folic Acid 1 mg PO BID@0900,2100 10/10/14 04/22/19 History Montelukast [Singulair] 10 mg PO HS 10/10/14 04/22/19 History Omeprazole [PriLOSEC] 20 mg PO DAILY@0900 10/10/14 04/22/19 History Apixaban [Eliquis] 2.5 mg PO BID@0900,2100 02/04/15 04/22/19 History Spironolactone [Aldactone] 12.5 mg PO DAILY 02/04/15 04/22/19 History Levalbuterol HCl [Xopenex 1.25 mg INHALATION RT-QID PRN 02/05/15 04/22/19 History Nebulized] Cholecalciferol [Vitamin D3 (25 3,000 unit PO DAILY 10/01/16 04/22/19 History Mcg = 1000 Iu)] Levothyroxine Sodium [Synthroid] 175 mcg PO DAILY 10/01/16 04/22/19 History Glimepiride [Amaryl] 1 mg PO BID@0900,1730 10/21/17 04/22/19 History Budesonide [Pulmicort] 1 mg INHALATION RT-BID 08/07/18 04/22/19 History Furosemide [Lasix] 40 mg PO DAILY@1500 PRN 04/22/19 04/22/19 History Furosemide [Lasix] 80 mg PO DAILY@0900 04/22/19 04/22/19 History Ipratropium Nebulized [Atrovent 0.5 mg INHALATION RT-TID 04/22/19 04/22/19 History Nebulized 0.2 MG/ML] Metolazone [Zaroxolyn] 2.5 mg PO MOWEFR 04/22/19 04/22/19 History Metoprolol Tartrate [Lopressor] 25 mg PO BID@0900,1730 04/22/19 04/22/19 History Allergies Allergy/AdvReac Type Severity Reaction Status Date / Time amoxicillin [From Augmentin] Allergy Unknown Verified 04/22/19 20:47 benzocaine [From Cetacaine] Allergy Dyspnea Verified 04/22/19 20:47 butamben [From Cetacaine] Allergy Dyspnea Verified 04/22/19 20:47 cefuroxime Allergy Rash/Hives Verified 04/22/19 20:47 cetyl alcohol [From Cetaphil] Allergy Rash/Hives Verified 04/22/19 20:47 clavulanic acid Allergy Unknown Verified 04/22/19 20:47 [From Augmentin] flecainide Allergy Rash/Hives Verified 04/22/19 20:47 fluconazole Allergy Unknown Verified 04/22/19 20:47 naproxen [From Naprosyn] Allergy GI BLEED Verified 04/22/19 20:47 paraben [From Cetaphil] Allergy Rash/Hives Verified 04/22/19 20:47 propylene glycol Allergy Rash/Hives Verified 04/22/19 20:47 [From Cetaphil] skin cleanser [From Cetaphil] Allergy Rash/Hives Verified 04/22/19 20:47 soap [From Cetaphil] Allergy Rash/Hives Verified 04/22/19 20:47 sodium lauryl sulfate Allergy Rash/Hives Verified 04/22/19 20:47 [From Cetaphil] stearyl alcohol Allergy Rash/Hives Verified 04/22/19 20:47 [From Cetaphil] sulfamethoxazole Allergy Unknown Verified 04/22/19 20:47 [From Bactrim] Tetracyclines Allergy Unknown Verified 04/22/19 20:47 trimethoprim [From Bactrim] Allergy Unknown Verified 04/22/19 20:47 zomepirac Allergy GI BLEED Verified 04/22/19 20:47 amiodarone AdvReac Cough Verified 04/22/19 20:47 meperidine HCl [From Demerol] AdvReac Nausea & Verified 04/22/19 20:47 Vomiting tetracaine [From Cetacaine] AdvReac Nausea & Verified 04/22/19 20:47 Vomiting duprenex Allergy Nausea & Uncoded 04/22/19 19:58 Vomiting Physical Examination - Vital Signs Vital Signs: Vital Signs Temp Pulse Pulse Pulse Pulse Resp BP 04/23/19 10:29 98.1 F 38 L 90 18 04/23/19 07:48 68 04/23/19 07:41 64 04/23/19 07:35 98.5 F 74 18 04/23/19 04:00 98.3 F 65 16 04/23/19 00:30 97.6 F 78 18 04/23/19 00:00 76 18 109/65 04/22/19 22:33 76 16 117/84 04/22/19 21:00 85 18 116/71 04/22/19 20:30 79 18 122/69 04/22/19 20:01 97.4 F L 71 20 122/69 BP BP BP BP Pulse Ox 04/23/19 10:29 102/55 108/65 99 04/23/19 07:48 04/23/19 07:41 04/23/19 07:35 102/60 96 04/23/19 04:00 101/61 100 04/23/19 00:30 116/64 100 04/23/19 00:00 91 L 04/22/19 22:33 100 04/22/19 21:00 98 04/22/19 20:30 04/22/19 20:01 91 L Intake and Output 04/22/19 04/23/19 04/23/19 22:59 06:59 14:59 Other: Voiding Method Urinal # Voids 1 Weight 888.587 kg Gen NAD Pleasant and cooperative HEENT NCAT Sclera without icterus O/P clear Neck Supple No carotid bruit Cor RRR no m/r/g Lungs CTAB Abd Soft NTND +BS Ext Warm to touch No edema Neuro MS A+Ox4 Normal fluency Able to follow all commands CN PERRL VFF no APD EOMI no nystagmus or SHREE No facial asymmetry Masseter's symmetric Hearing intact to normal voice bilaterally Speech not dysarthric Equal elevation of palate Tongue midline Sym shrug and SCM bilaterally Motor Normal bulk/tone No pronator or leg drift He has a mild end-intention tremor in the left hand Strength 5/5 sym throughout Sens Intact to LT x4 No neglect Coord No dysmetria on FTN bilaterally DTRs 2+/4 sym throughout Toes downgoing bilaterally No clonus at achilles Gait Deferred NIHSS 0 Results - Laboratory Findings CBC and BMP: 04/23/19 08:09 04/23/19 08:09 Abnormal Lab Findings: Abnormal Labs 04/22/19 04/22/19 04/22/19 20:11 20:11 20:11 RBC 3.33 L Hgb 11.0 L Hct 33.2 L Lymphocytes # 0.9 L D-Dimer 4.24 H Sodium 135 L Potassium 2.8 L Chloride 91 L Carbon Dioxide 33 H BUN 28 H Glucose 169 H POC Glucose (mg/dL) Total Bilirubin 3.9 H 04/23/19 04/23/19 04/23/19 06:46 08:09 08:09 RBC 3.05 L Hgb 10.4 L Hct 30.3 L Lymphocytes # 0.7 L D-Dimer Sodium Potassium 3.4 L Chloride 94 L Carbon Dioxide 39 H BUN 24 H Glucose 105 H POC Glucose (mg/dL) 123 H Total Bilirubin 04/23/19 11:41 RBC Hgb Hct Lymphocytes # D-Dimer Sodium Potassium Chloride Carbon Dioxide BUN Glucose POC Glucose (mg/dL) 190 H Total Bilirubin - Diagnostic Findings Additional findings: TTE 04/23/19. Afib. LV size normal. Mild concentric LVH. EF 50-55%. LA severely dilated. [id number] MR. CT Head wo cont 04/22/19. Global atrophy. No ICH. Nil acute. CT C-spine wo cont 04/22/19. Mild spondylitic changes. No acute fracture. I have reviewed neuroimages myself. Assessment and Plan Assessment: Dizziness/syncope due to cardiac pause/bradycardia. Non-focal exam. Do not suspect primary neurological event such as posterior circulation TIA or complex partial seizure. Plan: -Patient to undergo pacemaker implantation on 04/25/19 -Further management per cardiology -d/w patient and in detail. All questions answered -No further inpatient neurological testing recommended. Will revisit patient prn. Please call with new ?. Time with Patient: Greater than 30 (Time spent in direct patient care, greater than 50% of which was spent in [id number] counseling and coordination of care: 70 minutes)
[2019-04-23] MEDS ORDERED: ALBUTEROL NEBULIZED 2.5 MG/3 ML INHALATION PRN (15:37)
[2019-04-23] MEDS ORDERED: Potassium Replacement Protocol 1 EACH MISC MISCELLANE PRN (15:39)
[2019-04-23] MEDS ORDERED: Magnesium Replacement Protocol 1 EACH MISC MISCELLANE PRN (15:39)
[2019-04-23 16:57] LABS: Glucose,Whole Blood 84 mg/dL (75-99)
[2019-04-23] MEDS: GLIMEPIRIDE 1 MG TAB PO SCH (17:13)
--- NOTE | 2019-04-23 17:16 | US ---
EXAMINATION TYPE: US carotid duplex BILAT DATE OF EXAM: 04/23/2019 COMPARISON: US, CT CLINICAL HISTORY: stroke. syncopal episode per patient; AFIB; prior TIA EXAM MEASUREMENTS: RIGHT: Peak Systolic Velocity (PSV) cm/sec ----- Right CCA: 54.6 ----- Right ICA: 96.4 ----- Right ECA: 61.9 ICA/CCA ratio: 1.8 RIGHT: End Diastole cm/sec ----- Right CCA: 15.5 ----- Right ICA: 18.1 ----- Right ECA: 0.0 LEFT: Peak Systolic Velocity (PSV) cm/sec ----- Left CCA: 55.4 ----- Left ICA: 83.2 ----- Left ECA: 84.5 ICA/CCA ratio: 1.5 LEFT: End Diastole cm/sec ----- Left CCA: 10.4 ----- Left ICA: 17.1 ----- Left ECA: 15.7 VERTEBRALS (direction of flow): Right Vertebral: Antegrade Left Vertebral: Antegrade Rhythm: Arrhythmia Mild intimal wall changes at bilateral carotid bifurcation, and PSV is wnl bilaterally. IMPRESSION: There is antegrade flow in the vertebral arteries. The images and measurements suggest l ess than 25% stenosis in both internal carotid arteries. Criteria for Assigning % of Stenosis / Diameter reduction (Estimation based on the indirect measurements of the internal carotid artery velocities (ICA PSV). 1. Normal (no stenosis)=ICA PSV < 125 cm/s: ratio < 2.0: ICA EDV<40 cm/s. 2. Less than 50% stenosis=ICA PSV < 125 cm/s: ratio < 2.0: ICA EDV<40 cm/s. 3. 50 to 69% stenosis=ICA PSV of 125 to 230 cm/s: ration 2.0 ? 4.0: ICA EDV 40-100 cm/s. 4. Greater than 70% stenosis to near occlusion= ICA PSV > 230 cm/s: ratio > 4.0: ICA EDV > 100 cm/s. 5. Near occlusion= ICA PSV velocities may be low or undetectable: variable ratio and ICA EDV. 6. Total occlusion=unable to detect flow.
[2019-04-23] MEDS ORDERED: METOPROLOL TARTRATE 12.5 MG TAB PO SCH (17:30)
[2019-04-23] MEDS: 0.9% NACL WITH KCL 40 MEQ/L 1,000 ML IV SCH ×2 (18:15)
--- NOTE | 2019-04-23 18:19 | HP ---
HISTORY AND PHYSICAL DATE OF SERVICE: 04/23/2019 CHIEF COMPLAINT: Syncope. HISTORY OF PRESENT ILLNESS: This 88-year-old gentleman with a past medical history of multiple medical problems, including atrial fibrillation, history of asthma, history of COPD, CVA, diabetes mellitus, type 2, hypertension, history of pneumonia, history of respiratory disorder, history of appendectomy, cholecystectomy, was at home. The patient apparently got a new motorized scooter. Patient was in the process of putting it into the garage. The patient was working, looking downwards. The patient got up and then passed out for several minutes, at least 15 to 20 minutes, and subsequently EMS was called and the patient was taken to [facility] and admitted for further evaluation and treatment. The patient was found to be orthostatically hypotensive. Otherwise, the initial neurology evaluation, including CT, did not show any acute abnormality. Neurology and cardiology evaluations are in progress at this time. A 2D echo with Doppler was also done which showed ejection fraction of 50% to 55% and only mild valvular abnormalities. The LA was severely dilated more than 40 mm2. Mild to moderate mitral regurgitation was also noted. The patient is being closely monitored at this time. The patient is still complaining of some weakness at this time. While trying to the patient also had symptomatic bradycardia. The possibility of sick sinus syndrome is also considered. The EKG done in the emergency room showed atrial fibrillation, bradycardia, as well as left bundle block. PAST MEDICAL HISTORY: 1. History of atrial fibrillation. 2. History of asthma. 3. CHF. 4. COPD. 5. CVA, TIA. 6. Diabetes mellitus, type 2. 7. GERD. 8. Hypertension. 9. Hyperlipidemia. 10.History of pneumonia. 11.History of hypothyroidism. 12.History of colitis and antibiotics. HOME MEDICATIONS: 1. Aldactone 12.5 mg daily. 2. Prilosec 20 mg p.o. daily. 3. Singulair 10 mg p.o. at bedtime. 4. Lopressor 25 mg p.o. b.i.d. 5. Zaroxolyn 2.5 mg Tuesday, Tuesday, Tuesday. 6. Synthroid 175 mcg p.o. daily. 7. Xopenex 1.25 q.i.d. p.r.n. 8. Atrovent 0.5 t.i.d. 9. Amaryl 1 mg p.o. b.i.d. 10.Lasix 80 mg p.o. daily. 11.Lasix 40 mg p.o. daily p.r.n. 12.Folic acid 1 mg p.o. b.i.d. 13.Vitamin D3 3000 units daily. 14.Pulmicort 1 mg b.i.d. 15.Eliquis 2.5 mg p.o. b.i.d. ALLERGIES: MULTIPLE ALLERGIES, includin. AMOXICILLIN. 2. BENZOCAINE. 3. BUTAMBEN. 4. CEFUROXIME. 5. CETYL ALCOHOL. 6. CLAVULANIC ACID. 7. FLECAINIDE. 8. FLUCONAZOLE. 9. NAPROSYN. 10.PARABEN. 11.PROPYLENE GLYCOL. 12.SKIN CLEANSER. 13.SOAP. 14.SODIUM SUSHMA SULFATE. 15.STEARYL ALCOHOL. 16.SULFAMETHOXAZOLE. 17.TETRACYCLINE. 18.TRIMETHOPRIM. 19.ZOMEPIRAC. 20.AMIODARONE. 21.DEMEROL. 22.CETACAINE. 23.DUPRENEX. FAMILY HISTORY: History of lung cancer in the brother. SOCIAL HISTORY: Previous history of smoking. No history of alcohol intake. REVIEW OF SYSTEMS: ENT: Diminished hearing. Diminished vision. CARDIOVASCULAR SYSTEM: No angina, palpitations. RESPIRATORY SYSTEM: As mentioned earlier. GI: No nausea, vomiting. : No dysuria or retention. NERVOUS SYSTEM: As mentioned earlier. ALLERGY/IMMUNOLOGY: No asthma, hayfever. MUSCULOSKELETAL: As mentioned earlier. HEMATOLOGY/ONCOLOGY: No history of anemia. ENDOCRINE: Hypothyroidism. CONSTITUTIONAL: As mentioned earlier. DERMATOLOGY: Negative. RHEUMATOLOGY: Negative. PSYCHIATRY: As mentioned earlier. PHYSICAL EXAMINATION: Patient alert and oriented x3. Pulse is 38, blood pressure 102/55, respirations 18, temperature 98.0, pulse ox 99% on 4 L. HEENT: Conjunctivae normal. Oral mucosa moist. NECK: No jugular venous distention. No carotid bruit. No lymph node enlargement. CARDIOVASCULAR SYSTEM: S1, S2 muffled. Bradycardic. Ejection systolic murmur. RESPIRATORY SYSTEM: Breath sounds diminished at the bases. A few scattered rhonchi and crackles. ABDOMEN: Soft, non-tender. No mass palpable. LEGS: No edema. No swelling. NERVOUS SYSTEM: Higher functions as mentioned earlier. Moves all 4 limbs. No focal motor or sensory deficit. LYMPHATICS: No lymph node palpable in neck, axillae or groin. SKIN: No ulcer, rash, bleeding. JOINTS: No active deforming arthropathy. LABS: WBC 6.4, hemoglobin 10.4. Sodium 138, potassium 3.4. TSH 0.893. ASSESSMENT: 1. Syncope for evaluation, possibly vasovagal. Rule out orthostatic hypotension as well as severe bradycardia. 2. Atrial fibrillation with left bundle branch block. 3. Hypokalemia, mild. 4. Anemia, normocytic; anemia of chronic disease. 5. History of atrial fibrillation. 6. History of asthma. 7. Chronic obstructive pulmonary disease. 8. History of congestive heart failure. 9. History of cerebrovascular accident, transient ischemic attack. 10.Diabetes mellitus, type 2. 11.Gastroesophageal reflux disease. 12.Hypertension. 13.History of pneumonia. 14.History of recent colitis and frequent diarrhea. 15.History of chronic bronchitis. 16.History of tracheobronchitis. 17.Subglottic tracheitis. 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 19.History of hemolytic anemia. 20.History of chronic diaphragmatic paralysis. 21.History of cholecystectomy. 22.History of degenerative joint disease. 23.Remote history of nicotine dependence. 24.FULL CODE. RECOMMENDATIONS AND DISCUSSION: In this 88-year-old gentleman who presented with multiple complex medical issues, at this time, I recommend continuing with current medications. Orthostatic vitals. Monitor closely with Cardiology. Avoid beta blockers. TSH has been checked. Otherwise, continue to monitor. Guarded prognosis. Further recommendations to follow. A copy of this dictation is being forwarded to Dr. Barrington Ojeda, who is the primary physician. MMODL / IJN: [id number] / [facility] MEDICAL CENTERDominick
[2019-04-23] MEDS ORDERED: LEVALBUTEROL 1.25 MG/3 ML INHALATION PRN (18:38)
[2019-04-23] MEDS ORDERED: ADVAIR 250-50 DISKUS INHALATION SCH (20:00)
[2019-04-23] MEDS ORDERED: IPRATROPIUM 0.5 MG/2.5 ML NEBU INHALATION SCH (20:00)
[2019-04-23 20:33] LABS: Glucose,Whole Blood 130 mg/dL (75-99)
[2019-04-23] MEDS: FOLIC ACID 1 MG TAB PO SCH (20:37)
[2019-04-23] MEDS: HEPARIN SODIUM,PORCINE 5,000 UNIT/ML 1 ML VIAL SQ SCH (20:37)
[2019-04-23] MEDS: MONTELUKAST 10 MG TAB PO SCH (20:37)
[2019-04-23 21:55] LABS: Glucose,Whole Blood 188 mg/dL (75-99)
[2019-04-23] MEDS ORDERED: LIDOCAINE 1% INJ 10MG/ML (20 ML MDV) SQ ONE (22:51)
[2019-04-23] MEDS ORDERED: MIDAZOLAM (PF) 2 MG/2 ML VIAL IV ONE (23:00)
[2019-04-23] MEDS ORDERED: IV FLUID CONTINUATION 950 ML IV ONE (23:07)
[2019-04-23 23:38] LABS: Glucose,Whole Blood 159 mg/dL (75-99)
--- NOTE | 2019-04-23 23:38 | PN ---
PROGRESS NOTE DATE OF SERVICE: This is an 88-year-old gentleman admitted to the hospital with episode of syncope. He was transferred from the observation unit to the telemetry unit. He developed long pauses, became symptomatic, gurgling, and passed out when he was with the family. There were at least 2 documented such episodes. I came in to see the patient, talked to him and also his granddaughter who was here, explained to them the rationale for a temporary pacemaker and that I will do a permanent pacemaker tomorrow. The patient received the last dose of Eliquis yesterday evening. He did not take any Eliquis 2.5 mg b.i.d., which is his usual dose, and the last one was yesterday evening. He has been complaining of weakness, lack of energy, fatigue, and had an episode of syncope that required hospitalization. He has severe symptomatic documented pauses. I recommended a temporary pacemaker and explained to the patient the rationale risks, benefits and options. Patient and granddaughter agreed and I proceeded to perform the procedure. Physical exam revealed blood pressure 120/70, pulse rate of about 40 per minute, atrial fibrillation, irregular. JVD of 1 cm. No carotid bruit. S1, S2 heard normally but with bradycardia. Short systolic murmur noted. Lungs reveal diminished air entry. Abdomen and lower extremity exam unchanged. Central nervous system exam revealed no focal deficits, but there is generalized weakness. I will proceed with a temporary pacemaker. MMVIDYA / NEVINN: [id number] /
--- NOTE | 2019-04-23 23:53 | PCN ---
PROCEDURE NOTE DATE OF SERVICE: 04/23/2019. PROCEDURE PERFORMED: Transvenous temporary pacemaker from right femoral approach. INDICATIONS: Symptomatic bradycardia with pauses of more than 8 seconds in a patient with documented syncope yesterday. ANESTHESIA: Moderate conscious sedation time was 11 minutes. The patient was administered Versed. His oxygen saturation, hemodynamics and EKG were monitored closely. PROCEDURE NOTE: Under local anesthesia and strict aseptic precautions, a 6-Vietnamese introducer was placed in the right femoral artery. A balloon tipped pacemaker catheter was advanced and positioned in the right ventricular apex. Good thresholds were obtained. The pacemaker leads were connected to the pulse generator. Good threshold was noted. The sheath was sutured and the pacemaker was secured. He was sent to the ICU in a stable condition. Threshold was 0.38 mV. The settings were at a backup rate of 40 beats per minute with a mA of 5.0. The patient was hemodynamically stable and he tolerated the procedure well without complication. Details explained to Patient and family. Also had a detailed discussion and explaination to the patient, family and the granddaughter that I will perform the permanent pacemaker procedure tomorrow, probably in the afternoon. The rationale, risks, benefits and options related to the permanent pacemaker were also explained to the patient and granddaughter. They understand and wish to proceed. MMODL / IJN: [id number] / MTDD
[2019-04-24] MEDS: 0.9% NACL WITH KCL 40 MEQ/L 1,000 ML IV SCH (03:40)
[2019-04-24] MEDS: LEVOTHYROXINE 75 MCG TAB PO SCH (03:41)
[2019-04-24] MEDS: LEVOTHYROXINE 100 MCG TAB PO SCH (03:41)
--- NOTE | 2019-04-24 03:56 | XR ---
EXAM: XR Chest, 1 View CLINICAL HISTORY: ITS.REASON XR Reason: TVP placement TECHNIQUE: Frontal view of the chest. COMPARISON: 04/22/19 IMPRESSION: Cardiomegaly. Elevated right hemidiaphragm. No consolidation or pleural effusion. <MYCVCSECTION> [employer] 04/24/19 04:30 Call From [facility] on 04/24 04:28 (-04:00)
[2019-04-24 05:14] LABS: Calcium 8.8 mg/dL (8.4-10.2); Magnesium 2.1 mg/dL (1.6-2.3); Potassium 3.9 mmol/L (3.5-5.1)
[2019-04-24 05:16] LABS: Basophils % (A) 1 %; Eosinophils # (A) 0.2 k/uL (0-0.7); Eosinophils % (A) 3 %; HCT 30.1 % (39.0-53.0); HGB 10.1 gm/dL (13.0-17.5); Lymphocytes # (A) 0.9 k/uL (1.0-4.8); Lymphocytes % (A) 11 %; MCH 34.2 pg (25.0-35.0); MCHC 33.5 g/dL (31.0-37.0); Macrocytosis Slight; Mean Platelet Volume 8.2; Monocytes # (A) 0.4 k/uL (0-1.0); Monocytes % (A) 5 %; Neutrophils % (A) 79 %; Platelet Count 183 k/uL (150-450); RBC 2.96 m/uL (4.30-5.90); RDW 14.2 % (11.5-15.5); WBC 7.5 k/uL (3.8-10.6)
[2019-04-24] MEDS ORDERED: Potassium Replacement Protocol 1 EACH MISC MISCELLANE PRN (05:23)
[2019-04-24] MEDS ORDERED: POTASSIUM CHLORIDE ER 20 MEQ TAB.ER PO SCH (06:00)
[2019-04-24] MEDS: INSULIN ASPART (NovoLOG) 100 UNIT/ML VIAL SQ SCH ×3 (06:48→17:52)
[2019-04-24] MEDS: SODIUM CHLORIDE 0.9% 1,000 ML IV SCH ×2 (06:51→21:00)
[2019-04-24 06:57] LABS: Glucose,Whole Blood 129 mg/dL (75-99)
[2019-04-24] MEDS: SPIRONOLACTONE 25 MG TAB PO SCH (07:24)
[2019-04-24] MEDS: GLIMEPIRIDE 1 MG TAB PO SCH ×2 (07:54→17:51)
[2019-04-24] MEDS: FOLIC ACID 1 MG TAB PO SCH ×2 (08:12→20:56)
[2019-04-24] MEDS: CHOLECALCIFEROL 1,000 UNIT TAB PO SCH (08:12)
[2019-04-24] MEDS: PANTOPRAZOLE 40 MG TABLET PO SCH (08:12)
[2019-04-24] MEDS ORDERED: ACETAMINOPHEN TAB 325 MG TAB PO PRN ×2 (09:32→18:34)
--- NOTE | 2019-04-24 09:48 | PN ---
PROGRESS NOTE Mr. Alamo is an 88-year-old male with a known history of chronic persistent atrial fibrillation who presented with syncopal episode. He had atrial fibrillation which is chronic, but he had a pause yesterday he had further pauses requiring temporary pacemaker placement. He is scheduled to undergo permanent pacemaker implantation this afternoon. He is feeling well this morning. He denies any symptoms of chest pain. He denies any dizziness. No palpitation. Hemodynamically, he is stable. He had an echocardiogram performed yesterday that revealed ejection fraction 50% to 55% with mild to moderate mitral and mild tricuspid regurgitation. He continues to be at this time on folic acid, glimepiride, and spironolactone 12 0.5 mg daily. PHYSICAL EXAMINATION: Blood pressure 133/60 with a heart rate 70. LUNGS: Clear heart irregular regular S1, S2. No S3 with systolic murmur. No rub. ABDOMEN: Soft, nontender. Positive bowel sounds. Ext no organomegaly right groin no hematoma. Pacemaker site in place. EXTREMITIES: No edema. LAB DATA: Lab data revealed BUN and creatinine 29 and 0.9, potassium 3.9 hemoglobin of 10.1. IMPRESSION: 1. Atrial fibrillation with long pauses, scheduled for permanent pacemaker implantation today. 2. Chronic persistent atrial fibrillation. 3. Chronic dyspnea. 4. Diabetes. RECOMMENDATION: Was proceed with permanent pacemaker implantation today and depending on his progress, further recommendation will be made. MMODL / IJN: [id number] /
[2019-04-24] MEDS: HEPARIN SODIUM,PORCINE 5,000 UNIT/ML 1 ML VIAL SQ SCH ×2 (10:04→20:56)
[2019-04-24] MEDS: IPRATROPIUM INHALATION SCH ×2 (10:48→20:05)
[2019-04-24] MEDS: ADVAIR 250-50 DISKUS INHALATION SCH ×2 (10:48→20:05)
[2019-04-24] MEDS: LEVALBUTEROL 1.25 MG/3 ML INHALATION PRN ×2 (10:48→20:05)
[2019-04-24 12:02] LABS: Glucose,Whole Blood 133 mg/dL (75-99)
[2019-04-24] MEDS ORDERED: IPRATROPIUM INHALATION SCH ×2 (13:00)
--- NOTE | 2019-04-24 14:57 | PN ---
PROGRESS NOTE DATE OF SERVICE: 04/24/2019 This is an 88-year-old gentleman who was admitted with syncope, also had significant bradycardia with 89 second pauses. Pacemaker implantation has been planned at this time. The patient is being closely monitored in ICU at this time. PAST MEDICAL HISTORY: Reviewed. REVIEW OF SYSTEMS: CARDIOVASCULAR SYSTEM: No angina. RESPIRATION: As mentioned earlier. GI: As mentioned earlier. : As mentioned earlier. NERVOUS SYSTEM: No numbness or weakness. CURRENT MEDICATIONS: Reviewed include Tylenol 650 q.6 p.r.n., vitamin D3, folic acid, 1 mg .p.o. daily, heparin 5000 subcu b.i.d., NovoLog., Synthroid 100 mcg p.o. daily, Synthroid 75 mcg p.o. daily, replacement protocols, Singular, Narcan p.r.n., Xopenex 1.25 q.i.d. p.r.n., Advair 250 one puff b.i.d., Atrovent t.i.d., Protonix 40 mg p.o. daily, Aldactone 12.5 mg daily. PHYSICAL EXAM: Patient is alert, oriented x2. Pulse 71, blood pressure 123/106, respiration 23, temperature 98.7, pulse ox 98% on 4 L. HEENT: Conjunctivae normal. NECK: No jugular venous distension. CARDIOVASCULAR SYSTEM: Bradycardic, irregular. RESPIRATORY: Breath sounds diminished at the bases, a few scattered rhonchi, no crackles. ABDOMEN: Soft, nontender. No mass palpable. LEGS: No edema, no swelling. NERVOUS SYSTEM: Higher functions as mentioned earlier. Moves all 4 limbs. No focal motor deficits. LYMPHATICS: No lymph node enlargement in the neck of axillae. SKIN: No ulcer, rash, bleeding. JOINTS: No active deforming arthropathy. LAB STUDIES: White count is 7, hemoglobin is 10.1, sodium 135. ASSESSMENT: 1. Syncope, possibly secondary to cardiac arrhythmia and severe bradycardia with possible sick sinus syndrome. 2. Atrial fibrillation with left bundle branch block and bradycardia with prolonged pauses. 3. Hypokalemia, mild. 4. Anemia, normocytic anemia of chronic disease. 5. History of atrial fibrillation. 6. History of asthma. 7. Chronic obstructive pulmonary disease. 8. History of congestive heart failure. 9. History of cerebrovascular accident, transient ischemic attack. 10.Diabetes mellitus type 2. 11.Gastroesophageal reflux disease. 12.Hypertension. 13.History of pneumonia. 14.History of recent Clostridium difficile, diarrhea. 15.History of chronic bronchitis, history of tracheobronchitis. 16.Subglottic tracheitis history. 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 18.History of hemolytic anemia. 19.History of diaphragmatic paralysis. 20.History of cholecystectomy. 21.History of degenerative joint disease. 22.History of nicotine dependence. 23.FULL CODE. RECOMMENDATION: Recommend to continue current medications, continue to monitor and symptomatic treatment. Otherwise, at this time repeat labs. Otherwise, I would recommend to monitor. Pacemaker implantation. Avoid beta blockers and rate limiting medications. Monitor electrolytes closely. Closely monitor in ICU for guarded prognosis. Further recommendations to follow. MMODL / IJN: [id number] / MTDD
[2019-04-24] MEDS ORDERED: CLINDAMYCIN 600 MG in DEXTROSE 5% IN WATER 50 ML IVPB STA ×2 (16:56)
[2019-04-24] MEDS ORDERED: IV FLUID CONTINUATION 125 ML IV ONE (17:00)
[2019-04-24] MEDS ORDERED: IOPAMIDOL-370 50ML BTL INJ ONE (17:11)
[2019-04-24] MEDS ORDERED: MIDAZOLAM (PF) 2 MG/2 ML VIAL IVP ONE (17:25)
[2019-04-24] MEDS ORDERED: LIDOCAINE 1% INJ 10MG/ML (20 ML MDV) SQ ONE (17:27)
[2019-04-24] MEDS ORDERED: CLINDAMYCIN 600 MG in SODIUM CHLORIDE 0.9% IRRIGATIO 250 ML IRRIGATION ONE (17:33)
[2019-04-24] MEDS ORDERED: fentaNYL (PF) 50 MCG/ML 2 ML AMP IVP ONE (17:37)
[2019-04-24 19:26] LABS: Glucose,Whole Blood 113 mg/dL (75-99)
[2019-04-24 20:52] LABS: Glucose,Whole Blood 119 mg/dL (75-99)
[2019-04-24] MEDS: MONTELUKAST 10 MG TAB PO SCH (20:56)
--- NOTE | 2019-04-24 21:12 | PCN ---
PROCEDURE NOTE DATE OF SERVICE: 04/24/2019 PROCEDURES: 1. Single-chamber permanent pacemaker from left infraclavicular approach. 2. Removal of transvenous temporary pacemaker that was done from the right femoral venous approach. Moderate conscious sedation time was 1 hour and 15 minutes. Patient was administered fentanyl and Versed. His oxygen saturation, hemodynamics and EKG were monitored closely. CLINICAL INFORMATION: Mr. Antwon Alamo is a gentleman with a history of hypertension, diabetes and hyperlipidemia who also has chronic persistent atrial fibrillation. He came into the hospital with episode of syncope and continued to have episodes of documented syncope with pauses of more than 9.0 seconds. He was therefore advised a temporary pacemaker last night at about 10 or 11 p.m. and I came in and performed a temporary pacemaker from right femoral venous approach. He was advised a permanent pacemaker today. His Eliquis was held for about 36 hours. Rationale, risks, benefits and options were explained to the patient and family members. PROCEDURE NOTE: Under local anesthesia and strict aseptic precautions, using a micropuncture needle technique, an axillary vein was cannulated under fluoroscopic guidance. A guidewire was then left in the superior vena cava. Subsequently a 3-inch linear incision was made medial and parallel to the left deltopectoral groove. A surgical pocket was made using blunt dissection and cautery. An antibiotic sponge was then kept in the pocket for about 20 minutes. Clindamycin was the antibiotic of choice, given patient's allergies. Under fluoroscopic guidance, a 6-Urdu sheath was placed. Through the sheath, a single ventricular lead was advanced and positioned in the right ventricular apex. Good position was achieved and the lead was checked for positioning both in STEF and LAGUERRE projection. Ten-volt pacing was performed. Everything seemed excellent. The numbers obtained were also very good. Subsequently the lead was secured with 0 silk to the underlying muscle. The lead was then connected to the pulse generator. The pocket was again irrigated with antibiotic. The pocket was closed in 2 layers. Excellent hemostasis was achieved. The patient tolerated the procedure well without complications. He was then sent for a portable chest x-ray, and he will have a repeat two-view chest x-ray tomorrow along with a device check prior to discharge. 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, model Assurity MRI 1272. Serial #[id number]. 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 Model Tendril [id number]. Serial # [id number]. Ventricular threshold was 0.625 V at 0.4 milliseconds. R-waves were 10.8 mV. Lead impedance was 610 ohms. Pacemaker settings were at a backup rate of 50 with a high rate of 110 and the mode was VVIR. The patient tolerated the procedure well without complication. Details were discussed with the patient and family members. RENA / NEVINN: [id number] /
--- NOTE | 2019-04-24 21:40 | XR ---
EXAMINATION: XR chest 1V portable DATE AND TIME: 04/24/2019 8:53 PM CLINICAL INDICATION: PHH; Lead placement check TECHNIQUE: AP upright portable COMPARISON: 04/22/2019 FINDINGS: Cardiac pacemaker and EKG leads noted. Moderately enlarged cardiac silhouette and markedly elevated right hemidiaphragm redemonstrated. The pulmonary and pleural appearance is unchanged when compared the prior study. That is, the left kaylen ng is clear and well expanded and the left pleural space is negative, and the upper right lung is eddie ar and well-expanded while the lower right lung cannot be seen due to the markedly elevated right hem idiaphragm. There are no abnormal gas collections. No acute skeletal or soft tissue findings. IMPRESSION: Stable chest radiographic appearance other than interval cardiac pacemaker placement.
[2019-04-25 05:36] LABS: African American GFR (CKD) >90 (>60 ml/min/1.73 sqM); Anion Gap 8 mmol/L; Blood Urea Nitrogen 20 mg/dL (9-20); Calcium 8.5 mg/dL (8.4-10.2); Carbon Dioxide 29 mmol/L (22-30); Chloride 97 mmol/L (98-107); Glucose 142 mg/dL (74-99); Potassium 4.4 mmol/L (3.5-5.1); Sodium 134 mmol/L (137-145)
[2019-04-25 05:54] VITALS: BP 124/55; TEMP 99
[2019-04-25] MEDS: CLINDAMYCIN 900 MG in DEXTROSE 5% IN WATER 50 ML IVPB SCH ×4 (05:58→10:58)
[2019-04-25] MEDS: LEVOTHYROXINE 75 MCG TAB PO SCH (06:22)
[2019-04-25] MEDS: LEVOTHYROXINE 100 MCG TAB PO SCH (06:22)
[2019-04-25 06:23] LABS: Basophils % (A) 0 %; Eosinophils # (A) 0.1 k/uL (0-0.7); Eosinophils % (A) 1 %; HCT 29.5 % (39.0-53.0); HGB 10.1 gm/dL (13.0-17.5); Lymphocytes # (A) 0.6 k/uL (1.0-4.8); Lymphocytes % (A) 8 %; MCHC 34.4 g/dL (31.0-37.0); MCV 101.9 fL (80.0-100.0); Macrocytosis Slight; Mean Platelet Volume 8.3; Monocytes # (A) 0.4 k/uL (0-1.0); Monocytes % (A) 5 %; Neutrophils # (A) 6.4 k/uL (1.3-7.7); Neutrophils % (A) 85 %; Platelet Count 175 k/uL (150-450); RBC 2.89 m/uL (4.30-5.90); WBC 7.5 k/uL (3.8-10.6)
[2019-04-25] MEDS: INSULIN ASPART (NovoLOG) 100 UNIT/ML VIAL SQ SCH ×2 (07:11→13:34)
[2019-04-25] MEDS: LEVALBUTEROL 1.25 MG/3 ML INHALATION PRN ×2 (07:11→12:51)
[2019-04-25] MEDS: IPRATROPIUM INHALATION SCH ×2 (07:11→12:51)
[2019-04-25] MEDS: ADVAIR 250-50 DISKUS INHALATION SCH (07:11)
[2019-04-25 07:19] LABS: Glucose,Whole Blood 145 mg/dL (75-99)
[2019-04-25] MEDS: GLIMEPIRIDE 1 MG TAB PO SCH (08:02)
[2019-04-25] MEDS: FOLIC ACID 1 MG TAB PO SCH (08:02)
[2019-04-25] MEDS: CHOLECALCIFEROL 1,000 UNIT TAB PO SCH (08:02)
[2019-04-25] MEDS: SPIRONOLACTONE 25 MG TAB PO SCH (08:02)
[2019-04-25] MEDS: PANTOPRAZOLE 40 MG TABLET PO SCH (08:02)
[2019-04-25] MEDS: HEPARIN SODIUM,PORCINE 5,000 UNIT/ML 1 ML VIAL SQ SCH (08:02)
--- NOTE | 2019-04-25 08:02 | XR ---
EXAMINATION TYPE: XR chest 2V DATE OF EXAM: 04/25/2019 COMPARISON: 04/24/2019 TECHNIQUE: PA and lateral views submitted. HISTORY: Lead placement check FINDINGS: Single-lead pacemaker seen with the tip overlying the region of the right ventricle. No sizable pneum othorax. Underlying COPD and chronic interstitial lung disease noted. Chronic elevation the right hem idiaphragm with basilar consolidation and pleural effusion stable. No pneumothorax. Heart is enlarged . Atherosclerotic change aorta. Arthropathy of the shoulders with diffuse osteopenia. Surgical clips suggested in the gallbladder fossa. Hypertrophic and degenerative change of the vertebral column. IMPRESSION: 1. Stable pleural-parenchymal changes as discussed above. 2. Correlate for COPD.
[2019-04-25] MEDS ORDERED: APIXABAN 2.5 MG TABLET PO SCH (09:00)
[2019-04-25 10:41] VITALS: RESP 17
--- NOTE | 2019-04-25 11:22 | PN ---
PROGRESS NOTE Mr. Alamo is an 88-year-old male with history of chronic persistent atrial fibrillation who presented with syncopal episode, had long pauses, underwent permanent pacemaker implantation yesterday by Dr. Jacklyn Armendariz. He is doing well this morning. His breathing has been stable. He has generalize achiness. He had no evidence of pacemaker malfunction. He has no dizziness. No palpitation. Hemodynamically stable. He continues to be at this time on Eliquis 2.5 mg twice a day, spironolactone 12.5 mg daily, Protonix 40 mg daily, insulin. PHYSICAL EXAMINATION: Blood pressure 124/50 with a heart rate in the 60s. LUNGS: A few crackles, no wheezes. HEART: Irregular regular, S1, S2. No S3. No rub appreciated. ABDOMEN: Soft, nontender. Positive bowel sounds. EXTREMITIES: No edema, pacemaker site clean. LAB DATA: Revealed a BUN and creatinine of 20 and 0.69, potassium 4.4, hemoglobin of 10.1. Chest x-ray revealed no evidence of a pneumothorax. IMPRESSION: 1. Status post permanent pacemaker implantation for tachy-val syndrome. 2. Chronic persistent atrial fibrillation. 3. History of chronic dyspnea on exertion with chronic obstructive lung disease. 4. Diabetes mellitus. RECOMMENDATION: From the cardiac standpoint, I will re-initiate treatment with the beta beau as well as his diuretics, continue rest of his medical regimen. Will have interrogation of his device today. If he is stable, I would expect he should be able to be discharged home today and followed as an outpatient. MMODL / IJN: [id number] /
[2019-04-25 11:56] LABS: Glucose,Whole Blood 206 mg/dL (75-99)
--- NOTE | 2019-04-25 12:36 | P.DS ---
Providers Date of admission: 04/23/19 15:51 Attending physician: John Reyes Consults: 04/22/19 23:20 Consult Physician Urgent Consulting Provider: [facility] Reason/Comments: acute syncope Do you want consulting provider notified?: Yes 04/23/19 10:27 Consult Physician Urgent Consulting Provider: Aida Avelar Reason/Comments: dizzy syncope Do you want consulting provider notified?: Yes Primary care physician: [facility] Course: 88-year-old pleasant gentleman admitted for syncopal episode found to have significant sinus pauses. Patient does have history of atrial fibrillation probably has sick sinus syndrome patient underwent pacemaker implantation and patient is also being discharged on metoprolol. Patient is cleared for discharge. Patient appears to have Chronic Diastolic Dysfunction, Presently Euvolemic. Patient Is Cleared for Discharge from Cardiology Perspective Will Be Discharged Today. Patient Probably Will Require Home Care and Home Physical Therapy. PHYSICAL EXAMINATION: GENERAL: The patient is alert and oriented x3, not in any acute distress. Well developed, well nourished. HEENT: Pupils are round and equally reacting to light. EOMI. No scleral icterus. No conjunctival pallor. Normocephalic, atraumatic. No pharyngeal erythema. No thyromegaly. CARDIOVASCULAR: S1 and S2 present. No murmurs, rubs, or gallops. Patient has a sling to the left thumb secondary to the pacemaker and pacemaker and left side of the chest wall PULMONARY: Chest is clear to auscultation, no wheezing or crackles. ABDOMEN: Soft, nontender, nondistended, normoactive bowel sounds. No palpable organomegaly. MUSCULOSKELETAL: No joint swelling or deformity. EXTREMITIES: No cyanosis, clubbing, or pedal edema. NEUROLOGICAL: Gross neurological examination did not reveal any focal deficits. SKIN: No rashes. Please refer to dictation of progress note from Dr. Newell for further details of hospitalization course and other chronic medical problems that were addressed. Patient Condition at Discharge: Stable Plan - Discharge Summary Discharge Rx Participant: No New Discharge Prescriptions: Continue Montelukast [Singulair] 10 mg PO HS Folic Acid 1 mg PO BID@0900,2100 Omeprazole [PriLOSEC] 20 mg PO DAILY@0900 Spironolactone [Aldactone] 12.5 mg PO DAILY Apixaban [Eliquis] 2.5 mg PO BID@0900,2100 Levalbuterol HCl [Xopenex Nebulized] 1.25 mg INHALATION RT-QID PRN PRN Reason: Dyspnea Cholecalciferol [Vitamin D3 (25 Mcg = 1000 Iu)] 3,000 unit PO DAILY Levothyroxine Sodium [Synthroid] 175 mcg PO DAILY Glimepiride [Amaryl] 1 mg PO BID@0900,1730 Budesonide [Pulmicort] 1 mg INHALATION RT-BID Furosemide [Lasix] 80 mg PO DAILY@0900 Furosemide [Lasix] 40 mg PO DAILY@1500 PRN PRN Reason: Edema Ipratropium Nebulized [Atrovent Nebulized 0.2 MG/ML] 0.5 mg INHALATION RT-TID Metoprolol Tartrate [Lopressor] 25 mg PO BID@0900,1730 Discontinued Metolazone [Zaroxolyn] 2.5 mg PO MOWEFR Discharge Medication List Folic Acid 1 mg PO BID@0900,209910/10/14 [History] Montelukast [Singulair] 10 mg PO HS 10/10/14 [History] Omeprazole [PriLOSEC] 20 mg PO DAILY@0910/10/14 [History] Apixaban [Eliquis] 2.5 mg PO BID@0900,209902/04/15 [History] Spironolactone [Aldactone] 12.5 mg PO DAILY 02/04/15 [History] Levalbuterol HCl [Xopenex Nebulized] 1.25 mg INHALATION RT-QID PRN 02/05/15 [History] Cholecalciferol [Vitamin D3 (25 Mcg = 1000 Iu)] 3,000 unit PO DAILY 10/01/16 [History] Levothyroxine Sodium [Synthroid] 175 mcg PO DAILY 10/01/16 [History] Glimepiride [Amaryl] 1 mg PO BID@0900,1730 10/21/17 [History] Budesonide [Pulmicort] 1 mg INHALATION RT-BID 08/07/18 [History] Furosemide [Lasix] 40 mg PO DAILY@1500 PRN 04/22/19 [History] Furosemide [Lasix] 80 mg PO DAILY@0900 04/22/19 [History] Ipratropium Nebulized [Atrovent Nebulized 0.2 MG/ML] 0.5 mg INHALATION RT-TID 04/22/19 [History] Metoprolol Tartrate [Lopressor] 25 mg PO BID@0900,1730 04/22/19 [History] Follow up Appointment(s)/Referral(s): Barrington Ojeda MD [Primary Care Provider] - 3 Days [facility], [NON-STAFF] - 1-2 Days Ambulatory/Diagnostic Orders: Complete Blood Count w/diff [LAB.AMB] Location: None Selected Activity/Diet/Wound Care/Special Instructions: diet cardiac act limited till f/u f/u cardio as advised Discharge Disposition: HOME WITH HOME HEALTH SERVICES
[2019-04-25 12:59] VITALS: PULSE 60
[2019-04-25] MEDS ORDERED: METOPROLOL TARTRATE 25 MG TAB PO SCH (21:00)
[2019-04-26] MEDS ORDERED: FUROSEMIDE 80 MG TAB PO SCH (09:00)
== END 2019-04-25 15:48 | disposition home health service (06) | DRG 243 ==
LOC: EC 19:55 → 1SOBS 23:19 → OBSVTOIN 04-23 15:51 → 3SCARD 04-23 19:30 → 2SICU 04-23 22:32
PROVIDERS: ADMIT Internal Medicine; ATTEND Internal Medicine
PROC: 5A1223Z Performance of Cardiac Pacing, Continuous (ICD-10-PCS; 2019-04-23)
PROC: 02HK3JZ Insertion of Pacemaker Lead into Right Ventricle, Percutaneous Approach (ICD-10-PCS; 2019-04-24)
PROC: 02PA3MZ Removal of Cardiac Lead from Heart, Percutaneous Approach (ICD-10-PCS; 2019-04-24)
PROC: 0JH604Z Insertion of Pacemaker, Single Chamber into Chest Subcutaneous Tissue and Fascia, Open Approach (ICD-10-PCS; principal; 2019-04-24 16:48)
DX: I49.5 Sick sinus syndrome (principal); I48.1 Persistent atrial fibrillation; I50.32 Chronic diastolic (congestive) heart failure; I11.0 Hypertensive heart disease with heart failure; I08.1 Rheumatic disorders of both mitral and tricuspid valves; J98.6 Disorders of diaphragm; D63.8 Anemia in other chronic diseases classified elsewhere; E11.9 Type 2 diabetes mellitus without complications; E03.9 Hypothyroidism, unspecified; J44.9 Chronic obstructive pulmonary disease, unspecified; I48.2 Chronic atrial fibrillation; I44.7 Left bundle-branch block, unspecified; S50.312A Abrasion of left elbow, initial encounter; S00.03XA Contusion of scalp, initial encounter; E87.6 Hypokalemia; I95.1 Orthostatic hypotension; E78.5 Hyperlipidemia, unspecified; K21.9 Gastro-esophageal reflux disease without esophagitis; M19.90 Unspecified osteoarthritis, unspecified site; K57.90 Diverticulosis of intestine, part unspecified, without perforation or abscess without bleeding; Z79.01 Long term (current) use of anticoagulants; Z79.890 Hormone replacement therapy; Z79.84 Long term (current) use of oral hypoglycemic drugs; Z79.51 Long term (current) use of inhaled steroids; Z79.899 Other long term (current) drug therapy; Z86.39 Personal history of other endocrine, nutritional and metabolic disease; Z87.01 Personal history of pneumonia (recurrent); Z87.448 Personal history of other diseases of urinary system; Z86.73 Personal history of transient ischemic attack (TIA), and cerebral infarction without residual deficits; Z90.49 Acquired absence of other specified parts of digestive tract; Z98.890 Other specified postprocedural states; Z96.641 Presence of right artificial hip joint; Z86.2 Personal history of diseases of the blood and blood-forming organs and certain disorders involving the immune mechanism; Z87.891 Personal history of nicotine dependence; Z98.42 Cataract extraction status, left eye; Z98.41 Cataract extraction status, right eye; Z88.6 Allergy status to analgesic agent; Z88.4 Allergy status to anesthetic agent; Z88.1 Allergy status to other antibiotic agents; Z88.5 Allergy status to narcotic agent; Z88.0 Allergy status to penicillin; Z88.2 Allergy status to sulfonamides; Z88.8 Allergy status to other drugs, medicaments and biological substances; Z91.048 Other nonmedicinal substance allergy status; Z80.1 Family history of malignant neoplasm of trachea, bronchus and lung; Z80.8 Family history of malignant neoplasm of other organs or systems; Z82.3 Family history of stroke; Z80.0 Family history of malignant neoplasm of digestive organs; Z82.49 Family history of ischemic heart disease and other diseases of the circulatory system; W18.39XA Other fall on same level, initial encounter; Y92.008 Other place in unspecified non-institutional (private) residence as the place of occurrence of the external cause
CPT/HCPCS: 33207; 33210; 36415; 70450; 71045; 71046; 71275; 72125; 80048; 80053; 81003; 83735; 83880; 84443; 84484; 85025; 85379; 85610; 85730; 93005; 93306; 93880; 94640; 96374; 99285

== ENCOUNTER 2019-04-26 14:57 | Inpatient (IN) | payer MEDICARE, BC ==
[2019-04-26] MEDS ORDERED: ACETAMINOPHEN TAB 325 MG TAB PO STA ×2 (15:09→16:01)
[2019-04-26] MEDS ORDERED: LEVOFLOXACIN 750MG-D5W PMX 750 MG in DEXTROSE/WATER 1 150ML.BAG IVPB STA (15:23)
[2019-04-26 15:46] LABS: Basophils % (A) 0 %; Eosinophils # (A) 0.1 k/uL (0-0.7); Eosinophils % (A) 1 %; HCT 29.9 % (39.0-53.0); Lymphocytes # (A) 0.6 k/uL (1.0-4.8); Lymphocytes % (A) 5 %; MCH 34.1 pg (25.0-35.0); MCHC 33.4 g/dL (31.0-37.0); Macrocytosis Slight; Mean Platelet Volume 8.3; Monocytes # (A) 0.6 k/uL (0-1.0); Monocytes % (A) 5 %; Neutrophils # (A) 9.7 k/uL (1.3-7.7); Neutrophils % (A) 87 %; Platelet Count 187 k/uL (150-450); RBC 2.93 m/uL (4.30-5.90); RDW 13.6 % (11.5-15.5); WBC 11.2 k/uL (3.8-10.6)
[2019-04-26] MEDS ORDERED: SODIUM CHLORIDE 0.9% 500 ML 500 ML IV ONE ×2 (15:47)
--- NOTE | 2019-04-26 15:48 | ED ---
Fever HPI - General Chief Complaint: Fever Stated Complaint: fever Time Seen by Provider: 04/26/19 15:04 Source: patient, family Mode of arrival: ambulatory Limitations: no limitations - History of Present Illness Initial Comments: Anna Kent extensive past medical history including history of diabetes, hypertension, syncopal episodes recent placement of pacemaker on Tuesday, April 24 with recent discharge yesterday. Patient states the procedures performed by Dr. Armendariz. Patient denies any new chest pain shortness of breath. Patient states he felt as though he had a fever today and recorded his temperature which was greater than 102F. Patient was given Tylenol by his family. Patient called his cardiology office where he was told to come to emergency department for blood cultures. Patient has no other complaints denies dysuria urgency freq uency, abdominal pain neck pain and stiffness cough upper rest or symptoms worsen or swelling calf pain or difficulty lying flat. Remaining review of system negative. Patient appears in no acute distress upon arrival however is febrile. - Related Data Home Medications Medication Instructions Recorded Confirmed Folic Acid 1 mg PO BID 10/10/14 04/26/19 Montelukast [Singulair] 10 mg PO HS 10/10/14 04/26/19 Omeprazole [PriLOSEC] 20 mg PO DAILY 10/10/14 04/26/19 Apixaban [Eliquis] 2.5 mg PO BID 02/04/15 04/26/19 Spironolactone [Aldactone] 12.5 mg PO DAILY 02/04/15 04/26/19 Levalbuterol HCl [Xopenex 1.25 mg INHALATION RT-QID PRN 02/05/15 04/26/19 Nebulized] Cholecalciferol [Vitamin D3 (25 3,000 unit PO DAILY 10/01/16 04/26/19 Mcg = 1000 Iu)] Levothyroxine Sodium [Synthroid] 175 mcg PO DAILY 10/01/16 04/26/19 Glimepiride [Amaryl] 1 mg PO BID 10/21/17 04/26/19 Budesonide [Pulmicort] 1 mg INHALATION RT-BID 08/07/18 04/26/19 Furosemide [Lasix] 40 mg PO DAILY PRN 04/22/19 04/26/19 Furosemide [Lasix] 80 mg PO DAILY 04/22/19 04/26/19 Ipratropium Nebulized [Atrovent 0.5 mg INHALATION RT-TID 04/22/19 04/26/19 Nebulized 0.2 MG/ML] Metoprolol Tartrate [Lopressor] 25 mg PO BID 04/22/19 04/26/19 Allergies Allergy/AdvReac Type Severity Reaction Status Date / Time amoxicillin [From Augmentin] Allergy Unknown Verified 04/26/19 16:27 cefuroxime Allergy Rash/Hives Verified 04/26/19 16:27 cetyl alcohol [From Cetaphil] Allergy Rash/Hives Verified 04/26/19 16:27 clavulanic acid Allergy Unknown Verified 04/26/19 16:27 [From Augmentin] fexofenadine Allergy Unknown Verified 04/26/19 16:30 flecainide Allergy Rash/Hives Verified 04/26/19 16:27 fluconazole Allergy Unknown Verified 04/26/19 16:27 paraben [From Cetaphil] Allergy Rash/Hives Verified 04/26/19 16:27 propylene glycol Allergy Rash/Hives Verified 04/26/19 16:27 [From Cetaphil] skin cleanser [From Cetaphil] Allergy Rash/Hives Verified 04/26/19 16:27 soap [From Cetaphil] Allergy Rash/Hives Verified 04/26/19 16:27 sodium lauryl sulfate Allergy Rash/Hives Verified 04/26/19 16:27 [From Cetaphil] stearyl alcohol Allergy Rash/Hives Verified 04/26/19 16:27 [From Cetaphil] sulfamethoxazole Allergy Unknown Verified 04/26/19 16:27 [From Bactrim] Tetracyclines Allergy Unknown Verified 04/26/19 16:27 trimethoprim [From Bactrim] Allergy Unknown Verified 04/26/19 16:27 amiodarone AdvReac Cough Verified 04/26/19 16:27 benzocaine [From Cetacaine] AdvReac Dyspnea Verified 04/26/19 16:30 butamben [From Cetacaine] AdvReac Dyspnea Verified 04/26/19 16:30 meperidine HCl [From Demerol] AdvReac Nausea & Verified 04/26/19 16:27 Vomiting naproxen [From Naprosyn] AdvReac GI BLEED Verified 04/26/19 16:30 tetracaine [From Cetacaine] AdvReac Nausea & Verified 04/26/19 16:27 Vomiting zomepirac AdvReac GI BLEED Verified 04/26/19 16:30 duprenex AdvReac Nausea & Uncoded 04/26/19 16:30 Vomiting Review of Systems ROS Statement: Those systems with pertinent positive or pertinent negative responses have been documented in the HPI. ROS Other: All systems not noted in ROS Statement are negative. 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 History of Any Multi-Drug Resistant Organisms: None Reported Past Surgical History: Appendectomy, Cholecystectomy, Hernia Repair, Joint Repl acement, Orthopedic Surgery, Pacemaker Additional Past Surgical History / Comment(s): DANY/CVNS, bronchoscopies with lavage, laryngoscopy, right hip replaced, arthroscopies bilateral knees, R rotator cuff surgery. sx for deviated septum, nodules removed from vocal cords, karlene cataracts. Past Anesthesia/Blood Transfusion Reactions: Motion Sickness, Postoperative Nausea & Vomiting (PONV) Additional Past Anesthesia/Blood Transfusion Reaction / Comment(s): UNK FAMILY HX. NEVER HAS HAD BLOOD TRANSFUSION Past Psychological History: No Psychological Hx Reported Smoking Status: Former smoker Past Alcohol Use History: None Reported Past Drug Use History: None Reported - Past Family History Brother(s) Family Medical History: Cancer Additional Family Medical History / Comment(s): Pt had one brother with lung cancer and another brother with bone cancer. Sister(s) Family Medical History: Cancer Additional Family Medical History / Comment(s): Pt's sister had colon cancer. Mother Family Medical History: CVA/TIA Father Family Medical History: Hypertension General Exam - General Exam Comments Initial Comments: General: The patient is awake and alert, in no distress Eye: +3 mm pupils are equal, round and reactive to light, extra-ocular movements are intact. No nystagmus. There is normal conjunctiva bilaterally. No signs of icterus. Ears, nose, mouth and throat: There are moist mucous membranes and no oral lesions. Neck: The neck is supple, there is no tenderness or JVD. Cardiovascular: Appears regular rate and rhythm. No murmur, rub or gallop is appreciated. Respiratory: Lungs are clear to auscultation, respirations are non-labored, breath sounds are equal. No wheezes, stridor, rales, or rhonchi. Gastrointestinal: Soft, non-distended, non-tender abdomen without masses or organomegaly noted. There is no rebound or guarding present. Musculoskeletal: Normal ROM, no tenderness. Strength 5/5. Sensation intact. DP and radial pulses equal bilaterally 2+. Neurological: A&O x 3. CN II-XII intact, There are no obvious motor or sensory deficits. Coordination appears grossly intact. Speech is normal. Skin: Skin is warm and dry and no rashes. His surgical site, has not extensive redness, steristrips in place, no drainage, warmth to touch or pain to palpation. No LE edema. Psychiatric: Cooperative, appropriate mood & affect, normal judgment. Limitations: no limitations Course Vital Signs 04/26/19 04/26/19 04/26/19 14:58 15:29 16:11 Temperature 100.5 F H Pulse Rate 61 89 79 Respiratory 18 18 18 Rate Blood Pressure 96/52 90/49 112/63 O2 Sat by Pulse 94 L 97 96 Oximetry 04/26/19 18:35 Temperature 97.6 F Pulse Rate 76 Respiratory 16 Rate Blood Pressure 113/66 O2 Sat by Pulse 96 Oximetry Medical Decision Making - Medical Decision Making 88-year-old male presenting for fever. Patient had recent surgical procedure for pacemaker placement on Tuesday. Patient has blood pressure in the lower as pect of normal was given IV fluids improve her blood pressure. Patient had elevation of white blood cell count. Patient meet SIRS criteria concern for sepsis. Patient's blood cultures are pending. Patient was given Levaquin as he has a penicillin and cephalosporin ALLERGY. Patient denies any chest pain. Patient has no lower extremity edema. Chest x-ray revealed no pleural effusions or signs of pulmonary consolidations concerning for developing pneumonia. Patient denies dysuria urgency frequency or abdominal pain. Patient has no focalized symptoms. Patient's incision does not look overtly infected. Patient at this time will be admitted for IV antibiotics with concern for sepsis. I discussed the case with my attending provider who contacted Dr. Burk admitting provider. He recommended we put Dr. Qiu infectious disease consultation. Consult was placed in the computer. No further orders. Patient was unable to give urine sample until 18:30, after admission. UA reveled fi ndings consistent with urinary tract infection. - Lab Data Result diagrams: 04/26/19 15:20 04/26/19 15:20 Lab Results 04/26/19 04/26/19 04/26/19 Range/Units 15:20 15:20 15:20 WBC 11.2 H (3.8-10.6) k/uL RBC 2.93 L (4.30-5.90) m/uL Hgb 10.0 L (13.0-17.5) gm/dL Hct 29.9 L (39.0-53.0) % MCV 102.0 H (80.0-100.0) fL MCH 34.1 (25.0-35.0) pg MCHC 33.4 (31.0-37.0) g/dL RDW 13.6 (11.5-15.5) % Plt Count 187 (150-450) k/uL Neutrophils % 87 % Lymphocytes % 5 % Monocytes % 5 % Eosinophils % 1 % Basophils % 0 % Neutrophils # 9.7 H (1.3-7.7) k/uL Lymphocytes # 0.6 L (1.0-4.8) k/uL Monocytes # 0.6 (0-1.0) k/uL Eosinophils # 0.1 (0-0.7) k/uL Basophils # 0.0 (0-0.2) k/uL Macrocytosis Slight Sodium 133 L (137-145) mmol/L Potassium 4.4 (3.5-5.1) mmol/L Chloride 95 L (98-107) mmol/L Carbon Dioxide 30 (22-30) mmol/L Anion Gap 8 mmol/L BUN 28 H (9-20) mg/dL Creatinine 0.99 (0.66-1.25) mg/dL Est GFR (CKD-EPI)AfAm 79 (>60 ml/min/1.73 sqM) Est GFR (CKD-EPI)NonAf 69 (>60 ml/min/1.73 sqM) Glucose 154 H (74-99) mg/dL Lactic Ac Sepsis Rflx Plasma Lactic Acid Lawrence 2.1 H* (0.7-2.0) mmol/L Calcium 8.7 (8.4-10.2) mg/dL Total Bilirubin 3.6 H (0.2-1.3) mg/dL AST 40 (17-59) U/L ALT 27 (21-72) U/L Alkaline Phosphatase 58 (38-126) U/L Total Protein 6.3 (6.3-8.2) g/dL Albumin 3.8 (3.5-5.0) g/dL Urine Color Urine Appearance (Clear) Urine pH (5.0-8.0) Ur Specific [place] (1.001-1.035) Urine Protein (Negative) Urine Glucose (UA) (Negative) Urine Ketones (Negative) Urine Blood (Negative) Urine Nitrite (Negative) Urine Bilirubin (Negative) Urine Urobilinogen (<2.0) mg/dL Ur Leukocyte Esterase (Negative) Urine RBC (0-5) /hpf Urine WBC (0-5) /hpf Urine WBC Clumps (None) /hpf Ur Squamous Epith Cells (0-4) /hpf Amorphous Sediment (None) /hpf Urine Bacteria (None) /hpf Hyaline Casts (0-2) /lpf Urine Mucus (None) /hpf 04/26/19 04/26/19 Range/Units 16:00 18:22 WBC (3.8-10.6) k/uL RBC (4.30-5.90) m/uL Hgb (13.0-17.5) gm/dL Hct (39.0-53.0) % MCV (80.0-100.0) fL MCH (25.0-35.0) pg MCHC (31.0-37.0) g/dL RDW (11.5-15.5) % Plt Count (150-450) k/uL Neutrophils % % Lymphocytes % % Monocytes % % Eosinophils % % Basophils % % Neutrophils # (1.3-7.7) k/uL Lymphocytes # (1.0-4.8) k/uL Monocytes # (0-1.0) k/uL Eosinophils # (0-0.7) k/uL Basophils # (0-0.2) k/uL Macrocytosis Sodium (137-145) mmol/L Potassium (3.5-5.1) mmol/L Chloride (98-107) mmol/L Carbon Dioxide (22-30) mmol/L Anion Gap mmol/L BUN (9-20) mg/dL Creatinine (0.66-1.25) mg/dL Est GFR (CKD-EPI)AfAm (>60 ml/min/1.73 sqM) Est GFR (CKD-EPI)NonAf (>60 ml/min/1.73 sqM) Glucose (74-99) mg/dL Lactic Ac Sepsis Rflx Y Plasma Lactic Acid Lawrence (0.7-2.0) mmol/L Calcium (8.4-10.2) mg/dL Total Bilirubin (0.2-1.3) mg/dL AST (17-59) U/L ALT (21-72) U/L Alkaline Phosphatase (38-126) U/L Total Protein (6.3-8.2) g/dL Albumin (3.5-5.0) g/dL Urine Color Yellow Urine Appearance Clear (Clear) Urine pH 5.5 (5.0-8.0) Ur Specific [place] 1.018 (1.001-1.035) Urine Protein Trace H (Negative) Urine Glucose (UA) Negative (Negative) Urine Ketones Negative (Negative) Urine Blood Negative (Negative) Urine Nitrite Negative (Negative) Urine Bilirubin Negative (Negative) Urine Urobilinogen <2.0 (<2.0) mg/dL Ur Leukocyte Esterase Small H (Negative) Urine RBC 2 (0-5) /hpf Urine WBC 19 H (0-5) /hpf Urine WBC Clumps Occasional H (None) /hpf Ur Squamous Epith Cells 1 (0-4) /hpf Amorphous Sediment Rare H (None) /hpf Urine Bacteria Occasional H (None) /hpf Hyaline Casts 22 H (0-2) /lpf Urine Mucus Rare H (None) /hpf - EKG Data EKG Comments: Ventricular rate 56 bpm, ND interval 114 ms, QR hoahaoism 160 ms, QT/QTC 496/[address] elevation or depression. Premature supraventricular complexes noted with left axis deviation. Nonspecific intraventricular block. Disposition Clinical Impression: Fever, Post-operative infection, Leukocytosis, Sepsis, UTI (urinary tract infection) Disposition: ADMITTED IP TO THIS HOSP Condition: Stable Is patient prescribed a controlled substance at d/c from ED?: No Time of Disposition: 18:44 Decision to Admit Reason: Admit from EC Decision Date: 04/26/19 Decision Time: 17:00
[2019-04-26 15:56] LABS: Albumin 3.8 g/dL (3.5-5.0); Calcium 8.7 mg/dL (8.4-10.2); Potassium 4.4 mmol/L (3.5-5.1); Total Bilirubin 3.6 mg/dL (0.2-1.3); Total Protein 6.3 g/dL (6.3-8.2)
--- NOTE | 2019-04-26 16:04 | XR ---
EXAMINATION TYPE: XR chest 2V DATE OF EXAM: 04/26/2019 COMPARISON: 04/25/2019 TECHNIQUE: PA and lateral views submitted. HISTORY: Pain FINDINGS: Single-lead pacemaker seen with the tip overlying the region of the right ventricle. No sizable pneum othorax. Underlying COPD and chronic interstitial lung disease noted. Chronic elevation the right hem idiaphragm with basilar consolidation and pleural effusion stable. No pneumothorax. Heart is enlarged . Atherosclerotic change aorta. Arthropathy of the shoulders with diffuse osteopenia. Surgical clips suggested in the gallbladder fossa. Hypertrophic and degenerative change of the vertebral column. IMPRESSION: 1. Stable pleural-parenchymal changes as discussed above. 2. Correlate for COPD.
[2019-04-26] MEDS: SODIUM CHLORIDE 0.9% 1,000 ML IV SCH ×4 (16:18→23:41)
[2019-04-26] MEDS ORDERED: NALOXONE 0.4 MG/ML 1 ML VIAL IV PRN (16:52)
[2019-04-26] MEDS ORDERED: ACETAMINOPHEN TAB 325 MG TAB PO PRN (16:52)
[2019-04-26 18:47] LABS: Amorphous Sediment,Urine Rare /hpf; Appearance,Urine Clear (Clear); Bacteria,Urine Occasional /hpf; Bilirubin,Urine Negative (Negative); Blood,Urine Negative (Negative); Color,Urine Yellow; Glucose,Urine (UA) Negative (Negative); Hyaline Casts,Urine 22 /lpf (0-2); Ketones,Urine Negative (Negative); Leukocyte Esterase,Urine Small (Negative); Mucus,Urine Rare /hpf; Nitrite,Urine Negative (Negative); PH, Urine 5.5 (5.0-8.0); Protein,Urine Trace (Negative); RBC,Urine 2 /hpf (0-5); Specific Gravity,Urine 1.018 (1.001-1.035); Squamous Epithelial Cell,Urine 1 /hpf (0-4); Urobilinogen,Urine <2.0 mg/dL (<2.0); WBC,Urine 19 /hpf (0-5)
[2019-04-26] MEDS ORDERED: XOPENEX 1.25 MG INHALATION PRN (20:19)
[2019-04-26 20:36] LABS: Glucose,Whole Blood 86 mg/dL (75-99)
[2019-04-26] MEDS ORDERED: ALBUTEROL NEBULIZED 2.5 MG/3 ML INHALATION PRN (21:09)
[2019-04-26 21:16] LABS: Glucose,Whole Blood 95 mg/dL (75-99)
[2019-04-26] MEDS: XOPENEX 1.25 MG INHALATION PRN (21:43)
[2019-04-26] MEDS ORDERED: MELATONIN 3 MG TABLET PO PRN (21:56)
[2019-04-26] MEDS: MONTELUKAST 10 MG TAB PO SCH (22:02)
[2019-04-26] MEDS: FOLIC ACID 1 MG TAB PO SCH (22:02)
[2019-04-26] MEDS: APIXABAN 2.5 MG TABLET PO SCH (22:02)
[2019-04-26] MEDS: METOPROLOL TARTRATE 25 MG TAB PO SCH (22:02)
[2019-04-27 06:20] LABS: Glucose,Whole Blood 101 mg/dL (75-99)
[2019-04-27] MEDS: LEVOTHYROXINE 50 MCG TAB PO SCH (06:23)
[2019-04-27] MEDS: PANTOPRAZOLE 40 MG TABLET PO SCH (06:23)
[2019-04-27] MEDS: INSULIN ASPART (NovoLOG) 100 UNIT/ML VIAL SQ SCH ×4 (06:25→20:39)
[2019-04-27] MEDS: METOPROLOL TARTRATE 25 MG TAB PO SCH ×2 (08:24→20:29)
[2019-04-27] MEDS: APIXABAN 2.5 MG TABLET PO SCH ×2 (08:24→20:29)
[2019-04-27] MEDS: FUROSEMIDE 40 MG TAB PO SCH (08:24)
[2019-04-27] MEDS: GLIMEPIRIDE 1 MG TAB PO SCH ×2 (08:24→20:30)
[2019-04-27] MEDS: FOLIC ACID 1 MG TAB PO SCH ×2 (08:24→20:29)
[2019-04-27] MEDS: SPIRONOLACTONE 25 MG TAB PO SCH (08:24)
[2019-04-27] MEDS: BUDESONIDE 1 MG/2 ML NEBU INHALATION SCH ×3 (08:40→20:04)
[2019-04-27] MEDS: IPRATROPIUM 0.5 MG/2.5 ML NEBU INHALATION SCH ×3 (08:40→20:10)
[2019-04-27] MEDS: XOPENEX 1.25 MG INHALATION PRN ×3 (08:41→20:09)
[2019-04-27] MEDS: SODIUM CHLORIDE 0.9% 1,000 ML IV SCH (11:37)
[2019-04-27] MEDS ORDERED: FUROSEMIDE 10 MG/ML 4 ML VIAL IV STA (11:40)
[2019-04-27 12:00] LABS: Glucose,Whole Blood 109 mg/dL (75-99)
--- NOTE | 2019-04-27 12:46 | P.CRDCN ---
History of Present Illness Consult date: 04/27/19 Requesting physician: Cristian Burk Reason for Consult (text): possible post surgical infection, fever, sepsis Chief complaint: fever, chills History of present illness: This is a pleasant 88-year-old gentleman who follows with Dr. Pollack in the office. Has history of chronic atrial fibrillation, mild CAD, COPD, hypertension, hyperlipidemia, diabetes, and recent admission for syncope with l princess positives and subsequent single chamber pacemaker insertion. He was just discharged on 04/25/2019. He apparently woke up yesterday morning and was feeling okay but as the day progressed he became very chilled and found to have a fever which was initially 101F and was up to as high as 102.4F. He called our office and was instructed to proceed to the emergency department for further evaluation. Upon presentation patient was found to be febrile with a temperature of 100.5F and was hypotensive. Chest x-ray on admission showed stable pleural parenchymal changes, correlate for COPD. EKG showed atrial fibrillation with paced rhythm. Laboratory values showed a white blood cell count 11,200 hemoglobin of 10, sodium 133, potassium 4.4, BUN of 28 and creatinine 0.99. Initial plasma lactic acid 2.1 and subsequent lactic acid 1.0. Urinalysis did show evidence of UTI. Patient was given IV fluids in the emergency department and started on 0.9 normal saline at 75 mL an hour. He was also given a dose of Levaquin in the emergency department. Dr. Qiu has been consulted. The patient's blood pressure has stabilized. He is currently on Lasix 80 mg by mouth daily, metoprolol tartrate 25 mg by mouth twice a day, and spironolactone 12.5 mg by mouth daily. He is on Eliquis 0.5 mg by mouth twice a day for anticoagulation. When he was last seen in the office in January he did have evidence of fluid overload and was started on metolazone 2.5 mg as needed. Upon examination this morning patient is sitting up in a reclining chair. He denies any further chills and he's been afebrile this morning. He does complain of slightly worsening cough from his baseline with clear sputum. He also complains of some worsening dyspnea and is somewhat short of breath with talking. He has not had edema at home. He denies any palpitations, chest discomfort, significant discomfort at pacemaker site, he's had no further syncope. He denies any orthopnea or PND. 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 History of Any Multi-Drug Resistant Organisms: None Reported Past Surgical History: Appendectomy, Cholecystectomy, Hernia Repair, Joint Replacement, Orthopedic Surgery, Pacemaker Additional Past Surgical History / Comment(s): DANY/CVNS, bronchoscopies with lavage, laryngoscopy, right hip replaced, arthroscopies bilateral knees, R rotator cuff surgery. sx for deviated septum, nodules removed from vocal cords, karlene cataracts, pacemaker 04/24/19 Past Anesthesia/Blood Transfusion Reactions: Motion Sickness, Postoperative Nausea & Vomiting (PONV) Additional Past Anesthesia/Blood Transfusion Reaction / Comment(s): UNK FAMILY HX. NEVER HAS HAD BLOOD TRANSFUSION Type of Cardiac Device: Permanent Pacemaker Device Placement Date:: 04/24/19 Past Psychological History: No Psychological Hx Reported Additional Psychological History / Comment(s): Retired. No service. No animal exposures. 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 Lives with spouse in a single level home that has 3 steps to enter. PT is independent. He uses no assistive device and no home care. He drives a car.Pt has a nebulizer and glucometer. Smoking Status: Former smoker Past Alcohol Use History: None Reported Additional Past Alcohol Use History / Comment(s): Quit smoking in 1965, started AT AGE 22 Past Drug Use History: None Reported - Past Family History Brother(s) Family Medical History: Cancer Additional Family Medical History / Comment(s): Pt had one brother with lung cancer and another brother with bone cancer. Sister(s) Family Medical History: Cancer Additional Family Medical History / Comment(s): Pt's sister had colon cancer. Mother Family Medical History: CVA/TIA Father Family Medical History: Hypertension Medications and Allergies Home Medications Medication Instructions Recorded Confirmed Type Folic Acid 1 mg PO BID 10/10/14 04/26/19 History Montelukast [Singulair] 10 mg PO HS 10/10/14 04/26/19 History Omeprazole [PriLOSEC] 20 mg PO DAILY 10/10/14 04/26/19 History Apixaban [Eliquis] 2.5 mg PO BID 02/04/15 04/26/19 History Spironolactone [Aldactone] 12.5 mg PO DAILY 02/04/15 04/26/19 History Levalbuterol HCl [Xopenex 1.25 mg INHALATION RT-QID PRN 02/05/15 04/26/19 History Nebulized] Cholecalciferol [Vitamin D3 (25 3,000 unit PO DAILY 10/01/16 04/26/19 History Mcg = 1000 Iu)] Levothyroxine Sodium [Synthroid] 175 mcg PO DAILY 10/01/16 04/26/19 History Glimepiride [Amaryl] 1 mg PO BID 10/21/17 04/26/19 History Budesonide [Pulmicort] 1 mg INHALATION RT-BID 08/07/18 04/26/19 History Furosemide [Lasix] 40 mg PO DAILY PRN 04/22/19 04/26/19 History Furosemide [Lasix] 80 mg PO DAILY 04/22/19 04/26/19 History Ipratropium Nebulized [Atrovent 0.5 mg INHALATION RT-TID 04/22/19 04/26/19 History Nebulized 0.2 MG/ML] Metoprolol Tartrate [Lopressor] 25 mg PO BID 04/22/19 04/26/19 History Allergies Allergy/AdvReac Type Severity Reaction Status Date / Time amoxicillin [From Augmentin] Allergy Unknown Verified 04/26/19 16:27 cefuroxime Allergy Rash/Hives Verified 04/26/19 16:27 cetyl alcohol [From Cetaphil] Allergy Rash/Hives Verified 04/26/19 16:27 clavulanic acid Allergy Unknown Verified 04/26/19 16:27 [From Augmentin] fexofenadine Allergy Unknown Verified 04/26/19 16:30 flecainide Allergy Rash/Hives Verified 04/26/19 16:27 fluconazole Allergy Unknown Verified 04/26/19 16:27 paraben [From Cetaphil] Allergy Rash/Hives Verified 04/26/19 16:27 propylene glycol Allergy Rash/Hives Verified 04/26/19 16:27 [From Cetaphil] skin cleanser [From Cetaphil] Allergy Rash/Hives Verified 04/26/19 16:27 soap [From Cetaphil] Allergy Rash/Hives Verified 04/26/19 16:27 sodium lauryl sulfate Allergy Rash/Hives Verified 04/26/19 16:27 [From Cetaphil] stearyl alcohol Allergy Rash/Hives Verified 04/26/19 16:27 [From Cetaphil] sulfamethoxazole Allergy Unknown Verified 04/26/19 16:27 [From Bactrim] Tetracyclines Allergy Unknown Verified 04/26/19 16:27 trimethoprim [From Bactrim] Allergy Unknown Verified 04/26/19 16:27 amiodarone AdvReac Cough Verified 04/26/19 16:27 benzocaine [From Cetacaine] AdvReac Dyspnea Verified 04/26/19 16:30 butamben [From Cetacaine] AdvReac Dyspnea Verified 04/26/19 16:30 meperidine HCl [From Demerol] AdvReac Nausea & Verified 04/26/19 16:27 Vomiting naproxen [From Naprosyn] AdvReac GI BLEED Verified 04/26/19 16:30 tetracaine [From Cetacaine] AdvReac Nausea & Verified 04/26/19 16:27 Vomiting zomepirac AdvReac GI BLEED Verified 04/26/19 16:30 duprenex AdvReac Nausea & Uncoded 04/26/19 16:30 Vomiting Physical Exam Vitals: Vital Signs Temp Pulse Pulse Resp BP BP Pulse Ox 04/27/19 09:08 84 04/27/19 08:46 84 04/27/19 08:28 18 04/27/19 08:26 98.3 F 60 18 133/77 99 04/27/19 04:00 97.1 F L 74 18 120/56 98 04/27/19 00:00 98.0 F 50 L 18 110/56 100 08/29/19 21:51 76 16 04/26/19 21:43 75 18 04/26/19 21:33 98.5 F 56 L 16 136/89 97 04/26/19 18:35 97.6 F 76 16 113/66 96 04/26/19 16:11 79 18 112/63 96 04/26/19 15:29 89 18 90/49 97 04/26/19 14:58 100.5 F H 61 18 96/52 94 L Intake and Output 04/26/19 04/27/19 04/27/19 22:59 06:59 14:59 Intake Total 300 Output Total 175 200 350 Balance -175 100 -350 Intake: Intake, IV Titration 300 Amount Sodium Chloride 0.9% 1, 300 000 ml @ 75 mls/hr IV . [id number] [facility], [facility]1983 Rx#:[id number] Output: Urine 175 200 350 Other: Voiding Method Urinal Urinal Weight 92 kg PHYSICAL EXAMINATION: HEENT: Head is atraumatic, normocephalic. Pupils equal, round. Neck is supple. There is no elevated jugular venous pressure. HEART EXAMINATION: Heart sounds irregularly irregular, S1 and S2 with a systolic murmur. CHEST EXAMINATION: Lungs reveal diminished air exchange with faint crackles bilateral bases. No chest wall tenderness is noted on palpation or with deep breathing. LIC site dressing removed, Steri-Strips in place, no erythema, swelling or warmth. New Medipore dressing applied. ABDOMEN: Soft, nontender. Bowel sounds are heard. No organomegaly noted. EXTREMITIES: 2+ peripheral pulses with evidence of +1 bilateral lower extremity edema and no calf tenderness noted. NEUROLOGIC patient is awake, alert and oriented x3. . Results 04/26/19 15:20 04/26/19 15:20 Cardiac Enzymes 04/26/19 Range/Units 15:20 AST 40 (17-59) U/L CBC 04/26/19 Range/Units 15:20 WBC 11.2 H (3.8-10.6) k/uL RBC 2.93 L (4.30-5.90) m/uL Hgb 10.0 L (13.0-17.5) gm/dL Hct 29.9 L (39.0-53.0) % Plt Count 187 (150-450) k/uL Comprehensive Metabolic Panel 04/26/19 Range/Units 15:20 Sodium 133 L (137-145) mmol/L Potassium 4.4 (3.5-5.1) mmol/L Chloride 95 L (98-107) mmol/L Carbon Dioxide 30 (22-30) mmol/L BUN 28 H (9-20) mg/dL Creatinine 0.99 (0.66-1.25) mg/dL Glucose 154 H (74-99) mg/dL Calcium 8.7 (8.4-10.2) mg/dL AST 40 (17-59) U/L ALT 27 (21-72) U/L Alkaline Phosphatase 58 (38-126) U/L Total Protein 6.3 (6.3-8.2) g/dL Albumin 3.8 (3.5-5.0) g/dL Current Medications Generic Name Dose Route Start Last Admin Trade Name Freq PRN Reason Stop Dose Admin Acetaminophen 650 mg 04/26/19 16:52 Tylenol Tab PO Q6HR PRN Mild Pain or Fever > 100.5 Apixaban 2.5 mg 04/26/19 21:15 04/27/19 08:24 Eliquis PO 2.5 mg BID ORIANA Administration Budesonide 1 mg 04/27/19 08:00 04/27/19 08:53 Pulmicort INHALATION Not Given RT-BID ORIANA Folic Acid 1 mg 04/26/19 21:15 04/27/19 08:24 Folic Acid PO 1 mg BID ORIANA Administration Furosemide 80 mg 04/27/19 09:00 04/27/19 08:24 Lasix PO 80 mg DAILY ORIANA Administration Glimepiride 1 mg 04/27/19 09:00 04/27/19 08:24 Amaryl PO 1 mg BID ORIANA Administration Sodium Chloride 1,000 mls @ 75 mls/hr 04/26/19 16:00 04/26/19 23:41 Saline 0.9% IV 75 mls/hr .[id number] ORIANA Administration Insulin Aspart 0 unit 04/27/19 07:30 04/27/19 06:25 Novolog SQ Not Given ACHS [facility], [facility]1983 Protocol Ipratropium [place] 0.5 mg 04/27/19 08:00 04/27/19 08:40 Atrovent Nebulized INHALATION 0.5 mg RT-TID ORIANA Administration Levothyroxine Sodium 175 mcg 04/27/19 06:30 04/27/19 06:23 Synthroid PO 175 mcg DAILY@0630 ORIANA Administration Melatonin 3 mg 04/26/19 21:56 04/26/19 23:42 Melatonin PO 3 mg HS PRN Administration Insomnia Metoprolol Tartrate 25 mg 04/26/19 21:15 04/27/19 08:24 Lopressor PO 25 mg BID ORIANA Administration Montelukast Sodium 10 mg 04/26/19 21:15 04/26/19 22:02 Singulair PO 10 mg HS ORIANA Administration Naloxone HCl 0.2 mg 04/26/19 16:52 Narcan IV Q2M PRN Opioid Reversal Xopenex 1.25mg 1 each 04/26/19 21:32 04/27/19 08:41 INHALATION 1 each RT-Q8H PRN Administration Wheezing Pantoprazole Sodium 40 mg 04/27/19 07:30 04/27/19 06:23 Protonix PO 40 mg DAILY@0730 ORIANA Administration Spironolactone 12.5 mg 04/27/19 09:00 04/27/19 08:24 Aldactone PO 12.5 mg DAILY ORIANA Administration Intake and Output 04/26/19 04/27/19 04/27/19 22:59 06:59 14:59 Intake Total 300 Output Total 175 200 350 Balance -175 100 -350 Intake: Intake, IV Titration 300 Amount Sodium Chloride 0.9% 1, 300 000 ml @ 75 mls/hr IV . [id number] ORIANA Rx#:[id number] Output: Urine 175 200 350 Other: Voiding Method Urinal Urinal Weight 92 kg 04/26/19 15:20 04/26/19 15:20 EKG Interpretations (text) A. fib with paced rhythm Assessment and Plan Assessment: #1 symptoms of fever and chills with leukocytosis and signed of sepsis, improved #2 urinary tract infection, likely catheter associated #3 chronic atrial fibrillation with significant bradycardia and pauses, status post recent pacemaker implantation #4 hypertension #5 hyperlipidemia Plan: From cardiology's perspective, source of infection appears to be coming from a urinary tract infection that is likely catheter associated from recent admission, awaiting input from infectious disease. No signs of surgical site infection. Awaiting blood cultures. We will give the patient one dose of IV Lasix today and discontinue IV fluids. We will continue to follow the patient. Further recommendations accordingly. RUNNING SPECIALIST note has been reviewed, I agree with a documented findings and plan of care. Patient was seen and examined.
[2019-04-27 13:11] LABS: Hemoglobin A1C 5.1 % (4.0-6.0)
[2019-04-27] MEDS: AZTREONAM 2 GM in SODIUM CHLORIDE 0.9% 100 ML IVPB SCH ×2 (16:06→20:59)
[2019-04-27] MEDS: diphenhydrAMINE 2% CREAM 28.4 GM TUBE TOPICAL SCH ×2 (16:07→20:29)
[2019-04-27 17:27] LABS: Glucose,Whole Blood 135 mg/dL (75-99)
[2019-04-27] MEDS ORDERED: LACTULOSE 20 GM/30 ML CUP PO ONE (18:57)
--- NOTE | 2019-04-27 20:02 | P.HPIM ---
History of Present Illness H&P Date: 04/27/19 Chief Complaint: Fever History of presenting complaint: This is a very pleasant 88-year-old patient of Dr. Barrington Dietz. Patient's chronic stable medical conditions include congestive heart failure from diastolic dysfunction EF 55%, moderate persistent asthma, chronically paralyzed right diaphragm, persistent atrial fibrillation, diabetes mellitus type 2, GERD, hypertension, hyperlipidemia, hypothyroid, peptic ulcer disease, chronic diverticulosis, chronic hypoxic respiratory failure due to liters oxygen at home, left bundle branch block. Patient on April 24 underwent single-chamber permanent pacemaker placement for symptomatic sinus pauses. Patient yesterday started spiking fevers at home. Patient had some urinary discomfort. During the pacemaker placement patient had a Andrade catheter placed. Patient is urine has come back infected appearing. [place] to be the source of patient's infection. Admitted for the same. Review of systems: GEN.: Fever weak tired] EYES: None HEENT: None NECK: None RESPIRATORY: None CARDIOVASCULAR: None GASTROINTESTINAL: None GENITOURINARY: Urinary frequency dysuria MUSCULOSKELETAL: Pain in joints] LYMPHATICS: None HEMATOLOGICAL: None PSYCHIATRY: None NEUROLOGICAL: None Past medical history to include: congestive heart failure from diastolic dysfunction EF 55%, moderate persistent asthma, chronically paralyzed right diaphragm, persistent atrial fibrillation, diabetes mellitus type 2, GERD, hypertension, hyperlipidemia, hypothyroid, peptic ulcer disease, chronic diverticulosis, chronic hypoxic respiratory failure 2 liters oxygen at home, left bundle branch block. Patient on April 24 underwent single-chamber permanent pacemaker placement for symptomatic sinus pauses. Social history: . No smoking or alcohol. Family history: Stroke Physical examination: VITAL SIGNS: 102.3 fever at home, 100.5 in the ER, 61, 18, 9652, 94% 3 L GENERAL: Average built, sitting up, in a chair. EYES: Pupils equal. Conjunctiva normal. HEENT: External appearance of nose and ears normal, oral cavity grossly normal. NECK: JVD not raised; masses not palpable. HEART: First and second heart sounds are normal; no edema. LUNGS: Respiratory rate normal; fair entry. ABDOMEN: Soft, nontender, liver spleen not palpable, no masses palpable. PSYCH: Alert and oriented x3; mood and affect normal. NEUROLOGICAL: Cranial nerves grossly intact; no facial asymmetry, power and sensation grossly intact. LYMPHATICS: No lymph nodes palpable in the axilla and neck CHEST wall: Steri-Strips were dressing over the pacemaker site INVESTIGATIONS, reviewed in the clinical context: White count 11.2, hemoglobin 10, potassium 4.4, BUN 28, creatinine 0.99 Lactic acid 2.1 UA positive for WBC leukoesterase Assessment: -Acute UTI with sepsis secondary to cystitis secondary to Andrade catheter placed during pacemaker placement -Chronic congestive heart failure from gastric dysfunction EF 55% -Moderate persistent asthma -Chronically paralyzed right diaphragm -Diabetes mellitus type 2 -GERD -Essential hypertension -Hyperlipidemia -Hypothyroid -Chronic colonic diverticulosis -Chronic hypoxic respiratory failure due to liters oxygen at home -Left total 5:00 -Single-chamber point permanent pacemaker placed for sick sinus syndrome on 04/24/2019 Plan: Home medications resumed. Patient is on IV aztreonam. Patient to continued eliquis. Given IV fluids. ID was consulted. Care was discussed with the patient. Questions were answered. Also getting IV fluids. Follow I's closely. Cultures in place. 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 History of Any Multi-Drug Resistant Organisms: None Reported Past Surgical History: Appendectomy, Cholecystectomy, Hernia Repair, Joint Replacement, Orthopedic Surgery, Pacemaker Additional Past Surgical History / Comment(s): DANY/CVNS, bronchoscopies with lavage, laryngoscopy, right hip replaced, arthroscopies bilateral knees, R rotator cuff surgery. sx for deviated septum, nodules removed from vocal cords, karlene cataracts, pacemaker 04/24/19 Past Anesthesia/Blood Transfusion Reactions: Motion Sickness, Postoperative Nausea & Vomiting (PONV) Additional Past Anesthesia/Blood Transfusion Reaction / Comment(s): UNK FAMILY HX. NEVER HAS HAD BLOOD TRANSFUSION Type of Cardiac Device: Permanent Pacemaker Device Placement Date:: 04/24/19 Past Psychological History: No Psychological Hx Reported Additional Psychological History / Comment(s): Retired. No service. No animal exposures. 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 Lives with spouse in a single level home that has 3 steps to enter. PT is independent. He uses no assistive device and no home care. He drives a car.Pt has a nebulizer and glucometer. Smoking Status: Former smoker Past Alcohol Use History: None Reported Additional Past Alcohol Use History / Comment(s): Quit smoking in 1965, started AT AGE 22 Past Drug Use History: None Reported - Past Family History Brother(s) Family Medical History: Cancer Additional Family Medical History / Comment(s): Pt had one brother with lung cancer and another brother with bone cancer. Sister(s) Family Medical History: Cancer Additional Family Medical History / Comment(s): Pt's sister had colon cancer. Mother Family Medical History: CVA/TIA Father Family Medical History: Hypertension Medications and Allergies Home Medications Medication Instructions Recorded Confirmed Type Folic Acid 1 mg PO BID 10/10/14 04/26/19 History Montelukast [Singulair] 10 mg PO HS 10/10/14 04/26/19 History Omeprazole [PriLOSEC] 20 mg PO DAILY 10/10/14 04/26/19 History Apixaban [Eliquis] 2.5 mg PO BID 02/04/15 04/26/19 History Spironolactone [Aldactone] 12.5 mg PO DAILY 02/04/15 04/26/19 History Levalbuterol HCl [Xopenex 1.25 mg INHALATION RT-QID PRN 02/05/15 04/26/19 History Nebulized] Cholecalciferol [Vitamin D3 (25 3,000 unit PO DAILY 10/01/16 04/26/19 History Mcg = 1000 Iu)] Levothyroxine Sodium [Synthroid] 175 mcg PO DAILY 10/01/16 04/26/19 History Glimepiride [Amaryl] 1 mg PO BID 10/21/17 04/26/19 History Budesonide [Pulmicort] 1 mg INHALATION RT-BID 08/07/18 04/26/19 History Furosemide [Lasix] 40 mg PO DAILY PRN 04/22/19 04/26/19 History Furosemide [Lasix] 80 mg PO DAILY 04/22/19 04/26/19 History Ipratropium Nebulized [Atrovent 0.5 mg INHALATION RT-TID 04/22/19 04/26/19 History Nebulized 0.2 MG/ML] Metoprolol Tartrate [Lopressor] 25 mg PO BID 04/22/19 04/26/19 History Allergies Allergy/AdvReac Type Severity Reaction Status Date / Time amoxicillin [From Augmentin] Allergy Unknown Verified 04/26/19 16:27 cefuroxime Allergy Rash/Hives Verified 04/26/19 16:27 cetyl alcohol [From Cetaphil] Allergy Rash/Hives Verified 04/26/19 16:27 clavulanic acid Allergy Unknown Verified 04/26/19 16:27 [From Augmentin] fexofenadine Allergy Unknown Verified 04/26/19 16:30 flecainide Allergy Rash/Hives Verified 04/26/19 16:27 fluconazole Allergy Unknown Verified 04/26/19 16:27 paraben [From Cetaphil] Allergy Rash/Hives Verified 04/26/19 16:27 propylene glycol Allergy Rash/Hives Verified 04/26/19 16:27 [From Cetaphil] skin cleanser [From Cetaphil] Allergy Rash/Hives Verified 04/26/19 16:27 soap [From Cetaphil] Allergy Rash/Hives Verified 04/26/19 16:27 sodium lauryl sulfate Allergy Rash/Hives Verified 04/26/19 16:27 [From Cetaphil] stearyl alcohol Allergy Rash/Hives Verified 04/26/19 16:27 [From Cetaphil] sulfamethoxazole Allergy Unknown Verified 04/26/19 16:27 [From Bactrim] Tetracyclines Allergy Unknown Verified 04/26/19 16:27 trimethoprim [From Bactrim] Allergy Unknown Verified 04/26/19 16:27 amiodarone AdvReac Cough Verified 04/26/19 16:27 benzocaine [From Cetacaine] AdvReac Dyspnea Verified 04/26/19 16:30 butamben [From Cetacaine] AdvReac Dyspnea Verified 04/26/19 16:30 meperidine HCl [From Demerol] AdvReac Nausea & Verified 04/26/19 16:27 Vomiting naproxen [From Naprosyn] AdvReac GI BLEED Verified 04/26/19 16:30 tetracaine [From Cetacaine] AdvReac Nausea & Verified 04/26/19 16:27 Vomiting zomepirac AdvReac GI BLEED Verified 04/26/19 16:30 duprenex AdvReac Nausea & Uncoded 04/26/19 16:30 Vomiting Physical Exam Vitals: Vital Signs Temp Pulse Pulse Resp BP BP Pulse Ox 04/27/19 11:17 98.3 F 65 18 113/59 92 L 04/27/19 09:08 84 04/27/19 08:46 84 04/27/19 08:28 18 04/27/19 08:26 98.3 F 60 18 133/77 99 04/27/19 04:00 97.1 F L 74 18 120/56 98 04/27/19 00:00 98.0 F 50 L 18 110/56 100 04/26/19 21:51 76 16 04/26/19 21:43 75 18 04/26/19 21:33 98.5 F 56 L 16 136/89 97 04/26/19 18:35 97.6 F 76 16 113/66 96 04/26/19 16:11 79 18 112/63 96 04/26/19 15:29 89 18 90/49 97 04/26/19 14:58 100.5 F H 61 18 96/52 94 L Intake and Output 04/26/19 04/27/19 04/27/19 22:59 06:59 14:59 Intake Total 300 180 Output Total 210 859 2058 Balance -175 100 -970 Intake: Intake, IV Titration 300 Amount Sodium Chloride 0.9% 1, 300 000 ml @ 20 mls/hr IV . Q24H [facility] Rx#:[id number] Oral 180 Output: Urine 323 895 [id number] Other: Voiding Method Urinal Urinal Weight 92 kg Results CBC & Chem 7: 04/26/19 15:20 04/26/19 15:20 Labs: Abnormal Lab Results - Last 24 Hours (Table) 04/26/19 04/26/19 04/26/19 Range/Units 15:20 15:20 15:20 WBC 11.2 H (3.8-10.6) k/uL RBC 2.93 L (4.30-5.90) m/uL Hgb 10.0 L (13.0-17.5) gm/dL Hct 29.9 L (39.0-53.0) % MCV 102.0 H (80.0-100.0) fL Neutrophils # 9.7 H (1.3-7.7) k/uL Lymphocytes # 0.6 L (1.0-4.8) k/uL Sodium 133 L (137-145) mmol/L Chloride 95 L (98-107) mmol/L BUN 28 H (9-20) mg/dL Glucose 154 H (74-99) mg/dL POC Glucose (mg/dL) (75-99) mg/dL Plasma Lactic Acid Lawrence 2.1 H* (0.7-2.0) mmol/L Total Bilirubin 3.6 H (0.2-1.3) mg/dL Urine Protein (Negative) Ur Leukocyte Esterase (Negative) Urine WBC (0-5) /hpf Urine WBC Clumps (None) /hpf Amorphous Sediment (None) /hpf Urine Bacteria (None) /hpf Hyaline Casts (0-2) /lpf Urine Mucus (None) /hpf 04/26/19 04/27/19 04/27/19 Range/Units 18:22 06:18 11:56 WBC (3.8-10.6) k/uL RBC (4.30-5.90) m/uL Hgb (13.0-17.5) gm/dL Hct (39.0-53.0) % MCV (80.0-100.0) fL Neutrophils # (1.3-7.7) k/uL Lymphocytes # (1.0-4.8) k/uL Sodium (137-145) mmol/L Chloride (98-107) mmol/L BUN (9-20) mg/dL Glucose (74-99) mg/dL POC Glucose (mg/dL) 101 H 109 H (75-99) mg/dL Plasma Lactic Acid Lawrence (0.7-2.0) mmol/L Total Bilirubin (0.2-1.3) mg/dL Urine Protein Trace H (Negative) Ur Leukocyte Esterase Small H (Negative) Urine WBC 19 H (0-5) /hpf Urine WBC Clumps Occasional H (None) /hpf Amorphous Sediment Rare H (None) /hpf Urine Bacteria Occasional H (None) /hpf Hyaline Casts 22 H (0-2) /lpf Urine Mucus Rare H (None) /hpf Thrombosis Risk Factor Assmnt - Choose All That Apply Any of the Below Risk Factors Present?: Yes Each Factor Represents 1 point: Abnormal pulmonary function (COPD) Other Risk Factors: Yes Each Risk Factor Represents 3 Points: Age 75 years or older Other congenital or acquired thrombophilia - If yes, enter type in comment: No Thrombosis Risk Factor Assessment Total Risk Factor Score: 4 Thrombosis Risk Factor Assessment Level: Moderate Risk
[2019-04-27] MEDS: MONTELUKAST 10 MG TAB PO SCH (20:39)
[2019-04-27 21:24] LABS: Glucose,Whole Blood 163 mg/dL (75-99)
--- NOTE | 2019-04-28 01:19 | P.CONS ---
History of Present Illness - Reason for Consult Consult date: 04/27/19 fever Requesting physician: Cristian Burk - Chief Complaint fever rigors and chills 1 day - History of Present Illness patient is 88-year-old male who is status post pacemaker placement at [facility] on 04/25/2019, the patient was subsequently discharge in a stable condition the next morning the patient started having a fever with rigors and chills in the afternoon, with a temperature of 10 2F, the patient denies having any URI symptoms. The patient to have underlying COPD however mentioning having more shortness of breath and he also having more sputum production which is yellow in color no hemoptysis and no chest pain, no nausea no vomiting no abdominal pain and no diarrhea, the patient denies having difficulty urination or any burning frequency the patient with these symptoms was evaluated at [facility] ER patient noticed to have temperature of 100.5F patient did have mildly elevated white of 11.1 the patient did Positive UA a chest x-ray was negative for any consolidation, the patient did received a dose of Levaquin in the ER subsequently has been admitted hospital infectious disease was consulted for further recommendation regarding antibiotic therapy Review of Systems Positive points has been mentioned in HPI rest of the systems are negative Past Medical History Past Medical History: Atrial Fibrillation, Asthma, Chest Pain / Angina, Heart Failure, COPD, CVA/TIA, Diabetes Mellitus, GERD/Reflux, Hypertension, Pneumonia, Renal Disease, Respiratory Disorder, Thyroid Disorder Additional Past Medical History / Comment(s): Pt states he is recently diagnosed with possible colitis and is currently on antibiotics for this, frequent diarrhea, tracheobronchitis, chronic bronchitis, subglottic tracheitis, nodular vocal cords-benign and removed, 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 History of Any Multi-Drug Resistant Organisms: None Reported Past Surgical History: Appendectomy, Cholecystectomy, Hernia Repair, Joint Replacement, Orthopedic Surgery, Pacemaker Additional Past Surgical History / Comment(s): DANY/CVNS, bronchoscopies with lavage, laryngoscopy, right hip replaced, arthroscopies bilateral knees, R rotator cuff surgery. sx for deviated septum, nodules removed from vocal cords, karlene cataracts, pacemaker 08/27/19 Past Anesthesia/Blood Transfusion Reactions: Motion Sickness, Postoperative Nausea & Vomiting (PONV) Additional Past Anesthesia/Blood Transfusion Reaction / Comm: UNK FAMILY HX. NEVER HAS HAD BLOOD TRANSFUSION Type of Cardiac Device: Permanent Pacemaker Device Placement Date:: 04/24/19 Past Psychological History: No Psychological Hx Reported Additional Psychological History / Comment(s): Retired. No service. No animal exposures. 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 Lives with spouse in a single level home that has 3 steps to enter. PT is independent. He uses no assistive device and no home care. He drives a car.Pt has a nebulizer and glucometer. Smoking Status: Former smoker Past Alcohol Use History: None Reported Additional Past Alcohol Use History / Comment(s): Quit smoking in 1965, started AT AGE 22 Past Drug Use History: None Reported - Past Family History Brother(s) Family Medical History: Cancer Additional Family Medical History / Comment(s): Pt had one brother with lung cancer and another brother with bone cancer. Sister(s) Family Medical History: Cancer Additional Family Medical History / Comment(s): Pt's sister had colon cancer. Mother Family Medical History: CVA/TIA Father Family Medical History: Hypertension Medications and Allergies Home Medications Medication Instructions Recorded Confirmed Type Folic Acid 1 mg PO BID 10/10/14 04/26/19 History Montelukast [Singulair] 10 mg PO HS 10/10/14 04/26/19 History Omeprazole [PriLOSEC] 20 mg PO DAILY 10/10/14 04/26/19 History Apixaban [Eliquis] 2.5 mg PO BID 02/04/15 04/26/19 History Spironolactone [Aldactone] 12.5 mg PO DAILY 02/04/15 04/26/19 History Levalbuterol HCl [Xopenex 1.25 mg INHALATION RT-QID PRN 02/05/15 04/26/19 History Nebulized] Cholecalciferol [Vitamin D3 (25 3,000 unit PO DAILY 10/01/16 04/26/19 History Mcg = 1000 Iu)] Levothyroxine Sodium [Synthroid] 175 mcg PO DAILY 10/01/16 04/26/19 History Glimepiride [Amaryl] 1 mg PO BID 10/21/17 04/26/19 History Budesonide [Pulmicort] 1 mg INHALATION RT-BID 08/07/18 04/26/19 History Furosemide [Lasix] 40 mg PO DAILY PRN 04/22/19 04/26/19 History Furosemide [Lasix] 80 mg PO DAILY 04/22/19 04/26/19 History Ipratropium Nebulized [Atrovent 0.5 mg INHALATION RT-TID 04/22/19 04/26/19 History Nebulized 0.2 MG/ML] Metoprolol Tartrate [Lopressor] 25 mg PO BID 04/22/19 04/26/19 History Allergies Allergy/AdvReac Type Severity Reaction Status Date / Time amoxicillin [From Augmentin] Allergy Unknown Verified 04/26/19 16:27 cefuroxime Allergy Rash/Hives Verified 04/26/19 16:27 cetyl alcohol [From Cetaphil] Allergy Rash/Hives Verified 04/26/19 16:27 clavulanic acid Allergy Unknown Verified 04/26/19 16:27 [From Augmentin] fexofenadine Allergy Unknown Verified 04/26/19 16:30 flecainide Allergy Rash/Hives Verified 04/26/19 16:27 fluconazole Allergy Unknown Verified 04/26/19 16:27 paraben [From Cetaphil] Allergy Rash/Hives Verified 04/26/19 16:27 propylene glycol Allergy Rash/Hives Verified 04/26/19 16:27 [From Cetaphil] skin cleanser [From Cetaphil] Allergy Rash/Hives Verified 04/26/19 16:27 soap [From Cetaphil] Allergy Rash/Hives Verified 04/26/19 16:27 sodium lauryl sulfate Allergy Rash/Hives Verified 04/26/19 16:27 [From Cetaphil] stearyl alcohol Allergy Rash/Hives Verified 04/26/19 16:27 [From Cetaphil] sulfamethoxazole Allergy Unknown Verified 04/26/19 16:27 [From Bactrim] Tetracyclines Allergy Unknown Verified 04/26/19 16:27 trimethoprim [From Bactrim] Allergy Unknown Verified 04/26/19 16:27 amiodarone AdvReac Cough Verified 04/26/19 16:27 benzocaine [From Cetacaine] AdvReac Dyspnea Verified 04/26/19 16:30 butamben [From Cetacaine] AdvReac Dyspnea Verified 04/26/19 16:30 meperidine HCl [From Demerol] AdvReac Nausea & Verified 04/26/19 16:27 Vomiting naproxen [From Naprosyn] AdvReac GI BLEED Verified 04/26/19 16:30 tetracaine [From Cetacaine] AdvReac Nausea & Verified 04/26/19 16:27 Vomiting zomepirac AdvReac GI BLEED Verified 04/26/19 16:30 duprenex AdvReac Nausea & Uncoded 04/26/19 16:30 Vomiting Physical Exam Vitals: Vital Signs Temp Pulse Pulse Resp BP BP Pulse Ox 04/27/19 13:35 80 04/27/19 13:13 80 04/27/19 11:17 98.3 F 65 18 113/59 92 L 04/27/19 09:08 84 04/27/19 08:46 84 04/27/19 08:28 18 04/27/19 08:26 98.3 F 60 18 133/77 99 04/27/19 04:00 97.1 F L 74 18 120/56 98 04/27/19 00:00 98.0 F 50 L 18 110/56 100 04/26/19 21:51 76 16 04/26/19 21:43 75 18 04/26/19 21:33 98.5 F 56 L 16 136/89 97 04/26/19 18:35 97.6 F 76 16 113/66 96 04/26/19 16:11 79 18 112/63 96 04/26/19 15:29 89 18 90/49 97 04/26/19 14:58 100.5 F H 61 18 96/52 94 L Intake and Output 04/26/19 04/27/19 04/27/19 22:59 06:59 14:59 Intake Total 300 180 Output Total 810 026 1166 Balance -175 100 -1145 Intake: Intake, IV Titration 300 Amount Sodium Chloride 0.9% 1, 300 000 ml @ 20 mls/hr IV . Q24H [facility] Rx#:[id number] Oral 180 Output: Urine 580 579 [id number] Other: Voiding Method Urinal Urinal Weight 92 kg GENERAL DESCRIPTION: Elderly male lying in bed, no distress. No tachypnea or accessory muscle of respiration use. HEENT: Shows Pallor , no scleral icterus. Oral mucous membrane is dry. No pharyngeal erythema or thrush NECK: Trachea central, no thyromegaly. LUNGS: Unlabored breathing. a few coarse crackles at the left base. No wheeze. HEART: S1, S2, regular rate and rhythm. No loud murmur, left chest wall pacemaker site looks clean ABDOMEN: Soft, no tenderness , guarding or rigidity, no organomegaly EXTREMITIES: No edema of feet. SKIN: No rash, no masses palpable. NEUROLOGICAL: The patient is awake, alert, oriented x3, mood and affect normal. Results CBC & Chem 7: 04/26/19 15:20 04/26/19 15:20 Labs: Abnormal Lab Results - Last 24 Hours (Table) 04/26/19 04/26/19 04/26/19 Range/Units 15:20 15:20 15:20 WBC 11.2 H (3.8-10.6) k/uL RBC 2.93 L (4.30-5.90) m/uL Hgb 10.0 L (13.0-17.5) gm/dL Hct 29.9 L (39.0-53.0) % MCV 102.0 H (80.0-100.0) fL Neutrophils # 9.7 H (1.3-7.7) k/uL Lymphocytes # 0.6 L (1.0-4.8) k/uL Sodium 133 L (137-145) mmol/L Chloride 95 L (98-107) mmol/L BUN 28 H (9-20) mg/dL Glucose 154 H (74-99) mg/dL POC Glucose (mg/dL) (75-99) mg/dL Plasma Lactic Acid Lawrence 2.1 H* (0.7-2.0) mmol/L Total Bilirubin 3.6 H (0.2-1.3) mg/dL Urine Protein (Negative) Ur Leukocyte Esterase (Negative) Urine WBC (0-5) /hpf Urine WBC Clumps (None) /hpf Amorphous Sediment (None) /hpf Urine Bacteria (None) /hpf Hyaline Casts (0-2) /lpf Urine Mucus (None) /hpf 04/26/19 04/27/19 04/27/19 Range/Units 18:22 06:18 11:56 WBC (3.8-10.6) k/uL RBC (4.30-5.90) m/uL Hgb (13.0-17.5) gm/dL Hct (39.0-53.0) % MCV (80.0-100.0) fL Neutrophils # (1.3-7.7) k/uL Lymphocytes # (1.0-4.8) k/uL Sodium (137-145) mmol/L Chloride (98-107) mmol/L BUN (9-20) mg/dL Glucose (74-99) mg/dL POC Glucose (mg/dL) 101 H 109 H (75-99) mg/dL Plasma Lactic Acid Lawrence (0.7-2.0) mmol/L Total Bilirubin (0.2-1.3) mg/dL Urine Protein Trace H (Negative) Ur Leukocyte Esterase Small H (Negative) Urine WBC 19 H (0-5) /hpf Urine WBC Clumps Occasional H (None) /hpf Amorphous Sediment Rare H (None) /hpf Urine Bacteria Occasional H (None) /hpf Hyaline Casts 22 H (0-2) /lpf Urine Mucus Rare H (None) /hpf Assessment and Plan Assessment: 1-patient admitted to the hospital with sepsis in this patient who did have a fever and elevated white count in this patient who recently did have a pacemaker placement however the pacemaker site looks clean with no cellulitis the patient to have underlyingD and currentl with more purulent sputum with coarse crackles at left base with concern for left lower lobe pneumonia and in this patient recent hospitalization will need to cover for resistant gram-positive and gram- negative pathogen, patient did have mildly positive UA but no urinary symptoms 2-Patient with multiple antibiotics ALLERGIES that will limit the number of antibiotic safe to use (1) Sepsis Current Visit: Yes Status: Acute Code(s): A41.9 - SEPSIS, UNSPECIFIED ORGANISM SNOMED Code(s): 88035241 (2) Pneumonia Current Visit: No Status: Acute Code(s): J18.9 - PNEUMONIA, UNSPECIFIED ORGANISM SNOMED Code(s): 905566719 Plan: 1-we will try to obtained sputum for Gram stain and culture 2-repeat chest x-ray PA and lateral in the morning 3--vancomycin pharmacy to dose target trough of 15 while watching her kidney function and Vanco trough closely 4-Azactam 2 g every 12 we will follow on clinical condition and culture to further adjust medication if needed Thank you for this consultation will follow this patient along with you Time with Patient: Greater than 30
[2019-04-28] MEDS: XOPENEX 1.25 MG INHALATION PRN ×2 (03:44→21:28)
[2019-04-28] MEDS: IPRATROPIUM 0.5 MG/2.5 ML NEBU INHALATION SCH ×3 (03:44→21:28)
[2019-04-28] MEDS: BUDESONIDE 1 MG/2 ML NEBU INHALATION SCH ×2 (03:48→21:30)
[2019-04-28] MEDS: INSULIN ASPART (NovoLOG) 100 UNIT/ML VIAL SQ SCH ×4 (04:49→22:29)
[2019-04-28 04:55] LABS: Glucose,Whole Blood 109 mg/dL (75-99)
[2019-04-28] MEDS: LEVOTHYROXINE 50 MCG TAB PO SCH (05:02)
[2019-04-28] MEDS: PANTOPRAZOLE 40 MG TABLET PO SCH (05:03)
[2019-04-28 06:19] LABS: Basophils % (A) 0 %; Eosinophils # (A) 0.3 k/uL (0-0.7); Eosinophils % (A) 3 %; HCT 28.1 % (39.0-53.0); HGB 9.5 gm/dL (13.0-17.5); Lymphocytes # (A) 0.8 k/uL (1.0-4.8); Lymphocytes % (A) 9 %; MCH 34.4 pg (25.0-35.0); MCHC 33.7 g/dL (31.0-37.0); MCV 101.9 fL (80.0-100.0); Macrocytosis Slight; Mean Platelet Volume 8.1; Monocytes # (A) 0.4 k/uL (0-1.0); Monocytes % (A) 4 %; Neutrophils % (A) 82 %; Platelet Count 184 k/uL (150-450); RBC 2.76 m/uL (4.30-5.90); RDW 14.3 % (11.5-15.5); WBC 8.5 k/uL (3.8-10.6)
[2019-04-28 06:24] LABS: African American GFR (CKD) >90 (>60 ml/min/1.73 sqM); Anion Gap 8 mmol/L; Blood Urea Nitrogen 21 mg/dL (9-20); Calcium 8.2 mg/dL (8.4-10.2); Carbon Dioxide 31 mmol/L (22-30); Chloride 94 mmol/L (98-107); Glucose 96 mg/dL (74-99); Potassium 3.8 mmol/L (3.5-5.1); Sodium 133 mmol/L (137-145)
[2019-04-28 07:20] LABS: C Reactive Protein 76.7 mg/L (<10.0)
--- NOTE | 2019-04-28 07:52 | XR ---
EXAMINATION TYPE: XR chest 2V DATE OF EXAM: 04/28/2019 COMPARISON: 04/26/2019 HISTORY: 88 year-old male fever and pneumonia TECHNIQUE: PA and lateral views FINDINGS: Left anterior chest wall pacemaker generator with right ventricular lead. Heart borderline enlarged. Asymmetric elevation right hemidiaphragm is unchanged. Diffuse interstitial prominence is stable. Sma ll right effusion with fluid seen tracking up the lateral right thoracic sidewall may be slightly inc reased. Focal airspace opacity peripheral right midlung persists. IMPRESSION: Continued focal air space opacity peripheral right midlung with small right effusion. Background COPD . Stable asymmetric elevation right hemidiaphragm. Follow-up after treatment to ensure clearance.
[2019-04-28] MEDS: SODIUM CHLORIDE 0.9% 1,000 ML IV SCH ×2 (07:57→22:30)
[2019-04-28] MEDS: FOLIC ACID 1 MG TAB PO SCH ×2 (08:11→22:27)
[2019-04-28] MEDS: SPIRONOLACTONE 25 MG TAB PO SCH (08:11)
[2019-04-28] MEDS: FUROSEMIDE 40 MG TAB PO SCH (08:11)
[2019-04-28] MEDS: APIXABAN 2.5 MG TABLET PO SCH ×2 (08:11→22:29)
[2019-04-28] MEDS: diphenhydrAMINE 2% CREAM 28.4 GM TUBE TOPICAL SCH ×3 (08:11→22:29)
[2019-04-28] MEDS: GLIMEPIRIDE 1 MG TAB PO SCH ×2 (08:11→22:28)
[2019-04-28] MEDS: AZTREONAM 2 GM in SODIUM CHLORIDE 0.9% 100 ML IVPB SCH ×2 (08:11→21:49)
[2019-04-28] MEDS: METOPROLOL TARTRATE 25 MG TAB PO SCH ×2 (08:11→22:28)
[2019-04-28 12:07] LABS: Glucose,Whole Blood 109 mg/dL (75-99)
[2019-04-28] MEDS ORDERED: FUROSEMIDE 10 MG/ML 4 ML VIAL IV STA (12:54)
--- NOTE | 2019-04-28 15:09 | PN ---
PROGRESS NOTE This is an 88-year-old gentleman with recent permanent pacemaker who presented to hospital with a febrile illness. His pacer site looks good. This seems to be related to a UTI. Infectious Disease is on the case and they are treating him with antibiotics. The patient is on Eliquis, aztreonam, Lasix, Amaryl, Synthroid, Lopressor, Protonix, Aldactone. EXAM: Patient is comfortable at rest. Afebrile. Vital signs are stable. Chest exam reveals good air entry bilaterally. Heart exam reveals first and second heart sounds. Pacer site is normal. Abdomen is soft. Examination of extremities did not reveal any edema. Peripheral pulses are palpable. LAB: Show a hemoglobin of 9.5, platelet count is 184. Potassium is 3.8. Creatinine is 0.78. ASSESSMENT: 1. Status post permanent pacemaker. 2. Chronic atrial fibrillation. 3. Possible urinary tract infection. PLAN: From cardiac standpoint, patient is stable. The patient can be discharged home whenever ID is comfortable with it. RENA / IJN: [id number] /
[2019-04-28 17:14] LABS: Glucose,Whole Blood 165 mg/dL (75-99)
--- NOTE | 2019-04-28 17:32 | P.PN ---
Progress Note - Text Progress Note Date: 04/28/19 Chief Complaint: Fever Interval history: This is a very pleasant 88-year-old patient of Dr. Barrington Dietz. Patient's chronic stable medical conditions include congestive heart failure from diastolic dysfunction EF 55%, moderate persistent asthma, chronically paralyzed right diaphragm, persistent atrial fibrillation, diabetes mellitus type 2, GERD, hypertension, hyperlipidemia, hypothyroid, peptic ulcer disease, chronic diverticulosis, chronic hypoxic respiratory failure due to liters oxygen at home, left bundle branch block. Patient on April 24 underwent single-chamber permanent pacemaker placement for symptomatic sinus pauses. Patient yesterday started spiking fevers at home. Patient had some urinary discomfort. During the pacemaker placement patient had a Andrade catheter placed. Patient is urine has come back infected appearing. [place] to be the source of patient's infection. Admitted for the same. Today-appetite is okay. Slightly short of breath. He did receive Lasix yesterday. IV fluids were provided earlier. Uresis symptoms much improved. Review of systems: Was done for constitutional, cardiovascular, GI, pulmonary. relevant finding as above Active Medications Acetaminophen (Tylenol Tab) 650 mg PO Q6HR PRN PRN Reason: Mild Pain or Fever > 100.5 Apixaban (Eliquis) 2.5 mg PO BID [facility] Last Admin: 04/28/19 08:11 Dose: 2.5 mg Documented by: Budesonide (Pulmicort) 1 mg INHALATION RT-BID [facility] Last Admin: 04/28/19 03:48 Dose: Not Given Documented by: Folic Acid (Folic Acid) 1 mg PO BID [facility] Last Admin: 04/28/19 08:11 Dose: 1 mg Documented by: Furosemide (Lasix) 80 mg PO DAILY [facility] Last Admin: 04/28/19 08:11 Dose: 80 mg Documented by: Glimepiride (Amaryl) 1 mg PO BID [facility] Last Admin: 04/28/19 08:11 Dose: 1 mg Documented by: Sodium Chloride (Saline 0.9%) 1,000 mls @ 20 mls/hr IV .Q24H [facility] Last Admin: 04/28/19 07:57 Dose: Not Given Documented by: Aztreonam 2 gm/ Sodium (Chloride) 100 mls @ 100 mls/hr IVPB Q12HR [facility]; Protocol Last Admin: 04/28/19 08:11 Dose: 100 mls/hr Documented by: Insulin Aspart (Novolog) 0 unit SQ [facility]; Protocol Last Admin: 04/28/19 17:26 Dose: Not Given Documented by: Ipratropium [place] (Atrovent Nebulized) 0.5 mg INHALATION RT-TID [facility] Last Admin: 04/28/19 12:00 Dose: 0.5 mg Documented by: Levothyroxine Sodium (Synthroid) 175 mcg PO DAILY@0630 [facility] Last Admin: 04/28/19 05:02 Dose: 175 mcg Documented by: Melatonin (Melatonin) 3 mg PO HS PRN PRN Reason: Insomnia Last Admin: 04/26/19 23:42 Dose: 3 mg Documented by: Metoprolol Tartrate (Lopressor) 25 mg PO BID [facility] Last Admin: 04/28/19 08:11 Dose: 25 mg Documented by: Montelukast Sodium (Singulair) 10 mg PO HS [facility] Last Admin: 04/27/19 20:39 Dose: 10 mg Documented by: Naloxone HCl (Narcan) 0.2 mg IV Q2M PRN PRN Reason: Opioid Reversal Xopenex 1.25mg 1 each INHALATION RT-Q8H PRN PRN Reason: Wheezing Last Admin: 04/28/19 03:44 Dose: 1 each Documented by: Pantoprazole Sodium (Protonix) 40 mg PO DAILY@0730 [facility] Last Admin: 04/28/19 05:03 Dose: 40 mg Documented by: Spironolactone (Aldactone) 12.5 mg PO DAILY [facility] Last Admin: 04/28/19 08:11 Dose: 12.5 mg Documented by: Zinc Acetate/Diphenhydramine (Benadryl Cream) 1 applic TOPICAL TID [facility] Last Admin: 04/28/19 08:11 Dose: 1 applic Documented by: Physical examination: VITAL SIGNS: Afebrile, 96, 18, 123/6 6, 98% on 2.5 L GENERAL: Sitting up in a chair,. EYES: Pupils equal. Conjunctiva normal. HEENT: External appearance of nose and ears normal, oral cavity grossly normal. NECK: JVD not raised; masses not palpable. HEART: First and second heart sounds are normal; no edema. LUNGS: Respiratory rate increased, few basal crackles ABDOMEN: Soft, nontender, liver spleen not palpable, no masses palpable. PSYCH: Alert and oriented x3; mood and affect normal. CHEST wall: Steri-Strips were dressing over the pacemaker site INVESTIGATIONS, reviewed in the clinical context: White count 8.5 hemoglobin 9.5 BUN 21 creatine 0.78 C-reactive protein 96.7, pro calcitonin 0.18 Admission testing: White count 11.2, hemoglobin 10, potassium 4.4, BUN 28, creatinine 0.99 Lactic acid 2.1 UA positive for WBC leukoesterase Assessment: -Acute UTI with sepsis secondary to cystitis secondary to Andrade catheter placed during pacemaker placement -Acute on Chronic congestive heart failure from diastolic dysfunction EF 55%, from IV fluids -Moderate persistent asthma -Chronically paralyzed right diaphragm -Diabetes mellitus type 2 -GERD -Essential hypertension -Hyperlipidemia -Hypothyroid -Chronic colonic diverticulosis -Chronic hypoxic respiratory failure due 2 liters oxygen at home -Left total 5:00 -Single-chamber point permanent pacemaker placed for sick sinus syndrome on 04/24/2019 Plan: IV fluids for discontinued. Ordered 40 mg of IV Lasix. Care was discussed with the patient. Continue IV antibiotic. Repeat labs in the morning.
--- NOTE | 2019-04-28 21:30 | PN ---
PROGRESS NOTE DATE OF SERVICE: 04/28/2019 REASON FOR FOLLOWUP: Fever, likely pneumonia. INTERVAL HISTORY: The patient is currently afebrile. The patient denies any further rigors or chills. Patient denies having any chest pain. No shortness of breath. The patient could have some cough and bringing up some sputum. No nausea, no vomiting. No abdominal pain, no diarrhea. PHYSICAL EXAMINATION: Blood pressure 114/56, pulse of 82, temperature 98.8. He is 98% 2.5 L nasal cannula. General description is an elderly male up in the chair in no distress. Respiratory system: Unlabored breathing. Few coarse crackles at the left base. No wheeze. Heart S1, S2. Regular rate and rhythm. Abdomen soft, no tenderness. LABS: Hemoglobin is 9.5, white count of 8.5, BUN of 21, creatinine 0.78. DIAGNOSTIC IMPRESSION AND PLAN: Patient admitted to the hospital with a fever, possible pneumonia. Sputum cultures currently pending. The patient did have multiple antibiotic allergies. Keep the patient on vancomycin, Azactam with discharge med depending upon the culture report. Continue supportive care. MMODL / IJN: [id number] /
[2019-04-28 21:31] LABS: Glucose,Whole Blood 118 mg/dL (75-99)
[2019-04-28] MEDS: MONTELUKAST 10 MG TAB PO SCH (22:28)
[2019-04-29] MEDS: PANTOPRAZOLE 40 MG TABLET PO SCH (06:10)
[2019-04-29] MEDS: LEVOTHYROXINE 50 MCG TAB PO SCH (06:10)
[2019-04-29] MEDS: INSULIN ASPART (NovoLOG) 100 UNIT/ML VIAL SQ SCH ×4 (06:11→20:39)
[2019-04-29] MEDS: XOPENEX 1.25 MG INHALATION PRN ×3 (06:22→20:08)
[2019-04-29] MEDS: IPRATROPIUM 0.5 MG/2.5 ML NEBU INHALATION SCH ×3 (06:23→20:07)
[2019-04-29] MEDS: BUDESONIDE 1 MG/2 ML NEBU INHALATION SCH ×2 (06:23→20:08)
[2019-04-29 06:40] LABS: Glucose,Whole Blood 88 mg/dL (75-99)
[2019-04-29 06:45] LABS: African American GFR (CKD) >90 (>60 ml/min/1.73 sqM); Anion Gap 2 mmol/L; Blood Urea Nitrogen 18 mg/dL (9-20); Calcium 8.4 mg/dL (8.4-10.2); Carbon Dioxide 36 mmol/L (22-30); Chloride 94 mmol/L (98-107); Glucose 80 mg/dL (74-99); Sodium 132 mmol/L (137-145)
[2019-04-29] MEDS: SPIRONOLACTONE 25 MG TAB PO SCH (07:54)
[2019-04-29] MEDS: FOLIC ACID 1 MG TAB PO SCH ×2 (07:54→20:38)
[2019-04-29] MEDS: GLIMEPIRIDE 1 MG TAB PO SCH ×2 (07:54→20:38)
[2019-04-29] MEDS: FUROSEMIDE 40 MG TAB PO SCH (07:54)
[2019-04-29] MEDS: AZTREONAM 2 GM in SODIUM CHLORIDE 0.9% 100 ML IVPB SCH ×2 (07:54→20:41)
[2019-04-29] MEDS: METOPROLOL TARTRATE 25 MG TAB PO SCH ×2 (07:54→20:38)
[2019-04-29] MEDS: APIXABAN 2.5 MG TABLET PO SCH ×2 (07:54→20:37)
[2019-04-29] MEDS: diphenhydrAMINE 2% CREAM 28.4 GM TUBE TOPICAL SCH ×3 (07:56→20:43)
--- NOTE | 2019-04-29 09:55 | XR ---
EXAMINATION TYPE: XR chest 2V DATE OF EXAM: 04/29/2019 COMPARISON: Chest radiograph 04/28/2019 HISTORY: Fever, pneumonia TECHNIQUE: Frontal and lateral views of the chest are obtained. FINDINGS: Single chamber cardiac pacemaker noted. Unchanged right upper lung airspace consolidation. Cardiac si lhouette is stably enlarged. No pulmonary vascular congestion. Diffuse interstitial prominence is sta ble, compatible with COPD. Apparent elevation of the right hemidiaphragm; likely overlying pleural ef fusion with passive atelectasis, stable. Stable small left pleural effusion. IMPRESSION: Unchanged right upper lung airspace consolidation and small right pleural effusion. Continued follow- up until resolution recommended.
[2019-04-29 10:08] VITALS: RESP 18
[2019-04-29 12:22] LABS: Glucose,Whole Blood 121 mg/dL (75-99)
[2019-04-29] MEDS: SODIUM CHLORIDE 0.9% 1,000 ML IV SCH ×2 (12:38→22:58)
--- NOTE | 2019-04-29 12:41 | CONS ---
CONSULTATION Antwon is an 88-year-old gentleman that is admitted to the hospital with fever. This is either due to UTI or due to pneumonia and he is currently being treated with antibiotics. We ruled out any infection of his device site. He should have gone home yesterday on oral antibiotics. For unclear reasons he received IV Lasix. This morning he is doing fine. Does not have any shortness of breath. No leg edema. His lungs are clear. As far as we are concerned he is stable to be sent home. All of his blood pressures have been well controlled except one this morning. He is on insulin, oral Lasix, Synthroid Lopressor, Aldactone, and Eliquis. EXAM: Comfortable at rest. Heart rate is 70 beats per minute. Blood pressure is 122/58, O2 sat is 97 on 2.5 L. Chest exam reveals good air entry without any crackles or rhonchi. Heart exam reveals first and second heart sounds. No gallop. Exam of extremities did not reveal any edema. LABS: Show a creatinine of 0.7 potassium is 4. ASSESSMENT: Status post permanent pacemaker, chronic atrial fibrillation, possible infection. Please switch the patient's antibiotics to p.o. The patient does not need IV diuretics. Stable to be discharged home. Please discharge him home. MMODL / IJN: [id number] /
[2019-04-29] MEDS: FUROSEMIDE 10 MG/ML 10 ML VIAL IV SCH ×2 (15:22→20:40)
[2019-04-29 16:51] LABS: Glucose,Whole Blood 135 mg/dL (75-99)
[2019-04-29 20:38] LABS: Glucose,Whole Blood 217 mg/dL (75-99)
[2019-04-29] MEDS: MONTELUKAST 10 MG TAB PO SCH (20:38)
--- NOTE | 2019-04-29 22:38 | P.PN ---
Progress Note - Text Progress Note Date: 04/29/19 Chief Complaint: Fever Interval history: This is a very pleasant 88-year-old patient of Dr. Barrington Dietz. Patient's chronic stable medical conditions include congestive heart failure from diastolic dysfunction EF 55%, moderate persistent asthma, chronically paralyzed right diaphragm, persistent atrial fibrillation, diabetes mellitus type 2, GERD, hypertension, hyperlipidemia, hypothyroid, peptic ulcer disease, chronic diverticulosis, chronic hypoxic respiratory failure due to liters oxygen at home, left bundle branch block. Patient on April 24 underwent single-chamber permanent pacemaker placement for symptomatic sinus pauses. Patient yesterday started spiking fevers at home. Patient had some urinary discomfort. During the pacemaker placement patient had a Andrade catheter placed. Patient is urine has come back infected appearing. [place] to be the source of patient's infection. Admitted with UTI with sepsis from Andrade catheter. Also went into fluid overload with IV fluids/CHF Today-a breathing is a bit better today. He still feels short of breath. No urinary symptoms. Minimal cough. Did tolerate some diet. Review of systems: Was done for constitutional, cardiovascular, GI, pulmonary. relevant finding as above Active Medications Acetaminophen (Tylenol Tab) 650 mg PO Q6HR PRN PRN Reason: Mild Pain or Fever > 100.5 Apixaban (Eliquis) 2.5 mg PO BID [facility] Last Admin: 04/29/19 20:37 Dose: 2.5 mg Documented by: Budesonide (Pulmicort) 1 mg INHALATION RT-BID [facility] Last Admin: 04/29/19 20:08 Dose: Not Given Documented by: Folic Acid (Folic Acid) 1 mg PO BID [facility] Last Admin: 04/29/19 20:38 Dose: 1 mg Documented by: Furosemide (Lasix) 80 mg PO DAILY [facility] Last Admin: 04/29/19 07:54 Dose: 80 mg Documented by: Glimepiride (Amaryl) 1 mg PO BID [facility] Last Admin: 04/29/19 20:38 Dose: 1 mg Documented by: Sodium Chloride (Saline 0.9%) 1,000 mls @ 20 mls/hr IV .Q24H [facility] Last Admin: 04/29/19 12:38 Dose: Not Given Documented by: Aztreonam 2 gm/ Sodium (Chloride) 100 mls @ 100 mls/hr IVPB Q12HR [facility]; Protocol Last Admin: 04/29/19 20:41 Dose: 100 mls/hr Documented by: Insulin Aspart (Novolog) 0 unit SQ [facility]CHS [facility]; Protocol Last Admin: 04/29/19 20:39 Dose: Not Given Documented by: Ipratropium [place] (Atrovent Nebulized) 0.5 mg INHALATION RT-TID [facility] Last Admin: 04/29/19 20:07 Dose: 0.5 mg Documented by: Levothyroxine Sodium (Synthroid) 175 mcg PO DAILY@0630 [facility] Last Admin: 04/29/19 06:10 Dose: 175 mcg Documented by: Melatonin (Melatonin) 3 mg PO HS PRN PRN Reason: Insomnia Last Admin: 04/26/19 23:42 Dose: 3 mg Documented by: Metoprolol Tartrate (Lopressor) 25 mg PO BID [facility] Last Admin: 04/29/19 20:38 Dose: 25 mg Documented by: Montelukast Sodium (Singulair) 10 mg PO HS [facility] Last Admin: 04/29/19 20:38 Dose: 10 mg Documented by: Naloxone HCl (Narcan) 0.2 mg IV Q2M PRN PRN Reason: Opioid Reversal Xopenex 1.25mg 1 each INHALATION RT-Q8H PRN PRN Reason: Wheezing Last Admin: 04/29/19 20:08 Dose: 1 each Documented by: Pantoprazole Sodium (Protonix) 40 mg PO DAILY@0730 [facility] Last Admin: 04/29/19 06:10 Dose: 40 mg Documented by: Spironolactone (Aldactone) 12.5 mg PO DAILY [facility] Last Admin: 04/29/19 07:54 Dose: 12.5 mg Documented by: Zinc Acetate/Diphenhydramine (Benadryl Cream) 1 applic TOPICAL TID [facility] Last Admin: 04/29/19 20:43 Dose: 1 applic Documented by: Physical examination: VITAL SIGNS: 96.9, 68, 18, 121/56, 96% on 2.5 L GENERAL: Sitting up in a chair, some shortness of breath., But tired EYES: Pupils equal. Conjunctiva normal. HEENT: External appearance of nose and ears normal, oral cavity grossly normal. NECK: JVD not raised; masses not palpable. HEART: First and second heart sounds are normal; no edema. LUNGS: Respiratory rate increased, decreased basal crackles ABDOMEN: Soft, nontender, liver spleen not palpable, no masses palpable. PSYCH: Alert and oriented x3; mood and affect normal. CHEST wall: Steri-Strips were dressing over the pacemaker site INVESTIGATIONS, reviewed in the clinical context: White count 8.5 hemoglobin 9.5 BUN 21 creatine 0.78 C-reactive protein 96.7, pro calcitonin 0.18 Admission testing: Potassium 4 creatinine 0.76 Chest x-ray film personally reviewed by me-shows pulmonary edema Schilling BNP 3530 Assessment: -Acute UTI with sepsis secondary to cystitis secondary to Andrade catheter placed during pacemaker placement -Acute on Chronic congestive heart failure from diastolic dysfunction EF 55%, from IV fluids, slow to improve. I did do the proBNP which is come back elevated. Checks x-ray still showing fluid overload. -Moderate persistent asthma -Chronically paralyzed right diaphragm -Diabetes mellitus type 2 -GERD -Essential hypertension -Hyperlipidemia -Hypothyroid -Chronic colonic diverticulosis -Chronic hypoxic respiratory failure due 2 liters oxygen at home -Left total 5:00 -Single-chamber point permanent pacemaker placed for sick sinus syndrome on 04/24/2019 Plan: We'll give 2 doses of IV Lasix 60 mg. Repeat labs in the morning. Care was discussed with the patient. Continue with antibiotics.
--- NOTE | 2019-04-30 00:29 | PN ---
PROGRESS NOTE DATE OF SERVICE: 04/29/2019. REASON FOR FOLLOWUP: Fever, possible pneumonia. INTERVAL HISTORY: The patient is currently afebrile. The patient has been breathing more comfortably. The patient continued to have some cough but not bringing up any sputum. No nausea, vomiting. No abdominal pain and no diarrhea. PHYSICAL EXAMINATION: Blood pressure 110/65 with a pulse of 81, temperature 98.9. He is 99% on 2.5 L nasal cannula. General description is an elderly male up in the chair in no distress. Respiratory system: Unlabored breathing, clear to auscultation anteriorly. Heart S1, S2. Regular rate and rhythm. ABDOMEN: Soft. EXTREMITIES: No edema of the feet. LABS: Blood culture so far negative. Sputum is currently pending. DIAGNOSTIC IMPRESSION AND PLAN: Patient admitted to the hospital with a fever with negative cultures. Did have a cough concerning for right middle lobe pneumonia. The patient currently covered on Azactam and vanco because of his multiple antibiotic allergies. Waiting for the sputum culture to finalize to determine discharge antibiotics. Continue supportive care. MMODL / IJN: [id number] /
[2019-04-30] MEDS: XOPENEX 1.25 MG INHALATION PRN ×2 (04:02→13:50)
[2019-04-30 06:29] LABS: Glucose,Whole Blood 82 mg/dL (75-99)
[2019-04-30] MEDS: INSULIN ASPART (NovoLOG) 100 UNIT/ML VIAL SQ SCH ×2 (06:31→10:48)
[2019-04-30] MEDS: PANTOPRAZOLE 40 MG TABLET PO SCH (06:38)
[2019-04-30] MEDS: LEVOTHYROXINE 50 MCG TAB PO SCH (06:39)
[2019-04-30 06:56] LABS: African American GFR (CKD) >90 (>60 ml/min/1.73 sqM); Anion Gap 6 mmol/L; Blood Urea Nitrogen 17 mg/dL (9-20); Calcium 8.3 mg/dL (8.4-10.2); Carbon Dioxide 37 mmol/L (22-30); Chloride 93 mmol/L (98-107); Glucose 85 mg/dL (74-99); Potassium 3.6 mmol/L (3.5-5.1); Sodium 136 mmol/L (137-145)
[2019-04-30] MEDS: IPRATROPIUM 0.5 MG/2.5 ML NEBU INHALATION SCH ×2 (07:37→13:51)
[2019-04-30] MEDS: BUDESONIDE 1 MG/2 ML NEBU INHALATION SCH (07:37)
[2019-04-30] MEDS: FOLIC ACID 1 MG TAB PO SCH (09:27)
[2019-04-30] MEDS: METOPROLOL TARTRATE 25 MG TAB PO SCH (09:27)
[2019-04-30] MEDS: APIXABAN 2.5 MG TABLET PO SCH (09:27)
[2019-04-30] MEDS: SPIRONOLACTONE 25 MG TAB PO SCH (09:27)
[2019-04-30] MEDS: GLIMEPIRIDE 1 MG TAB PO SCH (09:27)
[2019-04-30] MEDS: diphenhydrAMINE 2% CREAM 28.4 GM TUBE TOPICAL SCH (09:27)
[2019-04-30] MEDS: FUROSEMIDE 40 MG TAB PO SCH (09:27)
[2019-04-30] MEDS: AZTREONAM 2 GM in SODIUM CHLORIDE 0.9% 100 ML IVPB SCH (09:28)
[2019-04-30 12:09] VITALS: BP 131/59; TEMP 97
[2019-04-30] MEDS: SODIUM CHLORIDE 0.9% 1,000 ML IV SCH (12:25)
[2019-04-30 12:38] LABS: Glucose,Whole Blood 121 mg/dL (75-99)
[2019-04-30 14:13] VITALS: PULSE 84
--- NOTE | 2019-04-30 17:03 | P.DS ---
Providers Date of admission: 04/26/19 18:52 Expected date of discharge: 04/30/19 Attending physician: Cristian Burk Consults: 04/26/19 16:52 Consult Physician Routine Consulting Provider: Andi Armendariz Consult Reason/Comments: possible post surgical infection, fever, sepsis Do you want consulting provider notified?: Yes 04/26/19 17:03 Consult Physician Routine Consulting Provider: Tae Qiu Consult Reason/Comments: fever, unknown origin recent surgery (ariel requested consult) Do you want consulting provider notified?: Yes, Notify in am Primary care physician: [facility] Course: Chief Complaint: Fever Hospital course: This is a very pleasant 88-year-old patient of Dr. Barrington Dietz. Patient's chronic stable medical conditions include congestive heart failure from diastolic dysfunction EF 55%, moderate persistent asthma, chronically paralyzed right diaphragm, persistent atrial fibrillation, diabetes mellitus type 2, GERD, hypertension, hyperlipidemia, hypothyroid, peptic ulcer disease, chronic diverticulosis, chronic hypoxic respiratory failure due to liters oxygen at home, left bundle branch block. Patient on April 24 underwent single-chamber permanent pacemaker placement for symptomatic sinus pauses. Patient yesterday started spiking fevers at home. Patient had some urinary discomfort. During the pacemaker placement patient had a Andrade catheter placed. Patient is urine has come back infected appearing. [place] to be the source of patient's infection. Admitted with UTI with sepsis from Andrade catheter. Also went into fluid overload with IV fluids/CHF. Responded well to Lasix. Also felt to have underlying pneumonia. By the time of discharge much improved. Breathing much better. Cane to go home. Discussed with Dr. stover from ID. Discussion and discharge planning more than 35 minutes Consultation: Dr. stover from ID Dr. Martine Salvador from cardiology Physical examination: VITAL SIGNS: 97, 72, 18, 1 31 x 59, 98% on 2.5 L GENERAL: Sitting up in a chair, some shortness of breath., But tired EYES: Pupils equal. Conjunctiva normal. HEENT: External appearance of nose and ears normal, oral cavity grossly normal. NECK: JVD not raised; masses not palpable. HEART: First and second heart sounds are normal; no edema. LUNGS: Respiratory rate increased, clear ABDOMEN: Soft, nontender, liver spleen not palpable, no masses palpable. PSYCH: Alert and oriented x3; mood and affect normal. CHEST wall: Steri-Strips were dressing over the pacemaker INVESTIGATIONS, reviewed in the clinical context: White count 8.5 hemoglobin 9.5 BUN 21 creatine 0.78 C-reactive protein 96.7, pro calcitonin 0.18 Admission testing: ProBNP 2720, creatinine 0.82 Discharge diagnosis: -Acute UTI with sepsis secondary to cystitis secondary to Andrade catheter placed during pacemaker placement, POA -Acute on Chronic congestive heart failure from diastolic dysfunction EF 55%, from IV fluids, improved -Right lower lobe pneumonia, POA -Moderate persistent asthma -Chronically paralyzed right diaphragm -Diabetes mellitus type 2 -GERD -Essential hypertension -Hyperlipidemia -Hypothyroid -Chronic colonic diverticulosis -Chronic hypoxic respiratory failure due 2 liters oxygen at home -Left total 5:00 -Single-chamber point permanent pacemaker placed for sick sinus syndrome on 04/24/2019 Disposition: Home Patient Condition at Discharge: Stable Plan - Discharge Summary Discharge Rx Participant: No New Discharge Prescriptions: New Levofloxacin [Levaquin] 500 mg PO DAILY #5 tab Continue Montelukast [Singulair] 10 mg PO HS Folic Acid 1 mg PO BID Omeprazole [PriLOSEC] 20 mg PO DAILY Spironolactone [Aldactone] 12.5 mg PO DAILY Apixaban [Eliquis] 2.5 mg PO BID Levalbuterol HCl [Xopenex Nebulized] 1.25 mg INHALATION RT-QID PRN PRN Reason: Dyspnea Cholecalciferol [Vitamin D3 (25 Mcg = 1000 Iu)] 3,000 unit PO DAILY Levothyroxine Sodium [Synthroid] 175 mcg PO DAILY Glimepiride [Amaryl] 1 mg PO BID Budesonide [Pulmicort] 1 mg INHALATION RT-BID Furosemide [Lasix] 80 mg PO DAILY Furosemide [Lasix] 40 mg PO DAILY PRN PRN Reason: Edema Ipratropium Nebulized [Atrovent Nebulized 0.2 MG/ML] 0.5 mg INHALATION RT-TID Metoprolol Tartrate [Lopressor] 25 mg PO BID Metolazone [Zaroxolyn] 0.5 tab PO DAILY PRN PRN Reason: other Discharge Medication List Folic Acid 1 mg PO BID 10/10/14 [History] Montelukast [Singulair] 10 mg PO HS 10/10/14 [History] Omeprazole [PriLOSEC] 20 mg PO DAILY 10/10/14 [History] Apixaban [Eliquis] 2.5 mg PO BID 02/04/15 [History] Spironolactone [Aldactone] 12.5 mg PO DAILY 02/04/15 [History] Levalbuterol HCl [Xopenex Nebulized] 1.25 mg INHALATION RT-QID PRN 02/05/15 [History] Cholecalciferol [Vitamin D3 (25 Mcg = 1000 Iu)] 3,000 unit PO DAILY 10/01/16 [History] Levothyroxine Sodium [Synthroid] 175 mcg PO DAILY 10/01/16 [History] Glimepiride [Amaryl] 1 mg PO BID 10/21/17 [History] Budesonide [Pulmicort] 1 mg INHALATION RT-BID 08/07/18 [History] Furosemide [Lasix] 40 mg PO DAILY PRN 04/22/19 [History] Furosemide [Lasix] 80 mg PO DAILY 04/22/19 [History] Ipratropium Nebulized [Atrovent Nebulized 0.2 MG/ML] 0.5 mg INHALATION RT-TID 04/22/19 [History] Metoprolol Tartrate [Lopressor] 25 mg PO BID 04/22/19 [History] Metolazone [Zaroxolyn] 0.5 tab PO DAILY PRN 04/29/19 [History] Levofloxacin [Levaquin] 500 mg PO DAILY #5 tab 04/30/19 [Rx] Follow up Appointment(s)/Referral(s): Ilene Pollack MD [STAFF PHYSICIAN] - 05/04/19 8:45 am () Barrington Ojeda MD [Primary Care Provider] - 3 Days [facility], [NON-STAFF] - Patient Instructions/Handouts: Fever in Adults (ED) Discharge Disposition: HOME SELF-CARE
--- NOTE | 2019-04-30 18:20 | PN ---
PROGRESS NOTE This is an 88-year-old gentleman who was admitted to hospital with a fever after pacemaker and his pacemaker site seemed free of any infection. He is doing well and is ready to be discharged home, but he is still here. He is currently on intravenous antibiotics. Remains afebrile. Heart rate is 55 beats per minute, blood pressure 134/74, respiratory rate is 18. Chest exam reveals good air entry bilaterally. Heart exam reveals first and second heart sounds. No gallop. Exam of the extremities did not reveal any edema. ASSESSMENT: 1. Status post permanent pacemaker. 2. Chronic atrial fibrillation. 3. Fever. PLAN: Patient is doing well. Will switch him to p.o. antibiotics and discharge him home. MMODL / IJN: [id number] /
--- NOTE | 2019-04-30 21:23 | PN ---
PROGRESS NOTE DATE OF SERVICE: 04/30/2019 REASON FOR FOLLOW UP: Fever, possible pneumonia/UTI. INTERVAL HISTORY: The patient is currently afebrile. Patient has been breathing more comfortably. He did have very minimal cough, not bringing up any sputum. No chest pain. No abdominal pain. No diarrhea. PHYSICAL EXAMINATION: Blood pressure 131/59 with a pulse of 72, temperature 97, he is 98% on 2.5 L nasal cannula. General description is an elderly male up in the bed in no distress. Respiratory system: Unlabored breathing with decreased breath sounds at the bases. No wheeze. Heart S1, S2. Regular rate and rhythm. Abdomen soft, no tenderness. LABS: Creatinine 0.82. Sputum culture so far negative. Blood culture negative. DIAGNOSTIC IMPRESSION AND PLAN: Patient admitted to the hospital with an episode of a fever with concern for possible pneumonia. The patient did have a cough with yellow sputum production, currently improved on Azactam and vancomycin. Patient's sputum did not grow any resistant pathogen. Blood culture negative. UA was positive. Urine culture negative. He will be placed on a short course of oral Levaquin. Plan of care discussed with admitting physician. Continue supportive care. MMODL / IJN: [id number] /
== END 2019-04-30 15:27 | disposition home health service (06) | DRG 698 ==
LOC: EC 14:57 → 3SCARD 18:52
PROVIDERS: ADMIT Hospitalist; ATTEND Hospitalist
DX: T83.511A Infection and inflammatory reaction due to indwelling urethral catheter, initial encounter (principal); A41.9 Sepsis, unspecified organism; I50.33 Acute on chronic diastolic (congestive) heart failure; J18.1 Lobar pneumonia, unspecified organism; I48.1 Persistent atrial fibrillation; J44.0 Chronic obstructive pulmonary disease with (acute) lower respiratory infection; J96.11 Chronic respiratory failure with hypoxia; Y84.6 Urinary catheterization as the cause of abnormal reaction of the patient, or of later complication, without mention of misadventure at the time of the procedure; E03.9 Hypothyroidism, unspecified; E11.9 Type 2 diabetes mellitus without complications; E78.5 Hyperlipidemia, unspecified; I11.0 Hypertensive heart disease with heart failure; J45.40 Moderate persistent asthma, uncomplicated; Z96.641 Presence of right artificial hip joint; I95.9 Hypotension, unspecified; K21.9 Gastro-esophageal reflux disease without esophagitis; K57.30 Diverticulosis of large intestine without perforation or abscess without bleeding; N30.90 Cystitis, unspecified without hematuria; I25.10 Atherosclerotic heart disease of native coronary artery without angina pectoris; I44.7 Left bundle-branch block, unspecified; Z88.6 Allergy status to analgesic agent; Z88.4 Allergy status to anesthetic agent; Z88.1 Allergy status to other antibiotic agents; Z88.2 Allergy status to sulfonamides; Z88.8 Allergy status to other drugs, medicaments and biological substances; Z91.048 Other nonmedicinal substance allergy status; Z79.01 Long term (current) use of anticoagulants; Z79.84 Long term (current) use of oral hypoglycemic drugs; Z79.890 Hormone replacement therapy; Z80.0 Family history of malignant neoplasm of digestive organs; Z79.899 Other long term (current) drug therapy; Z80.1 Family history of malignant neoplasm of trachea, bronchus and lung; Z82.3 Family history of stroke; Z82.49 Family history of ischemic heart disease and other diseases of the circulatory system; Z87.891 Personal history of nicotine dependence; Z86.73 Personal history of transient ischemic attack (TIA), and cerebral infarction without residual deficits; Z95.0 Presence of cardiac pacemaker; Z88.0 Allergy status to penicillin; Z99.81 Dependence on supplemental oxygen; Z90.89 Acquired absence of other organs; Z90.49 Acquired absence of other specified parts of digestive tract; Z98.890 Other specified postprocedural states
CPT/HCPCS: 36415; 71046; 80048; 80053; 81001; 83036; 83605; 83880; 84145; 85025; 86140; 87040; 87070; 87205; 94640; 96365; 99285

== ENCOUNTER 2021-10-06 08:21 | Emergency (ER) | payer MEDICARE, BC ==
[2021-10-06 08:37] VITALS: RESP 18
[2021-10-06] MEDS ORDERED: SODIUM CHLORIDE 0.9% 500 ML 500 ML IV STA ×2 (09:20→10:54)
[2021-10-06] MEDS ORDERED: IPRATROPIUM-ALBUTEROL 3 ML NEB INHALATION STA (09:20)
[2021-10-06 09:31] LABS: Basophils # (A) 0.1 k/uL (0-0.2); Basophils % (A) 1 %; Eosinophils # (A) 0.3 k/uL (0-0.7); Eosinophils % (A) 3 %; HCT 35.3 % (39.0-53.0); HGB 11.8 gm/dL (13.0-17.5); Lymphocytes % (A) 9 %; MCH 34.6 pg (25.0-35.0); MCHC 33.3 g/dL (31.0-37.0); MCV 103.9 fL (80.0-100.0); Macrocytosis Slight; Monocytes # (A) 0.5 k/uL (0-1.0); Monocytes % (A) 5 %; Neutrophils # (A) 9.1 k/uL (1.3-7.7); Neutrophils % (A) 81 %; Platelet Count 245 k/uL (150-450); RDW 14.6 % (11.5-15.5); WBC 11.2 k/uL (3.8-10.6)
[2021-10-06 09:34] LABS: Appearance,Urine Clear (Clear); Bilirubin,Urine Negative (Negative); Blood,Urine Negative (Negative); Color,Urine Yellow; Glucose,Urine (UA) Negative (Negative); Ketones,Urine Negative (Negative); Leukocyte Esterase,Urine Negative (Negative); Nitrite,Urine Negative (Negative); PH, Urine 6.5 (5.0-8.0); Protein,Urine Trace (Negative); Specific Gravity,Urine 1.016 (1.001-1.035); Urobilinogen,Urine <2.0 mg/dL (<2.0)
[2021-10-06 09:42] LABS: Albumin 4.3 g/dL (3.5-5.0); Calcium 9.2 mg/dL (8.4-10.2); Potassium 3.8 mmol/L (3.5-5.1); Total Bilirubin 3.2 mg/dL (0.2-1.3); Total Protein 7.5 g/dL (6.3-8.2)
--- NOTE | 2021-10-06 10:14 | CT ---
EXAMINATION TYPE: CT abdomen pelvis wo con DATE OF EXAM: 10/06/2021 HISTORY: Right flank pain with history of renal stones in the past CT DLP: 752.5 mGycm. Automated Exposure Control for Dose Reduction was Utilized. TECHNIQUE: CT scan of the abdomen and pelvis is performed without oral or IV contrast. COMPARISON: Prior chest CT November 27, 2018 FINDINGS: Within the limitations of a non-contrast study, the following observations are made. LUNG BASES: Elevated right hemidiaphragm. Tiny right pleural fluid collection. Right basilar consolid ation and/or atelectasis. Cardiomegaly with single lead pacemaker. Moderate to severe three-vessel co ronary artery calcification. Bilateral gynecomastia. LIVER/GB: Cholecystectomy clips. PANCREAS: Moderate generalized fat replaced atrophy. SPLEEN: No significant abnormality is seen. ADRENALS: No significant abnormality is seen. KIDNEYS: Cortical thinning both kidneys. No renal calculi or hydronephrosis seen bilaterally. Circum aortic left renal vein which is normal variant. Bladder poorly distended and thus suboptimally evalua gennaro. No intraluminal calculus. BOWEL: Suboptimal evaluation of bowel without enteric contrast. Stomach poorly distended and thus sub optimally evaluated. No suspicious small or large bowel dilatation. Diverticula in the left and sigmo id colon. No CT evidence for acute diverticulitis. GENITAL ORGANS: Prostate gland is not enlarged. Occasional scattered tiny calcified pelvic phlebolith . LYMPH NODES: No greater than 1cm abdominal or pelvic lymph nodes are appreciated. OSSEOUS STRUCTURES: Metallic artifact from right hip arthroplasty causes streak artifact limiting allyssa luation of pelvic structures. Moderate to severe joint space loss and left hip. [id number] mu ltilevel spurring in the spine. Mild height loss superior anterior L3 endplate. OTHER: Mild calcified plaque of the aorta extends into branch vessels. IMPRESSION: No renal stones or hydronephrosis is seen bilaterally. No acute finding identified on non contrast CT to account for patient's symptoms
--- NOTE | 2021-10-06 10:57 | ED ---
General Adult HPI - General Chief complaint: Urogenital Stated complaint: kidney pain Time Seen by Provider: 10/06/21 09:19 Source: patient Mode of arrival: wheelchair Limitations: no limitations - History of Present Illness Initial comments: 89-year-old male with a compensated past medical history presents to the emergency room for a chief complaint of right flank pain. Patient states this has been ongoing for digit is better today than it was last night. Patient denies any nausea vomiting. Denies diarrhea. States it does seem to worsen with movement. Patient is also requesting an updraft because he missed his this morning.Patient has no other complaints at this time including shortness of breath, chest pain, abdominal pain, nausea or vomiting, headache, or visual changes. - Related Data Home Medications Medication Instructions Recorded Confirmed Folic Acid 1 mg PO BID 10/10/14 10/06/21 Omeprazole [PriLOSEC] 20 mg PO DAILY 10/10/14 10/06/21 Apixaban [Eliquis] 2.5 mg PO BID 02/04/15 10/06/21 Spironolactone [Aldactone] 12.5 mg PO DAILY 02/04/15 10/06/21 Levalbuterol HCl [Xopenex 1.25 mg INHALATION RT-QID PRN 02/05/15 10/06/21 Nebulized] Cholecalciferol [Vitamin D3 (25 3,000 unit PO DAILY 10/01/16 10/06/21 Mcg = 1000 Iu)] Levothyroxine Sodium [Synthroid] 175 mcg PO DAILY 10/01/16 10/06/21 Furosemide [Lasix] 40 mg PO DAILY@1500 PRN 04/22/19 10/06/21 Furosemide [Lasix] 80 mg PO DAILY 04/22/19 10/06/21 Ipratropium Nebulized [Atrovent 0.5 mg INHALATION RT-TID 04/22/19 10/06/21 Nebulized 0.2 MG/ML] Metoprolol Tartrate [Lopressor] 25 mg PO BID 04/22/19 10/06/21 metOLazone [Zaroxolyn] 0.5 tab PO DAILY PRN 04/29/19 10/06/21 Fluticasone Propion/Salmeterol 1 puff INHALATION RT-BID 10/06/21 10/06/21 [Wixela 500-50 Inhub] Glimepiride [Amaryl] 2 mg PO AC-BRKFST 10/06/21 10/06/21 Meclizine [Antivert] 12.5 mg PO DAILY PRN 10/06/21 10/06/21 Potassium Chloride ER [K-Dur 10] 10 meq PO DIRECTED 10/06/21 10/06/21 predniSONE 5 mg PO DAILY 10/06/21 10/06/21 sitaGLIPtin [Januvia] 100 mg PO DAILY 10/06/21 10/06/21 Previous Rx's Medication Instructions Recorded Lidocaine 5% Patch [Lidoderm 5% 1 patch TOPICAL DAILY PRN 14 Days 10/06/21 Patch] #14 patch Allergies Allergy/AdvReac Type Severity Reaction Status Date / Time amoxicillin [From Augmentin] Allergy Unknown Verified 10/06/21 11:21 cefuroxime Allergy Rash/Hives Verified 10/06/21 11:21 cetyl alcohol [From Cetaphil] Allergy Rash/Hives Verified 10/06/21 11:21 clavulanic acid Allergy Unknown Verified 10/06/21 11:21 [From Augmentin] fexofenadine Allergy Unknown Verified 10/06/21 11:21 flecainide Allergy Rash/Hives Verified 10/06/21 11:21 fluconazole Allergy Unknown Verified 10/06/21 11:21 paraben [From Cetaphil] Allergy Rash/Hives Verified 10/06/21 11:21 propylene glycol Allergy Rash/Hives Verified 10/06/21 11:21 [From Cetaphil] skin cleanser [From Cetaphil] Allergy Rash/Hives Verified 10/06/21 11:21 soap [From Cetaphil] Allergy Rash/Hives Verified 10/06/21 11:21 sodium lauryl sulfate Allergy Rash/Hives Verified 10/06/21 11:21 [From Cetaphil] stearyl alcohol Allergy Rash/Hives Verified 10/06/21 11:21 [From Cetaphil] sulfamethoxazole Allergy Unknown Verified 10/06/21 11:21 [From Bactrim] Tetracyclines Allergy Unknown Verified 10/06/21 11:21 trimethoprim [From Bactrim] Allergy Unknown Verified 10/06/21 11:21 amiodarone AdvReac Cough Verified 10/06/21 11:21 benzocaine [From Cetacaine] AdvReac Dyspnea Verified 10/06/21 11:21 butamben [From Cetacaine] AdvReac Dyspnea Verified 10/06/21 11:21 meperidine HCl [From Demerol] AdvReac Nausea & Verified 10/06/21 11:21 Vomiting naproxen [From Naprosyn] AdvReac GI BLEED Verified 10/06/21 11:21 tetracaine [From Cetacaine] AdvReac Nausea & Verified 10/06/21 11:21 Vomiting zomepirac AdvReac GI BLEED Verified 10/06/21 11:21 duprenex AdvReac Nausea & Uncoded 04/26/19 16:30 Vomiting Review of Systems ROS Statement: Those systems with pertinent positive or pertinent negative responses have been documented in the HPI. ROS Other: All systems not noted in ROS Statement are negative. 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 History of Any Multi-Drug Resistant Organisms: None Reported Past Surgical History: Appendectomy, Cholecystectomy, Hernia Repair, Joint Replacement, Orthopedic Surgery, Pacemaker Additional Past Surgical History / Comment(s): DANY/CVNS, bronchoscopies with lavage, laryngoscopy, right hip replaced, arthroscopies bilateral knees, R rotator cuff surgery. sx for deviated septum, nodules removed from vocal cords, karlene cataracts, pacemaker 04/24/19 Past Anesthesia/Blood Transfusion Reactions: Motion Sickness, Postoperative Nausea & Vomiting (PONV) Additional Past Anesthesia/Blood Transfusion Reaction / Comment(s): UNK FAMILY HX. NEVER HAS HAD BLOOD TRANSFUSION Type of Cardiac Device: Permanent Pacemaker Device Placement Date:: 04/24/19 Past Psychological History: No Psychological Hx Reported Smoking Status: Former smoker Past Alcohol Use History: None Reported Past Drug Use History: None Reported - Past Family History Brother(s) Family Medical History: Cancer Additional Family Medical History / Comment(s): Pt had one brother with lung cancer and another brother with bone cancer. Sister(s) Family Medical History: Cancer Additional Family Medical History / Comment(s): Pt's sister had colon cancer. Mother Family Medical History: CVA/TIA Father Family Medical History: Hypertension General Exam Limitations: no limitations General appearance: alert, in no apparent distress Head exam: Present: atraumatic Eye exam: Present: normal appearance, PERRL, EOMI. Absent: scleral icterus, conjunctival injection ENT exam: Present: normal exam, mucous membranes moist Neck exam: Present: normal inspection, full ROM. Absent: tenderness Respiratory exam: Present: normal lung sounds bilaterally. Absent: respiratory distress, wheezes Cardiovascular Exam: Present: regular rate, normal rhythm, normal heart sounds GI/Abdominal exam: Present: soft, normal bowel sounds. Absent: distended, tenderness, guarding, rebound, rigid Back exam: Present: paraspinal tenderness (mild right sided mid back tenderness.). Absent: CVA tenderness (R) Course Vital Signs 10/06/21 10/06/21 10/06/21 08:34 10:59 11:10 Temperature 98.2 F Pulse Rate 53 L 60 64 Respiratory 18 Rate Blood Pressure 128/45 O2 Sat by Pulse 97 Oximetry Medical Decision Making - Medical Decision Making Vitals are stable. CBC is unremarkable. CMP does show dehydration urinalysis does not show any evidence of infection. CT abdomen and pelvis was unremarkable. Patient's pain is reproducible to palpation. Also worsens with a twisting movement. Patient's pain may be more muscular in nature. He is only rating his pain at a 2 out of 3 and does not want any pain medication. At this time I recommend patient follow up with his doctor. If he develops worsening symptoms he will return here. - Lab Data Result diagrams: 10/06/21 09:21 10/06/21 09:21 Lab Results 10/06/21 10/06/21 10/06/21 Range/Units 09:21 09:21 09:21 WBC 11.2 H (3.8-10.6) k/uL RBC 3.40 L (4.30-5.90) m/uL Hgb 11.8 L (13.0-17.5) gm/dL Hct 35.3 L (39.0-53.0) % MCV 103.9 H (80.0-100.0) fL MCH 34.6 (25.0-35.0) pg MCHC 33.3 (31.0-37.0) g/dL RDW 14.6 (11.5-15.5) % Plt Count 245 (150-450) k/uL MPV 8.0 Neutrophils % 81 % Lymphocytes % 9 % Monocytes % 5 % Eosinophils % 3 % Basophils % 1 % Neutrophils # 9.1 H (1.3-7.7) k/uL Lymphocytes # 1.0 (1.0-4.8) k/uL Monocytes # 0.5 (0-1.0) k/uL Eosinophils # 0.3 (0-0.7) k/uL Basophils # 0.1 (0-0.2) k/uL Macrocytosis Slight Sodium 132 L (137-145) mmol/L Potassium 3.8 (3.5-5.1) mmol/L Chloride 86 L (98-107) mmol/L Carbon Dioxide 40 H (22-30) mmol/L Anion Gap 6 mmol/L BUN 43 H (9-20) mg/dL Creatinine 1.21 (0.66-1.25) mg/dL Est GFR (CKD-EPI)AfAm 61 (>60 ml/min/1.73 sqM) Est GFR (CKD-EPI)NonAf 53 (>60 ml/min/1.73 sqM) Glucose 132 H (74-99) mg/dL Calcium 9.2 (8.4-10.2) mg/dL Total Bilirubin 3.2 H (0.2-1.3) mg/dL AST 32 (17-59) U/L ALT 23 (4-49) U/L Alkaline Phosphatase 105 (38-126) U/L Total Protein 7.5 (6.3-8.2) g/dL Albumin 4.3 (3.5-5.0) g/dL Amylase 42 (30-110) U/L Lipase 23 (23-300) U/L Urine Color Yellow Urine Appearance Clear (Clear) Urine pH 6.5 (5.0-8.0) Ur Specific Barton 1.016 (1.001-1.035) Urine Protein Trace H (Negative) Urine Glucose (UA) Negative (Negative) Urine Ketones Negative (Negative) Urine Blood Negative (Negative) Urine Nitrite Negative (Negative) Urine Bilirubin Negative (Negative) Urine Urobilinogen <2.0 (<2.0) mg/dL Ur Leukocyte Esterase Negative (Negative) Disposition Clinical Impression: Back pain Disposition: HOME SELF-CARE Condition: Good Instructions (If sedation given, give patient instructions): Flank Pain (ED) Additional Instructions: Please take Tylenol for pain. Remove lidocaine patch after 12 hours. Use lidocaine patches as directed. Follow-up with your doctor. Return to the emergency room for any worsening symptoms Prescriptions: Lidocaine 5% Patch [Lidoderm 5% Patch] 1 patch TOPICAL DAILY PRN 14 Days #14 patch PRN Reason: Pain Is patient prescribed a controlled substance at d/c from ED?: No Referrals: Barrington Ojeda MD [Primary Care Provider] - 1-2 days Time of Disposition: 11:53
[2021-10-06] MEDS ORDERED: LIDOCAINE 5% PATCH TOPICAL STA (11:54)
[2021-10-06 12:18] VITALS: BP 120/47; PULSE 68; TEMP 98.9
== END 2021-10-06 12:13 | disposition home or self-care (01) ==
LOC: EC 08:21
DX: M54.9 Dorsalgia, unspecified (principal); M19.90 Unspecified osteoarthritis, unspecified site; K21.9 Gastro-esophageal reflux disease without esophagitis; J45.909 Unspecified asthma, uncomplicated; E11.9 Type 2 diabetes mellitus without complications; I10 Essential (primary) hypertension; Z87.891 Personal history of nicotine dependence; Z79.83 Long term (current) use of bisphosphonates; Z88.0 Allergy status to penicillin; Z88.1 Allergy status to other antibiotic agents; Z88.9 Allergy status to unspecified drugs, medicaments and biological substances; Z91.048 Other nonmedicinal substance allergy status
CPT/HCPCS: 36415; 74176; 80053; 81003; 82150; 83690; 85025; 94640; 96360; 99284

== ENCOUNTER 2021-12-13 19:39 | Inpatient (IN) | payer MEDICARE, BC ==
--- NOTE | 2021-12-13 21:30 | XR ---
EXAMINATION TYPE: XR chest 2V DATE OF EXAM: 12/13/2021 COMPARISON: 04/29/2019 HISTORY: Chest pain TECHNIQUE: FINDINGS: There is elevated right diaphragm. There is some atelectasis right lung base. There is coar se interstitial density in the lungs. No heart failure seen. There is left axillary pacemaker. Medias tinum is normal. Thoracic aorta is atheromatous. IMPRESSION: There is some chronic elevation of the right diaphragm with atelectasis right lung base. This could r elate to some diaphragm paralysis. No heart failure seen. Mild pulmonary fibrosis.
[2021-12-13] MEDS ORDERED: IPRATROPIUM 0.5 MG/2.5 ML NEBU INHALATION STA (22:05)
[2021-12-13] MEDS ORDERED: ALBUTEROL NEBULIZED 2.5 MG/3 ML INHALATION STA (22:05)
[2021-12-13 22:35] LABS: Basophils % (A) 0 %; Eosinophils # (A) 0.2 k/uL (0-0.7); Eosinophils % (A) 2 %; HCT 29.9 % (39.0-53.0); HGB 11.3 gm/dL (13.0-17.5); Lymphocytes # (A) 0.7 k/uL (1.0-4.8); Lymphocytes % (A) 7 %; MCH 38.6 pg (25.0-35.0); MCHC 37.6 g/dL (31.0-37.0); MCV 102.7 fL (80.0-100.0); Macrocytosis Slight; Mean Platelet Volume 8.2; Monocytes # (A) 0.5 k/uL (0-1.0); Monocytes % (A) 5 %; Neutrophils # (A) 8.2 k/uL (1.3-7.7); Neutrophils % (A) 84 %; Platelet Count 192 k/uL (150-450); RBC 2.92 m/uL (4.30-5.90); RDW 14.6 % (11.5-15.5); WBC 9.7 k/uL (3.8-10.6)
--- NOTE | 2021-12-13 22:40 | ED ---
General Adult HPI - General Chief complaint: Shortness of Breath Stated complaint: Back pain Time Seen by Provider: 12/13/21 21:59 Source: patient, RN notes reviewed, old records reviewed Mode of arrival: wheelchair - History of Present Illness Initial comments: 89-year-old male presenting with chief complaint of left lateral chest pain. Patient states the pain is been present for the past 24 hours but has worsened prior to arrival. He denies fever. He reports only a minimal cough. He has history of COPD and is on supplemental oxygen at baseline. No abdominal pain. No vomiting. No diaphoresis. No central chest pain. - Related Data Home Medications Medication Instructions Recorded Confirmed Folic Acid 1 mg PO BID 10/10/14 10/06/21 Omeprazole [PriLOSEC] 20 mg PO DAILY 10/10/14 10/06/21 Apixaban [Eliquis] 2.5 mg PO BID 02/04/15 10/06/21 Spironolactone [Aldactone] 12.5 mg PO DAILY 02/04/15 10/06/21 Levalbuterol HCl [Xopenex 1.25 mg INHALATION RT-QID PRN 02/05/15 10/06/21 Nebulized] Cholecalciferol [Vitamin D3 (25 3,000 unit PO DAILY 10/01/16 10/06/21 Mcg = 1000 Iu)] Levothyroxine Sodium [Synthroid] 175 mcg PO DAILY 10/01/16 10/06/21 Furosemide [Lasix] 40 mg PO DAILY@1500 PRN 04/22/19 10/06/21 Furosemide [Lasix] 80 mg PO DAILY 04/22/19 10/06/21 Ipratropium Nebulized [Atrovent 0.5 mg INHALATION RT-TID 04/22/19 10/06/21 Nebulized 0.2 MG/ML] Metoprolol Tartrate [Lopressor] 25 mg PO BID 04/22/19 10/06/21 metOLazone [Zaroxolyn] 0.5 tab PO DAILY PRN 04/29/19 10/06/21 Fluticasone Propion/Salmeterol 1 puff INHALATION RT-BID 10/06/21 10/06/21 [Wixela 500-50 Inhub] Glimepiride [Amaryl] 2 mg PO AC-BRKFST 10/06/21 10/06/21 Meclizine [Antivert] 12.5 mg PO DAILY PRN 10/06/21 10/06/21 Potassium Chloride ER [K-Dur 10] 10 meq PO DIRECTED 10/06/21 10/06/21 predniSONE 5 mg PO DAILY 10/06/21 10/06/21 sitaGLIPtin [Januvia] 100 mg PO DAILY 10/06/21 10/06/21 Previous Rx's Medication Instructions Recorded Lidocaine 5% Patch [Lidoderm 5% 1 patch TOPICAL DAILY PRN 14 Days 10/06/21 Patch] #14 patch Allergies Allergy/AdvReac Type Severity Reaction Status Date / Time amoxicillin [From Augmentin] Allergy Unknown Verified 10/06/21 11:21 cefuroxime Allergy Rash/Hives Verified 10/06/21 11:21 cetyl alcohol [From Cetaphil] Allergy Rash/Hives Verified 10/06/21 11:21 clavulanic acid Allergy Unknown Verified 10/06/21 11:21 [From Augmentin] fexofenadine Allergy Unknown Verified 10/06/21 11:21 flecainide Allergy Rash/Hives Verified 10/06/21 11:21 fluconazole Allergy Unknown Verified 10/06/21 11:21 paraben [From Cetaphil] Allergy Rash/Hives Verified 10/06/21 11:21 propylene glycol Allergy Rash/Hives Verified 10/06/21 11:21 [From Cetaphil] skin cleanser [From Cetaphil] Allergy Rash/Hives Verified 10/06/21 11:21 soap [From Cetaphil] Allergy Rash/Hives Verified 10/06/21 11:21 sodium lauryl sulfate Allergy Rash/Hives Verified 10/06/21 11:21 [From Cetaphil] stearyl alcohol Allergy Rash/Hives Verified 10/06/21 11:21 [From Cetaphil] sulfamethoxazole Allergy Unknown Verified 10/06/21 11:21 [From Bactrim] Tetracyclines Allergy Unknown Verified 10/06/21 11:21 trimethoprim [From Bactrim] Allergy Unknown Verified 10/06/21 11:21 amiodarone AdvReac Cough Verified 10/06/21 11:21 benzocaine [From Cetacaine] AdvReac Dyspnea Verified 10/06/21 11:21 butamben [From Cetacaine] AdvReac Dyspnea Verified 10/06/21 11:21 meperidine HCl [From Demerol] AdvReac Nausea & Verified 10/06/21 11:21 Vomiting naproxen [From Naprosyn] AdvReac GI BLEED Verified 10/06/21 11:21 tetracaine [From Cetacaine] AdvReac Nausea & Verified 10/06/21 11:21 Vomiting zomepirac AdvReac GI BLEED Verified 10/06/21 11:21 duprenex AdvReac Nausea & Uncoded 04/26/19 16:30 Vomiting Review of Systems ROS Statement: Those systems with pertinent positive or pertinent negative responses have been documented in the HPI. ROS Other: All systems not noted in ROS Statement are negative. 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 History of Any Multi-Drug Resistant Organisms: None Reported Past Surgical History: Appendectomy, Cholecystectomy, Hernia Repair, Joint Replacement, Orthopedic Surgery, Pacemaker Additional Past Surgical History / Comment(s): DANY/CVNS, bronchoscopies with lavage, laryngoscopy, right hip replaced, arthroscopies bilateral knees, R rotator cuff surgery. sx for deviated septum, nodules removed from vocal cords, karlene cataracts, pacemaker 04/24/19 Past Anesthesia/Blood Transfusion Reactions: Motion Sickness, Postoperative Nausea & Vomiting (PONV) Additional Past Anesthesia/Blood Transfusion Reaction / Comment(s): UNK FAMILY HX. NEVER HAS HAD BLOOD TRANSFUSION Type of Cardiac Device: Permanent Pacemaker Device Placement Date:: 04/24/19 Past Psychological History: No Psychological Hx Reported Smoking Status: Former smoker Past Alcohol Use History: None Reported Past Drug Use History: None Reported - Past Family History Brother(s) Family Medical History: Cancer Additional Family Medical History / Comment(s): Pt had one brother with lung can cer and another brother with bone cancer. Sister(s) Family Medical History: Cancer Additional Family Medical History / Comment(s): Pt's sister had colon cancer. Mother Family Medical History: CVA/TIA Father Family Medical History: Hypertension General Exam General appearance: alert, in no apparent distress Head exam: Present: atraumatic, normocephalic Eye exam: Present: normal appearance, PERRL ENT exam: Present: normal exam Neck exam: Present: normal inspection Respiratory exam: Present: rales, decreased breath sounds. Absent: respiratory distress, wheezes Cardiovascular Exam: Present: normal rhythm, bradycardia GI/Abdominal exam: Present: soft. Absent: distended, tenderness Extremities exam: Present: normal inspection, normal capillary refill. Absent: pedal edema, calf tenderness Neurological exam: Present: alert, oriented X3, CN II-XII intact. Absent: motor sensory deficit Psychiatric exam: Present: normal affect, normal mood Skin exam: Present: warm, dry, intact. Absent: cyanosis, diaphoretic Course Vital Signs 12/13/21 12/13/21 12/13/21 20:39 22:03 23:03 Temperature 97.9 F Pulse Rate 45 L 50 L 49 L Respiratory 19 20 Rate Blood Pressure 143/57 134/68 O2 Sat by Pulse 99 99 Oximetry 12/13/21 23:10 Temperature Pulse Rate 50 L Respiratory Rate Blood Pressure O2 Sat by Pulse Oximetry EKG Findings - EKG Comments: EKG Findings:: paced rhythm, rate of 50, QRS duration 195, QTC 491 Medical Decision Making - Medical Decision Making 89-year-old male with left lateral chest pain. No central chest pain. No associated diaphoresis or vomiting. Patient reports his symptoms have been present for approximately 24 hours. His EKG is paced rhythm. Chest x-ray shows a chronic elevation of the right hemidiaphragm without pneumothorax or large consolidated pneumonia. Patient has a stable anemia, normal white blood cell count, he has an elevated CO2 consistent with chronic CO2 retention. He has an elevated BNP mildly elevated troponin is 0.062. He is anticoagulated at baseline. patient will be admitted to . ian was aware. He will be treated for combination of COPD, atypical chest pain. Serial cardiac enzymes will be trended., Bothcardiology and pulmonology will be placed on consult - Lab Data Result diagrams: 12/13/21 22:19 12/13/21 22:19 Lab Results 12/13/21 12/13/21 12/13/21 Range/Units 22:19 22:19 22:19 WBC 9.7 (3.8-10.6) k/uL RBC 2.92 L (4.30-5.90) m/uL Hgb 11.3 L (13.0-17.5) gm/dL Hct 29.9 L (39.0-53.0) % MCV 102.7 H (80.0-100.0) fL MCH 38.6 H (25.0-35.0) pg MCHC 37.6 H (31.0-37.0) g/dL RDW 14.6 (11.5-15.5) % Plt Count 192 (150-450) k/uL MPV 8.2 Neutrophils % 84 % Lymphocytes % 7 % Monocytes % 5 % Eosinophils % 2 % Basophils % 0 % Neutrophils # 8.2 H (1.3-7.7) k/uL Lymphocytes # 0.7 L (1.0-4.8) k/uL Monocytes # 0.5 (0-1.0) k/uL Eosinophils # 0.2 (0-0.7) k/uL Basophils # 0.0 (0-0.2) k/uL Macrocytosis Slight PT 10.7 (9.0-12.0) sec INR 1.0 (<1.2) APTT 24.3 (22.0-30.0) sec Sodium 133 L (137-145) mmol/L Potassium 3.8 (3.5-5.1) mmol/L Chloride 86 L (98-107) mmol/L Carbon Dioxide 39 H (22-30) mmol/L Anion Gap 8 mmol/L BUN 43 H (9-20) mg/dL Creatinine 1.29 H (0.66-1.25) mg/dL Est GFR (CKD-EPI)AfAm 57 (>60 ml/min/1.73 sqM) Est GFR (CKD-EPI)NonAf 49 (>60 ml/min/1.73 sqM) Glucose 122 H (74-99) mg/dL Plasma Lactic Acid Lawrence (0.7-2.0) mmol/L Calcium 9.1 (8.4-10.2) mg/dL Magnesium 1.9 (1.6-2.3) mg/dL Total Bilirubin 3.2 H (0.2-1.3) mg/dL AST 30 (17-59) U/L ALT 19 (4-49) U/L Alkaline Phosphatase 69 (38-126) U/L Troponin I (0.000-0.034) ng/mL NT-Pro-B Natriuret Pep pg/mL Total Protein 7.0 (6.3-8.2) g/dL Albumin 4.2 (3.5-5.0) g/dL 12/13/21 12/13/21 12/13/21 Range/Units 22:19 22:19 22:19 WBC (3.8-10.6) k/uL RBC (4.30-5.90) m/uL Hgb (13.0-17.5) gm/dL Hct (39.0-53.0) % MCV (80.0-100.0) fL MCH (25.0-35.0) pg MCHC (31.0-37.0) g/dL RDW (11.5-15.5) % Plt Count (150-450) k/uL MPV Neutrophils % % Lymphocytes % % Monocytes % % Eosinophils % % Basophils % % Neutrophils # (1.3-7.7) k/uL Lymphocytes # (1.0-4.8) k/uL Monocytes # (0-1.0) k/uL Eosinophils # (0-0.7) k/uL Basophils # (0-0.2) k/uL Macrocytosis PT (9.0-12.0) sec INR (<1.2) APTT (22.0-30.0) sec Sodium (137-145) mmol/L Potassium (3.5-5.1) mmol/L Chloride (98-107) mmol/L Carbon Dioxide (22-30) mmol/L Anion Gap mmol/L BUN (9-20) mg/dL Creatinine (0.66-1.25) mg/dL Est GFR (CKD-EPI)AfAm (>60 ml/min/1.73 sqM) Est GFR (CKD-EPI)NonAf (>60 ml/min/1.73 sqM) Glucose (74-99) mg/dL Plasma Lactic Acid Lawrence 1.3 (0.7-2.0) mmol/L Calcium (8.4-10.2) mg/dL Magnesium (1.6-2.3) mg/dL Total Bilirubin (0.2-1.3) mg/dL AST (17-59) U/L ALT (4-49) U/L Alkaline Phosphatase (38-126) U/L Troponin I 0.062 H* (0.000-0.034) ng/mL NT-Pro-B Natriuret Pep 2930 pg/mL Total Protein (6.3-8.2) g/dL Albumin (3.5-5.0) g/dL Disposition Clinical Impression: Acute exacerbation of chronic obstructive airways disease, Troponin level elevated Disposition: ADMITTED IP TO THIS HOSP Condition: Stable Referrals: Barrington Ojeda MD [Primary Care Provider] - 1-2 days Time of Disposition: 23:40
[2021-12-13 22:47] LABS: Albumin 4.2 g/dL (3.5-5.0); Calcium 9.1 mg/dL (8.4-10.2); Magnesium 1.9 mg/dL (1.6-2.3); Partial Thromboplastin Time 24.3 sec (22.0-30.0); Potassium 3.8 mmol/L (3.5-5.1); Prothrombin Time 10.7 sec (9.0-12.0); Total Bilirubin 3.2 mg/dL (0.2-1.3)
[2021-12-13] MEDS ORDERED: IPRATROPIUM-ALBUTEROL 3 ML NEB INHALATION PRN (23:34)
[2021-12-13] MEDS ORDERED: LEVOFLOXACIN 500 MG TAB PO STA (23:39)
[2021-12-13] MEDS ORDERED: MORPHINE SULFATE 4 MG/ML SYRINGE IVP PRN (23:43)
[2021-12-14] MEDS: APIXABAN 2.5 MG TABLET PO SCH ×3 (00:12→20:43)
[2021-12-14] MEDS: METOPROLOL TARTRATE 25 MG TAB PO SCH ×3 (00:12→20:43)
[2021-12-14] MEDS: methylPREDNISolone SOD SUCCI 125 MG/2 ML VIAL IV SCH ×2 (00:12→09:38)
[2021-12-14 01:31] VITALS: RESP 18
[2021-12-14 06:26] LABS: Glucose,Whole Blood 194 mg/dL (75-99)
[2021-12-14] MEDS ORDERED: metOLazone 5 MG TAB PO PRN (09:00)
[2021-12-14] MEDS: IPRATROPIUM-ALBUTEROL 3 ML NEB INHALATION SCH ×4 (09:32→20:39)
[2021-12-14] MEDS: SPIRONOLACTONE 25 MG TAB PO SCH (09:38)
[2021-12-14] MEDS: LINAGLIPTIN 5 MG TABLET PO SCH (09:38)
[2021-12-14] MEDS ORDERED: LIDOCAINE 5% PATCH TOPICAL PRN (11:01)
[2021-12-14] MEDS ORDERED: ALBUTEROL NEBULIZED 2.5 MG/3 ML INHALATION PRN (11:01)
[2021-12-14] MEDS ORDERED: MECLIZINE 12.5 MG TAB PO PRN (11:01)
--- NOTE | 2021-12-14 11:09 | P.CRDCN ---
History of Present Illness Consult date: 12/14/21 History of present illness: HISTORY OF PRESENT ILLNESS: This is a 89-year-old male with a past medical history significant for persistent atrial fibrillation, COPD, hypertension, hyperlipidemia, diabetes, and former nicotine dependence. Patient follows in the office with Dr. Pollack. We have been asked to see the patient in consultation for elevated troponin. Patient examined at the bedside. The patient presented to the hospital with a chief complaint of back pain. The patient also reports having some shortness of breath which has improved this morning. He denies having any chest pain or pressure. * EKG reveals ventricular paced rhythm * Chest xray some chronic elevation of the right diaphragm with atelectasis right lung base. This could relate to some diaphragm paralysis. No heart failure seen. Mild pulmonary fibrosis. * Laboratory data: WBC 9.7. Hemoglobin 11.3. Platelet count 192. Sodium 133. Potassium 3.8. BUN 43. Creatinine 1.29. Troponin 0.062. 0.073. 0.056. ProBNP 2930. * Current home cardiac medications include Zaroxolyn 1/2 tab daily PRN (dose of tab unknown), Aldactone 12.5 mg daily, metoprolol tartrate 25 mg twice a day, Lasix 80 mg in the morning and 40 mg afternoon PRN, Eliquis 2.5 mg twice a day * Most recent echocardiogram obtained in March 2019 revealing ejection fraction 50-55%, mild aortic regurgitation, [id number] mitral regurgitation, mild tricuspid regurgitation, and mild pulmonary hypertension * Cardiac catheterization history: 2011 revealing minimal coronary artery disease REVIEW OF SYSTEMS: At the time of my exam: CONSTITUTIONAL: Denies fever or chills. HEENT: Denies blurred vision, vision changes, or eye pain. Denies hemoptysis CARDIOVASCULAR: Denies chest pain. Denies orthopnea. Denies PND. Denies palpitations RESPIRATORY: Denies shortness of breath. GASTROINTESTINAL: Denies abdominal pain. Denies nausea or vomiting. HEMATOLOGIC: Denies bleeding disorders. GENITOURINARY: Denies any blood in urine. SKIN: Denies pruitis. Denies rash. PHYSICAL EXAM: VITAL SIGNS: Reviewed. GENERAL: Well-developed in no acute distress. HEENT: Head is normocephalic. Pupils are equal, round. Sclerae anicteric. Mucous membranes of the mouth are moist. Neck supple. No JVD or thyromegaly LUNGS: Respirations even and unlabored. Lungs diminished to auscultation bilaterally. HEART: Regular rate and rhythm. S1 and S2 heard. Systolic murmur noted. ABDOMEN: Soft. Nondistended. Nontender. EXTREMITIES: Normal range of motion. No clubbing or cyanosis. Peripheral pulses intact. Trace lower extremity edema NEUROLOGIC: Awake and alert. Oriented x 3. ASSESSMENT: Back pain Shortness of breath Acute COPD exacerbation Chronic hypoxic respiratory failure on home o2 Chronic congestive heart failure with preserved EF Paroxysmal atrial fibrillation Abnormal troponins, not suggestive of acute coronary syndrome Acute kidney injury Hypertension Hyperlipidemia Diabetes Former nicotine dependence PLAN: An acute coronary event has been ruled out Obtain 2D echo to assess cardiac structure and function Resume home cardiac medications Continue telemetry monitoring Further recommendations pending patient course Nurse practitioner note has been reviewed by physician. Signing provider agrees with the documented findings, assessment, and plan of care. 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 History of Any Multi-Drug Resistant Organisms: None Reported Past Surgical History: Appendectomy, Cholecystectomy, Hernia Repair, Joint Replacement, Orthopedic Surgery, Pacemaker Additional Past Surgical History / Comment(s): DANY/CVNS, bronchoscopies with lavage, laryngoscopy, right hip replaced, arthroscopies bilateral knees, R rotator cuff surgery. sx for deviated septum, nodules removed from vocal cords, karlene cataracts, pacemaker 04/24/19 Past Anesthesia/Blood Transfusion Reactions: Motion Sickness, Postoperative Nausea & Vomiting (PONV) Additional Past Anesthesia/Blood Transfusion Reaction / Comment(s): UNK FAMILY HX. NEVER HAS HAD BLOOD TRANSFUSION Type of Cardiac Device: Permanent Pacemaker Device Placement Date:: 04/24/19 Past Psychological History: No Psychological Hx Reported Additional Psychological History / Comment(s): Retired. No service. No animal exposures. 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 Lives with spouse in a single level home that has 3 steps to enter. PT is independent. He uses no assistive device and no home care. He drives a car.Pt has a nebulizer and glucometer. Smoking Status: Former smoker Past Alcohol Use History: None Reported Additional Past Alcohol Use History / Comment(s): Quit smoking in 1965, started AT AGE 22 Past Drug Use History: None Reported - Past Family History Brother(s) Family Medical History: Cancer Additional Family Medical History / Comment(s): Pt had one brother with lung cancer and another brother with bone cancer. Sister(s) Family Medical History: Cancer Additional Family Medical History / Comment(s): Pt's sister had colon cancer. Mother Family Medical History: CVA/TIA Father Family Medical History: Hypertension Medications and Allergies Home Medications Medication Instructions Recorded Confirmed Type Folic Acid 1 mg PO BID 10/10/14 12/14/21 History Omeprazole [PriLOSEC] 20 mg PO DAILY@1200 10/10/14 12/14/21 History Apixaban [Eliquis] 2.5 mg PO BID 02/04/15 12/14/21 History Spironolactone [Aldactone] 12.5 mg PO DAILY 02/04/15 12/14/21 History Levalbuterol HCl [Xopenex 1.25 mg INHALATION RT-QID PRN 02/05/15 12/14/21 History Nebulized] Cholecalciferol [Vitamin D3 (25 75 mcg PO DAILY 10/01/16 12/14/21 History Mcg = 1000 Iu)] Levothyroxine Sodium [Synthroid] 175 mcg PO DAILY 10/01/16 12/14/21 History Furosemide [Lasix] 40 mg PO DAILY@1500 PRN 04/22/19 12/14/21 History Furosemide [Lasix] 80 mg PO DAILY 04/22/19 12/14/21 History Ipratropium Nebulized [Atrovent 0.5 mg INHALATION RT-TID 04/22/19 12/14/21 History Nebulized 0.2 MG/ML] Metoprolol Tartrate [Lopressor] 25 mg PO BID 04/22/19 12/14/21 History metOLazone [Zaroxolyn] 0.5 tab PO DAILY PRN 04/29/19 12/14/21 History Fluticasone Propion/Salmeterol 1 puff INHALATION RT-BID 10/06/21 12/14/21 History [Wixela 500-50 Inhub] Glimepiride [Amaryl] 2 mg PO [id number] 10/06/21 12/14/21 History Meclizine [Antivert] 12.5 mg PO DAILY PRN 10/06/21 12/14/21 History Potassium Chloride ER [K-Dur 10] 10 meq PO MOWEFR 10/06/21 12/14/21 History predniSONE 5 mg PO DAILY 10/06/21 12/14/21 History sitaGLIPtin [Januvia] 100 mg PO DAILY 10/06/21 12/14/21 History Albuterol Sulfate [Ventolin HFA] 2 puff INHALATION RT-QID PRN 12/14/21 12/14/21 History Lidocaine 5% Patch [Lidoderm 5% 1 patch TRANSDERM DAILY PRN 12/14/21 12/14/21 History Patch] Allergies Allergy/AdvReac Type Severity Reaction Status Date / Time amoxicillin [From Augmentin] Allergy Unknown Verified 12/14/21 08:22 cefuroxime Allergy Rash/Hives Verified 12/14/21 08:22 cetyl alcohol [From Cetaphil] Allergy Rash/Hives Verified 12/14/21 08:22 clavulanic acid Allergy Unknown Verified 12/14/21 08:22 [From Augmentin] fexofenadine Allergy Unknown Verified 12/14/21 08:22 flecainide Allergy Rash/Hives Verified 12/14/21 08:22 fluconazole Allergy Unknown Verified 12/14/21 08:22 paraben [From Cetaphil] Allergy Rash/Hives Verified 12/14/21 08:22 propylene glycol Allergy Rash/Hives Verified 12/14/21 08:22 [From Cetaphil] skin cleanser [From Cetaphil] Allergy Rash/Hives Verified 12/14/21 08:22 soap [From Cetaphil] Allergy Rash/Hives Verified 12/14/21 08:22 sodium lauryl sulfate Allergy Rash/Hives Verified 12/14/21 08:22 [From Cetaphil] stearyl alcohol Allergy Rash/Hives Verified 12/14/21 08:22 [From Cetaphil] sulfamethoxazole Allergy Unknown Verified 12/14/21 08:22 [From Bactrim] Tetracyclines Allergy Unknown Verified 12/14/21 08:22 trimethoprim [From Bactrim] Allergy Unknown Verified 12/14/21 08:22 amiodarone AdvReac Cough Verified 12/14/21 08:22 benzocaine [From Cetacaine] AdvReac Dyspnea Verified 12/14/21 08:22 butamben [From Cetacaine] AdvReac Dyspnea Verified 12/14/21 08:22 meperidine HCl [From Demerol] AdvReac Nausea & Verified 12/14/21 08:22 Vomiting naproxen [From Naprosyn] AdvReac GI BLEED Verified 12/14/21 08:22 tetracaine [From Cetacaine] AdvReac Nausea & Verified 12/14/21 08:22 Vomiting zomepirac AdvReac GI BLEED Verified 12/14/21 08:22 duprenex AdvReac Nausea & Uncoded 12/14/21 08:22 Vomiting Physical Exam Vitals: Vital Signs Temp Pulse Pulse Resp BP BP Pulse Ox 12/14/21 04:00 97.8 F 50 L 18 112/54 98 12/14/21 01:20 97.6 F 50 L 18 132/69 98 12/14/21 00:15 51 L 20 125/55 98 12/13/21 23:10 50 L 12/13/21 23:03 49 L 12/13/21 23:00 51 L 18 134/54 98 12/13/21 22:03 50 L 20 134/68 99 12/13/21 20:39 97.9 F 45 L 19 143/57 99 Intake and Output 12/13/21 12/14/21 12/14/21 22:59 06:59 14:59 Intake Total 10 Output Total 250 Balance -240 Intake: IV 10 Invasive Line 1 10 Output: Urine 250 Other: Voiding Method Toilet # Voids 1 Weight 90.265 kg 90.265 kg Results 12/13/21 22:19 12/13/21 22:19 Cardiac Enzymes 12/13/21 12/13/21 12/14/21 Range/Units 22:19 22:19 00:55 AST 30 (17-59) U/L Troponin I 0.062 H* 0.073 H* (0.000-0.034) ng/mL 12/14/21 Range/Units 06:42 AST (17-59) U/L Troponin I 0.056 H* (0.000-0.034) ng/mL Coagulation 12/13/21 Range/Units 22:19 PT 10.7 (9.0-12.0) sec APTT 24.3 (22.0-30.0) sec CBC 12/13/21 Range/Units 22:19 WBC 9.7 (3.8-10.6) k/uL RBC 2.92 L (4.30-5.90) m/uL Hgb 11.3 L (13.0-17.5) gm/dL Hct 29.9 L (39.0-53.0) % Plt Count 192 (150-450) k/uL Comprehensive Metabolic Panel 12/13/21 Range/Units 22:19 Sodium 133 L (137-145) mmol/L Potassium 3.8 (3.5-5.1) mmol/L Chloride 86 L (98-107) mmol/L Carbon Dioxide 39 H (22-30) mmol/L BUN 43 H (9-20) mg/dL Creatinine 1.29 H (0.66-1.25) mg/dL Glucose 122 H (74-99) mg/dL Calcium 9.1 (8.4-10.2) mg/dL AST 30 (17-59) U/L ALT 19 (4-49) U/L Alkaline Phosphatase 69 (38-126) U/L Total Protein 7.0 (6.3-8.2) g/dL Albumin 4.2 (3.5-5.0) g/dL Current Medications Generic Name Dose Route Start Last Admin Trade Name Freq PRN Reason Stop Dose Admin Albuterol/Ipratropium 3 ml 12/13/21 23:34 Ipratropium-Albuterol 3 Ml Neb INHALATION RT-Q4H PRN Shortness Of Breath Or Wheezing Albuterol/Ipratropium 3 ml 12/14/21 08:00 Ipratropium-Albuterol 3 Ml Neb INHALATION RT-QID COUNT INCLUDES THE [facility] Apixaban 2.5 mg 12/13/21 23:45 12/14/21 00:12 Apixaban 2.5 Mg Tablet PO 2.5 mg BID ORIANA Administration Protocol Linagliptin 5 mg 12/14/21 09:00 Linagliptin 5 Mg Tablet PO DAILY ORIANA Methylprednisolone Sodium Succinate 60 mg 12/14/21 00:00 12/14/21 00:12 Methylprednisolone Sod Succi 125 Mg/2 Ml Vial IV 60 mg Q8HR ORIANA Administration Metolazone 2.5 mg 12/14/21 09:00 Metolazone 5 Mg Tab PO DAILY PRN WEIGHT GAIN Metoprolol Tartrate 25 mg 12/13/21 23:45 12/14/21 00:12 Metoprolol Tartrate 25 Mg Tab PO 25 mg BID ORIANA Administration Morphine Sulfate 4 mg 12/13/21 23:43 Morphine Sulfate 4 Mg/Ml Syringe IVP Q4HR PRN Pain Spironolactone 12.5 mg 12/14/21 09:00 Spironolactone 25 Mg Tab PO DAILY ORIANA Intake and Output 12/13/21 12/14/21 12/14/21 22:59 06:59 14:59 Intake Total 10 Output Total 250 Balance -240 Intake: IV 10 Invasive Line 1 10 Output: Urine 250 Other: Voiding Method Toilet # Voids 1 Weight 90.265 kg 90.265 kg 12/13/21 22:19 12/13/21 22:19
[2021-12-14] MEDS ORDERED: POTASSIUM CHLORIDE ER 10 MEQ TAB.ER.PRT PO SCH (11:15)
--- NOTE | 2021-12-14 11:20 | ECHOF ---
Referral Reason:LV function MEASUREMENTS -------- HEIGHT: 177.8 cm WEIGHT: 90.3 kg BP: 112/54 RVIDd: 3.5 cm (< 3.3) IVSd: 1.6 cm (0.6 - 1.1) LVIDd: 3.5 cm (3.9 - 5.3) LVPWd: 1.5 cm (0.6 - 1.1) IVSs: 1.9 cm LVIDs: 2.8 cm LVPWs: 2.1 cm LA Diam: 4.1 cm (2.7 - 3.8) LAESV Index (A-L): 42.68 ml/m Ao Diam: 4.0 cm (2.0 - 3.7) AV Cusp: 2.1 cm (1.5 - 2.6) MV EXCURSION: 18.742 mm (> 18.000) MV EF SLOPE: 64 mm/s (70 - 150) EPSS: 0.9 cm AR PHT: 670 ms RAP: 15.00 mmHg RVSP: 51.24 mmHg FINDINGS -------- Paced rhythm. This was a technically adequate study. The left ventricular size is normal. There is moderate concentric left ventricular hypertrophy. O verall left ventricular systolic function is low-normal with, an EF between 50 - 55 %. The right ventricle is mildly enlarged. LA is severely dilated >40 ml/m2 The right atrium is normal in size. Interatrial and interventricular septum intact. Aortic valve is trileaflet and is mildly thickened. There is mild aortic regurgitation. Mild mitral annular calcification present. Mild mitral regurgitation is present. Mild tricuspid regurgitation present. There is moderate pulmonary hypertension. The right ventric ular systolic pressure, as measured by Doppler, is 51.24mmHg. Trace/mild (physiologic) pulmonic regurgitation. The aortic root is dilated measuring 4.0cm. Normal inferior vena cava with less than 50% inspiratory collapse consistent with estimated right atr ial pressure of 15 mmHg. There is no pericardial effusion. CONCLUSIONS -------- 1. The left ventricular size is normal. 2. There is moderate concentric left ventricular hypertrophy. 3. Overall left ventricular systolic function is low-normal with, an EF between 50 - 55 %. 4. The right ventricle is mildly enlarged. 5. LA is severely dilated >40 ml/m2 6. Aortic valve is trileaflet and is mildly thickened. 7. There is mild aortic regurgitation. 8. Mild mitral annular calcification present. 9. Mild mitral regurgitation is present. 10. Mild tricuspid regurgitation present. 11. There is moderate pulmonary hypertension. 12. The right ventricular systolic pressure, as measured by Doppler, is 51.24mmHg. 13. Trace/mild (physiologic) pulmonic regurgitation. 14. The aortic root is dilated measuring 4.0cm. 15. Normal inferior vena cava with less than 50% inspiratory collapse consistent with estimated right atrial pressure of 15 mmHg. 16. There is no pericardial effusion. OCCUPATIONAL THERAPIST REHAB MANAGER: Shanika Woodson RDCS
[2021-12-14 11:40] LABS: Glucose,Whole Blood 282 mg/dL (75-99)
[2021-12-14] MEDS: SYMBICORT 160-4.5 MCG INHALER INHALATION SCH ×2 (12:51→20:39)
[2021-12-14] MEDS: predniSONE 20 MG TAB PO SCH (13:14)
[2021-12-14] MEDS: PANTOPRAZOLE 40 MG TABLET PO SCH (13:14)
[2021-12-14] MEDS: LEVOTHYROXINE 88 MCG TAB PO SCH (13:14)
[2021-12-14] MEDS: FUROSEMIDE 80 MG TAB PO SCH (13:14)
[2021-12-14] MEDS: INSULIN ASPART (NovoLOG) 100 UNIT/ML VIAL SQ SCH ×3 (13:15→20:43)
--- NOTE | 2021-12-14 14:53 | P.CNPUL ---
History of Present Illness Consult date: 12/14/21 Requesting physician: Cristian Burk Reason for consult: chest pain, COPD, abnormal CXR/CT Chief complaint: Sharp back pain. History of present illness: Pulmonary consult dated 12/14/2021. 89-year-old male, well-known to me. The patient sees Dr. Ojeda as a primary, down in the [place] area. The patient apparently is brought into the emergency department, and is seen on December 13. He came in complaining of sharp pain in the posterior chest and back area. The pain is apparently sharp. It's mostly left-sided. It does radiate over to the right sided bit. Apparently it was a bit worse with deep breathing, and also changes in body position. He denied any fever or chills. There is no shortness of breath. He denied any wheezing. He states the pain started early in the morning on Tuesday. He denies any trauma. The patient was apparently seen by cardiology, and they thought his pain was noncardiac in origin. After listening to her story, I thought his pancreatic be pleuritic in nature, or related to some sort of musculoskeletal problem. The pain was not reproducible. Lab data includes a white count of 9.7, hemoglobin 11.3, hematocrit 29.9, and a platelet count of 192,000. PT INR and PTT were normal. Sodium 133, potassium 3.8, chlorides 86, CO2 39, anion gap 8, BUN 43, and creatinine 1.29. Troponins were 0.062, 0.073 and 0.056. N-terminal proBNP was 2930. The rest of his comprehensive metabolic profile was normal. The patient's chest x-ray showed a chronically elevated right diaphragm, with some minimal atelectasis at the right lung base. This is essentially unchanged from previous x-rays. Review of Systems REVIEW OF SYSTEMS: CONSTITUTIONAL: [Negative.] NEUROLOGIC: [ Negative.] HEENT: [ Negative.] CARDIAC: Sharp pain in the left back area. PULMONARY: Chronic shortness of breath on exertion, at baseline. GI: [Negative.] : [Negative.] RHEUMATOLOGIC: [ Negative.] IMMUNOLOGIC: [ Negative.] ENDOCRINE: [Negative. 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 History of Any Multi-Drug Resistant Organisms: None Reported Past Surgical History: Appendectomy, Cholecystectomy, Hernia Repair, Joint Replacement, Orthopedic Surgery, Pacemaker Additional Past Surgical History / Comment(s): DANY/CVNS, bronchoscopies with lavage, laryngoscopy, right hip replaced, arthroscopies bilateral knees, R rotator cuff surgery. sx for deviated septum, nodules removed from vocal cords, karlene cataracts, pacemaker 04/24/19 Past Anesthesia/Blood Transfusion Reactions: Motion Sickness, Postoperative Nausea & Vomiting (PONV) Additional Past Anesthesia/Blood Transfusion Reaction / Comment(s): UNK FAMILY HX. NEVER HAS HAD BLOOD TRANSFUSION Type of Cardiac Device: Permanent Pacemaker Device Placement Date:: 04/24/19 Past Psychological History: No Psychological Hx Reported Additional Psychological History / Comment(s): Retired. No service. No animal exposures. 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 Lives with spouse in a single level home that has 3 steps to enter. PT is independent. He uses no assistive device and no home care. He drives a car.Pt has a nebulizer and glucometer. Smoking Status: Former smoker Past Alcohol Use History: None Reported Additional Past Alcohol Use History / Comment(s): Quit smoking in 1965, started AT AGE 22 Past Drug Use History: None Reported - Past Family History Brother(s) Family Medical History: Cancer Additional Family Medical History / Comment(s): Pt had one brother with lung cancer and another brother with bone cancer. Sister(s) Family Medical History: Cancer Additional Family Medical History / Comment(s): Pt's sister had colon cancer. Mother Family Medical History: CVA/TIA Father Family Medical History: Hypertension Medications and Allergies Home Medications Medication Instructions Recorded Confirmed Type Folic Acid 1 mg PO BID 10/10/14 12/14/21 History Omeprazole [PriLOSEC] 20 mg PO DAILY@1200 10/10/14 12/14/21 History Apixaban [Eliquis] 2.5 mg PO BID 02/04/15 12/14/21 History Spironolactone [Aldactone] 12.5 mg PO DAILY 02/04/15 12/14/21 History Levalbuterol HCl [Xopenex 1.25 mg INHALATION RT-QID PRN 02/05/15 12/14/21 History Nebulized] Cholecalciferol [Vitamin D3 (25 75 mcg PO DAILY 10/01/16 12/14/21 History Mcg = 1000 Iu)] Levothyroxine Sodium [Synthroid] 175 mcg PO DAILY 10/01/16 12/14/21 History Furosemide [Lasix] 40 mg PO DAILY@1500 PRN 04/22/19 12/14/21 History Furosemide [Lasix] 80 mg PO DAILY 04/22/19 12/14/21 History Ipratropium Nebulized [Atrovent 0.5 mg INHALATION RT-TID 04/22/19 12/14/21 History Nebulized 0.2 MG/ML] Metoprolol Tartrate [Lopressor] 25 mg PO BID 04/22/19 12/14/21 History metOLazone [Zaroxolyn] 0.5 tab PO DAILY PRN 04/29/19 12/14/21 History Fluticasone Propion/Salmeterol 1 puff INHALATION RT-BID 10/06/21 12/14/21 History [Wixela 500-50 Inhub] Glimepiride [Amaryl] 2 mg PO AC-BRKFST 10/06/21 12/14/21 History Meclizine [Antivert] 12.5 mg PO DAILY PRN 10/06/21 12/14/21 History Potassium Chloride ER [K-Dur 10] 10 meq PO MOWEFR 10/06/21 12/14/21 History predniSONE 5 mg PO DAILY 10/06/21 12/14/21 History sitaGLIPtin [Januvia] 100 mg PO DAILY 10/06/21 12/14/21 History Albuterol Sulfate [Ventolin HFA] 2 puff INHALATION RT-QID PRN 12/14/21 12/14/21 History Lidocaine 5% Patch [Lidoderm 5% 1 patch TRANSDERM DAILY PRN 12/14/21 12/14/21 History Patch] Allergies Allergy/AdvReac Type Severity Reaction Status Date / Time amoxicillin [From Augmentin] Allergy Unknown Verified 12/14/21 08:22 cefuroxime Allergy Rash/Hives Verified 12/14/21 08:22 cetyl alcohol [From Cetaphil] Allergy Rash/Hives Verified 12/14/21 08:22 clavulanic acid Allergy Unknown Verified 12/14/21 08:22 [From Augmentin] fexofenadine Allergy Unknown Verified 12/14/21 08:22 flecainide Allergy Rash/Hives Verified 12/14/21 08:22 fluconazole Allergy Unknown Verified 12/14/21 08:22 paraben [From Cetaphil] Allergy Rash/Hives Verified 12/14/21 08:22 propylene glycol Allergy Rash/Hives Verified 12/14/21 08:22 [From Cetaphil] skin cleanser [From Cetaphil] Allergy Rash/Hives Verified 12/14/21 08:22 soap [From Cetaphil] Allergy Rash/Hives Verified 12/14/21 08:22 sodium lauryl sulfate Allergy Rash/Hives Verified 12/14/21 08:22 [From Cetaphil] stearyl alcohol Allergy Rash/Hives Verified 12/14/21 08:22 [From Cetaphil] sulfamethoxazole Allergy Unknown Verified 12/14/21 08:22 [From Bactrim] Tetracyclines Allergy Unknown Verified 12/14/21 08:22 trimethoprim [From Bactrim] Allergy Unknown Verified 12/14/21 08:22 amiodarone AdvReac Cough Verified 12/14/21 08:22 benzocaine [From Cetacaine] AdvReac Dyspnea Verified 12/14/21 08:22 butamben [From Cetacaine] AdvReac Dyspnea Verified 12/14/21 08:22 meperidine HCl [From Demerol] AdvReac Nausea & Verified 12/14/21 08:22 Vomiting naproxen [From Naprosyn] AdvReac GI BLEED Verified 12/14/21 08:22 tetracaine [From Cetacaine] AdvReac Nausea & Verified 12/14/21 08:22 Vomiting zomepirac AdvReac GI BLEED Verified 12/14/21 08:22 duprenex AdvReac Nausea & Uncoded 12/14/21 08:22 Vomiting Physical Exam Osteopathic Statement: *. No significant issues noted on an osteopathic structural exam other than those noted in the History and Physical/Consult. Vitals: Vital Signs Temp Pulse Pulse Resp BP BP Pulse Ox 12/14/21 13:01 58 L 18 12/14/21 12:51 60 18 12/14/21 09:44 58 L 18 12/14/21 09:31 60 18 94 L 12/14/21 09:30 98.1 F 50 L 18 122/69 98 12/14/21 04:00 97.8 F 50 L 18 112/54 98 12/14/21 01:20 97.6 F 50 L 18 132/69 98 12/14/21 00:15 51 L 20 125/55 98 12/13/21 23:10 50 L 12/13/21 23:03 49 L 12/13/21 23:00 51 L 18 134/54 98 12/13/21 22:03 50 L 20 134/68 99 12/13/21 20:39 97.9 F 45 L 19 143/57 99 Intake and Output 12/13/21 12/14/21 12/14/21 22:59 06:59 14:59 Intake Total 10 Output Total 250 300 Balance -240 -300 Intake: IV 10 Invasive Line 1 10 Output: Urine 250 300 Other: Voiding Method Toilet Toilet # Voids 1 Weight 90.265 kg 90.265 kg No acute distress, oriented 3. Currently on 2 L nasal cannula. This is his home dose. No acute respiratory difficulty. HEENT examination is grossly unremarkable. Neck supple. Full range of motion. No adenopathy thyromegaly or neck vein distention. Cardiovascular examination reveals regular rhythm rate. S1-S2 normal. No S3 or S4. No discernible murmur noted. Heart rate at 58 bpm. Pain is not reproducible. Lungs reveal clear bilateral breath sounds, diminished throughout. No distinct wheezes, rhonchi, or crackles. Breath sounds equal bilaterally. Abdomen soft bowel sounds are heard. No masses or tenderness. Extremities are intact. No cyanosis clubbing or edema. Skin is without rash or lesion. Neurologic examination is brief but nonfocal. Results - Laboratory Findings CBC and BMP: 12/13/21 22:19 12/13/21 22:19 PT/INR, D-dimer PT 10.7 sec (9.0-12.0) 12/13/21 22:19 INR 1.0 (<1.2) 12/13/21 22:19 Abnormal lab findings: Abnormal Labs 12/13/21 12/13/21 12/13/21 22:19 22:19 22:19 RBC 2.92 L Hgb 11.3 L Hct 29.9 L MCV 102.7 H MCH 38.6 H MCHC 37.6 H Neutrophils # 8.2 H Lymphocytes # 0.7 L Sodium 133 L Chloride 86 L Carbon Dioxide 39 H BUN 43 H Creatinine 1.29 H Glucose 122 H POC Glucose (mg/dL) Total Bilirubin 3.2 H Troponin I 0.062 H* 12/14/21 12/14/21 12/14/21 00:55 06:25 06:42 RBC Hgb Hct MCV MCH MCHC Neutrophils # Lymphocytes # Sodium Chloride Carbon Dioxide BUN Creatinine Glucose POC Glucose (mg/dL) 194 H Total Bilirubin Troponin I 0.073 H* 0.056 H* 12/14/21 11:36 RBC Hgb Hct MCV MCH MCHC Neutrophils # Lymphocytes # Sodium Chloride Carbon Dioxide BUN Creatinine Glucose POC Glucose (mg/dL) 282 H Total Bilirubin Troponin I - Diagnostic Findings Chest x-ray: image reviewed Assessment and Plan Assessment: Posterior, sharp left sided, thoracic pain, a bit worse on body movements, and initially worse on deep breathing. This pain could be either musculoskeletal in origin, or potentially related to pleurisy. History of COPD with chronic hypoxemic respiratory failure, and home O2 at 2 L. Chronic elevation of the right hemidiaphragm. History of atrial fibrillation. History of CHF. History of CVA/TIA. Diabetes mellitus. GERD. Hypertension. History of diverticular disease. History of kidney stones. Multiple medical problems and comorbidities. Plan: Plan dated 12/14/2021. The patient's pain appears not to be cardiac in origin, according to cardiology evaluation. I don't see anything on the chest x-ray which would explain the patient's pain. He's not having a COPD exacerbation. There is no new infiltrates or abnormalities on the chest x-ray. The pain could relate to some sort of musculoskeletal abnormality, and/or pleurisy. Labs, x-rays, and medications are reviewed. Additional recommendations and suggestions are forthcoming. Prognosis is guarded. We will continue to follow make recommendations where appropriate. Time with Patient: Greater than 30
[2021-12-14] MEDS ORDERED: FUROSEMIDE 40 MG TAB PO PRN (15:00)
[2021-12-14 16:53] LABS: Glucose,Whole Blood 279 mg/dL (75-99)
[2021-12-14] MEDS ORDERED: ACETAMINOPHEN TAB 325 MG TAB PO PRN (17:02)
--- NOTE | 2021-12-14 17:04 | P.CNOR ---
History of Present Illness - [facility] Consult date: 12/14/21 Requesting physician: Cristian Burk Consult reason: other (lower thoracic spine [place]) History of present illness: Patient is an 89-year-old male with a history of COPD, hypertension, hyper lipidemia, diabetes presented the emergency department [facility] yesterday after waking up having increased pain in mid back. Patient also does have some shortness of breath. Patient does use of oxygen and was on oxygen during the encounter in the room. Patient was seen at bedside resting, sitting up in chair with legs elevated. Patient rates his pain currently as 6/10. Patient describes the pain as twisting in nature. Patient feels that his pain in his back is under better control today versus yesterday. Patient says yesterday morning he woke up and began having this back pain. Patient denies any falls/trauma to the area. Patient denies any radiculopathy/pain either extremity. He feels that the pain is exacerbated when he moves. Patient says some of the pain is alleviated with pain medication. Patient says he normally takes Tylenol at home for pain. Patient denies any previous orthopedic spine surgery. Patient says he has had both knees scoped in the past. Patient has also had a right shoulder rotator cuff repair by Dr. Rojas years ago as well as a hip replacement by Dr. Rojas. Patient denies increasing chest pain, increased shortness of breath, nausea, vomiting, change in vision, loss of bowel/bladder control. 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 History of Any Multi-Drug Resistant Organisms: None Reported Past Surgical History: Appendectomy, Cholecystectomy, Hernia Repair, Joint Replacement, Orthopedic Surgery, Pacemaker Additional Past Surgical History / Comment(s): DANY/CVNS, bronchoscopies with lavage, laryngoscopy, right hip replaced, arthroscopies bilateral knees, R rotator cuff surgery. sx for deviated septum, nodules removed from vocal cords, karlene cataracts, pacemaker 04/24/19 Past Anesthesia/Blood Transfusion Reactions: Motion Sickness, Postoperative Nausea & Vomiting (PONV) Additional Past Anesthesia/Blood Transfusion Reaction / Comm: UNK FAMILY HX. NEVER HAS HAD BLOOD TRANSFUSION Type of Cardiac Device: Permanent Pacemaker Device Placement Date:: 04/24/19 Past Psychological History: No Psychological Hx Reported Additional Psychological History / Comment(s): Retired. No service. No animal exposures. 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 Lives with spouse in a single level home that has 3 steps to enter. PT is independent. He uses no assistive device and no home care. He drives a car.Pt has a nebulizer and glucometer. Smoking Status: Former smoker Past Alcohol Use History: None Reported Additional Past Alcohol Use History / Comment(s): Quit smoking in 1965, started AT AGE 22 Past Drug Use History: None Reported - Past Family History Brother(s) Family Medical History: Cancer Additional Family Medical History / Comment(s): Pt had one brother with lung cancer and another brother with bone cancer. Sister(s) Family Medical History: Cancer Additional Family Medical History / Comment(s): Pt's sister had colon cancer. Mother Family Medical History: CVA/TIA Father Family Medical History: Hypertension Medications and Allergies Home Medications Medication Instructions Recorded Confirmed Type Folic Acid 1 mg PO BID 10/10/14 12/14/21 History Omeprazole [PriLOSEC] 20 mg PO DAILY@1200 10/10/14 12/14/21 History Apixaban [Eliquis] 2.5 mg PO BID 02/04/15 12/14/21 History Spironolactone [Aldactone] 12.5 mg PO DAILY 02/04/15 12/14/21 History Levalbuterol HCl [Xopenex 1.25 mg INHALATION RT-QID PRN 02/05/15 12/14/21 History Nebulized] Cholecalciferol [Vitamin D3 (25 75 mcg PO DAILY 10/01/16 12/14/21 History Mcg = 1000 Iu)] Levothyroxine Sodium [Synthroid] 175 mcg PO DAILY 10/01/16 12/14/21 History Furosemide [Lasix] 40 mg PO DAILY@1500 PRN 04/22/19 12/14/21 History Furosemide [Lasix] 80 mg PO DAILY 04/22/19 12/14/21 History Ipratropium Nebulized [Atrovent 0.5 mg INHALATION RT-TID 04/22/19 12/14/21 History Nebulized 0.2 MG/ML] Metoprolol Tartrate [Lopressor] 25 mg PO BID 04/22/19 12/14/21 History metOLazone [Zaroxolyn] 0.5 tab PO DAILY PRN 04/29/19 12/14/21 History Fluticasone Propion/Salmeterol 1 puff INHALATION RT-BID 10/06/21 12/14/21 History [Wixela 500-50 Inhub] Glimepiride [Amaryl] 2 mg PO AC-BRKFST 10/06/21 12/14/21 History Meclizine [Antivert] 12.5 mg PO DAILY PRN 10/06/21 12/14/21 History Potassium Chloride ER [K-Dur 10] 10 meq PO MOWEFR 10/06/21 12/14/21 History predniSONE 5 mg PO DAILY 10/06/21 12/14/21 History sitaGLIPtin [Januvia] 100 mg PO DAILY 10/06/21 12/14/21 History Albuterol Sulfate [Ventolin HFA] 2 puff INHALATION RT-QID PRN 12/14/21 12/14/21 History Lidocaine 5% Patch [Lidoderm 5% 1 patch TRANSDERM DAILY PRN 12/14/21 12/14/21 History Patch] Allergies Allergy/AdvReac Type Severity Reaction Status Date / Time amoxicillin [From Augmentin] Allergy Unknown Verified 12/14/21 08:22 cefuroxime Allergy Rash/Hives Verified 12/14/21 08:22 cetyl alcohol [From Cetaphil] Allergy Rash/Hives Verified 12/14/21 08:22 clavulanic acid Allergy Unknown Verified 12/14/21 08:22 [From Augmentin] fexofenadine Allergy Unknown Verified 12/14/21 08:22 flecainide Allergy Rash/Hives Verified 12/14/21 08:22 fluconazole Allergy Unknown Verified 12/14/21 08:22 paraben [From Cetaphil] Allergy Rash/Hives Verified 12/14/21 08:22 propylene glycol Allergy Rash/Hives Verified 12/14/21 08:22 [From Cetaphil] skin cleanser [From Cetaphil] Allergy Rash/Hives Verified 12/14/21 08:22 soap [From Cetaphil] Allergy Rash/Hives Verified 12/14/21 08:22 sodium lauryl sulfate Allergy Rash/Hives Verified 12/14/21 08:22 [From Cetaphil] stearyl alcohol Allergy Rash/Hives Verified 12/14/21 08:22 [From Cetaphil] sulfamethoxazole Allergy Unknown Verified 12/14/21 08:22 [From Bactrim] Tetracyclines Allergy Unknown Verified 12/14/21 08:22 trimethoprim [From Bactrim] Allergy Unknown Verified 12/14/21 08:22 amiodarone AdvReac Cough Verified 12/14/21 08:22 benzocaine [From Cetacaine] AdvReac Dyspnea Verified 12/14/21 08:22 butamben [From Cetacaine] AdvReac Dyspnea Verified 12/14/21 08:22 meperidine HCl [From Demerol] AdvReac Nausea & Verified 12/14/21 08:22 Vomiting naproxen [From Naprosyn] AdvReac GI BLEED Verified 12/14/21 08:22 tetracaine [From Cetacaine] AdvReac Nausea & Verified 12/14/21 08:22 Vomiting zomepirac AdvReac GI BLEED Verified 12/14/21 08:22 duprenex AdvReac Nausea & Uncoded 12/14/21 08:22 Vomiting Physical Examination Inspection: Negative for any open fractures, ecchymosis, erythema, nodules during spine exam Sensation: Patient does have some decreased sensation in a couple digits distally on the left hand as well as both great toes. Patient does have a history of diabetes; patient says he does take oral medication daily for it. Otherwise, sensation is equal, symmetric, bilaterally intact in upper and lower extremities Palpation: Patient has some mild to moderate tenderness to palpation along the paraspinal muscles in the mid back. Patient is nontender to patient throughout spine. Patient is nontender to palpation throughout rest exam Range of motion: Patient has full range of motion bilateral lower extremities. Patient does have some limited range of motion in the right shoulder and did have previous right rotator cuff repair. full Range of motion the rest of the upper extremities Motor: 5/5 in all major motor groups in bilateral upper and lower extremities Neurovascular status: Radial pulse intact, 2+ bilaterally. Cap refill under 3 seconds in digits of upper extremities Special tests: Negative Homans bilaterally; negative clonus bilaterally; negative Jennifer's bilaterally Results - Labs Labs: Abnormal Lab Results - Last 24 Hours (Table) 12/13/21 12/13/21 12/13/21 Range/Units 22:19 22:19 22:19 RBC 2.92 L (4.30-5.90) m/uL Hgb 11.3 L (13.0-17.5) gm/dL Hct 29.9 L (39.0-53.0) % MCV 102.7 H (80.0-100.0) fL MCH 38.6 H (25.0-35.0) pg MCHC 37.6 H (31.0-37.0) g/dL Neutrophils # 8.2 H (1.3-7.7) k/uL Lymphocytes # 0.7 L (1.0-4.8) k/uL Sodium 133 L (137-145) mmol/L Chloride 86 L (98-107) mmol/L Carbon Dioxide 39 H (22-30) mmol/L BUN 43 H (9-20) mg/dL Creatinine 1.29 H (0.66-1.25) mg/dL Glucose 122 H (74-99) mg/dL POC Glucose (mg/dL) (75-99) mg/dL Total Bilirubin 3.2 H (0.2-1.3) mg/dL Troponin I 0.062 H* (0.000-0.034) ng/mL 12/14/21 12/14/21 12/14/21 Range/Units 00:55 06:25 06:42 RBC (4.30-5.90) m/uL Hgb (13.0-17.5) gm/dL Hct (39.0-53.0) % MCV (80.0-100.0) fL MCH (25.0-35.0) pg MCHC (31.0-37.0) g/dL Neutrophils # (1.3-7.7) k/uL Lymphocytes # (1.0-4.8) k/uL Sodium (137-145) mmol/L Chloride (98-107) mmol/L Carbon Dioxide (22-30) mmol/L BUN (9-20) mg/dL Creatinine (0.66-1.25) mg/dL Glucose (74-99) mg/dL POC Glucose (mg/dL) 194 H (75-99) mg/dL Total Bilirubin (0.2-1.3) mg/dL Troponin I 0.073 H* 0.056 H* (0.000-0.034) ng/mL 12/14/21 Range/Units 11:36 RBC (4.30-5.90) m/uL Hgb (13.0-17.5) gm/dL Hct (39.0-53.0) % MCV (80.0-100.0) fL MCH (25.0-35.0) pg MCHC (31.0-37.0) g/dL Neutrophils # (1.3-7.7) k/uL Lymphocytes # (1.0-4.8) k/uL Sodium (137-145) mmol/L Chloride (98-107) mmol/L Carbon Dioxide (22-30) mmol/L BUN (9-20) mg/dL Creatinine (0.66-1.25) mg/dL Glucose (74-99) mg/dL POC Glucose (mg/dL) 282 H (75-99) mg/dL Total Bilirubin (0.2-1.3) mg/dL Troponin I (0.000-0.034) ng/mL H & H 12/13/21 Range/Units 22:19 Hgb 11.3 L (13.0-17.5) gm/dL Hct 29.9 L (39.0-53.0) % Coagulation 12/13/21 Range/Units 22:19 INR 1.0 (<1.2) Result Diagrams: 12/13/21 22:19 12/13/21 22:19 Assessment and Plan Assessment: 1. Mid- back pain 2. Multiple medical comorbidities Plan: 1. Mid back pain - patient was stable at bedside this afternoon. Medicine has ordered x-rays of thoracic spine. Back pain patient has is present on the right and left sides in thoracic region. patient is nontender to palpation on exam over the spinous processes throughout the spine. Patient did not have any fall/trauma to back before he began to have pain. With patient's history of COPD, may point to pulmonary etiology. At this time we'll wait for results from x-rays of spine before proceeding with any potential intervention. At this time he do not recommend any emergent/urgent orthopedic surgical intervention. We recommend pain control with high strength Tylenol or narcotics if needed. We'll continue to follow patient while in hospital 2. Appreciate medical, pulmonology, cardio management 3. Pain management - Tylenol 4. DVT ppx - Eliquis 5. GI ppx - protonix 6. PT/OT - WBAT w/walker Time with Patient: Less than 30
[2021-12-14 19:04] LABS: Glucose,Whole Blood 273 mg/dL (75-99)
--- NOTE | 2021-12-14 19:58 | P.HPIM ---
History of Present Illness H&P Date: 12/14/21 Chief Complaint: Back pain Hospital course: This is a very pleasant 89-year-old patient of Dr. Barrington Ojeda. chronic stable medical conditions include congestive heart failure from diastolic dysfunction EF 55%, moderate persistent asthma, chronically paralyzed right diaphragm, persistent atrial fibrillation, diabetes mellitus type 2, GERD, hypertension, hyperlipidemia, hypothyroid, peptic ulcer disease, chronic diverticulosis, chronic hypoxic respiratory failure 2.5 liters oxygen at home, left bundle branch block. single-chamber permanent pacemaker placement for sy mptomatic sinus pauses. Patient presents with increasing pain in the mid back area more so thoracic area. It is present on both side of the spine. It is worst if he twists or makes of movement. It also present at baseline. Does not remember having any local injury. Patient does have arthritis of the joints. These symptoms up, on for last couple days. Denies any dizziness oh lightheadedness. Patient has chronic shortness of breath. Appetite is fair. Denies any fever and chills. No anterior chest wall pain. Patient's family members at the bedside including patient's daughter and . Review of systems: GEN.: tired EYES: None HEENT: Decreased hearing NECK: None RESPIRATORY: Chronic short of breath CARDIOVASCULAR: None GASTROINTESTINAL: None GENITOURINARY: None MUSCULOSKELETAL: Pain in joints LYMPHATICS: None HEMATOLOGICAL: None PSYCHIATRY: None NEUROLOGICAL: Does use a walker Past medical history to include: congestive heart failure from diastolic dysfunction EF 55%, moderate persistent asthma, chronically paralyzed right diaphragm, persistent atrial fibrillation, diabetes mellitus type 2, GERD, hypertension, hyperlipidemia, hypothyroid, peptic ulcer disease, chronic diverticulosis, chronic hypoxic respiratory failure 2 liters oxygen at home, left bundle branch block. single-chamber permanent pacemaker - sinus pauses. Social history: . Remote history of smoking. No alcohol. Family history: Stroke, lung and bone cancer Physical examination: VITAL SIGNS: 97.9, 95, 19, 143/57, 99% room air upon presentation GENERAL: BMI 28.6, reclining in bed, awake, tired EYES: Pupils equal. Conjunctiva normal. HEENT: External appearance of nose and ears normal, oral cavity grossly normal. NECK: JVD not raised; masses not palpable. HEART: First and second heart sounds are normal; no edema. LUNGS: Respiratory rate normal; decreased breath sounds ABDOMEN: Soft, nontender, liver spleen not palpable, no masses palpable. PSYCH: Alert and oriented x3; mood and affect normal. NEUROLOGICAL: Cranial nerves grossly intact; no facial asymmetry, power and sensation grossly intact. MUSCULAR skeletal: Evidence of OA in several joints. Patient has reproducible pain in the lower thoracic paraspinal area. With no localized tenderness. LYMPHATICS: No lymph nodes palpable in the axilla and neck INVESTIGATIONS, reviewed in the clinical context: White count 9.7 hemoglobin 11.3 platelets 192 sodium 133 potassium 3.8 BUN 43 creatinine 1.29 2-D echo: Moderate concentric LVH. EF 50-55%. Moderate pulmonary hypertension. Troponin I 0.062, 0.073, 0.056 ProBNP 2930 EKG tracing personally reviewed by me-ventricular paced rhythm. 50 Chest x-ray film personally reviewed by me-elevation of right diaphragm Assessment and plan: -Patient presents with pain in the paraspinal area at the lower thoracic level. Reproducible twisting his body and moving about. Some pain at the baseline. Patient likely has arthritis with radicular pain. Possible some associated muscle spasm. We'll carry out x-ray of the thoracic spine and computed tomography scan. Consult orthopedics. *Steroids. K pad. Tylenol. - Chronic congestive heart failure from diastolic dysfunction EF 55%, Lasix 80 mg daily -Moderate persistent asthma DuoNeb 4 times a day. 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 She has not ACS presentation. Unlikely related to the presentation. Cardiology opinion X-rays thoracic spine. Computed tomography scan thoracic spine. Consult orthopedics. Consult cardiology. Telemetry. Care was discussed with the patient's family at the bedside. Follow lab. 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 History of Any Multi-Drug Resistant Organisms: None Reported Past Surgical History: Appendectomy, Cholecystectomy, Hernia Repair, Joint Repl acement, Orthopedic Surgery, Pacemaker Additional Past Surgical History / Comment(s): DANY/CVNS, bronchoscopies with lavage, laryngoscopy, right hip replaced, arthroscopies bilateral knees, R rotator cuff surgery. sx for deviated septum, nodules removed from vocal cords, karlene cataracts, pacemaker 04/24/19 Past Anesthesia/Blood Transfusion Reactions: Motion Sickness, Postoperative Nausea & Vomiting (PONV) Additional Past Anesthesia/Blood Transfusion Reaction / Comment(s): UNK FAMILY HX. NEVER HAS HAD BLOOD TRANSFUSION Type of Cardiac Device: Permanent Pacemaker Device Placement Date:: 04/24/19 Past Psychological History: No Psychological Hx Reported Additional Psychological History / Comment(s): Retired. No service. No animal exposures. 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 Lives with spouse in a single level home that has 3 steps to enter. PT is independent. He uses no assistive device and no home care. He drives a car.Pt has a nebulizer and glucometer. Smoking Status: Former smoker Past Alcohol Use History: None Reported Additional Past Alcohol Use History / Comment(s): Quit smoking in 1965, started AT AGE 22 Past Drug Use History: None Reported - Past Family History Brother(s) Family Medical History: Cancer Additional Family Medical History / Comment(s): Pt had one brother with lung cancer and another brother with bone cancer. Sister(s) Family Medical History: Cancer Additional Family Medical History / Comment(s): Pt's sister had colon cancer. Mother Family Medical History: CVA/TIA Father Family Medical History: Hypertension Medications and Allergies Home Medications Medication Instructions Recorded Confirmed Type Folic Acid 1 mg PO BID 10/10/14 12/14/21 History Omeprazole [PriLOSEC] 20 mg PO DAILY@1200 10/10/14 12/14/21 History Apixaban [Eliquis] 2.5 mg PO BID 02/04/15 12/14/21 History Spironolactone [Aldactone] 12.5 mg PO DAILY 02/04/15 12/14/21 History Levalbuterol HCl [Xopenex 1.25 mg INHALATION RT-QID PRN 02/05/15 12/14/21 History Nebulized] Cholecalciferol [Vitamin D3 (25 75 mcg PO DAILY 10/01/16 12/14/21 History Mcg = 1000 Iu)] Levothyroxine Sodium [Synthroid] 175 mcg PO DAILY 10/01/16 12/14/21 History Furosemide [Lasix] 40 mg PO DAILY@1500 PRN 04/22/19 12/14/21 History Furosemide [Lasix] 80 mg PO DAILY 04/22/19 12/14/21 History Ipratropium Nebulized [Atrovent 0.5 mg INHALATION RT-TID 04/22/19 12/14/21 History Nebulized 0.2 MG/ML] Metoprolol Tartrate [Lopressor] 25 mg PO BID 04/22/19 12/14/21 History metOLazone [Zaroxolyn] 0.5 tab PO DAILY PRN 04/29/19 12/14/21 History Fluticasone Propion/Salmeterol 1 puff INHALATION RT-BID 10/06/21 12/14/21 History [Wixela 500-50 Inhub] Glimepiride [Amaryl] 2 mg PO AC-BRKFST 10/06/21 12/14/21 History Meclizine [Antivert] 12.5 mg PO DAILY PRN 10/06/21 12/14/21 History Potassium Chloride ER [K-Dur 10] 10 meq PO MOWEFR 10/06/21 12/14/21 History predniSONE 5 mg PO DAILY 10/06/21 12/14/21 History sitaGLIPtin [Januvia] 100 mg PO DAILY 10/06/21 12/14/21 History Albuterol Sulfate [Ventolin HFA] 2 puff INHALATION RT-QID PRN 12/14/21 12/14/21 History Lidocaine 5% Patch [Lidoderm 5% 1 patch TRANSDERM DAILY PRN 12/14/21 12/14/21 History Patch] Allergies Allergy/AdvReac Type Severity Reaction Status Date / Time amoxicillin [From Augmentin] Allergy Unknown Verified 12/14/21 08:22 cefuroxime Allergy Rash/Hives Verified 12/14/21 08:22 cetyl alcohol [From Cetaphil] Allergy Rash/Hives Verified 12/14/21 08:22 clavulanic acid Allergy Unknown Verified 12/14/21 08:22 [From Augmentin] fexofenadine Allergy Unknown Verified 12/14/21 08:22 flecainide Allergy Rash/Hives Verified 12/14/21 08:22 fluconazole Allergy Unknown Verified 12/14/21 08:22 paraben [From Cetaphil] Allergy Rash/Hives Verified 12/14/21 08:22 propylene glycol Allergy Rash/Hives Verified 12/14/21 08:22 [From Cetaphil] skin cleanser [From Cetaphil] Allergy Rash/Hives Verified 12/14/21 08:22 soap [From Cetaphil] Allergy Rash/Hives Verified 12/14/21 08:22 sodium lauryl sulfate Allergy Rash/Hives Verified 12/14/21 08:22 [From Cetaphil] stearyl alcohol Allergy Rash/Hives Verified 12/14/21 08:22 [From Cetaphil] sulfamethoxazole Allergy Unknown Verified 12/14/21 08:22 [From Bactrim] Tetracyclines Allergy Unknown Verified 12/14/21 08:22 trimethoprim [From Bactrim] Allergy Unknown Verified 12/14/21 08:22 amiodarone AdvReac Cough Verified 12/14/21 08:22 benzocaine [From Cetacaine] AdvReac Dyspnea Verified 12/14/21 08:22 butamben [From Cetacaine] AdvReac Dyspnea Verified 12/14/21 08:22 meperidine HCl [From Demerol] AdvReac Nausea & Verified 12/14/21 08:22 Vomiting naproxen [From Naprosyn] AdvReac GI BLEED Verified 12/14/21 08:22 tetracaine [From Cetacaine] AdvReac Nausea & Verified 12/14/21 08:22 Vomiting zomepirac AdvReac GI BLEED Verified 12/14/21 08:22 duprenex AdvReac Nausea & Uncoded 12/14/21 08:22 Vomiting Physical Exam Vitals: Vital Signs Temp Pulse Pulse Resp BP BP Pulse Ox 12/14/21 09:44 58 L 18 12/14/21 09:31 60 18 94 L 12/14/21 04:00 97.8 F 50 L 18 112/54 98 12/14/21 01:20 97.6 F 50 L 18 132/69 98 12/14/21 00:15 51 L 20 125/55 98 12/13/21 23:10 50 L 12/13/21 23:03 49 L 12/13/21 23:00 51 L 18 134/54 98 12/13/21 22:03 50 L 20 134/68 99 12/13/21 20:39 97.9 F 45 L 19 143/57 99 Intake and Output 12/13/21 12/14/21 12/14/21 22:59 06:59 14:59 Intake Total 10 Output Total 250 Balance -240 Intake: IV 10 Invasive Line 1 10 Output: Urine 250 Other: Voiding Method Toilet # Voids 1 Weight 90.265 kg 90.265 kg Results CBC & Chem 7: 12/13/21 22:19 12/13/21 22:19 Labs: Abnormal Lab Results - Last 24 Hours (Table) 12/13/21 12/13/21 12/13/21 Range/Units 22:19 22:19 22:19 RBC 2.92 L (4.30-5.90) m/uL Hgb 11.3 L (13.0-17.5) gm/dL Hct 29.9 L (39.0-53.0) % MCV 102.7 H (80.0-100.0) fL MCH 38.6 H (25.0-35.0) pg MCHC 37.6 H (31.0-37.0) g/dL Neutrophils # 8.2 H (1.3-7.7) k/uL Lymphocytes # 0.7 L (1.0-4.8) k/uL Sodium 133 L (137-145) mmol/L Chloride 86 L (98-107) mmol/L Carbon Dioxide 39 H (22-30) mmol/L BUN 43 H (9-20) mg/dL Creatinine 1.29 H (0.66-1.25) mg/dL Glucose 122 H (74-99) mg/dL POC Glucose (mg/dL) (75-99) mg/dL Total Bilirubin 3.2 H (0.2-1.3) mg/dL Troponin I 0.062 H* (0.000-0.034) ng/mL 12/14/21 12/14/21 12/14/21 Range/Units 00:55 06:25 06:42 RBC (4.30-5.90) m/uL Hgb (13.0-17.5) gm/dL Hct (39.0-53.0) % MCV (80.0-100.0) fL MCH (25.0-35.0) pg MCHC (31.0-37.0) g/dL Neutrophils # (1.3-7.7) k/uL Lymphocytes # (1.0-4.8) k/uL Sodium (137-145) mmol/L Chloride (98-107) mmol/L Carbon Dioxide (22-30) mmol/L BUN (9-20) mg/dL Creatinine (0.66-1.25) mg/dL Glucose (74-99) mg/dL POC Glucose (mg/dL) 194 H (75-99) mg/dL Total Bilirubin (0.2-1.3) mg/dL Troponin I 0.073 H* 0.056 H* (0.000-0.034) ng/mL Thrombosis Risk Factor Assmnt - Choose All That Apply Each Factor Represents 1 point: Abnormal pulmonary function (COPD) Other Risk Factors: No Other congenital or acquired thrombophilia - If yes, enter type in comment: No Thrombosis Risk Factor Assessment Total Risk Factor Score: 1 Thrombosis Risk Factor Assessment Level: Low Risk
[2021-12-14] MEDS: FOLIC ACID 1 MG TAB PO SCH (20:43)
--- NOTE | 2021-12-14 21:38 | XR ---
EXAMINATION TYPE: XR thoracic spine complete, XR thoraco lumbar junction DATE OF EXAM: 12/14/2021 4:59 PM INDICATION: Patient age:Male; 89 years old; Reason for study: lower thoracic spine pain; COMPARISON: CT abdomen pelvis 10/06/2021, CT chest 04/22/2019. TECHNIQUE: 2 views of the thoracic and thoracal lumbar spine in Frontal and lateral projections. FINDINGS: Cardiac conduction leads are seen projecting over the heart. There is multilevel disc degeneration ch anges with wedging of the vertebral bodies of the midthoracic spine with mild height loss. Not signif icantly changed from prior CT given differences in technique. There is slightly increased kyphotic cu rvature of the thoracic spine as a result. No evidence of acute osseous pathology. IMPRESSION: Multilevel disc degeneration changes of the spine with anterior wedging of multiple levels throughout the thoracic spine which is not significantly changed from 2019 CT given differences in technique. N o obvious displaced fracture identified.
[2021-12-15 05:39] LABS: Glucose,Whole Blood 138 mg/dL (75-99)
[2021-12-15] MEDS: INSULIN ASPART (NovoLOG) 100 UNIT/ML VIAL SQ SCH ×2 (06:55→13:58)
[2021-12-15] MEDS: LEVOTHYROXINE 88 MCG TAB PO SCH (06:55)
[2021-12-15] MEDS ORDERED: GLIMEPIRIDE 2 MG TAB PO SCH (07:30)
[2021-12-15] MEDS: SYMBICORT 160-4.5 MCG INHALER INHALATION SCH (08:42)
[2021-12-15] MEDS: IPRATROPIUM-ALBUTEROL 3 ML NEB INHALATION SCH ×2 (08:42→11:50)
[2021-12-15] MEDS ORDERED: CHOLECALCIFEROL 25 MCG (1000 IU) TABLET PO SCH (09:00)
[2021-12-15] MEDS: APIXABAN 2.5 MG TABLET PO SCH (09:32)
[2021-12-15] MEDS: PANTOPRAZOLE 40 MG TABLET PO SCH (09:32)
[2021-12-15] MEDS: METOPROLOL TARTRATE 25 MG TAB PO SCH (09:32)
[2021-12-15] MEDS: SPIRONOLACTONE 25 MG TAB PO SCH (09:32)
[2021-12-15] MEDS: FUROSEMIDE 80 MG TAB PO SCH (09:33)
[2021-12-15] MEDS: LINAGLIPTIN 5 MG TABLET PO SCH (09:33)
[2021-12-15] MEDS: predniSONE 20 MG TAB PO SCH (09:33)
[2021-12-15] MEDS: FOLIC ACID 1 MG TAB PO SCH (09:33)
[2021-12-15 09:38] VITALS: BP 119/57; TEMP 97.2
[2021-12-15] MEDS ORDERED: predniSONE 5 MG TAB PO SCH (09:45)
--- NOTE | 2021-12-15 10:42 | P.PN ---
Subjective Progress Note Date: 12/15/21 Principal diagnosis: mid-back pain Patient seen at bedside this morning resting comfortably lying in semirecumbent position. Patient says his back pain is about the same as it was yesterday and states it is in middle of his back on both sides. Patient says the pain medication has been helping ease his pain a bit. Patient denies radiation of pain. Patient denies increasing chest pain, increasing shortness breath, nausea, vomiting, change in vision, loss of bowel/bladder control. Objective - Vital Signs Vital signs: Vital Signs Temp 97.6 F 12/15/21 04:00 Pulse 66 12/15/21 08:59 Resp 18 12/15/21 04:00 BP 112/57 12/15/21 04:00 Pulse Ox 98 12/15/21 04:00 Intake & Output 12/14/21 12/15/21 12/15/21 18:59 06:59 18:59 Intake Total 240 360 Output Total 300 675 Balance -60 -675 360 Intake: Oral 240 360 Output: Urine 300 675 Other: Voiding Method Toilet Toilet # Voids 1 - Exam Inspection: Negative for any open fractures, ecchymosis, erythema, nodules during spine exam Sensation: Patient does have some decreased sensation in a couple digits distally on the left hand as well as both great toes. Patient does have a history of diabetes; patient says he does take oral medication daily for it. Otherwise, sensation is equal, symmetric, bilaterally intact in upper and lower extremities Palpation: Patient has some mild to moderate tenderness to palpation along the paravertebral muscles in the mid back. Patient is nontender to patient throughout spine. Patient is nontender to palpation throughout rest exam Range of motion: Patient has full range of motion bilateral lower extremities. Patient does have some limited range of motion in the right shoulder and did have previous right rotator cuff repair. full Range of motion the rest of the upper extremities Motor: 5/5 in all major motor groups in bilateral upper and lower extremities Neurovascular status: Radial pulse intact, 2+ bilaterally. Cap refill under 3 seconds in digits of upper extremities Special tests: Negative Homans bilaterally; negative clonus bilaterally; negative Jennifer's bilaterally - Labs CBC & Chem 7: 12/13/21 22:19 12/13/21 22:19 Labs: Abnormal Lab Results - Last 24 Hours (Table) 12/14/21 12/14/21 12/14/21 Range/Units 11:36 16:46 19:03 POC Glucose (mg/dL) 282 H 279 H 273 H (75-99) mg/dL 12/15/21 Range/Units 05:37 POC Glucose (mg/dL) 138 H (75-99) mg/dL Assessment and Plan Assessment: 1. Mid- back pain; DDD; 2. Multiple medical comorbidities Plan: 1. Mid back pain - patient was stable at bedside this afternoon. X-rays of thoracic and thoracolumbar spine do not show any fractures within the spine. There is evidence of degenerative disc disease and spondylosis throughout spine with no significant changes when compared to CT spine in 2019. At this time we do not recommend any emergent/urgent orthopedic surgical intervention. We recommend pain control with high strength Tylenol or narcotics if needed. Patient is stable for discharge home from an orthopedic standpoint. At this time orthopedics is signing off. Please do not hesitate to contact us for any further questions. Follow up in office as needed 2. Appreciate medical, pulmonology, cardio management 3. Pain management - Tylenol 4. DVT ppx - Eliquis 5. GI ppx - protonix 6. PT/OT - WBAT w/walker Time with Patient: Less than 30
--- NOTE | 2021-12-15 10:51 | P.PN ---
Subjective Progress Note Date: 12/15/21 Principal diagnosis: Back pain. Pulmonary consult dated 12/14/2021. 89-year-old male, well-known to me. The patient sees Dr. Ojeda as a primary, down in the [place] area. The patient apparently is brought into the emergency department, and is seen on December 13. He came in complaining of sharp pain in the posterior chest and back area. The pain is apparently sharp. It's mostly left-sided. It does radiate over to the right sided bit. Apparently it was a bit worse with deep breathing, and also changes in body position. He denied any fever or chills. There is no shortness of breath. He denied any wheezing. He states the pain started early in the morning on Tuesday. He denies any trauma. The patient was apparently seen by cardiology, and they thought his pain was noncardiac in origin. After listening to her story, I thought his pancreatic be pleuritic in nature, or related to some sort of musculoskeletal problem. The pain was not reproducible. Lab data includes a white count of 9.7, hemoglobin 11.3, hematocrit 29.9, and a platelet count of 192,000. PT INR and PTT were normal. Sodium 133, potassium 3.8, chlorides 86, CO2 39, anion gap 8, BUN 43, and creatinine 1.29. Troponins were 0.062, 0.073 and 0.056. N-terminal proBNP was 2930. The rest of his comprehensive metabolic profile was normal. The patient's chest x-ray showed a chronically elevated right diaphragm, with some minimal atelectasis at the right lung base. This is essentially unchanged from previous x-rays. Progress note dated 12/15/2021. 89-year-old male well-known to me. He was seen yesterday in consultation. He is again seen in room 358. The patient came in with back pain. It was sharp. He did seem to get worse with deep inspiration, and changes in body position. The patient was seen by cardiology. They do not think it was cardiac related. His chest x-ray was stable, he needs really not having any respiratory issues. I did not feel it was his COPD it was causing her problem. I thought this was either pleurisy, and/or some sort of musculoskeletal abnormality. He was seen by the back doctors today. No new laboratory data today. X-rays of the thoracic and lumbar spine were noted. Most of the changes to her degenerative, and not new. Objective - Vital Signs Vital signs: Vital Signs Temp 97.2 F L 12/15/21 08:05 Pulse 66 12/15/21 08:59 Resp 18 12/15/21 08:05 BP 119/57 12/15/21 08:05 Pulse Ox 98 12/15/21 08:05 Intake & Output 12/14/21 12/15/21 12/15/21 18:59 06:59 18:59 Intake Total 240 660 Output Total 300 675 Balance -60 -675 660 Intake: Oral 240 660 Output: Urine 300 675 Other: Voiding Method Toilet Toilet # Voids 1 - Exam No acute distress, oriented 3. Currently on 2 L nasal cannula. This is his home dose. No acute respiratory difficulty. HEENT examination is grossly unremarkable. Neck supple. Full range of motion. No adenopathy thyromegaly or neck vein distention. Cardiovascular examination reveals regular rhythm rate. S1-S2 normal. No S3 or S4. No discernible murmur noted. Heart rate at 66 bpm. Pain is not repro ducible. Lungs reveal clear bilateral breath sounds, diminished throughout. No distinct wheezes, rhonchi, or crackles. Breath sounds equal bilaterally. Abdomen soft bowel sounds are heard. No masses or tenderness. Extremities are intact. No cyanosis clubbing or edema. Skin is without rash or lesion. Neurologic examination is brief but nonfocal. - Labs CBC & Chem 7: 12/13/21 22:19 12/13/21 22:19 Labs: Abnormal Lab Results - Last 24 Hours (Table) 12/14/21 12/14/21 12/14/21 Range/Units 11:36 16:46 19:03 POC Glucose (mg/dL) 282 H 279 H 273 H (75-99) mg/dL 12/15/21 Range/Units 05:37 POC Glucose (mg/dL) 138 H (75-99) mg/dL Assessment and Plan Assessment: Posterior, sharp left sided, thoracic pain, a bit worse on body movements, and initially worse on deep breathing. This pain could be either musculoskeletal in origin, or potentially related to pleurisy. History of COPD with chronic hypoxemic respiratory failure, and home O2 at 2 L. Chronic elevation of the right hemidiaphragm. History of atrial fibrillation. History of CHF. History of CVA/TIA. Diabetes mellitus. GERD. Hypertension. History of diverticular disease. History of kidney stones. Multiple medical problems and comorbidities. Plan: Plan dated 12/14/2021. The patient's pain appears not to be cardiac in origin, according to cardiology evaluation. I don't see anything on the chest x-ray which would explain the patient's pain. He's not having a COPD exacerbation. There is no new infiltrates or abnormalities on the chest x-ray. The pain could relate to some sort of musculoskeletal abnormality, and/or pleurisy. Labs, x-rays, and medications are reviewed. Additional recommendations and suggestions are forthcoming. Prognosis is guarded. We will continue to follow make recommendations where appropriate. Plan dated 12/15/2021. The patient's pain appears not to be cardiac in origin. The patient was seen by cardiology. Also, I do not think the pain was related to his pulmonary system. I thought the patient could have primarily a musculoskeletal component to his pain, or possibly even some pleurisy. The patient was given high doses of prednisone by the primary service, and there is no improvement in his pain. That would speak against pleurisy. He was seen by the spine team. X-rays showed degenerative changes. In my opinion, the patient could be discharged from the pulmonary perspective. The patient can see me in the office post discharge. We reduced his prednisone dose down to his usual dose of 5 mg. Time with Patient: Less than 30
[2021-12-15 11:50] LABS: Glucose,Whole Blood 244 mg/dL (75-99)
[2021-12-15 12:05] VITALS: PULSE 72
--- NOTE | 2021-12-15 14:01 | P.PN ---
Subjective Progress Note Date: 12/15/21 HISTORY OF PRESENT ILLNESS: This is a 89-year-old male with a past medical history significant for persistent atrial fibrillation, COPD, hypertension, hyperlipidemia, diabetes, and former nicotine dependence. Patient follows in the office with Dr. Pollack. We have been asked to see the patient in consultation for elevated troponin. Patient examined at the bedside. The patient presented to the hospital with a chief complaint of back pain. The patient also reports having some shortness of breath which has improved this morning. He denies having any chest pain or pressure. * EKG reveals ventricular paced rhythm * Chest xray some chronic elevation of the right diaphragm with atelectasis right lung base. This could relate to some diaphragm paralysis. No heart failure seen. Mild pulmonary fibrosis. * Laboratory data: WBC 9.7. Hemoglobin 11.3. Platelet count 192. Sodium 133. Potassium 3.8. BUN 43. Creatinine 1.29. Troponin 0.062. 0.073. 0.056. ProBNP 2930. * Current home cardiac medications include Zaroxolyn 1/2 tab daily PRN (dose of tab unknown), Aldactone 12.5 mg daily, metoprolol tartrate 25 mg twice a day, Lasix 80 mg in the morning and 40 mg afternoon PRN, Eliquis 2.5 mg twice a day * Most recent echocardiogram obtained in March 2019 revealing ejection fraction 50-55%, mild aortic regurgitation, [id number] mitral regurgitation, mild tricuspid regurgitation, and mild pulmonary hypertension * Cardiac catheterization history: 2011 revealing minimal coronary artery disease 12/15/2021 Patient examined this morning at the bedside. Patient denies chest pain or pressure. He reports mild shortness of breath which she states is near his baseline. Echocardiogram completed revealing ejection fraction 50-55%, mild aortic regurgitation,mild MR, mild TR, moderate pulmonary hypertension. Vital signs are stable. PHYSICAL EXAM: VITAL SIGNS: Reviewed. GENERAL: Well-developed in no acute distress. HEENT: Head is normocephalic. Pupils are equal, round. Sclerae anicteric. Mucous membranes of the mouth are moist. Neck supple. No JVD or thyromegaly LUNGS: Respirations even and unlabored. Lungs diminished to auscultation bilaterally. HEART: Regular rate and rhythm. S1 and S2 heard. Systolic murmur noted. ABDOMEN: Soft. Nondistended. Nontender. EXTREMITIES: Normal range of motion. No clubbing or cyanosis. Peripheral pulses intact. Trace lower extremity edema NEUROLOGIC: Awake and alert. Oriented x 3. ASSESSMENT: Back pain Shortness of breath Acute COPD exacerbation, ruled out per pulmonary Chronic hypoxic respiratory failure on home o2 Chronic congestive heart failure with preserved EF Paroxysmal atrial fibrillation Abnormal troponins, not suggestive of acute coronary syndrome Acute kidney injury Hypertension Hyperlipidemia Diabetes Former nicotine dependence PLAN: continue current cardiac medications Patient is stable for discharge home today from a cardiac standpoint He is to follow up on an outpatient basis We will sign off. Please reconsult if needed. Nurse practitioner note has been reviewed by physician. Signing provider agrees with the documented findings, assessment, and plan of care. Objective - Vital Signs Vital signs: Vital Signs Temp 97.2 F L 12/15/21 08:05 Pulse 72 12/15/21 12:04 Resp 18 12/15/21 08:05 BP 119/57 12/15/21 08:05 Pulse Ox 98 12/15/21 08:05 Intake & Output 12/14/21 12/15/21 12/15/21 18:59 06:59 18:59 Intake Total 240 660 Output Total 300 675 Balance -60 -675 660 Intake: Oral 240 660 Output: Urine 300 675 Other: Voiding Method Toilet Toilet # Voids 1 - Labs CBC & Chem 7: 12/13/21 22:19 12/13/21 22:19 Labs: Abnormal Lab Results - Last 24 Hours (Table) 12/14/21 12/14/21 12/15/21 Range/Units 16:46 19:03 05:37 POC Glucose (mg/dL) 279 H 273 H 138 H (75-99) mg/dL 12/15/21 Range/Units 11:45 POC Glucose (mg/dL) 244 H (75-99) mg/dL
--- NOTE | 2021-12-15 17:10 | P.DS ---
Providers Date of admission: 12/13/21 23:35 Expected date of discharge: 12/15/21 Attending physician: Cristian Burk Consults: 12/13/21 23:34 Consult Physician Routine Consulting Provider: Gabriele Slo Consult Reason/Comments: COPD Do you want consulting provider notified?: Yes 12/14/21 12:23 Consult Physician Routine Consulting Provider: Jb Lewis Consult Reason/Comments: lower thoracic spine stanley Do you want consulting provider notified?: Yes Primary care physician: Barrington Ojeda [facility] Course: Chief Complaint: Back pain Hospital course: This is a very pleasant 89-year-old patient of Dr. Barrington Ojeda. chronic stable medical conditions include congestive heart failure from diastolic dysfunction EF 55%, moderate persistent asthma, chronically paralyzed right diaphragm, persistent atrial fibrillation, diabetes mellitus type 2, GERD, hypertension, hyperlipidemia, hypothyroid, peptic ulcer disease, chronic diverticulosis, chronic hypoxic respiratory failure 2.5 liters oxygen at home, left bundle branch block. single-chamber permanent pacemaker placement for symptomatic sinus pauses. Patient presents with increasing pain in the mid back area more so thoracic area. It is present on both side of the spine. It is worst if he twists or makes of movement. It also present at baseline. Does not remember having any local injury. Patient does have arthritis of the joints. These symptoms up, on for last couple days. Denies any dizziness oh lightheadedness. Patient has chronic shortness of breath. Appetite is fair. Denies any fever and chills. No anterior chest wall pain. Patient's family members at the bedside including patient's daughter and . Patient's pain is reproducible. Especially in twisting the spine. Lower thoracic. No localized tenderness. Presentation was not felt to be cardiac or pulmonary. One bolus of steroid was given improved to back pain. Patient was told to manage it with conservative measurements. Including heat and cold as needed. Proper sitting positions especially sitting up. X-ray computed tomography scan of the thoracic spine did show multilevel DJD. And wedging. Discussion and discharge planning more than 35 minutes Past medical history to include: congestive heart failure from diastolic dysfunction EF 55%, moderate persistent asthma, chronically paralyzed right diaphragm, persistent atrial fibrillation, diabetes mellitus type 2, GERD, hypertension, hyperlipidemia, hypothyroid, peptic ulcer disease, chronic diverticulosis, chronic hypoxic respiratory failure 2 liters oxygen at home, left bundle branch block. single-chamber permanent pacemaker - sinus pauses. Social history: . Remote history of smoking. No alcohol. Family history: Stroke, lung and bone cancer Physical examination: VITAL SIGNS: 97.2, 48, 18, 19/57, 98% on 2 L GENERAL: Reclining in bed, comfortable EYES: Pupils equal. Conjunctiva normal. HEENT: External appearance of nose and ears normal, oral cavity grossly normal. NECK: JVD not raised; masses not palpable. HEART: First and second heart sounds are normal; no edema. LUNGS: Respiratory rate normal; decreased breath sounds ABDOMEN: Soft, nontender, liver spleen not palpable, no masses palpable. PSYCH: Alert and oriented x3; mood and affect normal. NEUROLOGICAL: Cranial nerves grossly intact; no facial asymmetry, power and sensation grossly intact. MUSCULAR skeletal: Evidence of OA in several joints. Patient has reproducible pain in the lower thoracic paraspinal area. With no localized tenderness. INVESTIGATIONS, reviewed in the clinical context: Thoracolumbar spine x-ray and computed tomography scan: Multiple level DJD and wedging. White count 9.7 hemoglobin 11.3 platelets 192 sodium 133 potassium 3.8 BUN 43 creatinine 1.29 2-D echo: Moderate concentric LVH. EF 50-55%. Moderate pulmonary hypertension. Troponin I 0.062, 0.073, 0.056 ProBNP 2930 EKG tracing personally reviewed by me-ventricular paced rhythm. 50 Chest x-ray film personally reviewed by me-elevation of right diaphragm Assessment and plan: -Patient presents with pain in the paraspinal area at the lower thoracic level. Reproducible twisting his body and moving about. Some pain at the baseline. : Multilevel spine DJD and wedging causing symptoms. K pad. Tylenol. Heat and cold local treatment. Proper posture. Follow-up with orthopedics. - Chronic congestive heart failure from diastolic dysfunction EF 55%, Zaroxolyn 0.5 mg a day. Aldactone 12.5 mg day. Lasix 80 mg a day. -Moderate persistent asthma DuoNeb 4 times a day. 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 not ACS presentation. Not related to the presentation. Was seen by cardiology Disposition: Home Plan - Discharge Summary Discharge Rx Participant: Yes New Discharge Prescriptions: New Acetaminophen Tab [Tylenol] 650 mg PO Q6HR PRN tab PRN Reason: Fever And/ Or Pain Continue Folic Acid 1 mg PO BID Omeprazole [PriLOSEC] 20 mg PO DAILY@1200 Spironolactone [Aldactone] 12.5 mg PO DAILY Apixaban [Eliquis] 2.5 mg PO BID Levalbuterol HCl [Xopenex Nebulized] 1.25 mg INHALATION RT-QID PRN PRN Reason: Dyspnea Cholecalciferol [Vitamin D3 (25 Mcg = 1000 Iu)] 75 mcg PO DAILY Levothyroxine Sodium [Synthroid] 175 mcg PO DAILY Furosemide [Lasix] 80 mg PO DAILY Ipratropium Nebulized [Atrovent Nebulized 0.2 MG/ML] 0.5 mg INHALATION RT-TID Metoprolol Tartrate [Lopressor] 25 mg PO BID metOLazone [Zaroxolyn] 0.5 tab PO DAILY PRN PRN Reason: WEIGHT GAIN Meclizine [Antivert] 12.5 mg PO DAILY PRN PRN Reason: DIZZINESS Glimepiride [Amaryl] 2 mg PO AC-BRKFST predniSONE 5 mg PO DAILY Albuterol Sulfate [Ventolin HFA] 2 puff INHALATION RT-QID PRN PRN Reason: Shortness Of Breath Lidocaine 5% Patch [Lidoderm 5% Patch] 1 patch TRANSDERM DAILY PRN PRN Reason: Pain sitaGLIPtin [Januvia] 100 mg PO DAILY Potassium Chloride ER [K-Dur 10] 10 meq PO MOWEFR Fluticasone Propion/Salmeterol [Wixela 500-50 Inhub] 1 puff INHALATION RT-BID Discontinued Furosemide [Lasix] 40 mg PO DAILY@1500 PRN PRN Reason: Edema Discharge Medication List Folic Acid 1 mg PO BID 10/10/14 [History] Omeprazole [PriLOSEC] 20 mg PO DAILY@1200 10/10/14 [History] Apixaban [Eliquis] 2.5 mg PO BID 02/04/15 [History] Spironolactone [Aldactone] 12.5 mg PO DAILY 02/04/15 [History] Levalbuterol HCl [Xopenex Nebulized] 1.25 mg INHALATION RT-QID PRN 02/05/15 [History] Cholecalciferol [Vitamin D3 (25 Mcg = 1000 Iu)] 75 mcg PO DAILY 10/01/16 [History] Levothyroxine Sodium [Synthroid] 175 mcg PO DAILY 10/01/16 [History] Furosemide [Lasix] 80 mg PO DAILY 04/22/19 [History] Ipratropium Nebulized [Atrovent Nebulized 0.2 MG/ML] 0.5 mg INHALATION RT-TID 04/22/19 [History] Metoprolol Tartrate [Lopressor] 25 mg PO BID 04/22/19 [History] metOLazone [Zaroxolyn] 0.5 tab PO DAILY PRN 04/29/19 [History] Fluticasone Propion/Salmeterol [Wixela 500-50 Inhub] 1 puff INHALATION RT-BID 10/06/21 [History] Glimepiride [Amaryl] 2 mg PO AC-BRKFST 10/06/21 [History] Meclizine [Antivert] 12.5 mg PO DAILY PRN 10/06/21 [History] Potassium Chloride ER [K-Dur 10] 10 meq PO MOWEFR 10/06/21 [History] predniSONE 5 mg PO DAILY 10/06/21 [History] sitaGLIPtin [Januvia] 100 mg PO DAILY 10/06/21 [History] Albuterol Sulfate [Ventolin HFA] 2 puff INHALATION RT-QID PRN 12/14/21 [History] Lidocaine 5% Patch [Lidoderm 5% Patch] 1 patch TRANSDERM DAILY PRN 12/14/21 [History] Acetaminophen Tab [Tylenol] 650 mg PO Q6HR PRN tab 12/15/21 [Rx] Follow up Appointment(s)/Referral(s): Ilene Pollack MD [STAFF PHYSICIAN] - 12/28/21 3:45 pm ([place]) Renee Ford NPC [Nurse Practitioner] - 12/31/21 3:45 pm Barrington Ojeda MD [Primary Care Provider] - 1-2 days (Office will call you for follow up appt.) Patient Instructions/Handouts: Heart Attack (DC), Heart Failure (DC), Heart Healthy Diet (ED), COPD (Chronic Obstructive Pulmonary Disease) (ED) Discharge Disposition: HOME WITH HOME HEALTH SERVICES
[2021-12-16] MEDS ORDERED: predniSONE 5 MG TAB PO SCH (09:00)
== END 2021-12-15 15:44 | disposition home health service (06) | DRG 552 ==
LOC: EC 19:39 → 3SCARD 23:35
PROVIDERS: ADMIT Hospitalist; ATTEND Hospitalist
DX: M54.6 Pain in thoracic spine (principal); J44.1 Chronic obstructive pulmonary disease with (acute) exacerbation; I13.0 Hypertensive heart and chronic kidney disease with heart failure and stage 1 through stage 4 chronic kidney disease, or unspecified chronic kidney disease; I50.32 Chronic diastolic (congestive) heart failure; E87.2 Acidosis; I48.19 Other persistent atrial fibrillation; J96.11 Chronic respiratory failure with hypoxia; N17.9 Acute kidney failure, unspecified; R77.8 Other specified abnormalities of plasma proteins; E03.9 Hypothyroidism, unspecified; I49.5 Sick sinus syndrome; N18.30 Chronic kidney disease, stage 3 unspecified; E11.22 Type 2 diabetes mellitus with diabetic chronic kidney disease; E78.5 Hyperlipidemia, unspecified; J45.40 Moderate persistent asthma, uncomplicated; I44.7 Left bundle-branch block, unspecified; M47.894 Other spondylosis, thoracic region; K21.9 Gastro-esophageal reflux disease without esophagitis; J84.10 Pulmonary fibrosis, unspecified; J98.6 Disorders of diaphragm; K27.9 Peptic ulcer, site unspecified, unspecified as acute or chronic, without hemorrhage or perforation; K57.30 Diverticulosis of large intestine without perforation or abscess without bleeding; R53.81 Other malaise; M54.10 Radiculopathy, site unspecified; D63.1 Anemia in chronic kidney disease; Z96.641 Presence of right artificial hip joint; Z87.891 Personal history of nicotine dependence; Z79.01 Long term (current) use of anticoagulants; Z79.84 Long term (current) use of oral hypoglycemic drugs; Z79.890 Hormone replacement therapy; Z79.899 Other long term (current) drug therapy; Z86.73 Personal history of transient ischemic attack (TIA), and cerebral infarction without residual deficits; Z87.442 Personal history of urinary calculi; Z98.890 Other specified postprocedural states; Z90.49 Acquired absence of other specified parts of digestive tract; Z88.1 Allergy status to other antibiotic agents; Z88.3 Allergy status to other anti-infective agents; Z88.5 Allergy status to narcotic agent; Z88.8 Allergy status to other drugs, medicaments and biological substances; Z88.2 Allergy status to sulfonamides; Z95.0 Presence of cardiac pacemaker; Z98.42 Cataract extraction status, left eye; Z98.41 Cataract extraction status, right eye; Z99.81 Dependence on supplemental oxygen; Z82.49 Family history of ischemic heart disease and other diseases of the circulatory system; Z80.0 Family history of malignant neoplasm of digestive organs; Z80.1 Family history of malignant neoplasm of trachea, bronchus and lung; Z80.8 Family history of malignant neoplasm of other organs or systems; Z82.3 Family history of stroke
CPT/HCPCS: 36415; 71046; 72072; 72080; 80053; 83605; 83735; 83880; 84145; 84484; 85025; 85610; 85730; 93005; 93306; 94640; 94760; 96374; 99285